=== PATIENT | female | born 1960 | race Caucasian/White ===

== ENCOUNTER 2017-05-31 13:31 | Inpatient (IN) | payer MEDICARE, OTHER ==
[~2017-05-31] VITALS: Ht 152.4 cm; Wt 48.6 kg
[2017-05-31] VITALS (10 sets, daily range): BP systolic 156–188; BP diastolic 65–98
[~2017-05-31 13:31] MED LIST: ALBU2.5V14 NEB; ALPR1TAB6 PO; AMOX1TAB61 PO; BUDE10.2 IH; CARI350T PO; CARI350T14 PO; CETI10CA PO; CETI10TA16 PO; DIPH25CA83 PO; GUAI600T47 PO; INSU100I13 SQ; INSU100I17 SQ; INSU100I27 SQ; INSU100V31 SQ; INSU100V8 SQ; IPRA3AMP IH; LAMO100T5 PO; LAMO200T2 PO; LAMO200T3 PO; LATA2.5D3 EACHEYE; LEVE250T30 PO; LEVE500T56 PO; LEVE500T6 PO; LIDO20SO PO; LISI-334 PO; LOPE1LIQ7 PO; LURA20TA PO; METO-269 PO; METO50TA29 PO; MOME110A2 IH; MUPI15CR TP; Nicotine TD; OMEP40CA5 PO; OXYC-317 PO; OXYC1TAB9 PO; POTA10TA31 PO; PREG75CA PO; PROAIR HFA8.5 GM IH; PROAIR HFA8.5 GM INH; PROM118S2 PO; SILV20CR14 TP; VENTOLIN HFA18 GM IH
--- NOTE | 2017-05-31 13:35 | PHYS DOC ---
Past Medical History Past Medical History: Unknown Additional Past Medical Histor: CHRONIC BACK PAIN Past Surgical History: Other Additional Past Surgical Histo: BACK Alcohol Use: Occasionally Drug Use: None Adult General Chief Complaint Chief Complaint: seizure/overdose HPI HPI Patient is a 56 year old female who presents with overdose. According to family 37 tablets of her Benadryl are missing and 10 tablets of Tylenol. Patient is unresponsive. Review of Systems Review of Systems Unable to obtain at this time secondary to patient's current condition Current Medications Current Medications Current Medications Medications (Trade) Dose Ordered Sig/Rosemary Start Time Stop Time Status Last Admin Dose Admin Etomidate (Amidate) 20 mg 1X ONCE 05/31/17 15:00 05/31/17 15:01 DC 05/31/17 14:54 20 MG Lorazepam (Ativan) 1 mg 1X ONCE 05/31/17 15:00 05/31/17 15:01 DC 05/31/17 14:50 1 MG Propofol 50 ml @ As Directed STK-MED ONCE 05/31/17 15:19 05/31/17 15:20 DC Propofol (Diprivan) 200,000 mg 1X ONCE 05/31/17 15:00 05/31/17 15:03 DC 05/31/17 15:17 200 MG Sodium Bicarbonate 50 meq 1X ONCE 05/31/17 14:30 05/31/17 14:32 DC 05/31/17 14:44 50 MEQ Sodium Chloride 1,000 ml @ 1,000 mls/hr 1X ONCE 05/31/17 14:45 05/31/17 15:44 DC 05/31/17 14:44 1,000 MLS/HR Succinylcholine Chloride (Anectine) 100 mg 1X ONCE 05/31/17 15:00 05/31/17 15:01 DC 05/31/17 14:54 100 MG Allergies Allergies Allergies Coded Allergies Type Severity Reaction Last Updated Verified Estrogens Allergy Intermediate 09/14/15 Yes aspirin Allergy Intermediate ITCHING, VOMITING 11/21/14 Yes ibuprofen Allergy Intermediate 09/14/15 Yes Physical Exam Physical Exam Constitutional: Well developed, cachectic appearing, no acute distress, non- toxic appearance. [] HENT: Normocephalic, atraumatic, bilateral external ears normal, oropharynx moist, no oral exudates, nose normal. [] Eyes: Conjunctiva normal, no discharge. Pupils are active bilaterally to light Neck: Supple, no stridor. [] Cardiovascular:Heart rate regular rhythm, no murmur [] Lungs & Thorax: Bilateral breath sounds clear to auscultation [] Abdomen: Bowel sounds normal, soft, no tenderness, no masses, no pulsatile masses. [] Skin: Warm, dry, no erythema, no rash. [] Back: No tenderness, no CVA tenderness. [] Extremities: No tenderness, no cyanosis, no clubbing, ROM intact, no edema. [] Neurologic: Unresponsive Psychologic: Unable to obtain at this time Current Patient Data Vital Signs Vital Signs Date Time Temp Pulse Resp B/P (MAP) Pulse Ox O2 Delivery O2 Flow Rate FiO2 05/31/17 15:39 98 25 174/80 (111) 93 Ventilator 05/31/17 14:49 15.0 05/31/17 13:32 98.0 98.0 Lab Values Laboratory Tests Test 05/31/17 13:42 05/31/17 13:49 O2 Saturation 97 % (92-99) Arterial Blood pH 7.16 (7.35-7.45) *L Arterial Blood pCO2 at Patient Temp 51 mmHg (35-46) H Arterial Blood pO2 at Patient Temp 133 mmHg (75-108) H Arterial Blood HCO3 18 mmol/L (21-28) L Arterial Blood Base Excess -11 mmol/L (-3-3) L Oxyhemoglobin 95.3 % Methemoglobin 0.6 % (0.0-1.9) Carbon Monoxide, Quantitative 1.6 % (0.0-1.9) FiO2 100.0 White Blood Count 14.3 x10^3/uL (4.0-11.0) H Red Blood Count 4.33 x10^6/uL (3.50-5.40) Hemoglobin 12.5 g/dL (12.0-15.5) Hematocrit 39.1 % (36.0-47.0) Mean Corpuscular Volume 90 fL (79-100) Mean Corpuscular Hemoglobin 29 pg (25-35) Mean Corpuscular Hemoglobin Concent 32 g/dL (31-37) Red Cell Distribution Width 14.7 % (11.5-14.5) H Platelet Count 303 x10^3/uL (140-400) Neutrophils (%) (Auto) 54 % (31-73) Lymphocytes (%) (Auto) 36 % (24-48) Monocytes (%) (Auto) 8 % (0-9) Eosinophils (%) (Auto) 1 % (0-3) Basophils (%) (Auto) 1 % (0-3) Neutrophils # (Auto) 7.8 x10^3uL (1.8-7.7) H Lymphocytes # (Auto) 5.1 x10^3/uL (1.0-4.8) H Monocytes # (Auto) 1.1 x10^3/uL (0.0-1.1) Eosinophils # (Auto) 0.2 x10^3/uL (0.0-0.7) Basophils # (Auto) 0.1 x10^3/uL (0.0-0.2) Prothrombin Time 13.3 SEC (11.7-14.0) Prothrombin Time INR 1.1 (0.8-1.1) PTT 27 SEC (24-38) Urine Collection Type Unknown Urine Color Yellow Urine Clarity Clear Urine pH 5.0 Urine Specific [place] >=1.030 Urine Protein 30 mg/dL (NEG-TRACE) Urine Glucose (UA) >=1000 mg/dL (NEG) Urine Ketones (Stick) Negative mg/dL (NEG) Urine Blood Negative (NEG) Urine Nitrite Negative (NEG) Urine Bilirubin Negative (NEG) Urine Urobilinogen Dipstick 0.2 mg/dL (0.2 mg/dL) Urine Leukocyte Esterase Negative (NEG) Urine RBC 1-2 /HPF (0-2) Urine WBC Rare /HPF (0-4) Urine Squamous Epithelial Cells Mod /LPF Urine Bacteria 0 /HPF (0-FEW) Urine Hyaline Casts Few /HPF Urine Mucus Slight /LPF Sodium Level 142 mmol/L (136-145) Potassium Level 3.8 mmol/L (3.5-5.1) Chloride Level 102 mmol/L (98-107) Carbon Dioxide Level 19 mmol/L (21-32) L Anion Gap 21 (6-14) H Blood Urea Nitrogen 11 mg/dL (7-20) Creatinine 1.1 mg/dL (0.6-1.0) H Estimated GFR (Cockcroft-Gault) 51.0 Glucose Level 453 mg/dL (70-99) H Lactic Acid Level 13.4 mmol/L (0.4-2.0) *H Calcium Level 8.9 mg/dL (8.5-10.1) Magnesium Level 1.7 mg/dL (1.8-2.4) L Total Bilirubin 0.2 mg/dL (0.2-1.0) Direct Bilirubin 0.1 mg/dL (0.0-0.2) Aspartate Amino Transferase (AST) 15 U/L (15-37) Alanine Aminotransferase (ALT) 17 U/L (14-59) Alkaline Phosphatase 104 U/L (46-116) Ammonia 40 mcmol/L (11-34) H Creatine Kinase 73 U/L (26-192) Troponin I Quantitative < 0.017 ng/mL (0.000-0.055) Total Protein 6.8 g/dL (6.4-8.2) Albumin 3.7 g/dL (3.4-5.0) Lipase 266 U/L (73-393) Thyroid Stimulating Hormone (TSH) 2.969 uIU/mL (0.358-3.74) Salicylates Level 4.3 mg/dL (2.8-20.0) Salicylate Last Dose Date Unknown Salicylate Last Dose Time Unknown Urine Opiates Screen Pos (NEG) Urine Methadone Screen Neg (NEG) Acetaminophen Level 63.4 mcg/ml (10-30) H Acetaminophen Last Dose Date Unknown Acetaminophen Last Dose Time Unknown Urine Barbiturates Neg (NEG) Urine Phencyclidine Screen Neg (NEG) Urine Amphetamine/Methamphetamine Neg (NEG) Urine Benzodiazepines Screen Neg (NEG) Urine Cocaine Screen Neg (NEG) Urine Cannabinoids Screen Neg (NEG) Ethyl Alcohol Level < 10 mg/dL (0-10) Urine Ethyl Alcohol Neg (NEG) Laboratory Tests 05/31/17 13:49 Laboratory Tests 05/31/17 13:49 EKG EKG KG shows sinus tachycardia [address] elevations or concerning T- wave inversions, normal axis, QTC 481 ms, QRS 82 ms, as interpreted by me. Radiology/Procedures Radiology/Procedures [facility] [address] [place] [address] IMAGING REPORT Signed PATIENT: SUNDEEP ROSALES ACCOUNT: [id number] : 1960 LOCATION: ER AGE: 56 SEX: F EXAM STATUS: REG ER ORD. PHYSICIAN: RUDDY ODELL MD REASON: AMS PROCEDURE: CT HEAD WO CONTRAST EXAM: CT head without contrast HISTORY: ALTERED MENTAL STATUS COMPARISON: April 25, 2016 TECHNIQUE: Computed tomographic images of the head were obtained without contrast. RS compliance statement: One or more of the following individualized dose reduction techniques were utilized for this examination: 1. Automated exposure control 2. Adjustment of the mA and/or kV according to patient size 3. Use of iterative reconstruction technique FINDINGS: There is no acute intracranial process identified. Specifically, there are no intracranial blood products, extra-axial fluid collections, mass effect or midline shift. Ventricles and basilar cisterns are maintained. Areas of low attenuation within the right frontoparietal and left occipital lobes are redemonstrated, suggestive of encephalomalacia from prior insult/infarct. These appear unchanged from the previous exam. No definite new areas of low attenuation are seen to suggest acute ischemia. Intracranial vascular calcifications are present. The visualized portions of the orbits, paranasal sinuses and mastoid air cells are unremarkable. No suspicious calvarial lesion is seen. IMPRESSION: No acute intracranial findings or change from prior exam. Areas of them cephalomalacia redemonstrated. Electronically signed by: Anika Han MD (05/31/2017 3:23 PM) [facility] [place] [facility] [place]CTATED and SIGNED BY: ANIKA HAN MD DATE: 05/31/17 1520 CC: RUDDY ODELL MD; NAVEED HAWTHORNE MD ~ View chest x-ray shows ET tube in the right mainstem bronchus with atelectasis of the left hemithorax, no bony abnormalities noted, as interpreted by me. Repeat one view chest x-ray shows ET tube above the zoraida with aeration of both hemithorax is, no pneumothorax or bony abnormalities appreciated, as interpreted by me. Impressions: Benadryl overdose Tylenol overdose Metabolic acidosis with respiratory acidosis Seizure disorder Insulin-dependent diabetic Course & Med Decision Making Course & Med Decision Making Pertinent Labs and Imaging studies reviewed. (See chart for details) She presented shortly after upon arrival she had a seizure only lasted 30 seconds and resolved on its own. She sees to additional more times in the department. Each time after that she received 1 mg Ativan. I spoke with poison control who wanted 2 A of bicarbonate to be given secondary to the history of the amount of Benadryl she's consumed based on her body weight. At this time they wanted to wait to see what her Tylenol level wasn't repeated at 4 hours before starting NAC. ABG shows metabolic acidosis with respiratory acidosis. She was on a nonrebreather and she's being intubated in order to help control her acidosis and protect her airway. She never was able to communicate or respond appropriately and the ER. She started on a propofol drip. I spoke with Dr. Valencia who recommended starting Keppra 500 mg IV. Poison control also wanting to 15 minute EKGs to follow her QTC and QRS complexes based on Benadryl overdose. She's being admitted to Dr. Grider. Chest x-ray shows right mainstem bronchus intubation ET tube was pulled back 4 cm and a repeat x-ray was performed. ABG was also performed that shows normalization of her pH and PCO2. Spoke with Dr. Vega who recommends the rate decreased down to 18. Poison control was updated and they recommended starting NAC at this time. She is in critical condition being transferred the ICU at this time. I did speak with Dr. franz with Dr. Hawthorne, who states he released the patient from his practice. Critical care time on this patient was 75 minutes excluding procedures. Dragon Disclaimer Dragon Disclaimer This electronic medical record was generated, in whole or in part, using a voice recognition dictation system. Departure Departure Impression: Primary Impression: Mental status change Disposition: 09 ADMITTED INPATIENT Admitting Physician: Danial Grider Condition: CRITICAL Referrals: NAVEED HAWTHORNE MD (PCP) Intubation Procedure Intubation Procedure Intub Indication: Respiratory failure Consent: Unable to give consent due to emergent nature. Medications Used: see nursing note Procedure: The patient was placed in the appropriate position. Intubation was performed checked was a 7.0 endotracheal tube. 22 cm at the teeth. Initial confirmation of placement included bilateral breath sounds, tube fogging, adequate chest rise, adequate pulse oximetry reading. A chest x-ray to verify correct placement of the tube showed appropriate tube position. The patient tolerated the procedure well. Complications: none. Problem Qualifiers Primary Impression: Mental status change Altered mental status type: unspecified Qualified Codes: R41.82 - Altered mental status, unspecified RUDDY ODELL MD May 31, 2017 13:35
[2017-05-31] MEDS ORDERED: IV NORMAL SALINE 1000ML BAG 1,000 ML IV SCH (13:36)
[2017-05-31 14:03] LABS: BASO # 0.1 x10^3/uL (0.0-0.2); BASO % 1 % (0-3); EOS % 1 % (0-3); HEMATOCRIT 39.1 % (36.0-47.0); HEMOGLOBIN 12.5 g/dL (12.0-15.5); LYMPH # 5.1 x10^3/uL (1.0-4.8); LYMPH % 36 % (24-48); MEAN CORPUSCULAR HEMOGLOBIN 29 pg (25-35); MEAN CORPUSCULAR HGB CONC 32 g/dL (31-37); MEAN CORPUSCULAR VOLUME 90 fL (79-100); MONO % 8 % (0-9); NEUT % 54 % (31-73); PLATELET COUNT 303 x10^3/uL (140-400); RED BLOOD COUNT 4.33 x10^6/uL (3.50-5.40); RED CELL DISTRIBUTION WIDTH 14.7 % (11.5-14.5); WHITE BLOOD COUNT 14.3 x10^3/uL (4.0-11.0)
[2017-05-31 14:05] LABS: BILIRUBIN,URINE NEGATIVE (NEG); GLUCOSE,URINE >=1000 mg/dL (NEG); NITRITE,URINE NEGATIVE (NEG); PROTEIN,URINE 30 mg/dL (NEG-TRACE); UROBILINOGEN,URINE 0.2 mg/dL (0.2 mg/dL)
[2017-05-31 14:06] LABS: BARBITURATES NEG (NEG); BENZODIAZEPINES NEG (NEG); CANNABINOIDS NEG (NEG); COCAINE NEG (NEG); METHADONE NEG (NEG); OPIATES POS (NEG); PHENCYCLIDINE NEG (NEG)
[2017-05-31 14:13] LABS: INR 1.1 (0.8-1.1); PROTHROMBIN TIME PATIENT 13.3 SEC (11.7-14.0)
[2017-05-31 14:17] LABS: CALCIUM 8.9 mg/dL (8.5-10.1); CREATININE 1.1 mg/dL (0.6-1.0); POTASSIUM 3.8 mmol/L (3.5-5.1)
[2017-05-31 14:22] LABS: BASE EXCESS COOX -11 mmol/L (-3-3); CARBON MONOXIDE 1.6 % (0.0-1.9); HCO3 COOX 18 mmol/L (21-28); METHEMOGLOBIN 0.6 % (0.0-1.9); OXYHEMOGLOBIN 95.3 %; PCO2 COOX 51 mmHg (35-46); PO2 COOX 133 mmHg (75-108); SAT O2 COOX 97 % (92-99); TOTAL HEMOGLOBIN 12.6 g/dL
[2017-05-31 14:23] LABS: ALBUMIN 3.7 g/dL (3.4-5.0); DIRECT BILIRUBIN 0.1 mg/dL (0.0-0.2); MAGNESIUM 1.7 mg/dL (1.8-2.4); TOTAL BILIRUBIN 0.2 mg/dL (0.2-1.0); TOTAL PROTEIN 6.8 g/dL (6.4-8.2)
[2017-05-31 14:25] LABS: BACTERIA,URINE 0 /HPF (0-FEW); SQUAMOUS EPITHELIAL CELL,UR MOD /LPF; WBC,URINE RARE /HPF (0-4)
[2017-05-31] MEDS ORDERED: SODIUM BICARB ADULT 8.4% 50 MEQ/50 ML DISP.SYRIN. IV ONE ×2 (14:30)
[2017-05-31] MEDS ORDERED: IV NORMAL SALINE 1000ML BAG 1,000 ML IV ONE ×2 (14:45→16:15)
[2017-05-31] MEDS ORDERED: PROPOFOL 10 MG/ML (20ML) VIAL. IV ONE ×2 (15:00)
[2017-05-31] MEDS ORDERED: ETOMIDATE 20 MG/10 ML VIAL. IV ONE (15:00)
[2017-05-31] MEDS ORDERED: SUCCINYLCHOLINE 200 MG/10 ML VIAL. IV ONE (15:00)
[2017-05-31] MEDS ORDERED: PROPOFOL 50 ML IV ONE ×2 (15:19→15:45)
--- NOTE | 2017-05-31 15:27 | RAD ---
EXAM: CT head without contrast HISTORY: ALTERED MENTAL STATUS COMPARISON: April 25, 2016 TECHNIQUE: Computed tomographic images of the head were obtained without contrast. RS compliance statement: One or more of the following individualized dose reduction techniques were utilized for this examination: 1. Automated exposure control 2. Adjustment of the mA and/or kV according to patient size 3. Use of iterative reconstruction technique FINDINGS: There is no acute intracranial process identified. Specifically, there are no intracranial blood products, extra-axial fluid collections, mass effect or midline shift. Ventricles and basilar cisterns are maintained. Areas of low attenuation within the right frontoparietal and left occipital lobes are redemonstrated, suggestive of encephalomalacia from prior insult/infarct. These appear unchanged from the previous exam. No definite new areas of low attenuation are seen to suggest acute ischemia. Intracranial vascular calcifications are present. The visualized portions of the orbits, paranasal sinuses and mastoid air cells are unremarkable. No suspicious calvarial lesion is seen. IMPRESSION: No acute intracranial findings or change from prior exam. Areas of them cephalomalacia redemonstrated. Electronically signed by: Promise Han MD (05/31/2017 3:23 PM) [facility] [place]
[2017-05-31 15:29] LABS: PH COOX 7.16 (7.35-7.45)
[2017-05-31 15:45] LABS: HCO3 ABG 27 mmol/L (21-28); PCO2 ABG 45 mmHg (35-46); PO2 ABG 56 mmHg (75-108); SAT O2 ABG 89 % (92-99)
[2017-05-31] MEDS ORDERED: SODIUM BICARB ADULT 8.4% 50 MEQ/50 ML DISP.SYRIN. IV PRN (17:00)
[2017-05-31] MEDS ORDERED: DEXTROSE 5% IV ONE ×3 (17:30→22:30)
[2017-05-31] MEDS ORDERED: ACETYLCYSTEINE IV ONE ×3 (17:30→22:30)
[2017-05-31] MEDS: PROPOFOL 100 ML IV PRN ×2 (17:38→23:57)
[2017-05-31] MEDS: IV NORMAL SALINE 1000ML BAG 1,000 ML IV SCH ×2 (17:48→23:01)
--- NOTE | 2017-05-31 18:13 | EKG ---
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 RI6.01 Compared to ECG 04/25/2016 10:52:17 Sinus tachycardia no longer present Electronically Signed On 06-18-2017 13:23:33 CDT by Vincenzo Sheth
[2017-05-31 18:31] LABS: INR 1.2 (0.8-1.1); PROTHROMBIN TIME PATIENT 14.7 SEC (11.7-14.0)
[2017-05-31 18:32] LABS: ALBUMIN 2.7 g/dL (3.4-5.0); CALCIUM 7.3 mg/dL (8.5-10.1); CREATININE 0.7 mg/dL (0.6-1.0); DIRECT BILIRUBIN 0.1 mg/dL (0.0-0.2); GFR 85.9; TOTAL BILIRUBIN 0.4 mg/dL (0.2-1.0); TOTAL PROTEIN 5.5 g/dL (6.4-8.2)
[2017-05-31] MEDS ORDERED: INSULIN ASPART 300 UNITS/3 ML INSULN.PEN SQ ONE (19:30)
[2017-05-31] MEDS ORDERED: DEXTROSE 50% 25 GM / 50ML DISP.SYRIN. IV PRN (20:15)
--- NOTE | 2017-05-31 20:17 | EKG ---
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 RI6.01 Compared to ECG 04/25/2016 10:52:17 Sinus tachycardia no longer present Electronically Signed On 06-18-2017 13:24:29 CDT by Vincenzo Sheth
--- NOTE | 2017-05-31 20:35 | HP ---
ADMIT DATE: 05/31/2017 CHIEF COMPLAINT: Seizures and overdose. HISTORY OF PRESENT ILLNESS: The patient is a pleasant 56-year-old female who has chronic back pain. Basically, also has epilepsy. She is on Keppra. Apparently, she has had a seizure at home. When the EMS got there, she had another seizure. When she got to the ER, she had 3 seizures. The family then notified the ER doctor that she took 37 Benadryl and 10 Tylenol. We consulted the Poison Control Center. We have now placed her on N-acetylcysteine drip and IV Keppra. She is going to the ICU. PAST MEDICAL HISTORY: Depression and anxiety, seizures. ALLERGIES: None. FAMILY HISTORY: Diabetes. SOCIAL HISTORY: She does not drink, smoke or take drugs. MEDICATIONS: Reviewed. REVIEW OF SYSTEMS: Unobtainable, the patient is on the vent. PHYSICAL EXAMINATION: VITAL SIGNS: Temperature afebrile, pulse 92, respirations 18, blood pressure 180/90. GENERAL: She is on the vent, settings of assist control, 18 respirations per minute, 450 tidal volume, with 100% oxygen. HEART: Normal S1, S2. LUNGS: Clear. ABDOMEN: Soft. EXTREMITIES: No edema. SKIN: No rashes. ENDOCRINE: No thyromegaly. LYMPHATICS: No cervical nodes. HEMATOPOIETIC: No bruising. ASSESSMENT AND PLAN: Seizures and respiratory failure and possible suicide attempt. The patient has been admitted. We have consulted Poison Control. We have given IV N-acetylcysteine and IV Keppra. Consult Neurology. Try to wean her off the vent. We have consulted Pulmonary. PROGNOSIS: Guarded. ROVERTO SHEFFIELD DO DR: NATALIE/isidro JOB#: [id number] / [id number]
[2017-05-31] MEDS: POTASSIUM CHLORIDE 10MEQ 100 ML IV SCH ×4 (20:45→23:49)
[2017-05-31] MEDS: LABETALOL 20 MG/4 ML DISP.SYRIN. IVP PRN (20:48)
--- NOTE | 2017-05-31 22:19 | EKG ---
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 RI6.01 Compared to ECG 04/25/2016 10:52:17 Sinus tachycardia no longer present Electronically Signed On 06-18-2017 13:25:46 CDT by Vincenzo Sheth
--- NOTE | 2017-05-31 23:46 | CONS ---
DATE OF CONSULTATION: ATTENDING PHYSICIAN: Danial Grider DO REASON FOR CONSULTATION: Respiratory failure, drug overdose. HISTORY OF PRESENT ILLNESS: The patient is a 56-year-old female who has a history of seizure disorder, history of chronic back pain and also history of tobacco use. She was brought into the hospital with altered mental status after reportedly she took 37 tablets of Benadryl and also 10 tablets of Tylenol. She had witnessed seizures in the ER. Her arterial blood gases initially revealed a pH of 7.16, pCO2 of 51 and a pO2 of 113 with a bicarb of 18. This was consistent with metabolic and respiratory acidosis. As a result, she was intubated. Subsequently, her ABGs have shown a pH of 7.40, pCO2 of 45, pO2 of 56. She is currently sedated with propofol. She is also receiving n-acetylcysteine doses. The patient did have a chest x-ray, which revealed infiltrate versus atelectasis involving the left lower lobe, as a result empiric antibiotic was initiated. PAST MEDICAL HISTORY: History of seizure disorder, history of chronic back pain, history of tobacco use, possible COPD. PAST SURGICAL HISTORY: No recent surgeries or unknown. ALLERGIES: ESTROGEN, ASPIRIN AND IBUPROFEN. MEDICATIONS: Reviewed as listed in the MRAD. REVIEW OF SYSTEMS: Unable to obtain as the patient is on the ventilator. SOCIAL HISTORY: History of tobacco use. PHYSICAL EXAMINATION: VITAL SIGNS: Blood pressure of 156/65, afebrile, pulse ox is 100% on 70% FiO2. HEENT: Sclerae nonicteric. NECK: Supple. LUNGS: Clear. CARDIOVASCULAR: Regular rate and rhythm. ABDOMEN: Soft, nontender. EXTREMITIES: With no pitting edema. LABORATORY DATA: Reviewed. ABGs were discussed in my history of present illness. BUN is 9, creatinine 0.7. Lactic acid is 1.2, initially was 13.4. BUN 11, creatinine 1.1. Toxicology screen with an acetaminophen level of 63, which is down to 25. Alcohol level less than 10. IMPRESSION: 1. Acute hypercapnic respiratory failure secondary to multifactorial etiologies including a combination of Benadryl and acetaminophen overdose, acute toxic encephalopathy and seizure disorder. 2. Acute seizures, presenting as a metabolic encephalopathy. 3. Acute drug overdose including Benadryl and Tylenol. 4. Anion gap metabolic acidosis/lactic acidosis secondary to seizure and unlikely sepsis. 5. Abnormal chest x-ray with left lower lobe atelectasis versus infiltrate. We will empirically cover for aspiration. 6. History of tobacco use. 7. Narcotic dependent with opiates positive on the drug screen. RECOMMENDATIONS: 1. Continue with present assist control mode and make necessary adjustments based on ABGs. 2. We will assess her mental status in next 24 hours. 3. N-acetylcysteine per protocol. 4. Bronchodilators. 5. DVT prophylaxis. 6. Stress ulcer prophylaxis. 7. She will need psychiatric evaluation upon extubation. 8. Empiric antibiotic has been initiated and we will follow chest x-ray. 9. Discussed with RN and we will follow along with you. Discussed with the ER physician initially as well. cct 35 min SURAJ GARCIA MD DR: KIARRA/isidro JOB#: [id number] / [id number] LINA
[2017-05-31] MEDS: INSULIN ASPART 300 UNITS/3 ML INSULN.PEN SQ SCH (23:52)
[2017-05-31] MEDS: ENOXAPARIN 40 MG/0.4 ML SYRINGE. SQ SCH (23:55)
[2017-06-01] VITALS (24 sets, daily range): BP systolic 91–186; BP diastolic 49–86
[2017-06-01] MEDS: INSULIN ASPART 300 UNITS/3 ML INSULN.PEN SQ SCH ×3 (06:04→17:00)
[2017-06-01] MEDS: IV NORMAL SALINE 1000ML BAG 1,000 ML IV SCH ×2 (06:24→16:56)
[2017-06-01 06:26] LABS: CREATININE 0.5 mg/dL (0.6-1.0); GFR 126.7
[2017-06-01 06:31] LABS: CALCIUM 5.8 mg/dL (8.5-10.1); POTASSIUM 2.5 mmol/L (3.5-5.1)
[2017-06-01] MEDS ORDERED: CALCIUM GLUCONATE 1,000 MG in IV NORMAL SALINE 100ML 100 ML IV ONE ×2 (07:00→11:15)
[2017-06-01] MEDS: POTASSIUM CHLORIDE 10MEQ 100 ML IV SCH ×4 (07:06→10:19)
[2017-06-01 08:47] LABS: FIO2 ABG 40; HCO3 ABG 23 mmol/L (21-28); PCO2 ABG 30 mmHg (35-46); PO2 ABG 126 mmHg (75-108); SAT O2 ABG 98 % (92-99)
--- NOTE | 2017-06-01 09:00 | RAD ---
AP chest. History: Repositioning endotracheal tube AP view was taken of the chest. Endotracheal tube is in good position. NG tube extends into the stomach. There is been improvement in atelectasis of the left lung with mild residual lower lobe atelectasis. Impression: 1. Endotracheal tube in good position. 2. Interval improvement in left lung atelectasis with mild residual atelectasis in the lower lobe.
--- NOTE | 2017-06-01 09:01 | RAD ---
AP chest. History: Overdose, history of seizure disorder, intubated AP view was taken of the chest. Endotracheal tube is in the right mainstem bronchus. NG tube extends into the stomach. There is atelectasis of the left lung. Follow-up showed repositioning of the tube. Impression: 1. Endotracheal tube in the right mainstem bronchus. 2. Atelectasis left lung.
[2017-06-01] MEDS ORDERED: DEXTROSE 50% 25 GM / 50ML DISP.SYRIN. IV PRN (09:30)
[2017-06-01] MEDS ORDERED: ONDANSETRON PF 4 MG/2 ML VIAL. IV PRN (09:30)
[2017-06-01] MEDS ORDERED: MAGNESIUM SULFATE 2GM 50 ML IV ONE (10:00)
[2017-06-01] MEDS ORDERED: POTASSIUM CHLORIDE 20 MEQ/15 ML ORAL LIQUID. PEG ONE ×2 (10:00→15:00)
[2017-06-01] MEDS ORDERED: INSULIN ASPART 300 UNITS/3 ML INSULN.PEN SQ ONE (10:00)
[2017-06-01] MEDS: PROPOFOL 100 ML IV PRN ×2 (10:01→17:17)
--- NOTE | 2017-06-01 10:03 | EKG ---
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 RI6.01 Unconfirmed report Compared to ECG 04/25/2016 10:52:17 No significant changes Electronically Signed On 06-18-2017 13:18:05 CDT by Vincenzo Sheth
--- NOTE | 2017-06-01 10:05 | EKG ---
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
--- NOTE | 2017-06-01 10:05 | EKG ---
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
--- NOTE | 2017-06-01 10:05 | EKG ---
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 RI6.01 Unconfirmed report Compared to ECG 04/25/2016 10:52:17 No significant changes Electronically Signed On 06-18-2017 13:18:33 CDT by Vincenzo Sheth
--- NOTE | 2017-06-01 10:06 | EKG ---
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
--- NOTE | 2017-06-01 10:06 | EKG ---
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
--- NOTE | 2017-06-01 10:06 | EKG ---
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 RI6.01 Unconfirmed report Electronically Signed On 06-18-2017 13:20:28 CDT by Vincenzo Sheth
--- NOTE | 2017-06-01 10:07 | EKG ---
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 RI6.01 Unconfirmed report Compared to ECG 04/25/2016 10:52:17 Sinus tachycardia no longer present Electronically Signed On 06-18-2017 13:21:04 CDT by Vincenzo Sheth
--- NOTE | 2017-06-01 10:07 | EKG ---
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
[2017-06-01 10:15] LABS: BASO # 0.1 x10^3/uL (0.0-0.2); BASO % 0 % (0-3); EOS % 0 % (0-3); HEMATOCRIT 32.8 % (36.0-47.0); HEMOGLOBIN 10.6 g/dL (12.0-15.5); LYMPH # 1.9 x10^3/uL (1.0-4.8); LYMPH % 11 % (24-48); MEAN CORPUSCULAR HEMOGLOBIN 29 pg (25-35); MEAN CORPUSCULAR HGB CONC 32 g/dL (31-37); MEAN CORPUSCULAR VOLUME 89 fL (79-100); MONO % 5 % (0-9); NEUT % 84 % (31-73); PLATELET COUNT 190 x10^3/uL (140-400); RED BLOOD COUNT 3.68 x10^6/uL (3.50-5.40); RED CELL DISTRIBUTION WIDTH 15.3 % (11.5-14.5); WHITE BLOOD COUNT 17.3 x10^3/uL (4.0-11.0)
--- NOTE | 2017-06-01 11:05 | PDOC ---
PROGRESS NOTES Chief Complaint Chief Complaint 1. Acute respiratory failure on IPPV sec to acute toxic enceph from intentional Drug OD 2. SUicide intent - OD tylenol x 10 and benadryl PO x 37 pills 3. Hx SZ d/o with active SZ POA 4. Fevers 5. SIRS POA< no sepsis no organ dysfcn 6. CRitical HYpocalcemia in the background of mild to mod hypoalbuminemia 7. MIld to mod PCM 8. HYpokalemia 9. SMOker, hx back pain History of Present Illness History of Present Illness Intuabted, sedated Admission events noted ELytes noted Low albumin Ca 5.8 K low PLANL CHeck mag WOuld give another 1 gm CAlcium gluconate - corrected calcium still low Kcl another one 40 PER PEG - K is 2.9 and Kcl 40 IV might not be enough DVT prophy PPI Prophy Nutriton for TF Seen in ICU Dw PROCESS ARTIST CC 31 mins Vitals Vitals Vital Signs Date Time Temp Pulse Resp B/P (MAP) Pulse Ox O2 Delivery O2 Flow Rate FiO2 06/01/17 10:00 100 16 135/75 (95) 100 Ventilator 06/01/17 08:00 100.9 100.9 05/31/17 14:49 15.0 Physical Exam General: No acute distress Heart: Regular rate Lungs: Clear Abdomen: Normal bowel sounds Extremities: No clubbing, No cyanosis Skin: No rashes Labs LABS Laboratory Tests Test 05/31/17 13:42 05/31/17 13:49 05/31/17 15:45 05/31/17 18:00 O2 Saturation 97 % (92-99) 89 % (92-99) Arterial Blood pH 7.16 (7.35-7.45) 7.40 (7.35-7.45) Arterial Blood pCO2 at Patient Temp 51 mmHg (35-46) 45 mmHg (35-46) Arterial Blood pO2 at Patient Temp 133 mmHg (75-108) 56 mmHg (75-108) Arterial Blood HCO3 18 mmol/L (21-28) 27 mmol/L (21-28) Arterial Blood Base Excess -11 mmol/L (-3-3) 2 mmol/L (-3-3) Oxyhemoglobin 95.3 % Methemoglobin 0.6 % (0.0-1.9) Carbon Monoxide, Quantitative 1.6 % (0.0-1.9) FiO2 100.0 100.0 White Blood Count 14.3 x10^3/uL (4.0-11.0) Red Blood Count 4.33 x10^6/uL (3.50-5.40) Hemoglobin 12.5 g/dL (12.0-15.5) Hematocrit 39.1 % (36.0-47.0) Mean Corpuscular Volume 90 fL (79-100) Mean Corpuscular Hemoglobin 29 pg (25-35) Mean Corpuscular Hemoglobin Concent 32 g/dL (31-37) Red Cell Distribution Width 14.7 % (11.5-14.5) Platelet Count 303 x10^3/uL (140-400) Neutrophils (%) (Auto) 54 % (31-73) Lymphocytes (%) (Auto) 36 % (24-48) Monocytes (%) (Auto) 8 % (0-9) Eosinophils (%) (Auto) 1 % (0-3) Basophils (%) (Auto) 1 % (0-3) Neutrophils # (Auto) 7.8 x10^3uL (1.8-7.7) Lymphocytes # (Auto) 5.1 x10^3/uL (1.0-4.8) Monocytes # (Auto) 1.1 x10^3/uL (0.0-1.1) Eosinophils # (Auto) 0.2 x10^3/uL (0.0-0.7) Basophils # (Auto) 0.1 x10^3/uL (0.0-0.2) Prothrombin Time 13.3 SEC (11.7-14.0) 14.7 SEC (11.7-14.0) Prothromb Time International Ratio 1.1 (0.8-1.1) 1.2 (0.8-1.1) Activated Partial Thromboplast Time 27 SEC (24-38) Urine Collection Type Unknown Urine Color Yellow Urine Clarity Clear Urine pH 5.0 Urine Specific Jennings >=1.030 Urine Protein 30 mg/dL (NEG-TRACE) Urine Glucose (UA) >=1000 mg/dL (NEG) Urine Ketones (Stick) Negative mg/dL (NEG) Urine Blood Negative (NEG) Urine Nitrite Negative (NEG) Urine Bilirubin Negative (NEG) Urine Urobilinogen Dipstick 0.2 mg/dL (0.2 mg/dL) Urine Leukocyte Esterase Negative (NEG) Urine RBC 1-2 /HPF (0-2) Urine WBC Rare /HPF (0-4) Urine Squamous Epithelial Cells Mod /LPF Urine Bacteria 0 /HPF (0-FEW) Urine Hyaline Casts Few /HPF Urine Mucus Slight /LPF Sodium Level 142 mmol/L (136-145) 144 mmol/L (136-145) Potassium Level 3.8 mmol/L (3.5-5.1) 3.0 mmol/L (3.5-5.1) Chloride Level 102 mmol/L (98-107) 107 mmol/L (98-107) Carbon Dioxide Level 19 mmol/L (21-32) 30 mmol/L (21-32) Anion Gap 21 (6-14) 7 (6-14) Blood Urea Nitrogen 11 mg/dL (7-20) 9 mg/dL (7-20) Creatinine 1.1 mg/dL (0.6-1.0) 0.7 mg/dL (0.6-1.0) Estimated GFR (Cockcroft-Gault) 51.0 85.9 Glucose Level 453 mg/dL (70-99) 354 mg/dL (70-99) Lactic Acid Level 13.4 mmol/L (0.4-2.0) 1.2 mmol/L (0.4-2.0) Calcium Level 8.9 mg/dL (8.5-10.1) 7.3 mg/dL (8.5-10.1) Magnesium Level 1.7 mg/dL (1.8-2.4) Total Bilirubin 0.2 mg/dL (0.2-1.0) 0.4 mg/dL (0.2-1.0) Direct Bilirubin 0.1 mg/dL (0.0-0.2) 0.1 mg/dL (0.0-0.2) Aspartate Amino Transf (AST/SGOT) 15 U/L (15-37) 67 U/L (15-37) Alanine Aminotransferase (ALT/SGPT) 17 U/L (14-59) 41 U/L (14-59) Alkaline Phosphatase 104 U/L (46-116) 87 U/L (46-116) Ammonia 40 mcmol/L (11-34) Creatine Kinase 73 U/L (26-192) Troponin I Quantitative < 0.017 ng/mL (0.000-0.055) Total Protein 6.8 g/dL (6.4-8.2) 5.5 g/dL (6.4-8.2) Albumin 3.7 g/dL (3.4-5.0) 2.7 g/dL (3.4-5.0) Lipase 266 U/L (73-393) Thyroid Stimulating Hormone (TSH) 2.969 uIU/mL (0.358-3.74) Salicylates Level 4.3 mg/dL (2.8-20.0) Salicylate Last Dose Date Unknown Salicylate Last Dose Time Unknown Urine Opiates Screen Pos (NEG) Urine Methadone Screen Neg (NEG) Acetaminophen Level 63.4 mcg/ml (10-30) 25.70 mcg/ml (10-30) Acetaminophen Last Dose Date Unknown Acetaminophen Last Dose Time Unknown Urine Barbiturates Neg (NEG) Urine Phencyclidine Screen Neg (NEG) Urine Amphetamine/Methamphetamine Neg (NEG) Urine Benzodiazepines Screen Neg (NEG) Urine Cocaine Screen Neg (NEG) Urine Cannabinoids Screen Neg (NEG) Ethyl Alcohol Level < 10 mg/dL (0-10) Urine Ethyl Alcohol Neg (NEG) BUN/Creatinine Ratio 13 (6-20) Albumin/Globulin Ratio 1.0 (1.0-1.7) Test 05/31/17 19:30 05/31/17 23:51 06/01/17 05:40 06/01/17 06:01 Glucose (Fingerstick) 324 mg/dL (70-99) 196 mg/dL (70-99) 297 mg/dL (70-99) Sodium Level 141 mmol/L (136-145) Potassium Level 2.5 mmol/L (3.5-5.1) Chloride Level 111 mmol/L (98-107) Carbon Dioxide Level 21 mmol/L (21-32) Anion Gap 9 (6-14) Blood Urea Nitrogen 6 mg/dL (7-20) Creatinine 0.5 mg/dL (0.6-1.0) Estimated GFR (Cockcroft-Gault) 126.7 Glucose Level 242 mg/dL (70-99) Calcium Level 5.8 mg/dL (8.5-10.1) Test 06/01/17 08:06 06/01/17 09:40 10/1/17 10:15 O2 Saturation 98 % (92-99) Arterial Blood pH 7.50 (7.35-7.45) Arterial Blood pCO2 at Patient Temp 30 mmHg (35-46) Arterial Blood pO2 at Patient Temp 126 mmHg (75-108) Arterial Blood HCO3 23 mmol/L (21-28) Arterial Blood Base Excess 1 mmol/L (-3-3) FiO2 40 White Blood Count 17.3 x10^3/uL (4.0-11.0) Red Blood Count 3.68 x10^6/uL (3.50-5.40) Hemoglobin 10.6 g/dL (12.0-15.5) Hematocrit 32.8 % (36.0-47.0) Mean Corpuscular Volume 89 fL (79-100) Mean Corpuscular Hemoglobin 29 pg (25-35) Mean Corpuscular Hemoglobin Concent 32 g/dL (31-37) Red Cell Distribution Width 15.3 % (11.5-14.5) Platelet Count 190 x10^3/uL (140-400) Neutrophils (%) (Auto) 84 % (31-73) Lymphocytes (%) (Auto) 11 % (24-48) Monocytes (%) (Auto) 5 % (0-9) Eosinophils (%) (Auto) 0 % (0-3) Basophils (%) (Auto) 0 % (0-3) Neutrophils # (Auto) 14.4 x10^3uL (1.8-7.7) Lymphocytes # (Auto) 1.9 x10^3/uL (1.0-4.8) Monocytes # (Auto) 0.8 x10^3/uL (0.0-1.1) Eosinophils # (Auto) 0.1 x10^3/uL (0.0-0.7) Basophils # (Auto) 0.1 x10^3/uL (0.0-0.2) Glucose (Fingerstick) 357 mg/dL (70-99) Review of Systems Review of Systems intubated Assessment and Plan Assessmemt and Plan Problems Medical Problems: (1) Mental status change Status: Acute Problems: Comment Review of Relevant I have reviewed the following items jinny (where applicable) has been applied. Labs Laboratory Tests Test 05/31/17 13:42 05/31/17 13:49 05/31/17 15:45 05/31/17 18:00 O2 Saturation 97 % (92-99) 89 % (92-99) Arterial Blood pH 7.16 (7.35-7.45) 7.40 (7.35-7.45) Arterial Blood pCO2 at Patient Temp 51 mmHg (35-46) 45 mmHg (35-46) Arterial Blood pO2 at Patient Temp 133 mmHg (75-108) 56 mmHg (75-108) Arterial Blood HCO3 18 mmol/L (21-28) 27 mmol/L (21-28) Arterial Blood Base Excess -11 mmol/L (-3-3) 2 mmol/L (-3-3) Oxyhemoglobin 95.3 % Methemoglobin 0.6 % (0.0-1.9) Carbon Monoxide, Quantitative 1.6 % (0.0-1.9) FiO2 100.0 100.0 White Blood Count 14.3 x10^3/uL (4.0-11.0) Red Blood Count 4.33 x10^6/uL (3.50-5.40) Hemoglobin 12.5 g/dL (12.0-15.5) Hematocrit 39.1 % (36.0-47.0) Mean Corpuscular Volume 90 fL (79-100) Mean Corpuscular Hemoglobin 29 pg (25-35) Mean Corpuscular Hemoglobin Concent 32 g/dL (31-37) Red Cell Distribution Width 14.7 % (11.5-14.5) Platelet Count 303 x10^3/uL (140-400) Neutrophils (%) (Auto) 54 % (31-73) Lymphocytes (%) (Auto) 36 % (24-48) Monocytes (%) (Auto) 8 % (0-9) Eosinophils (%) (Auto) 1 % (0-3) Basophils (%) (Auto) 1 % (0-3) Neutrophils # (Auto) 7.8 x10^3uL (1.8-7.7) Lymphocytes # (Auto) 5.1 x10^3/uL (1.0-4.8) Monocytes # (Auto) 1.1 x10^3/uL (0.0-1.1) Eosinophils # (Auto) 0.2 x10^3/uL (0.0-0.7) Basophils # (Auto) 0.1 x10^3/uL (0.0-0.2) Prothrombin Time 13.3 SEC (11.7-14.0) 14.7 SEC (11.7-14.0) Prothromb Time International Ratio 1.1 (0.8-1.1) 1.2 (0.8-1.1) Activated Partial Thromboplast Time 27 SEC (24-38) Urine Collection Type Unknown Urine Color Yellow Urine Clarity Clear Urine pH 5.0 Urine Specific Jennings >=1.030 Urine Protein 30 mg/dL (NEG-TRACE) Urine Glucose (UA) >=1000 mg/dL (NEG) Urine Ketones (Stick) Negative mg/dL (NEG) Urine Blood Negative (NEG) Urine Nitrite Negative (NEG) Urine Bilirubin Negative (NEG) Urine Urobilinogen Dipstick 0.2 mg/dL (0.2 mg/dL) Urine Leukocyte Esterase Negative (NEG) Urine RBC 1-2 /HPF (0-2) Urine WBC Rare /HPF (0-4) Urine Squamous Epithelial Cells Mod /LPF Urine Bacteria 0 /HPF (0-FEW) Urine Hyaline Casts Few /HPF Urine Mucus Slight /LPF Sodium Level 142 mmol/L (136-145) 144 mmol/L (136-145) Potassium Level 3.8 mmol/L (3.5-5.1) 3.0 mmol/L (3.5-5.1) Chloride Level 102 mmol/L (98-107) 107 mmol/L (98-107) Carbon Dioxide Level 19 mmol/L (21-32) 30 mmol/L (21-32) Anion Gap 21 (6-14) 7 (6-14) Blood Urea Nitrogen 11 mg/dL (7-20) 9 mg/dL (7-20) Creatinine 1.1 mg/dL (0.6-1.0) 0.7 mg/dL (0.6-1.0) Estimated GFR (Cockcroft-Gault) 51.0 85.9 Glucose Level 453 mg/dL (70-99) 354 mg/dL (70-99) Lactic Acid Level 13.4 mmol/L (0.4-2.0) 1.2 mmol/L (0.4-2.0) Calcium Level 8.9 mg/dL (8.5-10.1) 7.3 mg/dL (8.5-10.1) Magnesium Level 1.7 mg/dL (1.8-2.4) Total Bilirubin 0.2 mg/dL (0.2-1.0) 0.4 mg/dL (0.2-1.0) Direct Bilirubin 0.1 mg/dL (0.0-0.2) 0.1 mg/dL (0.0-0.2) Aspartate Amino Transf (AST/SGOT) 15 U/L (15-37) 67 U/L (15-37) Alanine Aminotransferase (ALT/SGPT) 17 U/L (14-59) 41 U/L (14-59) Alkaline Phosphatase 104 U/L (46-116) 87 U/L (46-116) Ammonia 40 mcmol/L (11-34) Creatine Kinase 73 U/L (26-192) Troponin I Quantitative < 0.017 ng/mL (0.000-0.055) Total Protein 6.8 g/dL (6.4-8.2) 5.5 g/dL (6.4-8.2) Albumin 3.7 g/dL (3.4-5.0) 2.7 g/dL (3.4-5.0) Lipase 266 U/L (73-393) Thyroid Stimulating Hormone (TSH) 2.969 uIU/mL (0.358-3.74) Salicylates Level 4.3 mg/dL (2.8-20.0) Salicylate Last Dose Date Unknown Salicylate Last Dose Time Unknown Urine Opiates Screen Pos (NEG) Urine Methadone Screen Neg (NEG) Acetaminophen Level 63.4 mcg/ml (10-30) 25.70 mcg/ml (10-30) Acetaminophen Last Dose Date Unknown Acetaminophen Last Dose Time Unknown Urine Barbiturates Neg (NEG) Urine Phencyclidine Screen Neg (NEG) Urine Amphetamine/Methamphetamine Neg (NEG) Urine Benzodiazepines Screen Neg (NEG) Urine Cocaine Screen Neg (NEG) Urine Cannabinoids Screen Neg (NEG) Ethyl Alcohol Level < 10 mg/dL (0-10) Urine Ethyl Alcohol Neg (NEG) BUN/Creatinine Ratio 13 (6-20) Albumin/Globulin Ratio 1.0 (1.0-1.7) Test 05/31/17 19:30 05/31/17 23:51 06/01/17 05:40 06/01/17 06:01 Glucose (Fingerstick) 324 mg/dL (70-99) 196 mg/dL (70-99) 297 mg/dL (70-99) Sodium Level 141 mmol/L (136-145) Potassium Level 2.5 mmol/L (3.5-5.1) Chloride Level 111 mmol/L (98-107) Carbon Dioxide Level 21 mmol/L (21-32) Anion Gap 9 (6-14) Blood Urea Nitrogen 6 mg/dL (7-20) Creatinine 0.5 mg/dL (0.6-1.0) Estimated GFR (Cockcroft-Gault) 126.7 Glucose Level 242 mg/dL (70-99) Calcium Level 5.8 mg/dL (8.5-10.1) Test 06/01/17 08:06 06/01/17 09:40 06/01/17 10:15 O2 Saturation 98 % (92-99) Arterial Blood pH 7.50 (7.35-7.45) Arterial Blood pCO2 at Patient Temp 30 mmHg (35-46) Arterial Blood pO2 at Patient Temp 126 mmHg (75-108) Arterial Blood HCO3 23 mmol/L (21-28) Arterial Blood Base Excess 1 mmol/L (-3-3) FiO2 40 White Blood Count 17.3 x10^3/uL (4.0-11.0) Red Blood Count 3.68 x10^6/uL (3.50-5.40) Hemoglobin 10.6 g/dL (12.0-15.5) Hematocrit 32.8 % (36.0-47.0) Mean Corpuscular Volume 89 fL (79-100) Mean Corpuscular Hemoglobin 29 pg (25-35) Mean Corpuscular Hemoglobin Concent 32 g/dL (31-37) Red Cell Distribution Width 15.3 % (11.5-14.5) Platelet Count 190 x10^3/uL (140-400) Neutrophils (%) (Auto) 84 % (31-73) Lymphocytes (%) (Auto) 11 % (24-48) Monocytes (%) (Auto) 5 % (0-9) Eosinophils (%) (Auto) 0 % (0-3) Basophils (%) (Auto) 0 % (0-3) Neutrophils # (Auto) 14.4 x10^3uL (1.8-7.7) Lymphocytes # (Auto) 1.9 x10^3/uL (1.0-4.8) Monocytes # (Auto) 0.8 x10^3/uL (0.0-1.1) Eosinophils # (Auto) 0.1 x10^3/uL (0.0-0.7) Basophils # (Auto) 0.1 x10^3/uL (0.0-0.2) Glucose (Fingerstick) 357 mg/dL (70-99) Laboratory Tests Test 05/31/17 13:42 05/31/17 13:49 05/31/17 15:45 05/31/17 18:00 O2 Saturation 97 % (92-99) 89 % (92-99) Arterial Blood pH 7.16 (7.35-7.45) 7.40 (7.35-7.45) Arterial Blood pCO2 at Patient Temp 51 mmHg (35-46) 45 mmHg (35-46) Arterial Blood pO2 at Patient Temp 133 mmHg (75-108) 56 mmHg (75-108) Arterial Blood HCO3 18 mmol/L (21-28) 27 mmol/L (21-28) Arterial Blood Base Excess -11 mmol/L (-3-3) 2 mmol/L (-3-3) Oxyhemoglobin 95.3 % Methemoglobin 0.6 % (0.0-1.9) Carbon Monoxide, Quantitative 1.6 % (0.0-1.9) FiO2 100.0 100.0 White Blood Count 14.3 x10^3/uL (4.0-11.0) Red Blood Count 4.33 x10^6/uL (3.50-5.40) Hemoglobin 12.5 g/dL (12.0-15.5) Hematocrit 39.1 % (36.0-47.0) Mean Corpuscular Volume 90 fL (79-100) Mean Corpuscular Hemoglobin 29 pg (25-35) Mean Corpuscular Hemoglobin Concent 32 g/dL (31-37) Red Cell Distribution Width 14.7 % (11.5-14.5) Platelet Count 303 x10^3/uL (140-400) Neutrophils (%) (Auto) 54 % (31-73) Lymphocytes (%) (Auto) 36 % (24-48) Monocytes (%) (Auto) 8 % (0-9) Eosinophils (%) (Auto) 1 % (0-3) Basophils (%) (Auto) 1 % (0-3) Neutrophils # (Auto) 7.8 x10^3uL (1.8-7.7) Lymphocytes # (Auto) 5.1 x10^3/uL (1.0-4.8) Monocytes # (Auto) 1.1 x10^3/uL (0.0-1.1) Eosinophils # (Auto) 0.2 x10^3/uL (0.0-0.7) Basophils # (Auto) 0.1 x10^3/uL (0.0-0.2) Prothrombin Time 13.3 SEC (11.7-14.0) 14.7 SEC (11.7-14.0) Prothromb Time International Ratio 1.1 (0.8-1.1) 1.2 (0.8-1.1) Activated Partial Thromboplast Time 27 SEC (24-38) Urine Collection Type Unknown Urine Color Yellow Urine Clarity Clear Urine pH 5.0 Urine Specific Jennings >=1.030 Urine Protein 30 mg/dL (NEG-TRACE) Urine Glucose (UA) >=1000 mg/dL (NEG) Urine Ketones (Stick) Negative mg/dL (NEG) Urine Blood Negative (NEG) Urine Nitrite Negative (NEG) Urine Bilirubin Negative (NEG) Urine Urobilinogen Dipstick 0.2 mg/dL (0.2 mg/dL) Urine Leukocyte Esterase Negative (NEG) Urine RBC 1-2 /HPF (0-2) Urine WBC Rare /HPF (0-4) Urine Squamous Epithelial Cells Mod /LPF Urine Bacteria 0 /HPF (0-FEW) Urine Hyaline Casts Few /HPF Urine Mucus Slight /LPF Sodium Level 142 mmol/L (136-145) 144 mmol/L (136-145) Potassium Level 3.8 mmol/L (3.5-5.1) 3.0 mmol/L (3.5-5.1) Chloride Level 102 mmol/L (98-107) 107 mmol/L (98-107) Carbon Dioxide Level 19 mmol/L (21-32) 30 mmol/L (21-32) Anion Gap 21 (6-14) 7 (6-14) Blood Urea Nitrogen 11 mg/dL (7-20) 9 mg/dL (7-20) Creatinine 1.1 mg/dL (0.6-1.0) 0.7 mg/dL (0.6-1.0) Estimated GFR (Cockcroft-Gault) 51.0 85.9 Glucose Level 453 mg/dL (70-99) 354 mg/dL (70-99) Lactic Acid Level 13.4 mmol/L (0.4-2.0) 1.2 mmol/L (0.4-2.0) Calcium Level 8.9 mg/dL (8.5-10.1) 7.3 mg/dL (8.5-10.1) Magnesium Level 1.7 mg/dL (1.8-2.4) Total Bilirubin 0.2 mg/dL (0.2-1.0) 0.4 mg/dL (0.2-1.0) Direct Bilirubin 0.1 mg/dL (0.0-0.2) 0.1 mg/dL (0.0-0.2) Aspartate Amino Transf (AST/SGOT) 15 U/L (15-37) 67 U/L (15-37) Alanine Aminotransferase (ALT/SGPT) 17 U/L (14-59) 41 U/L (14-59) Alkaline Phosphatase 104 U/L (46-116) 87 U/L (46-116) Ammonia 40 mcmol/L (11-34) Creatine Kinase 73 U/L (26-192) Troponin I Quantitative < 0.017 ng/mL (0.000-0.055) Total Protein 6.8 g/dL (6.4-8.2) 5.5 g/dL (6.4-8.2) Albumin 3.7 g/dL (3.4-5.0) 2.7 g/dL (3.4-5.0) Lipase 266 U/L (73-393) Thyroid Stimulating Hormone (TSH) 2.969 uIU/mL (0.358-3.74) Salicylates Level 4.3 mg/dL (2.8-20.0) Salicylate Last Dose Date Unknown Salicylate Last Dose Time Unknown Urine Opiates Screen Pos (NEG) Urine Methadone Screen Neg (NEG) Acetaminophen Level 63.4 mcg/ml (10-30) 25.70 mcg/ml (10-30) Acetaminophen Last Dose Date Unknown Acetaminophen Last Dose Time Unknown Urine Barbiturates Neg (NEG) Urine Phencyclidine Screen Neg (NEG) Urine Amphetamine/Methamphetamine Neg (NEG) Urine Benzodiazepines Screen Neg (NEG) Urine Cocaine Screen Neg (NEG) Urine Cannabinoids Screen Neg (NEG) Ethyl Alcohol Level < 10 mg/dL (0-10) Urine Ethyl Alcohol Neg (NEG) BUN/Creatinine Ratio 13 (6-20) Albumin/Globulin Ratio 1.0 (1.0-1.7) Test 05/31/17 19:30 05/31/17 23:51 06/01/17 05:40 06/01/17 06:01 Glucose (Fingerstick) 324 mg/dL (70-99) 196 mg/dL (70-99) 297 mg/dL (70-99) Sodium Level 141 mmol/L (136-145) Potassium Level 2.5 mmol/L (3.5-5.1) Chloride Level 111 mmol/L (98-107) Carbon Dioxide Level 21 mmol/L (21-32) Anion Gap 9 (6-14) Blood Urea Nitrogen 6 mg/dL (7-20) Creatinine 0.5 mg/dL (0.6-1.0) Estimated GFR (Cockcroft-Gault) 126.7 Glucose Level 242 mg/dL (70-99) Calcium Level 5.8 mg/dL (8.5-10.1) Test 06/01/17 08:06 06/01/17 09:40 06/01/17 10:15 O2 Saturation 98 % (92-99) Arterial Blood pH 7.50 (7.35-7.45) Arterial Blood pCO2 at Patient Temp 30 mmHg (35-46) Arterial Blood pO2 at Patient Temp 126 mmHg (75-108) Arterial Blood HCO3 23 mmol/L (21-28) Arterial Blood Base Excess 1 mmol/L (-3-3) FiO2 40 White Blood Count 17.3 x10^3/uL (4.0-11.0) Red Blood Count 3.68 x10^6/uL (3.50-5.40) Hemoglobin 10.6 g/dL (12.0-15.5) Hematocrit 32.8 % (36.0-47.0) Mean Corpuscular Volume 89 fL (79-100) Mean Corpuscular Hemoglobin 29 pg (25-35) Mean Corpuscular Hemoglobin Concent 32 g/dL (31-37) Red Cell Distribution Width 15.3 % (11.5-14.5) Platelet Count 190 x10^3/uL (140-400) Neutrophils (%) (Auto) 84 % (31-73) Lymphocytes (%) (Auto) 11 % (24-48) Monocytes (%) (Auto) 5 % (0-9) Eosinophils (%) (Auto) 0 % (0-3) Basophils (%) (Auto) 0 % (0-3) Neutrophils # (Auto) 14.4 x10^3uL (1.8-7.7) Lymphocytes # (Auto) 1.9 x10^3/uL (1.0-4.8) Monocytes # (Auto) 0.8 x10^3/uL (0.0-1.1) Eosinophils # (Auto) 0.1 x10^3/uL (0.0-0.7) Basophils # (Auto) 0.1 x10^3/uL (0.0-0.2) Glucose (Fingerstick) 357 mg/dL (70-99) Medications Current Medications Lorazepam (Ativan) 1 mg 1X ONCE IV Last administered on 05/31/17 13:54; Start 05/31/17 at 13:45; Stop 05/31/17 at 13:46; Status DC Sodium Chloride 1,000 ml @ 1,000 mls/hr Q1H IV Last administered on 05/31/17 13:54; Start 05/31/17 at 13:36; Stop 05/31/17 at 14:35; Status DC Lorazepam (Ativan) 2 mg 1X ONCE IV Last administered on 05/31/17 14:23; Start 05/31/17 at 14:00; Stop 05/31/17 at 14:01; Status DC Sodium Bicarbonate 50 meq 1X ONCE IV Last administered on 05/31/17 14:41; Start 05/31/17 at 14:30; Stop 05/31/17 at 14:32; Status DC Sodium Bicarbonate 50 meq 1X ONCE IV Last administered on 9/30/17at 14:44; Start 05/31/17 at 14:30; Stop 05/31/17 at 14:32; Status DC Sodium Chloride 1,000 ml @ 1,000 mls/hr 1X ONCE IV Last administered on 14:44; Start 05/31/17 at 14:45; Stop 05/31/17 at 15:44; Status DC Lorazepam (Ativan) 1 mg 1X ONCE IV Last administered on 05/31/17 14:50; Start 05/31/17 at 15:00; Stop 05/31/17 at 15:01; Status DC Etomidate (Amidate) 20 mg 1X ONCE IV Last administered on 05/31/17 14:54; Start 05/31/17 at 15:00; Stop 05/31/17 at 15:01; Status DC Succinylcholine Chloride (Anectine) 100 mg 1X ONCE IV Last administered on 14:54; Start 05/31/17 at 15:00; Stop 05/31/17 at 15:01; Status DC Propofol (Diprivan) 200,000 mg 1X ONCE IV Last administered on 05/31/17 15:17 ; Start 05/31/17 at 15:00; Stop 05/31/17 at 15:03; Status DC Propofol 50 ml @ As Directed STK-MED ONCE IV ; Start 05/31/17 at 15:19; Stop at 15:20; Status DC Propofol 50 ml @ 0 mls/hr 1X ONCE IV Last administered on 05/31/17 15:20; Start 05/31/17 at 15:45; Stop 05/31/17 at 15:46; Status DC Levetiracetam 500 mg/Sodium Chloride 100 ml @ 400 mls/hr Q12HR IV ; Start 05/31 at 21:00; Stop 05/31/17 at 21:00; Status DC Levetiracetam 500 mg/Sodium Chloride 105 ml @ 400 mls/hr Q12HR IV Last administered on 06/01/17 09:18; Start 05/31/17 at 16:00 Sodium Chloride 1,000 ml @ 150 mls/hr 1X ONCE IV Last administered on 16:00; Start 05/31/17 at 16:15; Stop 05/31/17 at 22:54; Status DC Acetylcysteine 6 gm/Dextrose 230 ml @ 230 mls/hr 1X ONCE IV Last administered on 05/31/17 17:49; Start 05/31/17 at 17:30; Stop 05/31/17 at 18:29 ; Status DC Acetylcysteine 2 gm/Dextrose 510 ml @ 127.5 mls/ hr 1X ONCE IV Last administered on 05/31/17 19:00; Start 05/31/17 at 18:30; Stop 05/31/17 at 22:29 ; Status DC Acetylcysteine 4 gm/Dextrose 1,020 ml @ 63.75 mls/ hr 1X ONCE IV Last administered on 05/31/17 22:48; Start 05/31/17 at 22:30; Stop 06/01/17 at 14:29 Fentanyl Citrate (Fentanyl 2ml Vial) 50 mcg PRN Q1HR PRN IV PAIN; Start at 17:00 Sodium Bicarbonate 100 meq PRN Q15MIN PRN IV SEIZURES; Start 05/31/17 at 17:00 Propofol 100 ml @ 0 mls/hr CONT PRN IV SEE I/O RECORD Last administered on 06/01 10:01; Start 05/31/17 at 17:00 Sodium Chloride 1,000 ml @ 125 mls/hr Q8H IV Last administered on 06/01/17 06 :24; Start 05/31/17 at 17:00 Ceftriaxone Sodium 1 gm/ Sodium Chloride 50 ml @ 100 mls/hr Q24H IV Last administered on 05/31/17 17:49; Start 05/31/17 at 17:30 Insulin Aspart (NovoLOG) 20 units 1X ONCE SQ Last administered on 05/31/17 19 :46; Start 05/31/17 at 19:30; Stop 05/31/17 at 19:31; Status DC Insulin Aspart (NovoLOG) 0-7 UNITS Q6HRS SQ Last administered on 06/01/17 06: 04; Start 06/01/17 at 00:00; Stop 06/01/17 at 09:28; Status DC Dextrose (Dextrose 50%-Water Syringe) 12.5 gm PRN Q15MIN PRN IV SEE COMMENTS; Start 05/31/17 at 20:15; Status Cancel Labetalol HCl (Normodyne) 20 mg PRN Q4HRS PRN IVP HYPERTENSION, SEE COMMENTS Last administered on 05/31/17 20:48; Start 05/31/17 at 20:15 Potassium Chloride 100 ml @ 100 mls/hr Q1H IV Last administered on 05/31/17 23:49; Start 05/31/17 at 20:45; Stop 06/01/17 at 00:44; Status DC Enoxaparin Sodium (Lovenox 40mg Syringe) 40 mg QHS SQ Last administered on 05/31 23:55; Start 05/31/17 at 23:30 Calcium Gluconate 1000 mg/Sodium Chloride 110 ml @ 220 mls/hr 1X ONCE IV Last administered on 06/01/17 07:06; Start 06/01/17 at 07:00; Stop 06/01/17 at 07:29; Status DC Potassium Chloride 100 ml @ 100 mls/hr Q1H IV Last administered on 06/01/17 10:19; Start 06/01/17 at 07:00; Stop 06/01/17 at 10:59; Status DC Ondansetron HCl (Zofran) 4 mg PRN Q6HRS PRN IV NAUSEA/VOMITING; Start 06/01/17 at 09:30 Potassium Chloride (KCl Oral Soln) 40 meq 1X ONCE PEG Last administered on 10:03; Start 06/01/17 at 10:00; Stop 06/01/17 at 10:01; Status DC Insulin Aspart (NovoLOG) 0-9 UNITS TIDWMEALS SQ ; Start 06/01/17 at 12:00 Dextrose (Dextrose 50%-Water Syringe) 12.5 gm PRN Q15MIN PRN IV SEE COMMENTS; Start 06/01/17 at 09:30 Insulin Aspart (NovoLOG) 10 units 1X ONCE SQ Last administered on 06/01/17 10 :18; Start 06/01/17 at 10:00; Stop 06/01/17 at 10:01; Status DC Magnesium Sulfate/ Dextrose 50 ml @ 25 mls/hr 1X ONCE IV Last administered on 06/01/17 10:01; Start 06/01/17 at 10:00; Stop 06/01/17 at 11:59 Active Scripts Active Keppra (Levetiracetam) 250 Mg Tablet 750 Mg PO BID Levemir Flextouch (Insulin Detemir) 100 Unit/1 Ml Insuln.pen 30 Units SQ QHS Novolog Flexpen (Insulin Aspart) 100 Unit/1 Ml Insuln.pen 15 Units SQ TIDAC Duoneb 0.5-3(2.5) Mg/3 Ml (Albuterol/Ipratropium) 3 Ml Ampul.neb 3 Ml IH PRN QID PRN [Nicotine] 1 PATCH Patch 1 Patch TD DAILY Mucinex (Guaifenesin) 600 Mg Tablet.er 1,200 Mg PO BID Reported Lyrica (Pregabalin) 75 Mg Capsule 1 Cap PO BID Keppra (Levetiracetam) 500 Mg Tablet 1 Tab PO BID Lamictal (Lamotrigine) 200 Mg Tablet 200 Mg PO BID Latuda (Lurasidone Hcl) 20 Mg Tablet 20 Mg PO Metoprolol Succinate 50 Mg Tab.er.24h 50 Mg PO Lisinopril 20 Mg Tablet 1 Tab PO DAILY Symbicort 160-4.5 Mcg Inhaler (Budesonide/Formoterol Fumarate) 10.2 Gm Hfa.aer.ad Unknown Dose IH BID Proair Hfa Inhaler (Albuterol Sulfate) 8.5 Gm Hfa.aer.ad Unknown Dose INH Omeprazole 40 Mg Capsule.dr 40 Mg PO DAILY Cetirizine Hcl 10 Mg Tablet 1 Tab PO DAILY Oxycodone-Acetaminophen 10-325 (Oxycodone Hcl/Acetaminophen) 1 Each Tablet 1 Tab PO Q4HRS PRN Carisoprodol 350 Mg Tablet 1 Tab PO TID Diphedryl (Diphenhydramine Hcl) 25 Mg Capsule 25 Mg PO HS Vitals/I & O Vital Sign - Last 24 Hours 05/31/17 05/31/17 05/31/17 05/31/17 13:32 13:38 13:39 13:49 Temp 98.0 98.0 Pulse 113 120 113 117 Resp 14 B/P (MAP) 173/63 (99) 170/74 (106) 173/68 (103) 165/74 (104) Pulse Ox 92 88 94 O2 Delivery Nasal Cannula NonRebreather Mask NonRebreather Mask O2 Flow Rate 4.0 15.0 15.0 05/31/17 05/31/17 05/31/17 05/31/17 13:59 14:09 14:19 14:20 Pulse 115 111 123 B/P (MAP) 165/76 (105) 115/59 (77) 167/81 (109) Pulse Ox 91 98 94 O2 Delivery NonRebreather Mask NonRebreather Mask NonRebreather Mask NonRebreather Mask O2 Flow Rate 15.0 15.0 15.0 05/31/17 05/31/17 05/31/17 05/31/17 14:29 14:39 14:49 15:10 Pulse 107 107 113 B/P (MAP) 113/56 (75) 117/62 (80) 132/70 (90) Pulse Ox 96 98 98 94 O2 Delivery NonRebreather Mask NonRebreather Mask NonRebreather Mask Ventilator O2 Flow Rate 15.0 15.0 15.0 05/31/17 05/31/17 05/31/17 05/31/17 15:22 15:29 15:39 15:49 Pulse 99 87 98 97 Resp 25 25 18 B/P (MAP) 147/67 (93) 125/59 (81) 174/80 (111) 167/73 (104) Pulse Ox 94 100 93 92 O2 Delivery Ventilator Ventilator Ventilator Ventilator 05/31/17 05/31/17 05/31/17 05/31/17 15:59 16:09 16:30 16:35 Temp 98.3 98.3 Pulse 100 83 86 Resp 18 18 22 B/P (MAP) 179/81 (113) 134/63 (86) 184/98 (126) Pulse Ox 92 100 100 100 O2 Delivery Ventilator Ventilator Ventilator Ventilator 05/31/17 05/31/17 05/31/17 05/31/17 16:45 16:45 17:00 17:15 Pulse 84 88 80 Resp 18 19 18 B/P (MAP) 168/87 (114) 188/82 (117) 182/87 (118) Pulse Ox 100 100 100 O2 Delivery Ventilator Mechanical Ventilator Ventilator Ventilator 05/31/17 05/31/17 05/31/17 05/31/17 18:00 19:00 19:30 20:00 Temp 98.1 98.1 Pulse 80 83 87 Resp 18 17 18 B/P (MAP) 171/89 (116) 173/80 (111) 187/89 (121) Pulse Ox 100 100 100 O2 Delivery Ventilator Ventilator Mechanical Ventilator Ventilator 05/31/17 05/31/17 05/31/17 05/31/17 20:05 20:48 21:00 22:00 Pulse 86 98 96 Resp 19 16 B/P (MAP) 187/89 163/69 (100) 170/81 (110) Pulse Ox 100 100 100 O2 Delivery Ventilator Ventilator Ventilator 05/31/17 05/31/17 05/31/17 06/01/17 22:32 23:00 23:59 00:00 Temp 98.4 98.4 Pulse 93 92 Resp 18 17 B/P (MAP) 156/65 (95) 149/74 (99) Pulse Ox 100 100 100 O2 Delivery Ventilator Ventilator Mechanical Ventilator Ventilator 06/01/17 06/01/17 06/01/17 06/01/17 00:22 01:00 02:00 02:40 Pulse 94 90 Resp 17 18 B/P (MAP) 123/63 (83) 123/66 (85) Pulse Ox 100 100 100 100 O2 Delivery Ventilator Ventilator Ventilator Ventilator 06/01/17 06/01/17 06/01/17 06/01/17 03:00 04:00 04:00 04:50 Temp 99.7 99.7 Pulse 96 94 Resp 18 17 B/P (MAP) 91/49 (63) 109/57 (74) Pulse Ox 100 100 100 O2 Delivery Ventilator Mechanical Ventilator Ventilator Ventilator 06/01/17 06/01/17 06/01/17 06/01/17 05:00 06:00 07:00 07:47 Pulse 98 98 102 Resp 18 18 18 B/P (MAP) 123/52 (75) 132/63 (86) 140/69 (92) Pulse Ox 100 98 99 99 O2 Delivery Ventilator Ventilator Ventilator Ventilator 06/01/17 06/01/17 06/01/17 06/01/17 08:00 08:00 08:24 09:00 Temp 100.9 100.9 Pulse 104 102 Resp 18 16 B/P (MAP) 123/78 (93) 131/72 (91) Pulse Ox 99 100 98 O2 Delivery Mechanical Ventilator Ventilator Ventilator Ventilator 06/01/17 10:00 Pulse 100 Resp 16 B/P (MAP) 135/75 (95) Pulse Ox 100 O2 Delivery Ventilator Intake and Output 06/01/17 06/01/17 06/02/17 15:00 23:00 07:00 Output Total 635 ml Balance -635 ml ROSEANNA HOLLIDAY MD Jun 01, 2017 11:05
[2017-06-01] MEDS ORDERED: ENOXAPARIN 40 MG/0.4 ML SYRINGE. SQ SCH (11:15)
[2017-06-01] MEDS: fentaNYL PF VIAL 100 MCG/2 ML VIAL IV PRN ×2 (11:27→21:21)
[2017-06-01] MEDS: FAMOTIDINE 20 MG/2 ML VIAL IVP SCH ×2 (11:50→21:20)
--- NOTE | 2017-06-01 12:51 | PDOC ---
PULMONARY PROGRESS NOTES Subjective OFF SEDATION , OPENS EYES, A BIT SLEEPY Vitals Vital Signs Date Time Temp Pulse Resp B/P (MAP) Pulse Ox O2 Delivery O2 Flow Rate FiO2 06/01/17 12:00 Mechanical Ventilator 06/01/17 12:00 99.4 92 16 91/55 (67) 98 99.4 05/31/17 14:49 15.0 Lungs: Clear Cardiovascular: S1 Abdomen: Soft, Non-tender Extremities: No Edema Skin: Warm Labs Laboratory Tests Test 05/31/17 13:42 05/31/17 13:49 05/31/17 15:45 05/31/17 18:00 O2 Saturation 97 % (92-99) 89 % (92-99) Arterial Blood pH 7.16 (7.35-7.45) 7.40 (7.35-7.45) Arterial Blood pCO2 at Patient Temp 51 mmHg (35-46) 45 mmHg (35-46) Arterial Blood pO2 at Patient Temp 133 mmHg (75-108) 56 mmHg (75-108) Arterial Blood HCO3 18 mmol/L (21-28) 27 mmol/L (21-28) Arterial Blood Base Excess -11 mmol/L (-3-3) 2 mmol/L (-3-3) Oxyhemoglobin 95.3 % Methemoglobin 0.6 % (0.0-1.9) Carbon Monoxide, Quantitative 1.6 % (0.0-1.9) FiO2 100.0 100.0 White Blood Count 14.3 x10^3/uL (4.0-11.0) Red Blood Count 4.33 x10^6/uL (3.50-5.40) Hemoglobin 12.5 g/dL (12.0-15.5) Hematocrit 39.1 % (36.0-47.0) Mean Corpuscular Volume 90 fL (79-100) Mean Corpuscular Hemoglobin 29 pg (25-35) Mean Corpuscular Hemoglobin Concent 32 g/dL (31-37) Red Cell Distribution Width 14.7 % (11.5-14.5) Platelet Count 303 x10^3/uL (140-400) Neutrophils (%) (Auto) 54 % (31-73) Lymphocytes (%) (Auto) 36 % (24-48) Monocytes (%) (Auto) 8 % (0-9) Eosinophils (%) (Auto) 1 % (0-3) Basophils (%) (Auto) 1 % (0-3) Neutrophils # (Auto) 7.8 x10^3uL (1.8-7.7) Lymphocytes # (Auto) 5.1 x10^3/uL (1.0-4.8) Monocytes # (Auto) 1.1 x10^3/uL (0.0-1.1) Eosinophils # (Auto) 0.2 x10^3/uL (0.0-0.7) Basophils # (Auto) 0.1 x10^3/uL (0.0-0.2) Prothrombin Time 13.3 SEC (11.7-14.0) 14.7 SEC (11.7-14.0) Prothromb Time International Ratio 1.1 (0.8-1.1) 1.2 (0.8-1.1) Activated Partial Thromboplast Time 27 SEC (24-38) Urine Collection Type Unknown Urine Color Yellow Urine Clarity Clear Urine pH 5.0 Urine Specific Felch >=1.030 Urine Protein 30 mg/dL (NEG-TRACE) Urine Glucose (UA) >=1000 mg/dL (NEG) Urine Ketones (Stick) Negative mg/dL (NEG) Urine Blood Negative (NEG) Urine Nitrite Negative (NEG) Urine Bilirubin Negative (NEG) Urine Urobilinogen Dipstick 0.2 mg/dL (0.2 mg/dL) Urine Leukocyte Esterase Negative (NEG) Urine RBC 1-2 /HPF (0-2) Urine WBC Rare /HPF (0-4) Urine Squamous Epithelial Cells Mod /LPF Urine Bacteria 0 /HPF (0-FEW) Urine Hyaline Casts Few /HPF Urine Mucus Slight /LPF Sodium Level 142 mmol/L (136-145) 144 mmol/L (136-145) Potassium Level 3.8 mmol/L (3.5-5.1) 3.0 mmol/L (3.5-5.1) Chloride Level 102 mmol/L (98-107) 107 mmol/L (98-107) Carbon Dioxide Level 19 mmol/L (21-32) 30 mmol/L (21-32) Anion Gap 21 (6-14) 7 (6-14) Blood Urea Nitrogen 11 mg/dL (7-20) 9 mg/dL (7-20) Creatinine 1.1 mg/dL (0.6-1.0) 0.7 mg/dL (0.6-1.0) Estimated GFR (Cockcroft-Gault) 51.0 85.9 Glucose Level 453 mg/dL (70-99) 354 mg/dL (70-99) Lactic Acid Level 13.4 mmol/L (0.4-2.0) 1.2 mmol/L (0.4-2.0) Calcium Level 8.9 mg/dL (8.5-10.1) 7.3 mg/dL (8.5-10.1) Magnesium Level 1.7 mg/dL (1.8-2.4) Total Bilirubin 0.2 mg/dL (0.2-1.0) 0.4 mg/dL (0.2-1.0) Direct Bilirubin 0.1 mg/dL (0.0-0.2) 0.1 mg/dL (0.0-0.2) Aspartate Amino Transf (AST/SGOT) 15 U/L (15-37) 67 U/L (15-37) Alanine Aminotransferase (ALT/SGPT) 17 U/L (14-59) 41 U/L (14-59) Alkaline Phosphatase 104 U/L (46-116) 87 U/L (46-116) Ammonia 40 mcmol/L (11-34) Creatine Kinase 73 U/L (26-192) Troponin I Quantitative < 0.017 ng/mL (0.000-0.055) Total Protein 6.8 g/dL (6.4-8.2) 5.5 g/dL (6.4-8.2) Albumin 3.7 g/dL (3.4-5.0) 2.7 g/dL (3.4-5.0) Lipase 266 U/L (73-393) Thyroid Stimulating Hormone (TSH) 2.969 uIU/mL (0.358-3.74) Salicylates Level 4.3 mg/dL (2.8-20.0) Salicylate Last Dose Date Unknown Salicylate Last Dose Time Unknown Urine Opiates Screen Pos (NEG) Urine Methadone Screen Neg (NEG) Acetaminophen Level 63.4 mcg/ml (10-30) 25.70 mcg/ml (10-30) Acetaminophen Last Dose Date Unknown Acetaminophen Last Dose Time Unknown Urine Barbiturates Neg (NEG) Urine Phencyclidine Screen Neg (NEG) Urine Amphetamine/Methamphetamine Neg (NEG) Urine Benzodiazepines Screen Neg (NEG) Urine Cocaine Screen Neg (NEG) Urine Cannabinoids Screen Neg (NEG) Ethyl Alcohol Level < 10 mg/dL (0-10) Urine Ethyl Alcohol Neg (NEG) BUN/Creatinine Ratio 13 (6-20) Albumin/Globulin Ratio 1.0 (1.0-1.7) Test 05/31/17 19:30 05/31/17 23:51 06/01/17 05:40 06/01/17 06:01 Glucose (Fingerstick) 324 mg/dL (70-99) 196 mg/dL (70-99) 297 mg/dL (70-99) Sodium Level 141 mmol/L (136-145) Potassium Level 2.5 mmol/L (3.5-5.1) Chloride Level 111 mmol/L (98-107) Carbon Dioxide Level 21 mmol/L (21-32) Anion Gap 9 (6-14) Blood Urea Nitrogen 6 mg/dL (7-20) Creatinine 0.5 mg/dL (0.6-1.0) Estimated GFR (Cockcroft-Gault) 126.7 Glucose Level 242 mg/dL (70-99) Calcium Level 5.8 mg/dL (8.5-10.1) Test 06/01/17 08:06 06/01/17 09:40 06/01/17 10:15 06/01/17 11:42 O2 Saturation 98 % (92-99) Arterial Blood pH 7.50 (7.35-7.45) Arterial Blood pCO2 at Patient Temp 30 mmHg (35-46) Arterial Blood pO2 at Patient Temp 126 mmHg (75-108) Arterial Blood HCO3 23 mmol/L (21-28) Arterial Blood Base Excess 1 mmol/L (-3-3) FiO2 40 White Blood Count 17.3 x10^3/uL (4.0-11.0) Red Blood Count 3.68 x10^6/uL (3.50-5.40) Hemoglobin 10.6 g/dL (12.0-15.5) Hematocrit 32.8 % (36.0-47.0) Mean Corpuscular Volume 89 fL (79-100) Mean Corpuscular Hemoglobin 29 pg (25-35) Mean Corpuscular Hemoglobin Concent 32 g/dL (31-37) Red Cell Distribution Width 15.3 % (11.5-14.5) Platelet Count 190 x10^3/uL (140-400) Neutrophils (%) (Auto) 84 % (31-73) Lymphocytes (%) (Auto) 11 % (24-48) Monocytes (%) (Auto) 5 % (0-9) Eosinophils (%) (Auto) 0 % (0-3) Basophils (%) (Auto) 0 % (0-3) Neutrophils # (Auto) 14.4 x10^3uL (1.8-7.7) Lymphocytes # (Auto) 1.9 x10^3/uL (1.0-4.8) Monocytes # (Auto) 0.8 x10^3/uL (0.0-1.1) Eosinophils # (Auto) 0.1 x10^3/uL (0.0-0.7) Basophils # (Auto) 0.1 x10^3/uL (0.0-0.2) Glucose (Fingerstick) 357 mg/dL (70-99) 271 mg/dL (70-99) Laboratory Tests Test 05/31/17 13:42 05/31/17 13:49 05/31/17 15:45 05/31/17 18:00 O2 Saturation 97 % (92-99) 89 % (92-99) Arterial Blood pH 7.16 (7.35-7.45) 7.40 (7.35-7.45) Arterial Blood pCO2 at Patient Temp 51 mmHg (35-46) 45 mmHg (35-46) Arterial Blood pO2 at Patient Temp 133 mmHg (75-108) 56 mmHg (75-108) Arterial Blood HCO3 18 mmol/L (21-28) 27 mmol/L (21-28) Arterial Blood Base Excess -11 mmol/L (-3-3) 2 mmol/L (-3-3) Oxyhemoglobin 95.3 % Methemoglobin 0.6 % (0.0-1.9) Carbon Monoxide, Quantitative 1.6 % (0.0-1.9) FiO2 100.0 100.0 White Blood Count 14.3 x10^3/uL (4.0-11.0) Red Blood Count 4.33 x10^6/uL (3.50-5.40) Hemoglobin 12.5 g/dL (12.0-15.5) Hematocrit 39.1 % (36.0-47.0) Mean Corpuscular Volume 90 fL (79-100) Mean Corpuscular Hemoglobin 29 pg (25-35) Mean Corpuscular Hemoglobin Concent 32 g/dL (31-37) Red Cell Distribution Width 14.7 % (11.5-14.5) Platelet Count 303 x10^3/uL (140-400) Neutrophils (%) (Auto) 54 % (31-73) Lymphocytes (%) (Auto) 36 % (24-48) Monocytes (%) (Auto) 8 % (0-9) Eosinophils (%) (Auto) 1 % (0-3) Basophils (%) (Auto) 1 % (0-3) Neutrophils # (Auto) 7.8 x10^3uL (1.8-7.7) Lymphocytes # (Auto) 5.1 x10^3/uL (1.0-4.8) Monocytes # (Auto) 1.1 x10^3/uL (0.0-1.1) Eosinophils # (Auto) 0.2 x10^3/uL (0.0-0.7) Basophils # (Auto) 0.1 x10^3/uL (0.0-0.2) Prothrombin Time 13.3 SEC (11.7-14.0) 14.7 SEC (11.7-14.0) Prothromb Time International Ratio 1.1 (0.8-1.1) 1.2 (0.8-1.1) Activated Partial Thromboplast Time 27 SEC (24-38) Urine Collection Type Unknown Urine Color Yellow Urine Clarity Clear Urine pH 5.0 Urine Specific Felch >=1.030 Urine Protein 30 mg/dL (NEG-TRACE) Urine Glucose (UA) >=1000 mg/dL (NEG) Urine Ketones (Stick) Negative mg/dL (NEG) Urine Blood Negative (NEG) Urine Nitrite Negative (NEG) Urine Bilirubin Negative (NEG) Urine Urobilinogen Dipstick 0.2 mg/dL (0.2 mg/dL) Urine Leukocyte Esterase Negative (NEG) Urine RBC 1-2 /HPF (0-2) Urine WBC Rare /HPF (0-4) Urine Squamous Epithelial Cells Mod /LPF Urine Bacteria 0 /HPF (0-FEW) Urine Hyaline Casts Few /HPF Urine Mucus Slight /LPF Sodium Level 142 mmol/L (136-145) 144 mmol/L (136-145) Potassium Level 3.8 mmol/L (3.5-5.1) 3.0 mmol/L (3.5-5.1) Chloride Level 102 mmol/L (98-107) 107 mmol/L (98-107) Carbon Dioxide Level 19 mmol/L (21-32) 30 mmol/L (21-32) Anion Gap 21 (6-14) 7 (6-14) Blood Urea Nitrogen 11 mg/dL (7-20) 9 mg/dL (7-20) Creatinine 1.1 mg/dL (0.6-1.0) 0.7 mg/dL (0.6-1.0) Estimated GFR (Cockcroft-Gault) 51.0 85.9 Glucose Level 453 mg/dL (70-99) 354 mg/dL (70-99) Lactic Acid Level 13.4 mmol/L (0.4-2.0) 1.2 mmol/L (0.4-2.0) Calcium Level 8.9 mg/dL (8.5-10.1) 7.3 mg/dL (8.5-10.1) Magnesium Level 1.7 mg/dL (1.8-2.4) Total Bilirubin 0.2 mg/dL (0.2-1.0) 0.4 mg/dL (0.2-1.0) Direct Bilirubin 0.1 mg/dL (0.0-0.2) 0.1 mg/dL (0.0-0.2) Aspartate Amino Transf (AST/SGOT) 15 U/L (15-37) 67 U/L (15-37) Alanine Aminotransferase (ALT/SGPT) 17 U/L (14-59) 41 U/L (14-59) Alkaline Phosphatase 104 U/L (46-116) 87 U/L (46-116) Ammonia 40 mcmol/L (11-34) Creatine Kinase 73 U/L (26-192) Troponin I Quantitative < 0.017 ng/mL (0.000-0.055) Total Protein 6.8 g/dL (6.4-8.2) 5.5 g/dL (6.4-8.2) Albumin 3.7 g/dL (3.4-5.0) 2.7 g/dL (3.4-5.0) Lipase 266 U/L (73-393) Thyroid Stimulating Hormone (TSH) 2.969 uIU/mL (0.358-3.74) Salicylates Level 4.3 mg/dL (2.8-20.0) Salicylate Last Dose Date Unknown Salicylate Last Dose Time Unknown Urine Opiates Screen Pos (NEG) Urine Methadone Screen Neg (NEG) Acetaminophen Level 63.4 mcg/ml (10-30) 25.70 mcg/ml (10-30) Acetaminophen Last Dose Date Unknown Acetaminophen Last Dose Time Unknown Urine Barbiturates Neg (NEG) Urine Phencyclidine Screen Neg (NEG) Urine Amphetamine/Methamphetamine Neg (NEG) Urine Benzodiazepines Screen Neg (NEG) Urine Cocaine Screen Neg (NEG) Urine Cannabinoids Screen Neg (NEG) Ethyl Alcohol Level < 10 mg/dL (0-10) Urine Ethyl Alcohol Neg (NEG) BUN/Creatinine Ratio 13 (6-20) Albumin/Globulin Ratio 1.0 (1.0-1.7) Test 05/31/17 19:30 05/31/17 23:51 06/01/17 05:40 06/01/17 06:01 Glucose (Fingerstick) 324 mg/dL (70-99) 196 mg/dL (70-99) 297 mg/dL (70-99) Sodium Level 141 mmol/L (136-145) Potassium Level 2.5 mmol/L (3.5-5.1) Chloride Level 111 mmol/L (98-107) Carbon Dioxide Level 21 mmol/L (21-32) Anion Gap 9 (6-14) Blood Urea Nitrogen 6 mg/dL (7-20) Creatinine 0.5 mg/dL (0.6-1.0) Estimated GFR (Cockcroft-Gault) 126.7 Glucose Level 242 mg/dL (70-99) Calcium Level 5.8 mg/dL (8.5-10.1) Test 06/01/17 08:06 06/01/17 09:40 06/01/17 10:15 06/01/17 11:42 O2 Saturation 98 % (92-99) Arterial Blood pH 7.50 (7.35-7.45) Arterial Blood pCO2 at Patient Temp 30 mmHg (35-46) Arterial Blood pO2 at Patient Temp 126 mmHg (75-108) Arterial Blood HCO3 23 mmol/L (21-28) Arterial Blood Base Excess 1 mmol/L (-3-3) FiO2 40 White Blood Count 17.3 x10^3/uL (4.0-11.0) Red Blood Count 3.68 x10^6/uL (3.50-5.40) Hemoglobin 10.6 g/dL (12.0-15.5) Hematocrit 32.8 % (36.0-47.0) Mean Corpuscular Volume 89 fL (79-100) Mean Corpuscular Hemoglobin 29 pg (25-35) Mean Corpuscular Hemoglobin Concent 32 g/dL (31-37) Red Cell Distribution Width 15.3 % (11.5-14.5) Platelet Count 190 x10^3/uL (140-400) Neutrophils (%) (Auto) 84 % (31-73) Lymphocytes (%) (Auto) 11 % (24-48) Monocytes (%) (Auto) 5 % (0-9) Eosinophils (%) (Auto) 0 % (0-3) Basophils (%) (Auto) 0 % (0-3) Neutrophils # (Auto) 14.4 x10^3uL (1.8-7.7) Lymphocytes # (Auto) 1.9 x10^3/uL (1.0-4.8) Monocytes # (Auto) 0.8 x10^3/uL (0.0-1.1) Eosinophils # (Auto) 0.1 x10^3/uL (0.0-0.7) Basophils # (Auto) 0.1 x10^3/uL (0.0-0.2) Glucose (Fingerstick) 357 mg/dL (70-99) 271 mg/dL (70-99) Medications Active Scripts Medications Dose Route/Sig Max Daily Dose Days Date Category Keppra (Levetiracetam) 250 Mg Tablet 750 Mg PO BID 04/29/16 Rx Levemir Flextouch (Insulin Detemir) 100 Unit/1 Ml Insuln.pen 30 Units SQ QHS 04/29/16 Rx Novolog Flexpen (Insulin Aspart) 100 Unit/1 Ml Insuln.pen 15 Units SQ TIDAC 04/29/16 Rx Lyrica (Pregabalin) 75 Mg Capsule 1 Cap PO BID 09/12/15 Reported Keppra (Levetiracetam) 500 Mg Tablet 1 Tab PO BID 09/12/15 Reported Lamictal (Lamotrigine) 200 Mg Tablet 200 Mg PO BID 09/12/15 Reported Duoneb 0.5-3(2.5) Mg/3 Ml (Albuterol/Ipratropium) 3 Ml Ampul.neb 3 Ml IH PRN QID PRN 02/01/15 Rx [Nicotine] 1 PATCH Patch 1 Patch TD DAILY 02/01/15 Rx Mucinex (Guaifenesin) 600 Mg Tablet.er 1,200 Mg PO BID 02/01/15 Rx Latuda (Lurasidone Hcl) 20 Mg Tablet 20 Mg PO 01/30/15 Reported Metoprolol Succinate 50 Mg Tab.er.24h 50 Mg PO 01/30/15 Reported Lisinopril 20 Mg Tablet 1 Tab PO DAILY 01/30/15 Reported Symbicort 160-4.5 Mcg Inhaler (Budesonide/Formoterol Fumarate) 10.2 Gm Hfa.aer.ad Unknown Dose IH BID 01/30/15 Reported Proair Hfa Inhaler (Albuterol Sulfate) 8.5 Gm Hfa.aer.ad Unknown Dose INH 01/30/15 Reported Omeprazole 40 Mg Capsule.dr 40 Mg PO DAILY 01/30/15 Reported Cetirizine Hcl 10 Mg Tablet 1 Tab PO DAILY 01/30/15 Reported Oxycodone-Acetaminophen 10-325 (Oxycodone Hcl/Acetaminophen) 1 Each Tablet 1 Tab PO Q4HRS PRN 01/30/15 Reported Carisoprodol 350 Mg Tablet 1 Tab PO TID 01/30/15 Reported Diphedryl (Diphenhydramine Hcl) 25 Mg Capsule 25 Mg PO HS 01/30/15 Reported Impression . 1. Acute hypercapnic respiratory failure secondary to multifactorial etiologies including a combination of Benadryl and acetaminophen overdose, acute toxic encephalopathy and seizure disorder. 2. Acute seizures 3. Acute drug overdose including Benadryl and Tylenol. 4. Anion gap metabolic acidosis/lactic acidosis secondary to seizure and unlikely sepsis. 5. Abnormal chest x-ray with left lower lobe atelectasis versus infiltrate. We will empirically cover for aspiration. 6. History of tobacco use. 7. Narcotic dependent with opiates positive on the drug screen. Plan . 1. Continue with present assist control mode and make necessary adjustments based on ABGs. 2. DC SEDATION assess her mental status / CPAP trial once awake 3. s/p N-acetylcysteine per protocol. 4. Bronchodilators. 5. DVT prophylaxis. 6. Stress ulcer prophylaxis. 7. She will need psychiatric evaluation upon extubation. 8. Empiric antibiotic has been initiated and we will follow chest x-ray. 9. Discussed with RN and we will follow along with you. SURAJ GARCIA MD Jun 01, 2017 12:51
[2017-06-01 14:04] LABS: INR 1.2 (0.8-1.1); PROTHROMBIN TIME PATIENT 14.6 SEC (11.7-14.0)
[2017-06-01 14:14] LABS: ALBUMIN 2.4 g/dL (3.4-5.0); ALBUMIN/GLOBULIN RATIO 0.8 (1.0-1.7); CALCIUM 8.4 mg/dL (8.5-10.1); CREATININE 0.6 mg/dL (0.6-1.0); GFR 102.7; MAGNESIUM 2.2 mg/dL (1.8-2.4); POTASSIUM 3.2 mmol/L (3.5-5.1); TOTAL BILIRUBIN 0.2 mg/dL (0.2-1.0); TOTAL PROTEIN 5.3 g/dL (6.4-8.2)
[2017-06-01 16:49] LABS: HCO3 ABG 22 mmol/L (21-28); PCO2 ABG 30 mmHg (35-46); PH ABG 7.48 (7.35-7.45); PO2 ABG 123 mmHg (75-108); SAT O2 ABG 98 % (92-99)
--- NOTE | 2017-06-01 16:54 | PDOC2 ---
CONSULT Date of Consult Date of Consult DATE: 06/01/17 TIME: 16:46 History of Present Illness Reason for Visit: This patient is 56-year-old female who has history of seizures, chronic back pain. Patient presented to emergency room with seizure episodes. Patient has taken 37 Benadryl, multiple pattern or pins. Positive control Center was called patient was given antidote. Patient was admitted to ICU and intubated. Patient was started on propofol, Keppra. Patient had a CT scan done on the brain which did not show any acute intracranial findings. Patient is currently being weaned off the fall. Patient is able to follow some commands and able to track visually patient is still intubated. Patient is currently intubated and sedated Propofol is being weaned off. Patient is status post antidote for overdose on medication. Patient will need psychiatry evaluation Will continue home meds on Keppra and Lamictal. Check level for seizure medication. Seizure precautions Past Medical History Cardiovascular: HTN, Hyperlipidemia Pulmonary: Asthma, COPD CENTRAL NERVOUS SYSTEM: CVA, Seizure Psych: Bipolar, Depression Musculoskeletal: low back pain, Osteoarthritis Endocrine: Diabetes, Osteoporosis Past Surgical History Past Surgical History: , Tonsillectomy, Other Current Problem List Problem List Problems Medical Problems: (1) Mental status change Status: Acute Current Medications Current Medications Current Medications Lorazepam (Ativan) 1 mg 1X ONCE IV Last administered on 05/31/17 13:54; Start 05/31/17 at 13:45; Stop 05/31/17 at 13:46; Status DC Sodium Chloride 1,000 ml @ 1,000 mls/hr Q1H IV Last administered on 05/31/17 13:54; Start 05/31/17 at 13:36; Stop 05/31/17 at 14:35; Status DC Lorazepam (Ativan) 2 mg 1X ONCE IV Last administered on 05/31/17 14:23; Start 05/31/17 at 14:00; Stop 05/31/17 at 14:01; Status DC Sodium Bicarbonate 50 meq 1X ONCE IV Last administered on 05/31/17 14:41; Start 05/31/17 at 14:30; Stop 05/31/17 at 14:32; Status DC Sodium Bicarbonate 50 meq 1X ONCE IV Last administered on 05/31/17 14:44; Start 05/31/17 at 14:30; Stop 05/31/17 at 14:32; Status DC Sodium Chloride 1,000 ml @ 1,000 mls/hr 1X ONCE IV Last administered on 14:44; Start 05/31/17 at 14:45; Stop 05/31/17 at 15:44; Status DC Lorazepam (Ativan) 1 mg 1X ONCE IV Last administered on 05/31/17 14:50; Start 05/31/17 at 15:00; Stop 05/31/17 at 15:01; Status DC Etomidate (Amidate) 20 mg 1X ONCE IV Last administered on 05/31/17 14:54; Start 05/31/17 at 15:00; Stop 05/31/17 at 15:01; Status DC Succinylcholine Chloride (Anectine) 100 mg 1X ONCE IV Last administered on 14:54; Start 05/31/17 at 15:00; Stop 05/31/17 at 15:01; Status DC Propofol (Diprivan) 200,000 mg 1X ONCE IV Last administered on 05/31/17 15:17 ; Start 05/31/17 at 15:00; Stop 05/31/17 at 15:03; Status DC Propofol 50 ml @ As Directed STK-MED ONCE IV ; Start 05/31/17 at 15:19; Stop at 15:20; Status DC Propofol 50 ml @ 0 mls/hr 1X ONCE IV Last administered on 05/31/17 15:20; Start 05/31/17 at 15:45; Stop 05/31/17 at 15:46; Status DC Levetiracetam 500 mg/Sodium Chloride 100 ml @ 400 mls/hr Q12HR IV ; Start 05/31 at 21:00; Stop 05/31/17 at 21:00; Status DC Levetiracetam 500 mg/Sodium Chloride 105 ml @ 400 mls/hr Q12HR IV Last administered on 06/01/17 09:18; Start 05/31/17 at 16:00 Sodium Chloride 1,000 ml @ 150 mls/hr 1X ONCE IV Last administered on 16:00; Start 05/31/17 at 16:15; Stop 05/31/17 at 22:54; Status DC Acetylcysteine 6 gm/Dextrose 230 ml @ 230 mls/hr 1X ONCE IV Last administered on 05/31/17 17:49; Start 05/31/17 at 17:30; Stop 05/31/17 at 18:29 ; Status DC Acetylcysteine 2 gm/Dextrose 510 ml @ 127.5 mls/ hr 1X ONCE IV Last administered on 05/31/17 19:00; Start 05/31/17 at 18:30; Stop 05/31/17 at 22:29 ; Status DC Acetylcysteine 4 gm/Dextrose 1,020 ml @ 63.75 mls/ hr 1X ONCE IV Last administered on 05/31/17 22:48; Start 05/31/17 at 22:30; Stop 06/01/17 at 14:29 ; Status DC Fentanyl Citrate (Fentanyl 2ml Vial) 50 mcg PRN Q1HR PRN IV PAIN Last administered on 06/01/17 11:27; Start 05/31/17 at 17:00 Sodium Bicarbonate 100 meq PRN Q15MIN PRN IV SEIZURES; Start 05/31/17 at 17:00 Propofol 100 ml @ 0 mls/hr CONT PRN IV SEE I/O RECORD Last administered on 06/01 10:01; Start 05/31/17 at 17:00 Sodium Chloride 1,000 ml @ 125 mls/hr Q8H IV Last administered on 06/01/17 06 :24; Start 05/31/17 at 17:00 Ceftriaxone Sodium 1 gm/ Sodium Chloride 50 ml @ 100 mls/hr Q24H IV Last administered on 05/31/17 17:49; Start 05/31/17 at 17:30 Insulin Aspart (NovoLOG) 20 units 1X ONCE SQ Last administered on 05/31/17 19 :46; Start 05/31/17 at 19:30; Stop 05/31/17 at 19:31; Status DC Insulin Aspart (NovoLOG) 0-7 UNITS Q6HRS SQ Last administered on 06/01/17 06: 04; Start 06/01/17 at 00:00; Stop 06/01/17 at 09:28; Status DC Dextrose (Dextrose 50%-Water Syringe) 12.5 gm PRN Q15MIN PRN IV SEE COMMENTS; Start 05/31/17 at 20:15; Status Cancel Labetalol HCl (Normodyne) 20 mg PRN Q4HRS PRN IVP HYPERTENSION, SEE COMMENTS Last administered on 05/31/17 20:48; Start 05/31/17 at 20:15 Potassium Chloride 100 ml @ 100 mls/hr Q1H IV Last administered on 05/31/17 23:49; Start 05/31/17 at 20:45; Stop 06/01/17 at 00:44; Status DC Enoxaparin Sodium (Lovenox 40mg Syringe) 40 mg QHS SQ Last administered on 05/31 23:55; Start 05/31/17 at 23:30 Calcium Gluconate 1000 mg/Sodium Chloride 110 ml @ 220 mls/hr 1X ONCE IV Last administered on 06/01/17 07:06; Start 06/01/17 at 07:00; Stop 06/01/17 at 07:29; Status DC Potassium Chloride 100 ml @ 100 mls/hr Q1H IV Last administered on 06/01/17 10:19; Start 06/01/17 at 07:00; Stop 06/01/17 at 10:59; Status DC Ondansetron HCl (Zofran) 4 mg PRN Q6HRS PRN IV NAUSEA/VOMITING; Start 06/01/17 at 09:30 Potassium Chloride (KCl Oral Soln) 40 meq 1X ONCE PEG Last administered on 10:03; Start 06/01/17 at 10:00; Stop 06/01/17 at 10:01; Status DC Insulin Aspart (NovoLOG) 0-9 UNITS TIDWMEALS SQ Last administered on 06/01/17 11:45; Start 06/01/17 at 12:00 Dextrose (Dextrose 50%-Water Syringe) 12.5 gm PRN Q15MIN PRN IV SEE COMMENTS; Start 06/01/17 at 09:30 Insulin Aspart (NovoLOG) 10 units 1X ONCE SQ Last administered on 06/01/17 10 :18; Start 06/01/17 at 10:00; Stop 06/01/17 at 10:01; Status DC Magnesium Sulfate/ Dextrose 50 ml @ 25 mls/hr 1X ONCE IV Last administered on 06/01/17 10:01; Start 06/01/17 at 10:00; Stop 06/01/17 at 11:59; Status DC Enoxaparin Sodium (Lovenox 40mg Syringe) 40 mg Q24H SQ ; Start 06/01/17 at 11:15 ; Status UNV Famotidine (Pepcid) 20 mg BID IVP Last administered on 06/01/17 11:50; Start 06/01/17 at 12:00 Calcium Gluconate 1000 mg/Sodium Chloride 110 ml @ 220 mls/hr 1X ONCE IV Last administered on 06/01/17 11:19; Start 06/01/17 at 11:15; Stop 06/01/17 at 11:44; Status DC Potassium Chloride (KCl Oral Soln) 40 meq BID PEG ; Start 06/02/17 at 09:00 Potassium Chloride (KCl Oral Soln) 40 meq 1X ONCE PEG Last administered on 15:15; Start 06/01/17 at 15:00; Stop 06/01/17 at 15:01; Status DC Active Scripts Active Keppra (Levetiracetam) 250 Mg Tablet 750 Mg PO BID Levemir Flextouch (Insulin Detemir) 100 Unit/1 Ml Insuln.pen 30 Units SQ QHS Novolog Flexpen (Insulin Aspart) 100 Unit/1 Ml Insuln.pen 15 Units SQ TIDAC Duoneb 0.5-3(2.5) Mg/3 Ml (Albuterol/Ipratropium) 3 Ml Ampul.neb 3 Ml IH PRN QID PRN [Nicotine] 1 PATCH Patch 1 Patch TD DAILY Mucinex (Guaifenesin) 600 Mg Tablet.er 1,200 Mg PO BID Reported Lyrica (Pregabalin) 75 Mg Capsule 1 Cap PO BID Keppra (Levetiracetam) 500 Mg Tablet 1 Tab PO BID Lamictal (Lamotrigine) 200 Mg Tablet 200 Mg PO BID Latuda (Lurasidone Hcl) 20 Mg Tablet 20 Mg PO Metoprolol Succinate 50 Mg Tab.er.24h 50 Mg PO Lisinopril 20 Mg Tablet 1 Tab PO DAILY Symbicort 160-4.5 Mcg Inhaler (Budesonide/Formoterol Fumarate) 10.2 Gm Hfa.aer.ad Unknown Dose IH BID Proair Hfa Inhaler (Albuterol Sulfate) 8.5 Gm Hfa.aer.ad Unknown Dose INH Omeprazole 40 Mg Capsule.dr 40 Mg PO DAILY Cetirizine Hcl 10 Mg Tablet 1 Tab PO DAILY Oxycodone-Acetaminophen 10-325 (Oxycodone Hcl/Acetaminophen) 1 Each Tablet 1 Tab PO Q4HRS PRN Carisoprodol 350 Mg Tablet 1 Tab PO TID Diphedryl (Diphenhydramine Hcl) 25 Mg Capsule 25 Mg PO HS Allergies Allergies: Coded Allergies: Estrogens (Verified Allergy, Intermediate, 09/14/15) aspirin (Verified Allergy, Intermediate, ITCHING, VOMITING, 11/21/14) ibuprofen (Verified Allergy, Intermediate, 09/14/15) Physical Exam Physical Exam REVIEW OF SYSTEMS: unobtainable PHYSICAL EXAMINATION: General appearance intubated HEENT: Normocephalic and nontraumatic. Eyes, nose, ears, and throat are unremarkable. Neck is supple. No lymphadenopathy. No crepitus. Cardiovascular: S1, S2, regular rate and rhythm. Pulmonary: Clear to auscultation bilaterally. Abdomen: Bowel sounds are positive. Abdomen is soft, nontender, and nondistended. NEUROLOGICAL EXAMINATION: Alert PERRL. EOMI. CN: no focal findings. Muscle tone: within normal. Muscle strength: moves all exts DTR: 1-2 Plantar reflex: Flexor response bilaterally Gait: not examined in bed. Sensory exam: no abnormal findings. . Vitals VITALS Vital Signs Date Time Temp Pulse Resp B/P (MAP) Pulse Ox O2 Delivery O2 Flow Rate FiO2 06/01/17 16:00 Mechanical Ventilator 06/01/17 15:06 100 06/01/17 14:00 101 16 186/72 (110) 06/01/17 12:00 99.4 99.4 05/31/17 14:49 15.0 Labs Labs Laboratory Tests Test 05/31/17 13:42 05/31/17 13:49 05/31/17 15:45 05/31/17 18:00 O2 Saturation 97 % (92-99) 89 % (92-99) Arterial Blood pH 7.16 (7.35-7.45) 7.40 (7.35-7.45) Arterial Blood pCO2 at Patient Temp 51 mmHg (35-46) 45 mmHg (35-46) Arterial Blood pO2 at Patient Temp 133 mmHg (75-108) 56 mmHg (75-108) Arterial Blood HCO3 18 mmol/L (21-28) 27 mmol/L (21-28) Arterial Blood Base Excess -11 mmol/L (-3-3) 2 mmol/L (-3-3) Oxyhemoglobin 95.3 % Methemoglobin 0.6 % (0.0-1.9) Carbon Monoxide, Quantitative 1.6 % (0.0-1.9) FiO2 100.0 100.0 White Blood Count 14.3 x10^3/uL (4.0-11.0) Red Blood Count 4.33 x10^6/uL (3.50-5.40) Hemoglobin 12.5 g/dL (12.0-15.5) Hematocrit 39.1 % (36.0-47.0) Mean Corpuscular Volume 90 fL (79-100) Mean Corpuscular Hemoglobin 29 pg (25-35) Mean Corpuscular Hemoglobin Concent 32 g/dL (31-37) Red Cell Distribution Width 14.7 % (11.5-14.5) Platelet Count 303 x10^3/uL (140-400) Neutrophils (%) (Auto) 54 % (31-73) Lymphocytes (%) (Auto) 36 % (24-48) Monocytes (%) (Auto) 8 % (0-9) Eosinophils (%) (Auto) 1 % (0-3) Basophils (%) (Auto) 1 % (0-3) Neutrophils # (Auto) 7.8 x10^3uL (1.8-7.7) Lymphocytes # (Auto) 5.1 x10^3/uL (1.0-4.8) Monocytes # (Auto) 1.1 x10^3/uL (0.0-1.1) Eosinophils # (Auto) 0.2 x10^3/uL (0.0-0.7) Basophils # (Auto) 0.1 x10^3/uL (0.0-0.2) Prothrombin Time 13.3 SEC (11.7-14.0) 14.7 SEC (11.7-14.0) Prothromb Time International Ratio 1.1 (0.8-1.1) 1.2 (0.8-1.1) Activated Partial Thromboplast Time 27 SEC (24-38) Urine Collection Type Unknown Urine Color Yellow Urine Clarity Clear Urine pH 5.0 Urine Specific [place] >=1.030 Urine Protein 30 mg/dL (NEG-TRACE) Urine Glucose (UA) >=1000 mg/dL (NEG) Urine Ketones (Stick) Negative mg/dL (NEG) Urine Blood Negative (NEG) Urine Nitrite Negative (NEG) Urine Bilirubin Negative (NEG) Urine Urobilinogen Dipstick 0.2 mg/dL (0.2 mg/dL) Urine Leukocyte Esterase Negative (NEG) Urine RBC 1-2 /HPF (0-2) Urine WBC Rare /HPF (0-4) Urine Squamous Epithelial Cells Mod /LPF Urine Bacteria 0 /HPF (0-FEW) Urine Hyaline Casts Few /HPF Urine Mucus Slight /LPF Sodium Level 142 mmol/L (136-145) 144 mmol/L (136-145) Potassium Level 3.8 mmol/L (3.5-5.1) 3.0 mmol/L (3.5-5.1) Chloride Level 102 mmol/L (98-107) 107 mmol/L (98-107) Carbon Dioxide Level 19 mmol/L (21-32) 30 mmol/L (21-32) Anion Gap 21 (6-14) 7 (6-14) Blood Urea Nitrogen 11 mg/dL (7-20) 9 mg/dL (7-20) Creatinine 1.1 mg/dL (0.6-1.0) 0.7 mg/dL (0.6-1.0) Estimated GFR (Cockcroft-Gault) 51.0 85.9 Glucose Level 453 mg/dL (70-99) 354 mg/dL (70-99) Lactic Acid Level 13.4 mmol/L (0.4-2.0) 1.2 mmol/L (0.4-2.0) Calcium Level 8.9 mg/dL (8.5-10.1) 7.3 mg/dL (8.5-10.1) Magnesium Level 1.7 mg/dL (1.8-2.4) Total Bilirubin 0.2 mg/dL (0.2-1.0) 0.4 mg/dL (0.2-1.0) Direct Bilirubin 0.1 mg/dL (0.0-0.2) 0.1 mg/dL (0.0-0.2) Aspartate Amino Transf (AST/SGOT) 15 U/L (15-37) 67 U/L (15-37) Alanine Aminotransferase (ALT/SGPT) 17 U/L (14-59) 41 U/L (14-59) Alkaline Phosphatase 104 U/L (46-116) 87 U/L (46-116) Ammonia 40 mcmol/L (11-34) Creatine Kinase 73 U/L (26-192) Troponin I Quantitative < 0.017 ng/mL (0.000-0.055) Total Protein 6.8 g/dL (6.4-8.2) 5.5 g/dL (6.4-8.2) Albumin 3.7 g/dL (3.4-5.0) 2.7 g/dL (3.4-5.0) Lipase 266 U/L (73-393) Thyroid Stimulating Hormone (TSH) 2.969 uIU/mL (0.358-3.74) Salicylates Level 4.3 mg/dL (2.8-20.0) Salicylate Last Dose Date Unknown Salicylate Last Dose Time Unknown Urine Opiates Screen Pos (NEG) Urine Methadone Screen Neg (NEG) Acetaminophen Level 63.4 mcg/ml (10-30) 25.70 mcg/ml (10-30) Acetaminophen Last Dose Date Unknown Acetaminophen Last Dose Time Unknown Urine Barbiturates Neg (NEG) Urine Phencyclidine Screen Neg (NEG) Urine Amphetamine/Methamphetamine Neg (NEG) Urine Benzodiazepines Screen Neg (NEG) Urine Cocaine Screen Neg (NEG) Urine Cannabinoids Screen Neg (NEG) Ethyl Alcohol Level < 10 mg/dL (0-10) Urine Ethyl Alcohol Neg (NEG) BUN/Creatinine Ratio 13 (6-20) Albumin/Globulin Ratio 1.0 (1.0-1.7) Test 05/31/17 19:30 05/31/17 23:51 05/31/17 23:55 06/01/17 05:40 Glucose (Fingerstick) 324 mg/dL (70-99) 196 mg/dL (70-99) Nasal Screen MRSA (PCR) Negative (Negative) Sodium Level 141 mmol/L (136-145) Potassium Level 2.5 mmol/L (3.5-5.1) Chloride Level 111 mmol/L (98-107) Carbon Dioxide Level 21 mmol/L (21-32) Anion Gap 9 (6-14) Blood Urea Nitrogen 6 mg/dL (7-20) Creatinine 0.5 mg/dL (0.6-1.0) Estimated GFR (Cockcroft-Gault) 126.7 Glucose Level 242 mg/dL (70-99) Calcium Level 5.8 mg/dL (8.5-10.1) Test 06/01/17 06:01 06/01/17 08:06 06/01/17 09:40 06/01/17 10:15 Glucose (Fingerstick) 297 mg/dL (70-99) 357 mg/dL (70-99) O2 Saturation 98 % (92-99) Arterial Blood pH 7.50 (7.35-7.45) Arterial Blood pCO2 at Patient Temp 30 mmHg (35-46) Arterial Blood pO2 at Patient Temp 126 mmHg (75-108) Arterial Blood HCO3 23 mmol/L (21-28) Arterial Blood Base Excess 1 mmol/L (-3-3) FiO2 40 White Blood Count 17.3 x10^3/uL (4.0-11.0) Red Blood Count 3.68 x10^6/uL (3.50-5.40) Hemoglobin 10.6 g/dL (12.0-15.5) Hematocrit 32.8 % (36.0-47.0) Mean Corpuscular Volume 89 fL (79-100) Mean Corpuscular Hemoglobin 29 pg (25-35) Mean Corpuscular Hemoglobin Concent 32 g/dL (31-37) Red Cell Distribution Width 15.3 % (11.5-14.5) Platelet Count 190 x10^3/uL (140-400) Neutrophils (%) (Auto) 84 % (31-73) Lymphocytes (%) (Auto) 11 % (24-48) Monocytes (%) (Auto) 5 % (0-9) Eosinophils (%) (Auto) 0 % (0-3) Basophils (%) (Auto) 0 % (0-3) Neutrophils # (Auto) 14.4 x10^3uL (1.8-7.7) Lymphocytes # (Auto) 1.9 x10^3/uL (1.0-4.8) Monocytes # (Auto) 0.8 x10^3/uL (0.0-1.1) Eosinophils # (Auto) 0.1 x10^3/uL (0.0-0.7) Basophils # (Auto) 0.1 x10^3/uL (0.0-0.2) Test 06/01/17 11:42 06/01/17 13:25 Glucose (Fingerstick) 271 mg/dL (70-99) Prothrombin Time 14.6 SEC (11.7-14.0) Prothromb Time International Ratio 1.2 (0.8-1.1) Sodium Level 141 mmol/L (136-145) Potassium Level 3.2 mmol/L (3.5-5.1) Chloride Level 109 mmol/L (98-107) Carbon Dioxide Level 25 mmol/L (21-32) Anion Gap 7 (6-14) Blood Urea Nitrogen 4 mg/dL (7-20) Creatinine 0.6 mg/dL (0.6-1.0) Estimated GFR (Cockcroft-Gault) 102.7 BUN/Creatinine Ratio 7 (6-20) Glucose Level 208 mg/dL (70-99) Calcium Level 8.4 mg/dL (8.5-10.1) Magnesium Level 2.2 mg/dL (1.8-2.4) Total Bilirubin 0.2 mg/dL (0.2-1.0) Aspartate Amino Transf (AST/SGOT) 17 U/L (15-37) Alanine Aminotransferase (ALT/SGPT) 22 U/L (14-59) Alkaline Phosphatase 76 U/L (46-116) Total Protein 5.3 g/dL (6.4-8.2) Albumin 2.4 g/dL (3.4-5.0) Albumin/Globulin Ratio 0.8 (1.0-1.7) Acetaminophen Level 4.6 mcg/ml (10-30) Acetaminophen Last Dose Date Acetaminophen Last Dose Time Laboratory Tests Test 05/31/17 18:00 05/31/17 19:30 05/31/17 23:51 05/31/17 23:55 Prothrombin Time 14.7 SEC (11.7-14.0) Prothromb Time International Ratio 1.2 (0.8-1.1) Sodium Level 144 mmol/L (136-145) Potassium Level 3.0 mmol/L (3.5-5.1) Chloride Level 107 mmol/L (98-107) Carbon Dioxide Level 30 mmol/L (21-32) Anion Gap 7 (6-14) Blood Urea Nitrogen 9 mg/dL (7-20) Creatinine 0.7 mg/dL (0.6-1.0) Estimated GFR (Cockcroft-Gault) 85.9 BUN/Creatinine Ratio 13 (6-20) Glucose Level 354 mg/dL (70-99) Lactic Acid Level 1.2 mmol/L (0.4-2.0) Calcium Level 7.3 mg/dL (8.5-10.1) Total Bilirubin 0.4 mg/dL (0.2-1.0) Direct Bilirubin 0.1 mg/dL (0.0-0.2) Aspartate Amino Transf (AST/SGOT) 67 U/L (15-37) Alanine Aminotransferase (ALT/SGPT) 41 U/L (14-59) Alkaline Phosphatase 87 U/L (46-116) Total Protein 5.5 g/dL (6.4-8.2) Albumin 2.7 g/dL (3.4-5.0) Albumin/Globulin Ratio 1.0 (1.0-1.7) Acetaminophen Level 25.70 mcg/ml (10-30) Acetaminophen Last Dose Date Acetaminophen Last Dose Time Glucose (Fingerstick) 324 mg/dL (70-99) 196 mg/dL (70-99) Nasal Screen MRSA (PCR) Negative (Negative) Test 06/01/17 05:40 06/01/17 06:01 06/01/17 08:06 06/01/17 09:40 Sodium Level 141 mmol/L (136-145) Potassium Level 2.5 mmol/L (3.5-5.1) Chloride Level 111 mmol/L (98-107) Carbon Dioxide Level 21 mmol/L (21-32) Anion Gap 9 (6-14) Blood Urea Nitrogen 6 mg/dL (7-20) Creatinine 0.5 mg/dL (0.6-1.0) Estimated GFR (Cockcroft-Gault) 126.7 Glucose Level 242 mg/dL (70-99) Calcium Level 5.8 mg/dL (8.5-10.1) Glucose (Fingerstick) 297 mg/dL (70-99) O2 Saturation 98 % (92-99) Arterial Blood pH 7.50 (7.35-7.45) Arterial Blood pCO2 at Patient Temp 30 mmHg (35-46) Arterial Blood pO2 at Patient Temp 126 mmHg (75-108) Arterial Blood HCO3 23 mmol/L (21-28) Arterial Blood Base Excess 1 mmol/L (-3-3) FiO2 40 White Blood Count 17.3 x10^3/uL (4.0-11.0) Red Blood Count 3.68 x10^6/uL (3.50-5.40) Hemoglobin 10.6 g/dL (12.0-15.5) Hematocrit 32.8 % (36.0-47.0) Mean Corpuscular Volume 89 fL (79-100) Mean Corpuscular Hemoglobin 29 pg (25-35) Mean Corpuscular Hemoglobin Concent 32 g/dL (31-37) Red Cell Distribution Width 15.3 % (11.5-14.5) Platelet Count 190 x10^3/uL (140-400) Neutrophils (%) (Auto) 84 % (31-73) Lymphocytes (%) (Auto) 11 % (24-48) Monocytes (%) (Auto) 5 % (0-9) Eosinophils (%) (Auto) 0 % (0-3) Basophils (%) (Auto) 0 % (0-3) Neutrophils # (Auto) 14.4 x10^3uL (1.8-7.7) Lymphocytes # (Auto) 1.9 x10^3/uL (1.0-4.8) Monocytes # (Auto) 0.8 x10^3/uL (0.0-1.1) Eosinophils # (Auto) 0.1 x10^3/uL (0.0-0.7) Basophils # (Auto) 0.1 x10^3/uL (0.0-0.2) Test 06/01/17 10:15 06/01/17 11:42 06/01/17 13:25 Glucose (Fingerstick) 357 mg/dL (70-99) 271 mg/dL (70-99) Prothrombin Time 14.6 SEC (11.7-14.0) Prothromb Time International Ratio 1.2 (0.8-1.1) Sodium Level 141 mmol/L (136-145) Potassium Level 3.2 mmol/L (3.5-5.1) Chloride Level 109 mmol/L (98-107) Carbon Dioxide Level 25 mmol/L (21-32) Anion Gap 7 (6-14) Blood Urea Nitrogen 4 mg/dL (7-20) Creatinine 0.6 mg/dL (0.6-1.0) Estimated GFR (Cockcroft-Gault) 102.7 BUN/Creatinine Ratio 7 (6-20) Glucose Level 208 mg/dL (70-99) Calcium Level 8.4 mg/dL (8.5-10.1) Magnesium Level 2.2 mg/dL (1.8-2.4) Total Bilirubin 0.2 mg/dL (0.2-1.0) Aspartate Amino Transf (AST/SGOT) 17 U/L (15-37) Alanine Aminotransferase (ALT/SGPT) 22 U/L (14-59) Alkaline Phosphatase 76 U/L (46-116) Total Protein 5.3 g/dL (6.4-8.2) Albumin 2.4 g/dL (3.4-5.0) Albumin/Globulin Ratio 0.8 (1.0-1.7) Acetaminophen Level 4.6 mcg/ml (10-30) Acetaminophen Last Dose Date Acetaminophen Last Dose Time Assessment/Plan Assessment/Plan This patient is 56-year-old female who has history of seizures, chronic back pain. Patient presented to emergency room with seizure episodes. Patient has taken 37 Benadryl, multiple pattern or pins. Positive control Center was called patient was given antidote. Patient was admitted to ICU and intubated. Patient was started on propofol, Keppra. Patient had a CT scan done on the brain which did not show any acute intracranial findings. Patient is currently being weaned off the fall. Patient is able to follow some commands and able to track visually patient is still intubated. Patient is currently intubated and sedated Propofol is being weaned off. Patient is status post antidote for overdose on medication. Patient will need psychiatry evaluation Will continue home meds on Keppra and Lamictal. Check level for seizure medication. Seizure precautions No new clinical seizure activity noted. Patient is able to follow some commands. Check for any infectious or metabolic etiology. CT scan done on the brain did not show any acute process. Hypokalemia continue treat Continue medical management SURAJ LARKIN MD Jun 01, 2017 16:54
[2017-06-01 17:15] LABS: FIO2 ABG 21
[2017-06-01] MEDS: ENOXAPARIN 40 MG/0.4 ML SYRINGE. SQ SCH (21:20)
[2017-06-02] VITALS (24 sets, daily range): BP systolic 106–193; BP diastolic 54–98
[2017-06-02] MEDS: IV NORMAL SALINE 1000ML BAG 1,000 ML IV SCH ×3 (05:36→17:00)
[2017-06-02] MEDS: fentaNYL PF VIAL 100 MCG/2 ML VIAL IV PRN (05:36)
[2017-06-02 06:00] LABS: BASO # 0.1 x10^3/uL (0.0-0.2); BASO % 1 % (0-3); EOS % 2 % (0-3); HEMATOCRIT 30.8 % (36.0-47.0); HEMOGLOBIN 10.3 g/dL (12.0-15.5); LYMPH % 20 % (24-48); MEAN CORPUSCULAR HEMOGLOBIN 29 pg (25-35); MEAN CORPUSCULAR HGB CONC 33 g/dL (31-37); MEAN CORPUSCULAR VOLUME 87 fL (79-100); MONO % 8 % (0-9); NEUT % 69 % (31-73); PLATELET COUNT 152 x10^3/uL (140-400); RED BLOOD COUNT 3.53 x10^6/uL (3.50-5.40); WHITE BLOOD COUNT 10.2 x10^3/uL (4.0-11.0)
[2017-06-02 06:16] LABS: CALCIUM 8.3 mg/dL (8.5-10.1); CREATININE 0.5 mg/dL (0.6-1.0); GFR 126.7; POTASSIUM 3.5 mmol/L (3.5-5.1)
[2017-06-02] MEDS: INSULIN ASPART 300 UNITS/3 ML INSULN.PEN SQ SCH ×3 (08:00→17:00)
[2017-06-02] MEDS: POTASSIUM CHLORIDE 20 MEQ/15 ML ORAL LIQUID. PEG SCH ×2 (09:03→20:06)
[2017-06-02] MEDS: MAGNESIUM SULFATE 4GM 100 ML IV SCH (09:04)
[2017-06-02] MEDS: FAMOTIDINE 20 MG/2 ML VIAL IVP SCH ×2 (09:04→20:06)
--- NOTE | 2017-06-02 09:07 | PDOC ---
PULMONARY PROGRESS NOTES Subjective PT DID WELL ON TRIAL Vitals Vital Signs Date Time Temp Pulse Resp B/P (MAP) Pulse Ox O2 Delivery O2 Flow Rate FiO2 06/02/17 07:38 100 Ventilator 06/02/17 06:06 20 06/02/17 06:00 81 123/65 (84) 06/02/17 04:00 99.0 99.0 ROS: No Nausea, No Chest Pain, No Abdominal Pain, No Increase Cough Lungs: Clear Cardiovascular: S1 Abdomen: Soft, Non-tender Extremities: No Edema Skin: Warm Labs Laboratory Tests Test 05/31/17 13:42 05/31/17 13:49 05/31/17 15:45 05/31/17 18:00 O2 Saturation 97 % (92-99) 89 % (92-99) Arterial Blood pH 7.16 (7.35-7.45) 7.40 (7.35-7.45) Arterial Blood pCO2 at Patient Temp 51 mmHg (35-46) 45 mmHg (35-46) Arterial Blood pO2 at Patient Temp 133 mmHg (75-108) 56 mmHg (75-108) Arterial Blood HCO3 18 mmol/L (21-28) 27 mmol/L (21-28) Arterial Blood Base Excess -11 mmol/L (-3-3) 2 mmol/L (-3-3) Oxyhemoglobin 95.3 % Methemoglobin 0.6 % (0.0-1.9) Carbon Monoxide, Quantitative 1.6 % (0.0-1.9) FiO2 100.0 100.0 White Blood Count 14.3 x10^3/uL (4.0-11.0) Red Blood Count 4.33 x10^6/uL (3.50-5.40) Hemoglobin 12.5 g/dL (12.0-15.5) Hematocrit 39.1 % (36.0-47.0) Mean Corpuscular Volume 90 fL (79-100) Mean Corpuscular Hemoglobin 29 pg (25-35) Mean Corpuscular Hemoglobin Concent 32 g/dL (31-37) Red Cell Distribution Width 14.7 % (11.5-14.5) Platelet Count 303 x10^3/uL (140-400) Neutrophils (%) (Auto) 54 % (31-73) Lymphocytes (%) (Auto) 36 % (24-48) Monocytes (%) (Auto) 8 % (0-9) Eosinophils (%) (Auto) 1 % (0-3) Basophils (%) (Auto) 1 % (0-3) Neutrophils # (Auto) 7.8 x10^3uL (1.8-7.7) Lymphocytes # (Auto) 5.1 x10^3/uL (1.0-4.8) Monocytes # (Auto) 1.1 x10^3/uL (0.0-1.1) Eosinophils # (Auto) 0.2 x10^3/uL (0.0-0.7) Basophils # (Auto) 0.1 x10^3/uL (0.0-0.2) Prothrombin Time 13.3 SEC (11.7-14.0) 14.7 SEC (11.7-14.0) Prothromb Time International Ratio 1.1 (0.8-1.1) 1.2 (0.8-1.1) Activated Partial Thromboplast Time 27 SEC (24-38) Urine Collection Type Unknown Urine Color Yellow Urine Clarity Clear Urine pH 5.0 Urine Specific Frederica >=1.030 Urine Protein 30 mg/dL (NEG-TRACE) Urine Glucose (UA) >=1000 mg/dL (NEG) Urine Ketones (Stick) Negative mg/dL (NEG) Urine Blood Negative (NEG) Urine Nitrite Negative (NEG) Urine Bilirubin Negative (NEG) Urine Urobilinogen Dipstick 0.2 mg/dL (0.2 mg/dL) Urine Leukocyte Esterase Negative (NEG) Urine RBC 1-2 /HPF (0-2) Urine WBC Rare /HPF (0-4) Urine Squamous Epithelial Cells Mod /LPF Urine Bacteria 0 /HPF (0-FEW) Urine Hyaline Casts Few /HPF Urine Mucus Slight /LPF Sodium Level 142 mmol/L (136-145) 144 mmol/L (136-145) Potassium Level 3.8 mmol/L (3.5-5.1) 3.0 mmol/L (3.5-5.1) Chloride Level 102 mmol/L (98-107) 107 mmol/L (98-107) Carbon Dioxide Level 19 mmol/L (21-32) 30 mmol/L (21-32) Anion Gap 21 (6-14) 7 (6-14) Blood Urea Nitrogen 11 mg/dL (7-20) 9 mg/dL (7-20) Creatinine 1.1 mg/dL (0.6-1.0) 0.7 mg/dL (0.6-1.0) Estimated GFR (Cockcroft-Gault) 51.0 85.9 Glucose Level 453 mg/dL (70-99) 354 mg/dL (70-99) Lactic Acid Level 13.4 mmol/L (0.4-2.0) 1.2 mmol/L (0.4-2.0) Calcium Level 8.9 mg/dL (8.5-10.1) 7.3 mg/dL (8.5-10.1) Magnesium Level 1.7 mg/dL (1.8-2.4) Total Bilirubin 0.2 mg/dL (0.2-1.0) 0.4 mg/dL (0.2-1.0) Direct Bilirubin 0.1 mg/dL (0.0-0.2) 0.1 mg/dL (0.0-0.2) Aspartate Amino Transf (AST/SGOT) 15 U/L (15-37) 67 U/L (15-37) Alanine Aminotransferase (ALT/SGPT) 17 U/L (14-59) 41 U/L (14-59) Alkaline Phosphatase 104 U/L (46-116) 87 U/L (46-116) Ammonia 40 mcmol/L (11-34) Creatine Kinase 73 U/L (26-192) Troponin I Quantitative < 0.017 ng/mL (0.000-0.055) Total Protein 6.8 g/dL (6.4-8.2) 5.5 g/dL (6.4-8.2) Albumin 3.7 g/dL (3.4-5.0) 2.7 g/dL (3.4-5.0) Lipase 266 U/L (73-393) Thyroid Stimulating Hormone (TSH) 2.969 uIU/mL (0.358-3.74) Salicylates Level 4.3 mg/dL (2.8-20.0) Salicylate Last Dose Date Unknown Salicylate Last Dose Time Unknown Urine Opiates Screen Pos (NEG) Urine Methadone Screen Neg (NEG) Acetaminophen Level 63.4 mcg/ml (10-30) 25.70 mcg/ml (10-30) Acetaminophen Last Dose Date Unknown Acetaminophen Last Dose Time Unknown Urine Barbiturates Neg (NEG) Urine Phencyclidine Screen Neg (NEG) Urine Amphetamine/Methamphetamine Neg (NEG) Urine Benzodiazepines Screen Neg (NEG) Urine Cocaine Screen Neg (NEG) Urine Cannabinoids Screen Neg (NEG) Ethyl Alcohol Level < 10 mg/dL (0-10) Urine Ethyl Alcohol Neg (NEG) BUN/Creatinine Ratio 13 (6-20) Albumin/Globulin Ratio 1.0 (1.0-1.7) Test 05/31/17 19:30 05/31/17 23:51 05/31/17 23:55 06/01/17 05:40 Glucose (Fingerstick) 324 mg/dL (70-99) 196 mg/dL (70-99) Nasal Screen MRSA (PCR) Negative (Negative) Sodium Level 141 mmol/L (136-145) Potassium Level 2.5 mmol/L (3.5-5.1) Chloride Level 111 mmol/L (98-107) Carbon Dioxide Level 21 mmol/L (21-32) Anion Gap 9 (6-14) Blood Urea Nitrogen 6 mg/dL (7-20) Creatinine 0.5 mg/dL (0.6-1.0) Estimated GFR (Cockcroft-Gault) 126.7 Glucose Level 242 mg/dL (70-99) Calcium Level 5.8 mg/dL (8.5-10.1) Test 06/01/17 06:01 06/01/17 08:06 06/01/17 09:40 06/01/17 10:15 Glucose (Fingerstick) 297 mg/dL (70-99) 357 mg/dL (70-99) O2 Saturation 98 % (92-99) Arterial Blood pH 7.50 (7.35-7.45) Arterial Blood pCO2 at Patient Temp 30 mmHg (35-46) Arterial Blood pO2 at Patient Temp 126 mmHg (75-108) Arterial Blood HCO3 23 mmol/L (21-28) Arterial Blood Base Excess 1 mmol/L (-3-3) FiO2 40 White Blood Count 17.3 x10^3/uL (4.0-11.0) Red Blood Count 3.68 x10^6/uL (3.50-5.40) Hemoglobin 10.6 g/dL (12.0-15.5) Hematocrit 32.8 % (36.0-47.0) Mean Corpuscular Volume 89 fL (79-100) Mean Corpuscular Hemoglobin 29 pg (25-35) Mean Corpuscular Hemoglobin Concent 32 g/dL (31-37) Red Cell Distribution Width 15.3 % (11.5-14.5) Platelet Count 190 x10^3/uL (140-400) Neutrophils (%) (Auto) 84 % (31-73) Lymphocytes (%) (Auto) 11 % (24-48) Monocytes (%) (Auto) 5 % (0-9) Eosinophils (%) (Auto) 0 % (0-3) Basophils (%) (Auto) 0 % (0-3) Neutrophils # (Auto) 14.4 x10^3uL (1.8-7.7) Lymphocytes # (Auto) 1.9 x10^3/uL (1.0-4.8) Monocytes # (Auto) 0.8 x10^3/uL (0.0-1.1) Eosinophils # (Auto) 0.1 x10^3/uL (0.0-0.7) Basophils # (Auto) 0.1 x10^3/uL (0.0-0.2) Test 06/01/17 11:42 06/01/17 13:25 06/01/17 16:18 06/01/17 17:06 Glucose (Fingerstick) 271 mg/dL (70-99) 142 mg/dL (70-99) Prothrombin Time 14.6 SEC (11.7-14.0) Prothromb Time International Ratio 1.2 (0.8-1.1) Sodium Level 141 mmol/L (136-145) Potassium Level 3.2 mmol/L (3.5-5.1) Chloride Level 109 mmol/L (98-107) Carbon Dioxide Level 25 mmol/L (21-32) Anion Gap 7 (6-14) Blood Urea Nitrogen 4 mg/dL (7-20) Creatinine 0.6 mg/dL (0.6-1.0) Estimated GFR (Cockcroft-Gault) 102.7 BUN/Creatinine Ratio 7 (6-20) Glucose Level 208 mg/dL (70-99) Calcium Level 8.4 mg/dL (8.5-10.1) Magnesium Level 2.2 mg/dL (1.8-2.4) Total Bilirubin 0.2 mg/dL (0.2-1.0) Aspartate Amino Transf (AST/SGOT) 17 U/L (15-37) Alanine Aminotransferase (ALT/SGPT) 22 U/L (14-59) Alkaline Phosphatase 76 U/L (46-116) Total Protein 5.3 g/dL (6.4-8.2) Albumin 2.4 g/dL (3.4-5.0) Albumin/Globulin Ratio 0.8 (1.0-1.7) Acetaminophen Level 4.6 mcg/ml (10-30) Acetaminophen Last Dose Date Acetaminophen Last Dose Time O2 Saturation 98 % (92-99) Arterial Blood pH 7.48 (7.35-7.45) Arterial Blood pCO2 at Patient Temp 30 mmHg (35-46) Arterial Blood pO2 at Patient Temp 123 mmHg (75-108) Arterial Blood HCO3 22 mmol/L (21-28) Arterial Blood Base Excess -1 mmol/L (-3-3) FiO2 21 Test 06/01/17 21:35 06/02/17 05:25 Acetaminophen Level 4.1 mcg/ml (10-30) Acetaminophen Last Dose Date Unknown Acetaminophen Last Dose Time Unknown White Blood Count 10.2 x10^3/uL (4.0-11.0) Red Blood Count 3.53 x10^6/uL (3.50-5.40) Hemoglobin 10.3 g/dL (12.0-15.5) Hematocrit 30.8 % (36.0-47.0) Mean Corpuscular Volume 87 fL (79-100) Mean Corpuscular Hemoglobin 29 pg (25-35) Mean Corpuscular Hemoglobin Concent 33 g/dL (31-37) Red Cell Distribution Width 15.0 % (11.5-14.5) Platelet Count 152 x10^3/uL (140-400) Neutrophils (%) (Auto) 69 % (31-73) Lymphocytes (%) (Auto) 20 % (24-48) Monocytes (%) (Auto) 8 % (0-9) Eosinophils (%) (Auto) 2 % (0-3) Basophils (%) (Auto) 1 % (0-3) Neutrophils # (Auto) 7.1 x10^3uL (1.8-7.7) Lymphocytes # (Auto) 2.0 x10^3/uL (1.0-4.8) Monocytes # (Auto) 0.8 x10^3/uL (0.0-1.1) Eosinophils # (Auto) 0.2 x10^3/uL (0.0-0.7) Basophils # (Auto) 0.1 x10^3/uL (0.0-0.2) Sodium Level 143 mmol/L (136-145) Potassium Level 3.5 mmol/L (3.5-5.1) Chloride Level 110 mmol/L (98-107) Carbon Dioxide Level 24 mmol/L (21-32) Anion Gap 9 (6-14) Blood Urea Nitrogen 4 mg/dL (7-20) Creatinine 0.5 mg/dL (0.6-1.0) Estimated GFR (Cockcroft-Gault) 126.7 Glucose Level 148 mg/dL (70-99) Calcium Level 8.3 mg/dL (8.5-10.1) Magnesium Level 1.6 mg/dL (1.8-2.4) Laboratory Tests Test 06/01/17 09:40 06/01/17 10:15 06/01/17 11:42 06/01/17 13:25 White Blood Count 17.3 x10^3/uL (4.0-11.0) Red Blood Count 3.68 x10^6/uL (3.50-5.40) Hemoglobin 10.6 g/dL (12.0-15.5) Hematocrit 32.8 % (36.0-47.0) Mean Corpuscular Volume 89 fL (79-100) Mean Corpuscular Hemoglobin 29 pg (25-35) Mean Corpuscular Hemoglobin Concent 32 g/dL (31-37) Red Cell Distribution Width 15.3 % (11.5-14.5) Platelet Count 190 x10^3/uL (140-400) Neutrophils (%) (Auto) 84 % (31-73) Lymphocytes (%) (Auto) 11 % (24-48) Monocytes (%) (Auto) 5 % (0-9) Eosinophils (%) (Auto) 0 % (0-3) Basophils (%) (Auto) 0 % (0-3) Neutrophils # (Auto) 14.4 x10^3uL (1.8-7.7) Lymphocytes # (Auto) 1.9 x10^3/uL (1.0-4.8) Monocytes # (Auto) 0.8 x10^3/uL (0.0-1.1) Eosinophils # (Auto) 0.1 x10^3/uL (0.0-0.7) Basophils # (Auto) 0.1 x10^3/uL (0.0-0.2) Glucose (Fingerstick) 357 mg/dL (70-99) 271 mg/dL (70-99) Prothrombin Time 14.6 SEC (11.7-14.0) Prothromb Time International Ratio 1.2 (0.8-1.1) Sodium Level 141 mmol/L (136-145) Potassium Level 3.2 mmol/L (3.5-5.1) Chloride Level 109 mmol/L (98-107) Carbon Dioxide Level 25 mmol/L (21-32) Anion Gap 7 (6-14) Blood Urea Nitrogen 4 mg/dL (7-20) Creatinine 0.6 mg/dL (0.6-1.0) Estimated GFR (Cockcroft-Gault) 102.7 BUN/Creatinine Ratio 7 (6-20) Glucose Level 208 mg/dL (70-99) Calcium Level 8.4 mg/dL (8.5-10.1) Magnesium Level 2.2 mg/dL (1.8-2.4) Total Bilirubin 0.2 mg/dL (0.2-1.0) Aspartate Amino Transf (AST/SGOT) 17 U/L (15-37) Alanine Aminotransferase (ALT/SGPT) 22 U/L (14-59) Alkaline Phosphatase 76 U/L (46-116) Total Protein 5.3 g/dL (6.4-8.2) Albumin 2.4 g/dL (3.4-5.0) Albumin/Globulin Ratio 0.8 (1.0-1.7) Acetaminophen Level 4.6 mcg/ml (10-30) Acetaminophen Last Dose Date Acetaminophen Last Dose Time Test 06/01/17 16:18 06/01/17 17:06 06/01/17 21:35 06/02/17 05:25 O2 Saturation 98 % (92-99) Arterial Blood pH 7.48 (7.35-7.45) Arterial Blood pCO2 at Patient Temp 30 mmHg (35-46) Arterial Blood pO2 at Patient Temp 123 mmHg (75-108) Arterial Blood HCO3 22 mmol/L (21-28) Arterial Blood Base Excess -1 mmol/L (-3-3) FiO2 21 Glucose (Fingerstick) 142 mg/dL (70-99) Acetaminophen Level 4.1 mcg/ml (10-30) Acetaminophen Last Dose Date Unknown Acetaminophen Last Dose Time Unknown White Blood Count 10.2 x10^3/uL (4.0-11.0) Red Blood Count 3.53 x10^6/uL (3.50-5.40) Hemoglobin 10.3 g/dL (12.0-15.5) Hematocrit 30.8 % (36.0-47.0) Mean Corpuscular Volume 87 fL (79-100) Mean Corpuscular Hemoglobin 29 pg (25-35) Mean Corpuscular Hemoglobin Concent 33 g/dL (31-37) Red Cell Distribution Width 15.0 % (11.5-14.5) Platelet Count 152 x10^3/uL (140-400) Neutrophils (%) (Auto) 69 % (31-73) Lymphocytes (%) (Auto) 20 % (24-48) Monocytes (%) (Auto) 8 % (0-9) Eosinophils (%) (Auto) 2 % (0-3) Basophils (%) (Auto) 1 % (0-3) Neutrophils # (Auto) 7.1 x10^3uL (1.8-7.7) Lymphocytes # (Auto) 2.0 x10^3/uL (1.0-4.8) Monocytes # (Auto) 0.8 x10^3/uL (0.0-1.1) Eosinophils # (Auto) 0.2 x10^3/uL (0.0-0.7) Basophils # (Auto) 0.1 x10^3/uL (0.0-0.2) Sodium Level 143 mmol/L (136-145) Potassium Level 3.5 mmol/L (3.5-5.1) Chloride Level 110 mmol/L (98-107) Carbon Dioxide Level 24 mmol/L (21-32) Anion Gap 9 (6-14) Blood Urea Nitrogen 4 mg/dL (7-20) Creatinine 0.5 mg/dL (0.6-1.0) Estimated GFR (Cockcroft-Gault) 126.7 Glucose Level 148 mg/dL (70-99) Calcium Level 8.3 mg/dL (8.5-10.1) Magnesium Level 1.6 mg/dL (1.8-2.4) Medications Active Scripts Medications Dose Route/Sig Max Daily Dose Days Date Category Keppra (Levetiracetam) 250 Mg Tablet 750 Mg PO BID 04/29/16 Rx Levemir Flextouch (Insulin Detemir) 100 Unit/1 Ml Insuln.pen 30 Units SQ QHS 04/29/16 Rx Novolog Flexpen (Insulin Aspart) 100 Unit/1 Ml Insuln.pen 15 Units SQ TIDAC 04/29/16 Rx Lyrica (Pregabalin) 75 Mg Capsule 1 Cap PO BID 09/12/15 Reported Keppra (Levetiracetam) 500 Mg Tablet 1 Tab PO BID 09/12/15 Reported Lamictal (Lamotrigine) 200 Mg Tablet 200 Mg PO BID 09/12/15 Reported Duoneb 0.5-3(2.5) Mg/3 Ml (Albuterol/Ipratropium) 3 Ml Ampul.neb 3 Ml IH PRN QID PRN 02/01/15 Rx [Nicotine] 1 PATCH Patch 1 Patch TD DAILY 02/01/15 Rx Mucinex (Guaifenesin) 600 Mg Tablet.er 1,200 Mg PO BID 02/01/15 Rx Latuda (Lurasidone Hcl) 20 Mg Tablet 20 Mg PO 01/30/15 Reported Metoprolol Succinate 50 Mg Tab.er.24h 50 Mg PO 01/30/15 Reported Lisinopril 20 Mg Tablet 1 Tab PO DAILY 01/30/15 Reported Symbicort 160-4.5 Mcg Inhaler (Budesonide/Formoterol Fumarate) 10.2 Gm Hfa.aer.ad Unknown Dose IH BID 01/30/15 Reported Proair Hfa Inhaler (Albuterol Sulfate) 8.5 Gm Hfa.aer.ad Unknown Dose INH 01/30/15 Reported Omeprazole 40 Mg Capsule.dr 40 Mg PO DAILY 01/30/15 Reported Cetirizine Hcl 10 Mg Tablet 1 Tab PO DAILY 01/30/15 Reported Oxycodone-Acetaminophen 10-325 (Oxycodone Hcl/Acetaminophen) 1 Each Tablet 1 Tab PO Q4HRS PRN 01/30/15 Reported Carisoprodol 350 Mg Tablet 1 Tab PO TID 01/30/15 Reported Diphedryl (Diphenhydramine Hcl) 25 Mg Capsule 25 Mg PO HS 01/30/15 Reported Impression . 1. Acute hypercapnic respiratory failure secondary to drug OD 2. Acute seizures 3. Acute drug overdose including Benadryl and Tylenol. 4. Anion gap metabolic acidosis/lactic acidosis secondary to seizure . 5. Abnormal chest x-ray with left lower lobe atelectasis versus infiltrate 6. History of tobacco use. 7. Narcotic dependent with opiates positive on the drug screen. Plan . did well on trial extubate ok to start diet strong cough avoid narcotics follow cxr in [place] Joyner MD Jun 02, 2017 09:07
[2017-06-02 09:23] LABS: HCO3 ABG 20 mmol/L (21-28); PCO2 ABG 34 mmHg (35-46); PH ABG 7.39 (7.35-7.45); PO2 ABG 97 mmHg (75-108); SAT O2 ABG 97 % (92-99)
[2017-06-02 09:24] LABS: FIO2 ABG 40
--- NOTE | 2017-06-02 09:48 | PDOC ---
PROGRESS NOTES Chief Complaint Chief Complaint 1. Acute respiratory failure on IPPV sec to acute toxic enceph from intentional Drug OD 2. SUicide intent - OD tylenol x 10 and benadryl PO x 37 pills 3. Hx SZ d/o with active SZ POA 4. Fevers 5. SIRS POA< no sepsis no organ dysfcn 6. CRitical HYpocalcemia in the background of mild to mod hypoalbuminemia 7. MIld to mod PCM 8. HYpokalemia 9. 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) Dw [employer]JECT SUR[employer]YOR and pt herself LAbs hakeem Vitals Vitals Vital Signs Date Time Temp Pulse Resp B/P (MAP) Pulse Ox O2 Delivery O2 Flow Rate FiO2 06/02/17 09:26 100 Ventilator 06/02/17 06:06 20 06/02/17 06:00 81 123/65 (84) 06/02/17 04:00 99.0 99.0 Physical Exam General: No acute distress Heart: Regular rate Lungs: Clear Abdomen: Normal bowel sounds Extremities: No clubbing, No cyanosis Skin: No rashes Labs LABS Laboratory Tests Test 06/01/17 10:15 06/01/17 11:42 06/01/17 13:25 06/01/17 16:18 Glucose (Fingerstick) 357 mg/dL (70-99) 271 mg/dL (70-99) Prothrombin Time 14.6 SEC (11.7-14.0) Prothromb Time International Ratio 1.2 (0.8-1.1) Sodium Level 141 mmol/L (136-145) Potassium Level 3.2 mmol/L (3.5-5.1) Chloride Level 109 mmol/L (98-107) Carbon Dioxide Level 25 mmol/L (21-32) Anion Gap 7 (6-14) Blood Urea Nitrogen 4 mg/dL (7-20) Creatinine 0.6 mg/dL (0.6-1.0) Estimated GFR (Cockcroft-Gault) 102.7 BUN/Creatinine Ratio 7 (6-20) Glucose Level 208 mg/dL (70-99) Calcium Level 8.4 mg/dL (8.5-10.1) Magnesium Level 2.2 mg/dL (1.8-2.4) Total Bilirubin 0.2 mg/dL (0.2-1.0) Aspartate Amino Transf (AST/SGOT) 17 U/L (15-37) Alanine Aminotransferase (ALT/SGPT) 22 U/L (14-59) Alkaline Phosphatase 76 U/L (46-116) Total Protein 5.3 g/dL (6.4-8.2) Albumin 2.4 g/dL (3.4-5.0) Albumin/Globulin Ratio 0.8 (1.0-1.7) Acetaminophen Level 4.6 mcg/ml (10-30) Acetaminophen Last Dose Date Acetaminophen Last Dose Time O2 Saturation 98 % (92-99) Arterial Blood pH 7.48 (7.35-7.45) Arterial Blood pCO2 at Patient Temp 30 mmHg (35-46) Arterial Blood pO2 at Patient Temp 123 mmHg (75-108) Arterial Blood HCO3 22 mmol/L (21-28) Arterial Blood Base Excess -1 mmol/L (-3-3) FiO2 21 Test 06/01/17 17:06 06/01/17 21:35 06/02/17 05:25 06/02/17 08:00 Glucose (Fingerstick) 142 mg/dL (70-99) Acetaminophen Level 4.1 mcg/ml (10-30) Acetaminophen Last Dose Date Unknown Acetaminophen Last Dose Time Unknown White Blood Count 10.2 x10^3/uL (4.0-11.0) Red Blood Count 3.53 x10^6/uL (3.50-5.40) Hemoglobin 10.3 g/dL (12.0-15.5) Hematocrit 30.8 % (36.0-47.0) Mean Corpuscular Volume 87 fL (79-100) Mean Corpuscular Hemoglobin 29 pg (25-35) Mean Corpuscular Hemoglobin Concent 33 g/dL (31-37) Red Cell Distribution Width 15.0 % (11.5-14.5) Platelet Count 152 x10^3/uL (140-400) Neutrophils (%) (Auto) 69 % (31-73) Lymphocytes (%) (Auto) 20 % (24-48) Monocytes (%) (Auto) 8 % (0-9) Eosinophils (%) (Auto) 2 % (0-3) Basophils (%) (Auto) 1 % (0-3) Neutrophils # (Auto) 7.1 x10^3uL (1.8-7.7) Lymphocytes # (Auto) 2.0 x10^3/uL (1.0-4.8) Monocytes # (Auto) 0.8 x10^3/uL (0.0-1.1) Eosinophils # (Auto) 0.2 x10^3/uL (0.0-0.7) Basophils # (Auto) 0.1 x10^3/uL (0.0-0.2) Sodium Level 143 mmol/L (136-145) Potassium Level 3.5 mmol/L (3.5-5.1) Chloride Level 110 mmol/L (98-107) Carbon Dioxide Level 24 mmol/L (21-32) Anion Gap 9 (6-14) Blood Urea Nitrogen 4 mg/dL (7-20) Creatinine 0.5 mg/dL (0.6-1.0) Estimated GFR (Cockcroft-Gault) 126.7 Glucose Level 148 mg/dL (70-99) Calcium Level 8.3 mg/dL (8.5-10.1) Magnesium Level 1.6 mg/dL (1.8-2.4) O2 Saturation 97 % (92-99) Arterial Blood pH 7.39 (7.35-7.45) Arterial Blood pCO2 at Patient Temp 34 mmHg (35-46) Arterial Blood pO2 at Patient Temp 97 mmHg (75-108) Arterial Blood HCO3 20 mmol/L (21-28) Arterial Blood Base Excess -4 mmol/L (-3-3) FiO2 40 Review of Systems Review of Systems on T piece trial, denies pain Assessment and Plan Assessmemt and Plan Problems Medical Problems: (1) Mental status change Status: Acute Problems: Comment Review of Relevant I have reviewed the following items jinny (where applicable) has been applied. Labs Laboratory Tests Test 05/31/17 13:42 05/31/17 13:49 05/31/17 15:45 05/31/17 18:00 O2 Saturation 97 % (92-99) 89 % (92-99) Arterial Blood pH 7.16 (7.35-7.45) 7.40 (7.35-7.45) Arterial Blood pCO2 at Patient Temp 51 mmHg (35-46) 45 mmHg (35-46) Arterial Blood pO2 at Patient Temp 133 mmHg (75-108) 56 mmHg (75-108) Arterial Blood HCO3 18 mmol/L (21-28) 27 mmol/L (21-28) Arterial Blood Base Excess -11 mmol/L (-3-3) 2 mmol/L (-3-3) Oxyhemoglobin 95.3 % Methemoglobin 0.6 % (0.0-1.9) Carbon Monoxide, Quantitative 1.6 % (0.0-1.9) FiO2 100.0 100.0 White Blood Count 14.3 x10^3/uL (4.0-11.0) Red Blood Count 4.33 x10^6/uL (3.50-5.40) Hemoglobin 12.5 g/dL (12.0-15.5) Hematocrit 39.1 % (36.0-47.0) Mean Corpuscular Volume 90 fL (79-100) Mean Corpuscular Hemoglobin 29 pg (25-35) Mean Corpuscular Hemoglobin Concent 32 g/dL (31-37) Red Cell Distribution Width 14.7 % (11.5-14.5) Platelet Count 303 x10^3/uL (140-400) Neutrophils (%) (Auto) 54 % (31-73) Lymphocytes (%) (Auto) 36 % (24-48) Monocytes (%) (Auto) 8 % (0-9) Eosinophils (%) (Auto) 1 % (0-3) Basophils (%) (Auto) 1 % (0-3) Neutrophils # (Auto) 7.8 x10^3uL (1.8-7.7) Lymphocytes # (Auto) 5.1 x10^3/uL (1.0-4.8) Monocytes # (Auto) 1.1 x10^3/uL (0.0-1.1) Eosinophils # (Auto) 0.2 x10^3/uL (0.0-0.7) Basophils # (Auto) 0.1 x10^3/uL (0.0-0.2) Prothrombin Time 13.3 SEC (11.7-14.0) 14.7 SEC (11.7-14.0) Prothromb Time International Ratio 1.1 (0.8-1.1) 1.2 (0.8-1.1) Activated Partial Thromboplast Time 27 SEC (24-38) Urine Collection Type Unknown Urine Color Yellow Urine Clarity Clear Urine pH 5.0 Urine Specific [place] >=1.030 Urine Protein 30 mg/dL (NEG-TRACE) Urine Glucose (UA) >=1000 mg/dL (NEG) Urine Ketones (Stick) Negative mg/dL (NEG) Urine Blood Negative (NEG) Urine Nitrite Negative (NEG) Urine Bilirubin Negative (NEG) Urine Urobilinogen Dipstick 0.2 mg/dL (0.2 mg/dL) Urine Leukocyte Esterase Negative (NEG) Urine RBC 1-2 /HPF (0-2) Urine WBC Rare /HPF (0-4) Urine Squamous Epithelial Cells Mod /LPF Urine Bacteria 0 /HPF (0-FEW) Urine Hyaline Casts Few /HPF Urine Mucus Slight /LPF Sodium Level 142 mmol/L (136-145) 144 mmol/L (136-145) Potassium Level 3.8 mmol/L (3.5-5.1) 3.0 mmol/L (3.5-5.1) Chloride Level 102 mmol/L (98-107) 107 mmol/L (98-107) Carbon Dioxide Level 19 mmol/L (21-32) 30 mmol/L (21-32) Anion Gap 21 (6-14) 7 (6-14) Blood Urea Nitrogen 11 mg/dL (7-20) 9 mg/dL (7-20) Creatinine 1.1 mg/dL (0.6-1.0) 0.7 mg/dL (0.6-1.0) Estimated GFR (Cockcroft-Gault) 51.0 85.9 Glucose Level 453 mg/dL (70-99) 354 mg/dL (70-99) Lactic Acid Level 13.4 mmol/L (0.4-2.0) 1.2 mmol/L (0.4-2.0) Calcium Level 8.9 mg/dL (8.5-10.1) 7.3 mg/dL (8.5-10.1) Magnesium Level 1.7 mg/dL (1.8-2.4) Total Bilirubin 0.2 mg/dL (0.2-1.0) 0.4 mg/dL (0.2-1.0) Direct Bilirubin 0.1 mg/dL (0.0-0.2) 0.1 mg/dL (0.0-0.2) Aspartate Amino Transf (AST/SGOT) 15 U/L (15-37) 67 U/L (15-37) Alanine Aminotransferase (ALT/SGPT) 17 U/L (14-59) 41 U/L (14-59) Alkaline Phosphatase 104 U/L (46-116) 87 U/L (46-116) Ammonia 40 mcmol/L (11-34) Creatine Kinase 73 U/L (26-192) Troponin I Quantitative < 0.017 ng/mL (0.000-0.055) Total Protein 6.8 g/dL (6.4-8.2) 5.5 g/dL (6.4-8.2) Albumin 3.7 g/dL (3.4-5.0) 2.7 g/dL (3.4-5.0) Lipase 266 U/L (73-393) Thyroid Stimulating Hormone (TSH) 2.969 uIU/mL (0.358-3.74) Salicylates Level 4.3 mg/dL (2.8-20.0) Salicylate Last Dose Date Unknown Salicylate Last Dose Time Unknown Urine Opiates Screen Pos (NEG) Urine Methadone Screen Neg (NEG) Acetaminophen Level 63.4 mcg/ml (10-30) 25.70 mcg/ml (10-30) Acetaminophen Last Dose Date Unknown Acetaminophen Last Dose Time Unknown Urine Barbiturates Neg (NEG) Urine Phencyclidine Screen Neg (NEG) Urine Amphetamine/Methamphetamine Neg (NEG) Urine Benzodiazepines Screen Neg (NEG) Urine Cocaine Screen Neg (NEG) Urine Cannabinoids Screen Neg (NEG) Ethyl Alcohol Level < 10 mg/dL (0-10) Urine Ethyl Alcohol Neg (NEG) BUN/Creatinine Ratio 13 (6-20) Albumin/Globulin Ratio 1.0 (1.0-1.7) Test 05/31/17 19:30 05/31/17 23:51 05/31/17 23:55 06/01/17 05:40 Glucose (Fingerstick) 324 mg/dL (70-99) 196 mg/dL (70-99) Nasal Screen MRSA (PCR) Negative (Negative) Sodium Level 141 mmol/L (136-145) Potassium Level 2.5 mmol/L (3.5-5.1) Chloride Level 111 mmol/L (98-107) Carbon Dioxide Level 21 mmol/L (21-32) Anion Gap 9 (6-14) Blood Urea Nitrogen 6 mg/dL (7-20) Creatinine 0.5 mg/dL (0.6-1.0) Estimated GFR (Cockcroft-Gault) 126.7 Glucose Level 242 mg/dL (70-99) Calcium Level 5.8 mg/dL (8.5-10.1) Test 06/01/17 06:01 06/01/17 08:06 06/01/17 09:40 06/01/17 10:15 Glucose (Fingerstick) 297 mg/dL (70-99) 357 mg/dL (70-99) O2 Saturation 98 % (92-99) Arterial Blood pH 7.50 (7.35-7.45) Arterial Blood pCO2 at Patient Temp 30 mmHg (35-46) Arterial Blood pO2 at Patient Temp 126 mmHg (75-108) Arterial Blood HCO3 23 mmol/L (21-28) Arterial Blood Base Excess 1 mmol/L (-3-3) FiO2 40 White Blood Count 17.3 x10^3/uL (4.0-11.0) Red Blood Count 3.68 x10^6/uL (3.50-5.40) Hemoglobin 10.6 g/dL (12.0-15.5) Hematocrit 32.8 % (36.0-47.0) Mean Corpuscular Volume 89 fL (79-100) Mean Corpuscular Hemoglobin 29 pg (25-35) Mean Corpuscular Hemoglobin Concent 32 g/dL (31-37) Red Cell Distribution Width 15.3 % (11.5-14.5) Platelet Count 190 x10^3/uL (140-400) Neutrophils (%) (Auto) 84 % (31-73) Lymphocytes (%) (Auto) 11 % (24-48) Monocytes (%) (Auto) 5 % (0-9) Eosinophils (%) (Auto) 0 % (0-3) Basophils (%) (Auto) 0 % (0-3) Neutrophils # (Auto) 14.4 x10^3uL (1.8-7.7) Lymphocytes # (Auto) 1.9 x10^3/uL (1.0-4.8) Monocytes # (Auto) 0.8 x10^3/uL (0.0-1.1) Eosinophils # (Auto) 0.1 x10^3/uL (0.0-0.7) Basophils # (Auto) 0.1 x10^3/uL (0.0-0.2) Test 06/01/17 11:42 06/01/17 13:25 06/01/17 16:18 06/01/17 17:06 Glucose (Fingerstick) 271 mg/dL (70-99) 142 mg/dL (70-99) Prothrombin Time 14.6 SEC (11.7-14.0) Prothromb Time International Ratio 1.2 (0.8-1.1) Sodium Level 141 mmol/L (136-145) Potassium Level 3.2 mmol/L (3.5-5.1) Chloride Level 109 mmol/L (98-107) Carbon Dioxide Level 25 mmol/L (21-32) Anion Gap 7 (6-14) Blood Urea Nitrogen 4 mg/dL (7-20) Creatinine 0.6 mg/dL (0.6-1.0) Estimated GFR (Cockcroft-Gault) 102.7 BUN/Creatinine Ratio 7 (6-20) Glucose Level 208 mg/dL (70-99) Calcium Level 8.4 mg/dL (8.5-10.1) Magnesium Level 2.2 mg/dL (1.8-2.4) Total Bilirubin 0.2 mg/dL (0.2-1.0) Aspartate Amino Transf (AST/SGOT) 17 U/L (15-37) Alanine Aminotransferase (ALT/SGPT) 22 U/L (14-59) Alkaline Phosphatase 76 U/L (46-116) Total Protein 5.3 g/dL (6.4-8.2) Albumin 2.4 g/dL (3.4-5.0) Albumin/Globulin Ratio 0.8 (1.0-1.7) Acetaminophen Level 4.6 mcg/ml (10-30) Acetaminophen Last Dose Date Acetaminophen Last Dose Time O2 Saturation 98 % (92-99) Arterial Blood pH 7.48 (7.35-7.45) Arterial Blood pCO2 at Patient Temp 30 mmHg (35-46) Arterial Blood pO2 at Patient Temp 123 mmHg (75-108) Arterial Blood HCO3 22 mmol/L (21-28) Arterial Blood Base Excess -1 mmol/L (-3-3) FiO2 21 Test 06/01/17 21:35 06/02/17 05:25 06/02/17 08:00 Acetaminophen Level 4.1 mcg/ml (10-30) Acetaminophen Last Dose Date Unknown Acetaminophen Last Dose Time Unknown White Blood Count 10.2 x10^3/uL (4.0-11.0) Red Blood Count 3.53 x10^6/uL (3.50-5.40) Hemoglobin 10.3 g/dL (12.0-15.5) Hematocrit 30.8 % (36.0-47.0) Mean Corpuscular Volume 87 fL (79-100) Mean Corpuscular Hemoglobin 29 pg (25-35) Mean Corpuscular Hemoglobin Concent 33 g/dL (31-37) Red Cell Distribution Width 15.0 % (11.5-14.5) Platelet Count 152 x10^3/uL (140-400) Neutrophils (%) (Auto) 69 % (31-73) Lymphocytes (%) (Auto) 20 % (24-48) Monocytes (%) (Auto) 8 % (0-9) Eosinophils (%) (Auto) 2 % (0-3) Basophils (%) (Auto) 1 % (0-3) Neutrophils # (Auto) 7.1 x10^3uL (1.8-7.7) Lymphocytes # (Auto) 2.0 x10^3/uL (1.0-4.8) Monocytes # (Auto) 0.8 x10^3/uL (0.0-1.1) Eosinophils # (Auto) 0.2 x10^3/uL (0.0-0.7) Basophils # (Auto) 0.1 x10^3/uL (0.0-0.2) Sodium Level 143 mmol/L (136-145) Potassium Level 3.5 mmol/L (3.5-5.1) Chloride Level 110 mmol/L (98-107) Carbon Dioxide Level 24 mmol/L (21-32) Anion Gap 9 (6-14) Blood Urea Nitrogen 4 mg/dL (7-20) Creatinine 0.5 mg/dL (0.6-1.0) Estimated GFR (Cockcroft-Gault) 126.7 Glucose Level 148 mg/dL (70-99) Calcium Level 8.3 mg/dL (8.5-10.1) Magnesium Level 1.6 mg/dL (1.8-2.4) O2 Saturation 97 % (92-99) Arterial Blood pH 7.39 (7.35-7.45) Arterial Blood pCO2 at Patient Temp 34 mmHg (35-46) Arterial Blood pO2 at Patient Temp 97 mmHg (75-108) Arterial Blood HCO3 20 mmol/L (21-28) Arterial Blood Base Excess -4 mmol/L (-3-3) FiO2 40 Laboratory Tests Test 06/01/17 10:15 06/01/17 11:42 06/01/17 13:25 06/01/17 16:18 Glucose (Fingerstick) 357 mg/dL (70-99) 271 mg/dL (70-99) Prothrombin Time 14.6 SEC (11.7-14.0) Prothromb Time International Ratio 1.2 (0.8-1.1) Sodium Level 141 mmol/L (136-145) Potassium Level 3.2 mmol/L (3.5-5.1) Chloride Level 109 mmol/L (98-107) Carbon Dioxide Level 25 mmol/L (21-32) Anion Gap 7 (6-14) Blood Urea Nitrogen 4 mg/dL (7-20) Creatinine 0.6 mg/dL (0.6-1.0) Estimated GFR (Cockcroft-Gault) 102.7 BUN/Creatinine Ratio 7 (6-20) Glucose Level 208 mg/dL (70-99) Calcium Level 8.4 mg/dL (8.5-10.1) Magnesium Level 2.2 mg/dL (1.8-2.4) Total Bilirubin 0.2 mg/dL (0.2-1.0) Aspartate Amino Transf (AST/SGOT) 17 U/L (15-37) Alanine Aminotransferase (ALT/SGPT) 22 U/L (14-59) Alkaline Phosphatase 76 U/L (46-116) Total Protein 5.3 g/dL (6.4-8.2) Albumin 2.4 g/dL (3.4-5.0) Albumin/Globulin Ratio 0.8 (1.0-1.7) Acetaminophen Level 4.6 mcg/ml (10-30) Acetaminophen Last Dose Date Acetaminophen Last Dose Time O2 Saturation 98 % (92-99) Arterial Blood pH 7.48 (7.35-7.45) Arterial Blood pCO2 at Patient Temp 30 mmHg (35-46) Arterial Blood pO2 at Patient Temp 123 mmHg (75-108) Arterial Blood HCO3 22 mmol/L (21-28) Arterial Blood Base Excess -1 mmol/L (-3-3) FiO2 21 Test 06/01/17 17:06 06/01/17 21:35 06/02/17 05:25 06/02/17 08:00 Glucose (Fingerstick) 142 mg/dL (70-99) Acetaminophen Level 4.1 mcg/ml (10-30) Acetaminophen Last Dose Date Unknown Acetaminophen Last Dose Time Unknown White Blood Count 10.2 x10^3/uL (4.0-11.0) Red Blood Count 3.53 x10^6/uL (3.50-5.40) Hemoglobin 10.3 g/dL (12.0-15.5) Hematocrit 30.8 % (36.0-47.0) Mean Corpuscular Volume 87 fL (79-100) Mean Corpuscular Hemoglobin 29 pg (25-35) Mean Corpuscular Hemoglobin Concent 33 g/dL (31-37) Red Cell Distribution Width 15.0 % (11.5-14.5) Platelet Count 152 x10^3/uL (140-400) Neutrophils (%) (Auto) 69 % (31-73) Lymphocytes (%) (Auto) 20 % (24-48) Monocytes (%) (Auto) 8 % (0-9) Eosinophils (%) (Auto) 2 % (0-3) Basophils (%) (Auto) 1 % (0-3) Neutrophils # (Auto) 7.1 x10^3uL (1.8-7.7) Lymphocytes # (Auto) 2.0 x10^3/uL (1.0-4.8) Monocytes # (Auto) 0.8 x10^3/uL (0.0-1.1) Eosinophils # (Auto) 0.2 x10^3/uL (0.0-0.7) Basophils # (Auto) 0.1 x10^3/uL (0.0-0.2) Sodium Level 143 mmol/L (136-145) Potassium Level 3.5 mmol/L (3.5-5.1) Chloride Level 110 mmol/L (98-107) Carbon Dioxide Level 24 mmol/L (21-32) Anion Gap 9 (6-14) Blood Urea Nitrogen 4 mg/dL (7-20) Creatinine 0.5 mg/dL (0.6-1.0) Estimated GFR (Cockcroft-Gault) 126.7 Glucose Level 148 mg/dL (70-99) Calcium Level 8.3 mg/dL (8.5-10.1) Magnesium Level 1.6 mg/dL (1.8-2.4) O2 Saturation 97 % (92-99) Arterial Blood pH 7.39 (7.35-7.45) Arterial Blood pCO2 at Patient Temp 34 mmHg (35-46) Arterial Blood pO2 at Patient Temp 97 mmHg (75-108) Arterial Blood HCO3 20 mmol/L (21-28) Arterial Blood Base Excess -4 mmol/L (-3-3) FiO2 40 Microbiology 05/31/17 Blood Culture - Preliminary, Resulted NO GROWTH AFTER 1 DAY Medications Current Medications Lorazepam (Ativan) 1 mg 1X ONCE IV Last administered on 05/31/17 13:54; Start 05/31/17 at 13:45; Stop 05/31/17 at 13:46; Status DC Sodium Chloride 1,000 ml @ 1,000 mls/hr Q1H IV Last administered on 05/31/17 13:54; Start 05/31/17 at 13:36; Stop 05/31/17 at 14:35; Status DC Lorazepam (Ativan) 2 mg 1X ONCE IV Last administered on 05/31/17 14:23; Start 05/31/17 at 14:00; Stop 05/31/17 at 14:01; Status DC Sodium Bicarbonate 50 meq 1X ONCE IV Last administered on 05/31/17 14:41; Start 05/31/17 at 14:30; Stop 05/31/17 at 14:32; Status DC Sodium Bicarbonate 50 meq 1X ONCE IV Last administered on 05/31/17 14:44; Start 05/31/17 at 14:30; Stop 05/31/17 at 14:32; Status DC Sodium Chloride 1,000 ml @ 1,000 mls/hr 1X ONCE IV Last administered on 14:44; Start 05/31/17 at 14:45; Stop 05/31/17 at 15:44; Status DC Lorazepam (Ativan) 1 mg 1X ONCE IV Last administered on 05/31/17 14:50; Start 05/31/17 at 15:00; Stop 05/31/17 at 15:01; Status DC Etomidate (Amidate) 20 mg 1X ONCE IV Last administered on 05/31/17 14:54; Start 05/31/17 at 15:00; Stop 05/31/17 at 15:01; Status DC Succinylcholine Chloride (Anectine) 100 mg 1X ONCE IV Last administered on 14:54; Start 05/31/17 at 15:00; Stop 05/31/17 at 15:01; Status DC Propofol (Diprivan) 200,000 mg 1X ONCE IV Last administered on 05/31/17 15:17 ; Start 05/31/17 at 15:00; Stop 05/31/17 at 15:03; Status DC Propofol 50 ml @ As Directed STK-MED ONCE IV ; Start 05/31/17 at 15:19; Stop at 15:20; Status DC Propofol 50 ml @ 0 mls/hr 1X ONCE IV Last administered on 05/31/17 15:20; Start 05/31/17 at 15:45; Stop 05/31/17 at 15:46; Status DC Levetiracetam 500 mg/Sodium Chloride 100 ml @ 400 mls/hr Q12HR IV ; Start 05/31 at 21:00; Stop 05/31/17 at 21:00; Status DC Levetiracetam 500 mg/Sodium Chloride 105 ml @ 400 mls/hr Q12HR IV Last administered on 06/02/17 09:04; Start 05/31/17 at 16:00 Sodium Chloride 1,000 ml @ 150 mls/hr 1X ONCE IV Last administered on 16:00; Start 05/31/17 at 16:15; Stop 05/31/17 at 22:54; Status DC Acetylcysteine 6 gm/Dextrose 230 ml @ 230 mls/hr 1X ONCE IV Last administered on 05/31/17 17:49; Start 05/31/17 at 17:30; Stop 05/31/17 at 18:29 ; Status DC Acetylcysteine 2 gm/Dextrose 510 ml @ 127.5 mls/ hr 1X ONCE IV Last administered on 05/31/17 19:00; Start 05/31/17 at 18:30; Stop 05/31/17 at 22:29 ; Status DC Acetylcysteine 4 gm/Dextrose 1,020 ml @ 63.75 mls/ hr 1X ONCE IV Last administered on 05/31/17 22:48; Start 05/31/17 at 22:30; Stop 06/01/17 at 14:29 ; Status DC Fentanyl Citrate (Fentanyl 2ml Vial) 50 mcg PRN Q1HR PRN IV PAIN Last administered on 06/02/17 05:36; Start 05/31/17 at 17:00 Sodium Bicarbonate 100 meq PRN Q15MIN PRN IV SEIZURES; Start 05/31/17 at 17:00 Propofol 100 ml @ 0 mls/hr CONT PRN IV SEE I/O RECORD Last administered on 06/01 17:17; Start 05/31/17 at 17:00 Sodium Chloride 1,000 ml @ 125 mls/hr Q8H IV Last administered on 06/02/17 05 :36; Start 05/31/17 at 17:00 Ceftriaxone Sodium 1 gm/ Sodium Chloride 50 ml @ 100 mls/hr Q24H IV Last administered on 06/01/17 16:56; Start 05/31/17 at 17:30 Insulin Aspart (NovoLOG) 20 units 1X ONCE SQ Last administered on 05/31/17 19 :46; Start 05/31/17 at 19:30; Stop 05/31/17 at 19:31; Status DC Insulin Aspart (NovoLOG) 0-7 UNITS Q6HRS SQ Last administered on 06/01/17 06: 04; Start 06/01/17 at 00:00; Stop 06/01/17 at 09:28; Status DC Dextrose (Dextrose 50%-Water Syringe) 12.5 gm PRN Q15MIN PRN IV SEE COMMENTS; Start 05/31/17 at 20:15; Status Cancel Labetalol HCl (Normodyne) 20 mg PRN Q4HRS PRN IVP HYPERTENSION, SEE COMMENTS Last administered on 05/31/17 20:48; Start 05/31/17 at 20:15 Potassium Chloride 100 ml @ 100 mls/hr Q1H IV Last administered on 05/31/17 23:49; Start 05/31/17 at 20:45; Stop 06/01/17 at 00:44; Status DC Enoxaparin Sodium (Lovenox 40mg Syringe) 40 mg QHS SQ Last administered on 06/01 21:20; Start 05/31/17 at 23:30 Calcium Gluconate 1000 mg/Sodium Chloride 110 ml @ 220 mls/hr 1X ONCE IV Last administered on 06/01/17 07:06; Start 06/01/17 at 07:00; Stop 06/01/17 at 07:29; Status DC Potassium Chloride 100 ml @ 100 mls/hr Q1H IV Last administered on 06/01/17 10:19; Start 06/01/17 at 07:00; Stop 06/01/17 at 10:59; Status DC Ondansetron HCl (Zofran) 4 mg PRN Q6HRS PRN IV NAUSEA/VOMITING; Start 06/01/17 at 09:30 Potassium Chloride (KCl Oral Soln) 40 meq 1X ONCE PEG Last administered on 10:03; Start 06/01/17 at 10:00; Stop 06/01/17 at 10:01; Status DC Insulin Aspart (NovoLOG) 0-9 UNITS TIDWMEALS SQ Last administered on 06/01/17 11:45; Start 06/01/17 at 12:00 Dextrose (Dextrose 50%-Water Syringe) 12.5 gm PRN Q15MIN PRN IV SEE COMMENTS; Start 06/01/17 at 09:30 Insulin Aspart (NovoLOG) 10 units 1X ONCE SQ Last administered on 06/01/17 10 :18; Start 06/01/17 at 10:00; Stop 06/01/17 at 10:01; Status DC Magnesium Sulfate/ Dextrose 50 ml @ 25 mls/hr 1X ONCE IV Last administered on 06/01/17 10:01; Start 06/01/17 at 10:00; Stop 06/01/17 at 11:59; Status DC Enoxaparin Sodium (Lovenox 40mg Syringe) 40 mg Q24H SQ ; Start 06/01/17 at 11:15 ; Status UNV Famotidine (Pepcid) 20 mg BID IVP Last administered on 06/02/17 09:04; Start 06/01/17 at 12:00 Calcium Gluconate 1000 mg/Sodium Chloride 110 ml @ 220 mls/hr 1X ONCE IV Last administered on 06/01/17 11:19; Start 06/01/17 at 11:15; Stop 06/01/17 at 11:44; Status DC Potassium Chloride (KCl Oral Soln) 40 meq BID PEG Last administered on 09:03; Start 06/02/17 at 09:00 Potassium Chloride (KCl Oral Soln) 40 meq 1X ONCE PEG Last administered on 15:15; Start 06/01/17 at 15:00; Stop 06/01/17 at 15:01; Status DC Magnesium Sulfate/ Dextrose 100 ml @ 50 mls/hr DAILY IV Last administered on 06/02/17 09:04; Start 06/02/17 at 09:00; Stop 06/05/17 at 08:59 Active Scripts Active Keppra (Levetiracetam) 250 Mg Tablet 750 Mg PO BID Levemir Flextouch (Insulin Detemir) 100 Unit/1 Ml Insuln.pen 30 Units SQ QHS Novolog Flexpen (Insulin Aspart) 100 Unit/1 Ml Insuln.pen 15 Units SQ TIDAC Duoneb 0.5-3(2.5) Mg/3 Ml (Albuterol/Ipratropium) 3 Ml Ampul.neb 3 Ml IH PRN QID PRN [Nicotine] 1 PATCH Patch 1 Patch TD DAILY Mucinex (Guaifenesin) 600 Mg Tablet.er 1,200 Mg PO BID Reported Lyrica (Pregabalin) 75 Mg Capsule 1 Cap PO BID Keppra (Levetiracetam) 500 Mg Tablet 1 Tab PO BID Lamictal (Lamotrigine) 200 Mg Tablet 200 Mg PO BID Latuda (Lurasidone Hcl) 20 Mg Tablet 20 Mg PO Metoprolol Succinate 50 Mg Tab.er.24h 50 Mg PO Lisinopril 20 Mg Tablet 1 Tab PO DAILY Symbicort 160-4.5 Mcg Inhaler (Budesonide/Formoterol Fumarate) 10.2 Gm Hfa.aer.ad Unknown Dose IH BID Proair Hfa Inhaler (Albuterol Sulfate) 8.5 Gm Hfa.aer.ad Unknown Dose INH Omeprazole 40 Mg Capsule.dr 40 Mg PO DAILY Cetirizine Hcl 10 Mg Tablet 1 Tab PO DAILY Oxycodone-Acetaminophen 10-325 (Oxycodone Hcl/Acetaminophen) 1 Each Tablet 1 Tab PO Q4HRS PRN Carisoprodol 350 Mg Tablet 1 Tab PO TID Diphedryl (Diphenhydramine Hcl) 25 Mg Capsule 25 Mg PO HS Vitals/I & O Vital Sign - Last 24 Hours 06/01/17 06/01/17 06/01/17 06/01/17 10:00 11:00 11:19 11:27 Pulse 100 99 Resp 16 16 16 B/P (MAP) 135/75 (95) 132/83 (99) Pulse Ox 100 100 99 98 O2 Delivery Ventilator Ventilator Ventilator Ventilator 06/01/17 06/01/17 06/01/17 06/01/17 12:00 12:00 12:00 13:00 Temp 99.4 99.4 Pulse 92 94 Resp 16 16 B/P (MAP) 91/55 (67) 109/60 (76) Pulse Ox 98 98 99 O2 Delivery Ventilator Mechanical Ventilator Ventilator 06/01/17 06/01/17 06/01/17 06/01/17 14:00 15:00 15:06 15:55 Pulse 101 100 Resp 16 16 B/P (MAP) 186/72 (110) 152/73 (99) Pulse Ox 99 99 100 100 O2 Delivery Ventilator Ventilator Ventilator Ventilator 06/01/17 06/01/17 06/01/17 06/01/17 16:00 16:00 17:00 17:00 Temp 101.0 101.0 Pulse 120 109 Resp 32 27 B/P (MAP) 181/86 (117) 136/68 (90) Pulse Ox 99 100 97 O2 Delivery Ventilator Mechanical Ventilator Ventilator Ventilator 06/01/17 06/01/17 06/01/17 06/01/17 18:00 19:00 20:00 20:00 Temp 100.0 100.0 Pulse 94 94 94 Resp 16 16 16 B/P (MAP) 131/83 (99) 149/71 (97) 126/73 (90) Pulse Ox 99 99 99 O2 Delivery Ventilator Ventilator Ventilator Mechanical Ventilator 06/01/17 06/01/17 06/01/17 06/01/17 20:41 21:00 21:21 22:00 Pulse 92 94 Resp 16 22 16 B/P (MAP) 134/70 (91) 120/73 (89) Pulse Ox 98 99 99 O2 Delivery Ventilator Ventilator Ventilator Ventilator 06/01/17 06/01/17 06/02/17 06/02/17 23:00 23:59 00:00 00:02 Temp 99.7 99.7 Pulse 88 85 Resp 16 16 B/P (MAP) 117/65 (82) 128/64 (85) Pulse Ox 99 98 99 O2 Delivery Ventilator Mechanical Ventilator Ventilator Ventilator 06/02/17 06/02/17 06/02/17 06/02/17 01:05 02:00 02:13 03:00 Pulse 83 82 80 Resp 16 16 16 B/P (MAP) 106/65 (79) 118/60 (79) 132/66 (88) Pulse Ox 99 99 98 98 O2 Delivery Ventilator Ventilator Ventilator Ventilator 06/02/17 06/02/17 06/02/17 06/02/17 04:00 04:00 04:14 05:00 Temp 99.0 99.0 Pulse 82 80 Resp 16 16 B/P (MAP) 122/60 (80) 116/65 (82) Pulse Ox 99 98 97 O2 Delivery Mechanical Ventilator Ventilator Ventilator Ventilator 06/02/17 06/02/17 06/02/17 06/02/17 05:36 06:00 06:06 06:19 Pulse 81 Resp 18 16 20 B/P (MAP) 123/65 (84) Pulse Ox 99 98 O2 Delivery Ventilator Ventilator Ventilator Ventilator 06/02/17 06/02/17 07:38 09:26 Pulse Ox 100 100 O2 Delivery Ventilator Ventilator ROSEANNA HOLLIDAY MD Jun 02, 2017 09:48
--- NOTE | 2017-06-02 10:56 | PDOC ---
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 Plan Continue levetiracetam The last time I saw her in the office, we did not get a full list of medications so I do not know if she is taking any other anticonvulsants. Subjective No complaints, indicates no pain Objective Vital Signs Date Time Temp Pulse Resp B/P (MAP) Pulse Ox O2 Delivery O2 Flow Rate FiO2 06/02/17 09:26 100 Ventilator 06/02/17 06:06 20 06/02/17 06:00 81 123/65 (84) 06/02/17 04:00 99.0 99.0 PHYSICAL EXAM Alert. Follows commands. Still intubated PERRL. EOMI. CN: no focal findings. Muscle tone: normal. Muscle strength: moves all extremities DTR: 1+ Plantar reflex: flexor Gait: not examined in bed. Sensory exam: no abnormal findings. No cerebellar signs elicited. Review of Relevant I have reviewed the following items jinny (where applicable) has been applied. Labs Laboratory Tests Test 05/31/17 13:42 05/31/17 13:49 05/31/17 15:45 05/31/17 18:00 O2 Saturation 97 % (92-99) 89 % (92-99) Arterial Blood pH 7.16 (7.35-7.45) 7.40 (7.35-7.45) Arterial Blood pCO2 at Patient Temp 51 mmHg (35-46) 45 mmHg (35-46) Arterial Blood pO2 at Patient Temp 133 mmHg (75-108) 56 mmHg (75-108) Arterial Blood HCO3 18 mmol/L (21-28) 27 mmol/L (21-28) Arterial Blood Base Excess -11 mmol/L (-3-3) 2 mmol/L (-3-3) Oxyhemoglobin 95.3 % Methemoglobin 0.6 % (0.0-1.9) Carbon Monoxide, Quantitative 1.6 % (0.0-1.9) FiO2 100.0 100.0 White Blood Count 14.3 x10^3/uL (4.0-11.0) Red Blood Count 4.33 x10^6/uL (3.50-5.40) Hemoglobin 12.5 g/dL (12.0-15.5) Hematocrit 39.1 % (36.0-47.0) Mean Corpuscular Volume 90 fL (79-100) Mean Corpuscular Hemoglobin 29 pg (25-35) Mean Corpuscular Hemoglobin Concent 32 g/dL (31-37) Red Cell Distribution Width 14.7 % (11.5-14.5) Platelet Count 303 x10^3/uL (140-400) Neutrophils (%) (Auto) 54 % (31-73) Lymphocytes (%) (Auto) 36 % (24-48) Monocytes (%) (Auto) 8 % (0-9) Eosinophils (%) (Auto) 1 % (0-3) Basophils (%) (Auto) 1 % (0-3) Neutrophils # (Auto) 7.8 x10^3uL (1.8-7.7) Lymphocytes # (Auto) 5.1 x10^3/uL (1.0-4.8) Monocytes # (Auto) 1.1 x10^3/uL (0.0-1.1) Eosinophils # (Auto) 0.2 x10^3/uL (0.0-0.7) Basophils # (Auto) 0.1 x10^3/uL (0.0-0.2) Prothrombin Time 13.3 SEC (11.7-14.0) 14.7 SEC (11.7-14.0) Prothromb Time International Ratio 1.1 (0.8-1.1) 1.2 (0.8-1.1) Activated Partial Thromboplast Time 27 SEC (24-38) Urine Collection Type Unknown Urine Color Yellow Urine Clarity Clear Urine pH 5.0 Urine Specific [place] >=1.030 Urine Protein 30 mg/dL (NEG-TRACE) Urine Glucose (UA) >=1000 mg/dL (NEG) Urine Ketones (Stick) Negative mg/dL (NEG) Urine Blood Negative (NEG) Urine Nitrite Negative (NEG) Urine Bilirubin Negative (NEG) Urine Urobilinogen Dipstick 0.2 mg/dL (0.2 mg/dL) Urine Leukocyte Esterase Negative (NEG) Urine RBC 1-2 /HPF (0-2) Urine WBC Rare /HPF (0-4) Urine Squamous Epithelial Cells Mod /LPF Urine Bacteria 0 /HPF (0-FEW) Urine Hyaline Casts Few /HPF Urine Mucus Slight /LPF Sodium Level 142 mmol/L (136-145) 144 mmol/L (136-145) Potassium Level 3.8 mmol/L (3.5-5.1) 3.0 mmol/L (3.5-5.1) Chloride Level 102 mmol/L (98-107) 107 mmol/L (98-107) Carbon Dioxide Level 19 mmol/L (21-32) 30 mmol/L (21-32) Anion Gap 21 (6-14) 7 (6-14) Blood Urea Nitrogen 11 mg/dL (7-20) 9 mg/dL (7-20) Creatinine 1.1 mg/dL (0.6-1.0) 0.7 mg/dL (0.6-1.0) Estimated GFR (Cockcroft-Gault) 51.0 85.9 Glucose Level 453 mg/dL (70-99) 354 mg/dL (70-99) Lactic Acid Level 13.4 mmol/L (0.4-2.0) 1.2 mmol/L (0.4-2.0) Calcium Level 8.9 mg/dL (8.5-10.1) 7.3 mg/dL (8.5-10.1) Magnesium Level 1.7 mg/dL (1.8-2.4) Total Bilirubin 0.2 mg/dL (0.2-1.0) 0.4 mg/dL (0.2-1.0) Direct Bilirubin 0.1 mg/dL (0.0-0.2) 0.1 mg/dL (0.0-0.2) Aspartate Amino Transf (AST/SGOT) 15 U/L (15-37) 67 U/L (15-37) Alanine Aminotransferase (ALT/SGPT) 17 U/L (14-59) 41 U/L (14-59) Alkaline Phosphatase 104 U/L (46-116) 87 U/L (46-116) Ammonia 40 mcmol/L (11-34) Creatine Kinase 73 U/L (26-192) Troponin I Quantitative < 0.017 ng/mL (0.000-0.055) Total Protein 6.8 g/dL (6.4-8.2) 5.5 g/dL (6.4-8.2) Albumin 3.7 g/dL (3.4-5.0) 2.7 g/dL (3.4-5.0) Lipase 266 U/L (73-393) Thyroid Stimulating Hormone (TSH) 2.969 uIU/mL (0.358-3.74) Salicylates Level 4.3 mg/dL (2.8-20.0) Salicylate Last Dose Date Unknown Salicylate Last Dose Time Unknown Urine Opiates Screen Pos (NEG) Urine Methadone Screen Neg (NEG) Acetaminophen Level 63.4 mcg/ml (10-30) 25.70 mcg/ml (10-30) Acetaminophen Last Dose Date Unknown Acetaminophen Last Dose Time Unknown Urine Barbiturates Neg (NEG) Urine Phencyclidine Screen Neg (NEG) Urine Amphetamine/Methamphetamine Neg (NEG) Urine Benzodiazepines Screen Neg (NEG) Urine Cocaine Screen Neg (NEG) Urine Cannabinoids Screen Neg (NEG) Ethyl Alcohol Level < 10 mg/dL (0-10) Urine Ethyl Alcohol Neg (NEG) BUN/Creatinine Ratio 13 (6-20) Albumin/Globulin Ratio 1.0 (1.0-1.7) Test 05/31/17 19:30 05/31/17 23:51 05/31/17 23:55 06/01/17 05:40 Glucose (Fingerstick) 324 mg/dL (70-99) 196 mg/dL (70-99) Nasal Screen MRSA (PCR) Negative (Negative) Sodium Level 141 mmol/L (136-145) Potassium Level 2.5 mmol/L (3.5-5.1) Chloride Level 111 mmol/L (98-107) Carbon Dioxide Level 21 mmol/L (21-32) Anion Gap 9 (6-14) Blood Urea Nitrogen 6 mg/dL (7-20) Creatinine 0.5 mg/dL (0.6-1.0) Estimated GFR (Cockcroft-Gault) 126.7 Glucose Level 242 mg/dL (70-99) Calcium Level 5.8 mg/dL (8.5-10.1) Test 06/01/17 06:01 06/01/17 08:06 06/01/17 09:40 06/01/17 10:15 Glucose (Fingerstick) 297 mg/dL (70-99) 357 mg/dL (70-99) O2 Saturation 98 % (92-99) Arterial Blood pH 7.50 (7.35-7.45) Arterial Blood pCO2 at Patient Temp 30 mmHg (35-46) Arterial Blood pO2 at Patient Temp 126 mmHg (75-108) Arterial Blood HCO3 23 mmol/L (21-28) Arterial Blood Base Excess 1 mmol/L (-3-3) FiO2 40 White Blood Count 17.3 x10^3/uL (4.0-11.0) Red Blood Count 3.68 x10^6/uL (3.50-5.40) Hemoglobin 10.6 g/dL (12.0-15.5) Hematocrit 32.8 % (36.0-47.0) Mean Corpuscular Volume 89 fL (79-100) Mean Corpuscular Hemoglobin 29 pg (25-35) Mean Corpuscular Hemoglobin Concent 32 g/dL (31-37) Red Cell Distribution Width 15.3 % (11.5-14.5) Platelet Count 190 x10^3/uL (140-400) Neutrophils (%) (Auto) 84 % (31-73) Lymphocytes (%) (Auto) 11 % (24-48) Monocytes (%) (Auto) 5 % (0-9) Eosinophils (%) (Auto) 0 % (0-3) Basophils (%) (Auto) 0 % (0-3) Neutrophils # (Auto) 14.4 x10^3uL (1.8-7.7) Lymphocytes # (Auto) 1.9 x10^3/uL (1.0-4.8) Monocytes # (Auto) 0.8 x10^3/uL (0.0-1.1) Eosinophils # (Auto) 0.1 x10^3/uL (0.0-0.7) Basophils # (Auto) 0.1 x10^3/uL (0.0-0.2) Test 06/01/17 11:42 06/01/17 13:25 06/01/17 16:18 06/01/17 17:06 Glucose (Fingerstick) 271 mg/dL (70-99) 142 mg/dL (70-99) Prothrombin Time 14.6 SEC (11.7-14.0) Prothromb Time International Ratio 1.2 (0.8-1.1) Sodium Level 141 mmol/L (136-145) Potassium Level 3.2 mmol/L (3.5-5.1) Chloride Level 109 mmol/L (98-107) Carbon Dioxide Level 25 mmol/L (21-32) Anion Gap 7 (6-14) Blood Urea Nitrogen 4 mg/dL (7-20) Creatinine 0.6 mg/dL (0.6-1.0) Estimated GFR (Cockcroft-Gault) 102.7 BUN/Creatinine Ratio 7 (6-20) Glucose Level 208 mg/dL (70-99) Calcium Level 8.4 mg/dL (8.5-10.1) Magnesium Level 2.2 mg/dL (1.8-2.4) Total Bilirubin 0.2 mg/dL (0.2-1.0) Aspartate Amino Transf (AST/SGOT) 17 U/L (15-37) Alanine Aminotransferase (ALT/SGPT) 22 U/L (14-59) Alkaline Phosphatase 76 U/L (46-116) Total Protein 5.3 g/dL (6.4-8.2) Albumin 2.4 g/dL (3.4-5.0) Albumin/Globulin Ratio 0.8 (1.0-1.7) Acetaminophen Level 4.6 mcg/ml (10-30) Acetaminophen Last Dose Date Acetaminophen Last Dose Time O2 Saturation 98 % (92-99) Arterial Blood pH 7.48 (7.35-7.45) Arterial Blood pCO2 at Patient Temp 30 mmHg (35-46) Arterial Blood pO2 at Patient Temp 123 mmHg (75-108) Arterial Blood HCO3 22 mmol/L (21-28) Arterial Blood Base Excess -1 mmol/L (-3-3) FiO2 21 Test 06/01/17 21:35 06/02/17 05:25 06/02/17 08:00 Acetaminophen Level 4.1 mcg/ml (10-30) Acetaminophen Last Dose Date Unknown Acetaminophen Last Dose Time Unknown White Blood Count 10.2 x10^3/uL (4.0-11.0) Red Blood Count 3.53 x10^6/uL (3.50-5.40) Hemoglobin 10.3 g/dL (12.0-15.5) Hematocrit 30.8 % (36.0-47.0) Mean Corpuscular Volume 87 fL (79-100) Mean Corpuscular Hemoglobin 29 pg (25-35) Mean Corpuscular Hemoglobin Concent 33 g/dL (31-37) Red Cell Distribution Width 15.0 % (11.5-14.5) Platelet Count 152 x10^3/uL (140-400) Neutrophils (%) (Auto) 69 % (31-73) Lymphocytes (%) (Auto) 20 % (24-48) Monocytes (%) (Auto) 8 % (0-9) Eosinophils (%) (Auto) 2 % (0-3) Basophils (%) (Auto) 1 % (0-3) Neutrophils # (Auto) 7.1 x10^3uL (1.8-7.7) Lymphocytes # (Auto) 2.0 x10^3/uL (1.0-4.8) Monocytes # (Auto) 0.8 x10^3/uL (0.0-1.1) Eosinophils # (Auto) 0.2 x10^3/uL (0.0-0.7) Basophils # (Auto) 0.1 x10^3/uL (0.0-0.2) Sodium Level 143 mmol/L (136-145) Potassium Level 3.5 mmol/L (3.5-5.1) Chloride Level 110 mmol/L (98-107) Carbon Dioxide Level 24 mmol/L (21-32) Anion Gap 9 (6-14) Blood Urea Nitrogen 4 mg/dL (7-20) Creatinine 0.5 mg/dL (0.6-1.0) Estimated GFR (Cockcroft-Gault) 126.7 Glucose Level 148 mg/dL (70-99) Calcium Level 8.3 mg/dL (8.5-10.1) Magnesium Level 1.6 mg/dL (1.8-2.4) O2 Saturation 97 % (92-99) Arterial Blood pH 7.39 (7.35-7.45) Arterial Blood pCO2 at Patient Temp 34 mmHg (35-46) Arterial Blood pO2 at Patient Temp 97 mmHg (75-108) Arterial Blood HCO3 20 mmol/L (21-28) Arterial Blood Base Excess -4 mmol/L (-3-3) FiO2 40 Laboratory Tests Test 06/01/17 11:42 06/01/17 13:25 10/1/17 16:18 06/01/17 17:06 Glucose (Fingerstick) 271 mg/dL (70-99) 142 mg/dL (70-99) Prothrombin Time 14.6 SEC (11.7-14.0) Prothromb Time International Ratio 1.2 (0.8-1.1) Sodium Level 141 mmol/L (136-145) Potassium Level 3.2 mmol/L (3.5-5.1) Chloride Level 109 mmol/L (98-107) Carbon Dioxide Level 25 mmol/L (21-32) Anion Gap 7 (6-14) Blood Urea Nitrogen 4 mg/dL (7-20) Creatinine 0.6 mg/dL (0.6-1.0) Estimated GFR (Cockcroft-Gault) 102.7 BUN/Creatinine Ratio 7 (6-20) Glucose Level 208 mg/dL (70-99) Calcium Level 8.4 mg/dL (8.5-10.1) Magnesium Level 2.2 mg/dL (1.8-2.4) Total Bilirubin 0.2 mg/dL (0.2-1.0) Aspartate Amino Transf (AST/SGOT) 17 U/L (15-37) Alanine Aminotransferase (ALT/SGPT) 22 U/L (14-59) Alkaline Phosphatase 76 U/L (46-116) Total Protein 5.3 g/dL (6.4-8.2) Albumin 2.4 g/dL (3.4-5.0) Albumin/Globulin Ratio 0.8 (1.0-1.7) Acetaminophen Level 4.6 mcg/ml (10-30) Acetaminophen Last Dose Date Acetaminophen Last Dose Time O2 Saturation 98 % (92-99) Arterial Blood pH 7.48 (7.35-7.45) Arterial Blood pCO2 at Patient Temp 30 mmHg (35-46) Arterial Blood pO2 at Patient Temp 123 mmHg (75-108) Arterial Blood HCO3 22 mmol/L (21-28) Arterial Blood Base Excess -1 mmol/L (-3-3) FiO2 21 Test 06/01/17 21:35 06/02/17 05:25 06/02/17 08:00 Acetaminophen Level 4.1 mcg/ml (10-30) Acetaminophen Last Dose Date Unknown Acetaminophen Last Dose Time Unknown White Blood Count 10.2 x10^3/uL (4.0-11.0) Red Blood Count 3.53 x10^6/uL (3.50-5.40) Hemoglobin 10.3 g/dL (12.0-15.5) Hematocrit 30.8 % (36.0-47.0) Mean Corpuscular Volume 87 fL (79-100) Mean Corpuscular Hemoglobin 29 pg (25-35) Mean Corpuscular Hemoglobin Concent 33 g/dL (31-37) Red Cell Distribution Width 15.0 % (11.5-14.5) Platelet Count 152 x10^3/uL (140-400) Neutrophils (%) (Auto) 69 % (31-73) Lymphocytes (%) (Auto) 20 % (24-48) Monocytes (%) (Auto) 8 % (0-9) Eosinophils (%) (Auto) 2 % (0-3) Basophils (%) (Auto) 1 % (0-3) Neutrophils # (Auto) 7.1 x10^3uL (1.8-7.7) Lymphocytes # (Auto) 2.0 x10^3/uL (1.0-4.8) Monocytes # (Auto) 0.8 x10^3/uL (0.0-1.1) Eosinophils # (Auto) 0.2 x10^3/uL (0.0-0.7) Basophils # (Auto) 0.1 x10^3/uL (0.0-0.2) Sodium Level 143 mmol/L (136-145) Potassium Level 3.5 mmol/L (3.5-5.1) Chloride Level 110 mmol/L (98-107) Carbon Dioxide Level 24 mmol/L (21-32) Anion Gap 9 (6-14) Blood Urea Nitrogen 4 mg/dL (7-20) Creatinine 0.5 mg/dL (0.6-1.0) Estimated GFR (Cockcroft-Gault) 126.7 Glucose Level 148 mg/dL (70-99) Calcium Level 8.3 mg/dL (8.5-10.1) Magnesium Level 1.6 mg/dL (1.8-2.4) O2 Saturation 97 % (92-99) Arterial Blood pH 7.39 (7.35-7.45) Arterial Blood pCO2 at Patient Temp 34 mmHg (35-46) Arterial Blood pO2 at Patient Temp 97 mmHg (75-108) Arterial Blood HCO3 20 mmol/L (21-28) Arterial Blood Base Excess -4 mmol/L (-3-3) FiO2 40 Microbiology 05/31/17 Blood Culture - Preliminary, Resulted NO GROWTH AFTER 1 DAY Medications Current Medications Lorazepam (Ativan) 1 mg 1X ONCE IV Last administered on 05/31/17 13:54; Start 05/31/17 at 13:45; Stop 05/31/17 at 13:46; Status DC Sodium Chloride 1,000 ml @ 1,000 mls/hr Q1H IV Last administered on 05/31/17 13:54; Start 05/31/17 at 13:36; Stop 05/31/17 at 14:35; Status DC Lorazepam (Ativan) 2 mg 1X ONCE IV Last administered on 05/31/17 14:23; Start 05/31/17 at 14:00; Stop 05/31/17 at 14:01; Status DC Sodium Bicarbonate 50 meq 1X ONCE IV Last administered on 05/31/17 14:41; Start 05/31/17 at 14:30; Stop 05/31/17 at 14:32; Status DC Sodium Bicarbonate 50 meq 1X ONCE IV Last administered on 05/31/17 14:44; Start 05/31/17 at 14:30; Stop 05/31/17 at 14:32; Status DC Sodium Chloride 1,000 ml @ 1,000 mls/hr 1X ONCE IV Last administered on 14:44; Start 05/31/17 at 14:45; Stop 05/31/17 at 15:44; Status DC Lorazepam (Ativan) 1 mg 1X ONCE IV Last administered on 05/31/17 14:50; Start 05/31/17 at 15:00; Stop 05/31/17 at 15:01; Status DC Etomidate (Amidate) 20 mg 1X ONCE IV Last administered on 05/31/17 14:54; Start 05/31/17 at 15:00; Stop 05/31/17 at 15:01; Status DC Succinylcholine Chloride (Anectine) 100 mg 1X ONCE IV Last administered on 14:54; Start 05/31/17 at 15:00; Stop 05/31/17 at 15:01; Status DC Propofol (Diprivan) 200,000 mg 1X ONCE IV Last administered on 05/31/17 15:17 ; Start 05/31/17 at 15:00; Stop 05/31/17 at 15:03; Status DC Propofol 50 ml @ As Directed STK-MED ONCE IV ; Start 05/31/17 at 15:19; Stop at 15:20; Status DC Propofol 50 ml @ 0 mls/hr 1X ONCE IV Last administered on 05/31/17 15:20; Start 05/31/17 at 15:45; Stop 05/31/17 at 15:46; Status DC Levetiracetam 500 mg/Sodium Chloride 100 ml @ 400 mls/hr Q12HR IV ; Start 05/31 at 21:00; Stop 05/31/17 at 21:00; Status DC Levetiracetam 500 mg/Sodium Chloride 105 ml @ 400 mls/hr Q12HR IV Last administered on 06/02/17 09:04; Start 05/31/17 at 16:00 Sodium Chloride 1,000 ml @ 150 mls/hr 1X ONCE IV Last administered on 16:00; Start 05/31/17 at 16:15; Stop 05/31/17 at 22:54; Status DC Acetylcysteine 6 gm/Dextrose 230 ml @ 230 mls/hr 1X ONCE IV Last administered on 05/31/17 17:49; Start 05/31/17 at 17:30; Stop 05/31/17 at 18:29 ; Status DC Acetylcysteine 2 gm/Dextrose 510 ml @ 127.5 mls/ hr 1X ONCE IV Last administered on 05/31/17 19:00; Start 05/31/17 at 18:30; Stop 05/31/17 at 22:29 ; Status DC Acetylcysteine 4 gm/Dextrose 1,020 ml @ 63.75 mls/ hr 1X ONCE IV Last administered on 05/31/17 22:48; Start 05/31/17 at 22:30; Stop 06/01/17 at 14:29 ; Status DC Fentanyl Citrate (Fentanyl 2ml Vial) 50 mcg PRN Q1HR PRN IV PAIN Last administered on 06/02/17 05:36; Start 05/31/17 at 17:00 Sodium Bicarbonate 100 meq PRN Q15MIN PRN IV SEIZURES; Start 05/31/17 at 17:00 Propofol 100 ml @ 0 mls/hr CONT PRN IV SEE I/O RECORD Last administered on 06/01 17:17; Start 05/31/17 at 17:00 Sodium Chloride 1,000 ml @ 125 mls/hr Q8H IV Last administered on 06/02/17 05 :36; Start 05/31/17 at 17:00 Ceftriaxone Sodium 1 gm/ Sodium Chloride 50 ml @ 100 mls/hr Q24H IV Last administered on 06/01/17 16:56; Start 05/31/17 at 17:30 Insulin Aspart (NovoLOG) 20 units 1X ONCE SQ Last administered on 05/31/17 19 :46; Start 05/31/17 at 19:30; Stop 05/31/17 at 19:31; Status DC Insulin Aspart (NovoLOG) 0-7 UNITS Q6HRS SQ Last administered on 06/01/17 06: 04; Start 06/01/17 at 00:00; Stop 06/01/17 at 09:28; Status DC Dextrose (Dextrose 50%-Water Syringe) 12.5 gm PRN Q15MIN PRN IV SEE COMMENTS; Start 05/31/17 at 20:15; Status Cancel Labetalol HCl (Normodyne) 20 mg PRN Q4HRS PRN IVP HYPERTENSION, SEE COMMENTS Last administered on 05/31/17 20:48; Start 05/31/17 at 20:15 Potassium Chloride 100 ml @ 100 mls/hr Q1H IV Last administered on 05/31/17 23:49; Start 05/31/17 at 20:45; Stop 06/01/17 at 00:44; Status DC Enoxaparin Sodium (Lovenox 40mg Syringe) 40 mg QHS SQ Last administered on 06/01 21:20; Start 05/31/17 at 23:30 Calcium Gluconate 1000 mg/Sodium Chloride 110 ml @ 220 mls/hr 1X ONCE IV Last administered on 06/01/17 07:06; Start 06/01/17 at 07:00; Stop 06/01/17 at 07:29; Status DC Potassium Chloride 100 ml @ 100 mls/hr Q1H IV Last administered on 06/01/17 10:19; Start 06/01/17 at 07:00; Stop 06/01/17 at 10:59; Status DC Ondansetron HCl (Zofran) 4 mg PRN Q6HRS PRN IV NAUSEA/VOMITING; Start 06/01/17 at 09:30 Potassium Chloride (KCl Oral Soln) 40 meq 1X ONCE PEG Last administered on 10:03; Start 06/01/17 at 10:00; Stop 06/01/17 at 10:01; Status DC Insulin Aspart (NovoLOG) 0-9 UNITS TIDWMEALS SQ Last administered on 06/01/17 11:45; Start 06/01/17 at 12:00 Dextrose (Dextrose 50%-Water Syringe) 12.5 gm PRN Q15MIN PRN IV SEE COMMENTS; Start 06/01/17 at 09:30 Insulin Aspart (NovoLOG) 10 units 1X ONCE SQ Last administered on 06/01/17 10 :18; Start 06/01/17 at 10:00; Stop 06/01/17 at 10:01; Status DC Magnesium Sulfate/ Dextrose 50 ml @ 25 mls/hr 1X ONCE IV Last administered on 06/01/17 10:01; Start 06/01/17 at 10:00; Stop 06/01/17 at 11:59; Status DC Enoxaparin Sodium (Lovenox 40mg Syringe) 40 mg Q24H SQ ; Start 06/01/17 at 11:15 ; Status UNV Famotidine (Pepcid) 20 mg BID IVP Last administered on 06/02/17 09:04; Start 06/01/17 at 12:00 Calcium Gluconate 1000 mg/Sodium Chloride 110 ml @ 220 mls/hr 1X ONCE IV Last administered on 06/01/17 11:19; Start 06/01/17 at 11:15; Stop 06/01/17 at 11:44; Status DC Potassium Chloride (KCl Oral Soln) 40 meq BID PEG Last administered on 09:03; Start 06/02/17 at 09:00 Potassium Chloride (KCl Oral Soln) 40 meq 1X ONCE PEG Last administered on 15:15; Start 06/01/17 at 15:00; Stop 06/01/17 at 15:01; Status DC Magnesium Sulfate/ Dextrose 100 ml @ 50 mls/hr DAILY IV Last administered on 06/02/17t 09:04; Start 06/02/17 at 09:00; Stop 06/05/17 at 08:59 Active Scripts Active Keppra (Levetiracetam) 250 Mg Tablet 750 Mg PO BID Levemir Flextouch (Insulin Detemir) 100 Unit/1 Ml Insuln.pen 30 Units SQ QHS Novolog Flexpen (Insulin Aspart) 100 Unit/1 Ml Insuln.pen 15 Units SQ TIDAC Duoneb 0.5-3(2.5) Mg/3 Ml (Albuterol/Ipratropium) 3 Ml Ampul.neb 3 Ml IH PRN QID PRN [Nicotine] 1 PATCH Patch 1 Patch TD DAILY Mucinex (Guaifenesin) 600 Mg Tablet.er 1,200 Mg PO BID Reported Lyrica (Pregabalin) 75 Mg Capsule 1 Cap PO BID Keppra (Levetiracetam) 500 Mg Tablet 1 Tab PO BID Lamictal (Lamotrigine) 200 Mg Tablet 200 Mg PO BID Latuda (Lurasidone Hcl) 20 Mg Tablet 20 Mg PO Metoprolol Succinate 50 Mg Tab.er.24h 50 Mg PO Lisinopril 20 Mg Tablet 1 Tab PO DAILY Symbicort 160-4.5 Mcg Inhaler (Budesonide/Formoterol Fumarate) 10.2 Gm Hfa.aer.ad Unknown Dose IH BID Proair Hfa Inhaler (Albuterol Sulfate) 8.5 Gm Hfa.aer.ad Unknown Dose INH Omeprazole 40 Mg Capsule.dr 40 Mg PO DAILY Cetirizine Hcl 10 Mg Tablet 1 Tab PO DAILY Oxycodone-Acetaminophen 10-325 (Oxycodone Hcl/Acetaminophen) 1 Each Tablet 1 Tab PO Q4HRS PRN Carisoprodol 350 Mg Tablet 1 Tab PO TID Diphedryl (Diphenhydramine Hcl) 25 Mg Capsule 25 Mg PO HS Vitals/I & O Vital Sign - Last 24 Hours 06/01/17 06/01/17 06/01/17 06/01/17 11:00 11:19 11:27 12:00 Pulse 99 Resp 16 16 B/P (MAP) 132/83 (99) Pulse Ox 100 99 98 98 O2 Delivery Ventilator Ventilator Ventilator 06/01/17 06/01/17 06/01/17 06/01/17 12:00 12:00 13:00 14:00 Temp 99.4 99.4 Pulse 92 94 101 Resp 16 16 16 B/P (MAP) 91/55 (67) 109/60 (76) 186/72 (110) Pulse Ox 98 99 99 O2 Delivery Ventilator Mechanical Ventilator Ventilator Ventilator 06/01/17 06/01/17 06/01/17 06/01/17 15:00 15:06 15:55 16:00 Temp 101.0 101.0 Pulse 100 120 Resp 16 32 B/P (MAP) 152/73 (99) 181/86 (117) Pulse Ox 99 100 100 99 O2 Delivery Ventilator Ventilator Ventilator Ventilator 06/01/17 06/01/17 06/01/17 06/01/17 16:00 17:00 17:00 18:00 Pulse 109 94 Resp 27 16 B/P (MAP) 136/68 (90) 131/83 (99) Pulse Ox 100 97 99 O2 Delivery Mechanical Ventilator Ventilator Ventilator Ventilator 06/01/17 06/01/17 06/01/17 06/01/17 19:00 20:00 20:00 20:41 Temp 100.0 100.0 Pulse 94 94 Resp 16 16 B/P (MAP) 149/71 (97) 126/73 (90) Pulse Ox 99 99 98 O2 Delivery Ventilator Ventilator Mechanical Ventilator Ventilator 06/01/17 06/01/17 06/01/17 06/01/17 21:00 21:21 22:00 23:00 Pulse 92 94 88 Resp 16 22 16 16 B/P (MAP) 134/70 (91) 120/73 (89) 117/65 (82) Pulse Ox 99 99 99 O2 Delivery Ventilator Ventilator Ventilator Ventilator 06/01/17 06/02/17 06/02/17 06/02/17 23:59 00:00 00:02 01:05 Temp 99.7 99.7 Pulse 85 83 Resp 16 16 B/P (MAP) 128/64 (85) 106/65 (79) Pulse Ox 98 99 99 O2 Delivery Mechanical Ventilator Ventilator Ventilator Ventilator 06/02/17 06/02/17 06/02/17 06/02/17 02:00 02:13 03:00 04:00 Pulse 82 80 Resp 16 16 B/P (MAP) 118/60 (79) 132/66 (88) Pulse Ox 99 98 98 O2 Delivery Ventilator Ventilator Ventilator Mechanical Ventilator 06/02/17 06/02/17 06/02/17 06/02/17 04:00 04:14 05:00 05:36 Temp 99.0 99.0 Pulse 82 80 Resp 16 16 18 B/P (MAP) 122/60 (80) 116/65 (82) Pulse Ox 99 98 97 O2 Delivery Ventilator Ventilator Ventilator Ventilator 06/02/17 06/02/17 06/02/17 06/02/17 06:00 06:06 06:19 07:38 Pulse 81 Resp 16 20 B/P (MAP) 123/65 (84) Pulse Ox 99 98 100 O2 Delivery Ventilator Ventilator Ventilator Ventilator 06/02/17 09:26 Pulse Ox 100 O2 Delivery Ventilator KAYLIE LUNDBERG MD Jun 02, 2017 10:56
[2017-06-02] MEDS ORDERED: INFLUENZA VAX SCREEN BY RX. MC ONE (14:45)
[2017-06-02] MEDS ORDERED: FLU VACC QS2017-18 (36MOS+)/PF 0.5 ML SYRINGE. VAX IM ONE (15:00)
[2017-06-02] MEDS ORDERED: traMADol 50 MG TABLET PO PRN (19:30)
[2017-06-02] MEDS: ENOXAPARIN 40 MG/0.4 ML SYRINGE. SQ SCH (20:05)
[2017-06-02] MEDS: SUMAtriptan SUCCINATE 25 MG TABLET PO PRN (20:05)
[2017-06-02] MEDS: LABETALOL 20 MG/4 ML DISP.SYRIN. IVP PRN (20:10)
[2017-06-02] MEDS ORDERED: POTASSIUM CHLORIDE 20 MEQ in IV 1/2 NORMAL SALINE 1,000 ML IV SCH (21:00)
[2017-06-03] VITALS (23 sets, daily range): BP systolic 87–196; BP diastolic 47–97
[2017-06-03] MEDS: LABETALOL 20 MG/4 ML DISP.SYRIN. IVP PRN ×2 (00:53→08:32)
[2017-06-03 07:01] LABS: BASO # 0.1 x10^3/uL (0.0-0.2); BASO % 1 % (0-3); EOS % 1 % (0-3); HEMATOCRIT 32.5 % (36.0-47.0); HEMOGLOBIN 11.2 g/dL (12.0-15.5); LYMPH # 1.1 x10^3/uL (1.0-4.8); LYMPH % 11 % (24-48); MEAN CORPUSCULAR HEMOGLOBIN 30 pg (25-35); MEAN CORPUSCULAR HGB CONC 34 g/dL (31-37); MEAN CORPUSCULAR VOLUME 86 fL (79-100); MONO % 6 % (0-9); NEUT % 81 % (31-73); PLATELET COUNT 214 x10^3/uL (140-400); RED BLOOD COUNT 3.78 x10^6/uL (3.50-5.40); RED CELL DISTRIBUTION WIDTH 15.3 % (11.5-14.5); WHITE BLOOD COUNT 10.2 x10^3/uL (4.0-11.0)
[2017-06-03 07:46] LABS: CALCIUM 8.7 mg/dL (8.5-10.1); CREATININE 0.7 mg/dL (0.6-1.0); GFR 85.9; POTASSIUM 3.8 mmol/L (3.5-5.1)
[2017-06-03] MEDS: SUMAtriptan SUCCINATE 25 MG TABLET PO PRN (07:53)
[2017-06-03] MEDS: INSULIN ASPART 300 UNITS/3 ML INSULN.PEN SQ SCH ×5 (07:53→17:00)
[2017-06-03] MEDS: POTASSIUM CL 20MEQ-0.45% NACL 1,000 ML IV SCH (08:00)
[2017-06-03] MEDS ORDERED: METOPROLOL SUCC 24HR ER 50 MG TAB.ER.24H. PO SCH (09:00)
[2017-06-03] MEDS: MAGNESIUM SULFATE 4GM 100 ML IV SCH (09:00)
[2017-06-03] MEDS: CARISOPRODOL 350 MG TABLET PO SCH ×3 (09:00→22:10)
[2017-06-03] MEDS ORDERED: ALBUTEROL SULFATE 2.5 MG/3 ML NEBU. NEB PRN (09:15)
[2017-06-03] MEDS ORDERED: METOPROLOL TARTRATE 5 MG/5 ML VIAL. IVP ONE (09:15)
[2017-06-03] MEDS: FAMOTIDINE 20 MG/2 ML VIAL IVP SCH ×2 (09:23→20:39)
[2017-06-03] MEDS: NICOTINE 14MG PATCH. TD SCH (10:00)
--- NOTE | 2017-06-03 10:26 | PDOC ---
PROGRESS NOTES Chief Complaint Chief Complaint 1. Acute respiratory failure sec to acute toxic enceph from intentional Drug OD extubated 06/02 2. SUicide intent - OD tylenol x 10 and benadryl PO x 37 pills 3. Hx SZ d/o with active SZ POA 4. Fevers 5. SIRS POA< no sepsis no organ dysfcn 6. CRitical HYpocalcemia in the background of mild to mod hypoalbuminemia 7. MIld to mod PCM 8. HYpokalemia 9. SMOker, hx back pain History of Present Illness History of Present Illness Extubated yesterday STrong voice but choked on a pill this AM NOw getting agitated PLAN: WAREHOUSE WORKER eval Then after WAREHOUSE WORKER may give some haldol and ativan Needs in pt psych as re evaluated byPAT - Needs to be medically stable though - NOT there yet Issues with swallow and bP high, 179s SYSTOLIC Prn labetolol ordered days ago Start scheduled lopressor - will shift to PO once cleared by WAREHOUSE WORKER Emiliano PINEDA shea - she is also the sitter Keep sitter Vitals Vitals Vital Signs Date Time Temp Pulse Resp B/P (MAP) Pulse Ox O2 Delivery O2 Flow Rate FiO2 06/03/17 09:24 109 172/94 06/03/17 08:08 99.0 18 97 Room Air 99.0 06/02/17 18:00 2.0 Physical Exam General: No acute distress Heart: Regular rate Lungs: Clear Abdomen: Normal bowel sounds Extremities: No clubbing, No cyanosis Skin: No rashes Labs LABS Laboratory Tests Test 06/02/17 13:17 06/02/17 18:23 06/02/17 20:56 06/03/17 06:30 Glucose (Fingerstick) 200 mg/dL (70-99) 179 mg/dL (70-99) 241 mg/dL (70-99) White Blood Count 10.2 x10^3/uL (4.0-11.0) Red Blood Count 3.78 x10^6/uL (3.50-5.40) Hemoglobin 11.2 g/dL (12.0-15.5) Hematocrit 32.5 % (36.0-47.0) Mean Corpuscular Volume 86 fL (79-100) Mean Corpuscular Hemoglobin 30 pg (25-35) Mean Corpuscular Hemoglobin Concent 34 g/dL (31-37) Red Cell Distribution Width 15.3 % (11.5-14.5) Platelet Count 214 x10^3/uL (140-400) Neutrophils (%) (Auto) 81 % (31-73) Lymphocytes (%) (Auto) 11 % (24-48) Monocytes (%) (Auto) 6 % (0-9) Eosinophils (%) (Auto) 1 % (0-3) Basophils (%) (Auto) 1 % (0-3) Neutrophils # (Auto) 8.3 x10^3uL (1.8-7.7) Lymphocytes # (Auto) 1.1 x10^3/uL (1.0-4.8) Monocytes # (Auto) 0.7 x10^3/uL (0.0-1.1) Eosinophils # (Auto) 0.1 x10^3/uL (0.0-0.7) Basophils # (Auto) 0.1 x10^3/uL (0.0-0.2) Sodium Level 141 mmol/L (136-145) Potassium Level 3.8 mmol/L (3.5-5.1) Chloride Level 105 mmol/L (98-107) Carbon Dioxide Level 28 mmol/L (21-32) Anion Gap 8 (6-14) Blood Urea Nitrogen 6 mg/dL (7-20) Creatinine 0.7 mg/dL (0.6-1.0) Estimated GFR (Cockcroft-Gault) 85.9 Glucose Level 270 mg/dL (70-99) Calcium Level 8.7 mg/dL (8.5-10.1) Magnesium Level 1.9 mg/dL (1.8-2.4) Review of Systems Review of Systems confused Assessment and Plan Assessmemt and Plan Problems Medical Problems: (1) Mental status change Status: Acute Problems: Comment Review of Relevant I have reviewed the following items jinny (where applicable) has been applied. Labs Laboratory Tests Test 06/01/17 11:42 06/01/17 13:25 06/01/17 16:18 06/01/17 17:06 Glucose (Fingerstick) 271 mg/dL (70-99) 142 mg/dL (70-99) Prothrombin Time 14.6 SEC (11.7-14.0) Prothromb Time International Ratio 1.2 (0.8-1.1) Sodium Level 141 mmol/L (136-145) Potassium Level 3.2 mmol/L (3.5-5.1) Chloride Level 109 mmol/L (98-107) Carbon Dioxide Level 25 mmol/L (21-32) Anion Gap 7 (6-14) Blood Urea Nitrogen 4 mg/dL (7-20) Creatinine 0.6 mg/dL (0.6-1.0) Estimated GFR (Cockcroft-Gault) 102.7 BUN/Creatinine Ratio 7 (6-20) Glucose Level 208 mg/dL (70-99) Calcium Level 8.4 mg/dL (8.5-10.1) Magnesium Level 2.2 mg/dL (1.8-2.4) Total Bilirubin 0.2 mg/dL (0.2-1.0) Aspartate Amino Transf (AST/SGOT) 17 U/L (15-37) Alanine Aminotransferase (ALT/SGPT) 22 U/L (14-59) Alkaline Phosphatase 76 U/L (46-116) Total Protein 5.3 g/dL (6.4-8.2) Albumin 2.4 g/dL (3.4-5.0) Albumin/Globulin Ratio 0.8 (1.0-1.7) Acetaminophen Level 4.6 mcg/ml (10-30) Acetaminophen Last Dose Date Acetaminophen Last Dose Time O2 Saturation 98 % (92-99) Arterial Blood pH 7.48 (7.35-7.45) Arterial Blood pCO2 at Patient Temp 30 mmHg (35-46) Arterial Blood pO2 at Patient Temp 123 mmHg (75-108) Arterial Blood HCO3 22 mmol/L (21-28) Arterial Blood Base Excess -1 mmol/L (-3-3) FiO2 21 Test 06/01/17 21:35 06/02/17 05:25 06/02/17 08:00 06/02/17 13:17 Acetaminophen Level 4.1 mcg/ml (10-30) Acetaminophen Last Dose Date Unknown Acetaminophen Last Dose Time Unknown White Blood Count 10.2 x10^3/uL (4.0-11.0) Red Blood Count 3.53 x10^6/uL (3.50-5.40) Hemoglobin 10.3 g/dL (12.0-15.5) Hematocrit 30.8 % (36.0-47.0) Mean Corpuscular Volume 87 fL (79-100) Mean Corpuscular Hemoglobin 29 pg (25-35) Mean Corpuscular Hemoglobin Concent 33 g/dL (31-37) Red Cell Distribution Width 15.0 % (11.5-14.5) Platelet Count 152 x10^3/uL (140-400) Neutrophils (%) (Auto) 69 % (31-73) Lymphocytes (%) (Auto) 20 % (24-48) Monocytes (%) (Auto) 8 % (0-9) Eosinophils (%) (Auto) 2 % (0-3) Basophils (%) (Auto) 1 % (0-3) Neutrophils # (Auto) 7.1 x10^3uL (1.8-7.7) Lymphocytes # (Auto) 2.0 x10^3/uL (1.0-4.8) Monocytes # (Auto) 0.8 x10^3/uL (0.0-1.1) Eosinophils # (Auto) 0.2 x10^3/uL (0.0-0.7) Basophils # (Auto) 0.1 x10^3/uL (0.0-0.2) Sodium Level 143 mmol/L (136-145) Potassium Level 3.5 mmol/L (3.5-5.1) Chloride Level 110 mmol/L (98-107) Carbon Dioxide Level 24 mmol/L (21-32) Anion Gap 9 (6-14) Blood Urea Nitrogen 4 mg/dL (7-20) Creatinine 0.5 mg/dL (0.6-1.0) Estimated GFR (Cockcroft-Gault) 126.7 Glucose Level 148 mg/dL (70-99) Calcium Level 8.3 mg/dL (8.5-10.1) Magnesium Level 1.6 mg/dL (1.8-2.4) O2 Saturation 97 % (92-99) Arterial Blood pH 7.39 (7.35-7.45) Arterial Blood pCO2 at Patient Temp 34 mmHg (35-46) Arterial Blood pO2 at Patient Temp 97 mmHg (75-108) Arterial Blood HCO3 20 mmol/L (21-28) Arterial Blood Base Excess -4 mmol/L (-3-3) FiO2 40 Glucose (Fingerstick) 200 mg/dL (70-99) Test 10/2/17 18:23 06/02/17 20:56 06/03/17 06:30 Glucose (Fingerstick) 179 mg/dL (70-99) 241 mg/dL (70-99) White Blood Count 10.2 x10^3/uL (4.0-11.0) Red Blood Count 3.78 x10^6/uL (3.50-5.40) Hemoglobin 11.2 g/dL (12.0-15.5) Hematocrit 32.5 % (36.0-47.0) Mean Corpuscular Volume 86 fL (79-100) Mean Corpuscular Hemoglobin 30 pg (25-35) Mean Corpuscular Hemoglobin Concent 34 g/dL (31-37) Red Cell Distribution Width 15.3 % (11.5-14.5) Platelet Count 214 x10^3/uL (140-400) Neutrophils (%) (Auto) 81 % (31-73) Lymphocytes (%) (Auto) 11 % (24-48) Monocytes (%) (Auto) 6 % (0-9) Eosinophils (%) (Auto) 1 % (0-3) Basophils (%) (Auto) 1 % (0-3) Neutrophils # (Auto) 8.3 x10^3uL (1.8-7.7) Lymphocytes # (Auto) 1.1 x10^3/uL (1.0-4.8) Monocytes # (Auto) 0.7 x10^3/uL (0.0-1.1) Eosinophils # (Auto) 0.1 x10^3/uL (0.0-0.7) Basophils # (Auto) 0.1 x10^3/uL (0.0-0.2) Sodium Level 141 mmol/L (136-145) Potassium Level 3.8 mmol/L (3.5-5.1) Chloride Level 105 mmol/L (98-107) Carbon Dioxide Level 28 mmol/L (21-32) Anion Gap 8 (6-14) Blood Urea Nitrogen 6 mg/dL (7-20) Creatinine 0.7 mg/dL (0.6-1.0) Estimated GFR (Cockcroft-Gault) 85.9 Glucose Level 270 mg/dL (70-99) Calcium Level 8.7 mg/dL (8.5-10.1) Magnesium Level 1.9 mg/dL (1.8-2.4) Laboratory Tests Test 06/02/17 13:17 06/02/17 18:23 06/02/17 20:56 06/03/17 06:30 Glucose (Fingerstick) 200 mg/dL (70-99) 179 mg/dL (70-99) 241 mg/dL (70-99) White Blood Count 10.2 x10^3/uL (4.0-11.0) Red Blood Count 3.78 x10^6/uL (3.50-5.40) Hemoglobin 11.2 g/dL (12.0-15.5) Hematocrit 32.5 % (36.0-47.0) Mean Corpuscular Volume 86 fL (79-100) Mean Corpuscular Hemoglobin 30 pg (25-35) Mean Corpuscular Hemoglobin Concent 34 g/dL (31-37) Red Cell Distribution Width 15.3 % (11.5-14.5) Platelet Count 214 x10^3/uL (140-400) Neutrophils (%) (Auto) 81 % (31-73) Lymphocytes (%) (Auto) 11 % (24-48) Monocytes (%) (Auto) 6 % (0-9) Eosinophils (%) (Auto) 1 % (0-3) Basophils (%) (Auto) 1 % (0-3) Neutrophils # (Auto) 8.3 x10^3uL (1.8-7.7) Lymphocytes # (Auto) 1.1 x10^3/uL (1.0-4.8) Monocytes # (Auto) 0.7 x10^3/uL (0.0-1.1) Eosinophils # (Auto) 0.1 x10^3/uL (0.0-0.7) Basophils # (Auto) 0.1 x10^3/uL (0.0-0.2) Sodium Level 141 mmol/L (136-145) Potassium Level 3.8 mmol/L (3.5-5.1) Chloride Level 105 mmol/L (98-107) Carbon Dioxide Level 28 mmol/L (21-32) Anion Gap 8 (6-14) Blood Urea Nitrogen 6 mg/dL (7-20) Creatinine 0.7 mg/dL (0.6-1.0) Estimated GFR (Cockcroft-Gault) 85.9 Glucose Level 270 mg/dL (70-99) Calcium Level 8.7 mg/dL (8.5-10.1) Magnesium Level 1.9 mg/dL (1.8-2.4) Microbiology 05/31/17 Blood Culture - Preliminary, Resulted NO GROWTH AFTER 2 DAYS Medications Current Medications Lorazepam (Ativan) 1 mg 1X ONCE IV Last administered on 05/31/17 13:54; Start 05/31/17 at 13:45; Stop 05/31/17 at 13:46; Status DC Sodium Chloride 1,000 ml @ 1,000 mls/hr Q1H IV Last administered on 05/31/17 13:54; Start 05/31/17 at 13:36; Stop 05/31/17 at 14:35; Status DC Lorazepam (Ativan) 2 mg 1X ONCE IV Last administered on 05/31/17 14:23; Start 05/31/17 at 14:00; Stop 05/31/17 at 14:01; Status DC Sodium Bicarbonate 50 meq 1X ONCE IV Last administered on 05/31/17 14:41; Start 05/31/17 at 14:30; Stop 05/31/17 at 14:32; Status DC Sodium Bicarbonate 50 meq 1X ONCE IV Last administered on 05/31/17 14:44; Start 05/31/17 at 14:30; Stop 05/31/17 at 14:32; Status DC Sodium Chloride 1,000 ml @ 1,000 mls/hr 1X ONCE IV Last administered on 14:44; Start 05/31/17 at 14:45; Stop 05/31/17 at 15:44; Status DC Lorazepam (Ativan) 1 mg 1X ONCE IV Last administered on 05/31/17 14:50; Start 05/31/17 at 15:00; Stop 05/31/17 at 15:01; Status DC Etomidate (Amidate) 20 mg 1X ONCE IV Last administered on 05/31/17 14:54; Start 05/31/17 at 15:00; Stop 05/31/17 at 15:01; Status DC Succinylcholine Chloride (Anectine) 100 mg 1X ONCE IV Last administered on 14:54; Start 05/31/17 at 15:00; Stop 05/31/17 at 15:01; Status DC Propofol (Diprivan) 200,000 mg 1X ONCE IV ; Start 05/31/17 at 15:00; Stop 05/31 at 15:01; Status Cancel Propofol 50 ml @ As Directed STK-MED ONCE IV ; Start 05/31/17 at 15:19; Stop at 15:20; Status DC Propofol 50 ml @ 0 mls/hr 1X ONCE IV Last administered on 05/31/17 15:20; Start 05/31/17 at 15:45; Stop 05/31/17 at 15:46; Status DC Levetiracetam 500 mg/Sodium Chloride 100 ml @ 400 mls/hr Q12HR IV ; Start 05/31 at 21:00; Stop 05/31/17 at 21:00; Status DC Levetiracetam 500 mg/Sodium Chloride 105 ml @ 400 mls/hr Q12HR IV Last administered on 06/03/17 08:31; Start 05/31/17 at 16:00 Sodium Chloride 1,000 ml @ 150 mls/hr 1X ONCE IV Last administered on 16:00; Start 05/31/17 at 16:15; Stop 05/31/17 at 22:54; Status DC Acetylcysteine 6 gm/Dextrose 230 ml @ 230 mls/hr 1X ONCE IV Last administered on 05/31/17 17:49; Start 05/31/17 at 17:30; Stop 05/31/17 at 18:29 ; Status DC Acetylcysteine 2 gm/Dextrose 510 ml @ 127.5 mls/ hr 1X ONCE IV Last administered on 05/31/17 19:00; Start 05/31/17 at 18:30; Stop 05/31/17 at 22:29 ; Status DC Acetylcysteine 4 gm/Dextrose 1,020 ml @ 63.75 mls/ hr 1X ONCE IV Last administered on 05/31/17 22:48; Start 05/31/17 at 22:30; Stop 06/01/17 at 14:29 ; Status DC Fentanyl Citrate (Fentanyl 2ml Vial) 50 mcg PRN Q1HR PRN IV PAIN Last administered on 06/02/17 05:36; Start 05/31/17 at 17:00 Sodium Bicarbonate 100 meq PRN Q15MIN PRN IV SEIZURES; Start 05/31/17 at 17:00 Propofol 100 ml @ 0 mls/hr CONT PRN IV SEE I/O RECORD Last administered on 06/01 17:17; Start 05/31/17 at 17:00 Sodium Chloride 1,000 ml @ 125 mls/hr Q8H IV Last administered on 06/02/17 15 :21; Start 05/31/17 at 17:00; Stop 06/02/17 at 20:42; Status DC Ceftriaxone Sodium 1 gm/ Sodium Chloride 50 ml @ 100 mls/hr Q24H IV Last administered on 06/02/17 18:21; Start 05/31/17 at 17:30 Insulin Aspart (NovoLOG) 20 units 1X ONCE SQ Last administered on 05/31/17 19 :46; Start 05/31/17 at 19:30; Stop 05/31/17 at 19:31; Status DC Insulin Aspart (NovoLOG) 0-7 UNITS Q6HRS SQ Last administered on 06/01/17 06: 04; Start 06/01/17 at 00:00; Stop 06/01/17 at 09:28; Status DC Dextrose (Dextrose 50%-Water Syringe) 12.5 gm PRN Q15MIN PRN IV SEE COMMENTS; Start 05/31/17 at 20:15; Status Cancel Labetalol HCl (Normodyne) 20 mg PRN Q4HRS PRN IVP HYPERTENSION, SEE COMMENTS Last administered on 06/03/17 08:32; Start 05/31/17 at 20:15 Potassium Chloride 100 ml @ 100 mls/hr Q1H IV Last administered on 05/31/17 23:49; Start 05/31/17 at 20:45; Stop 06/01/17 at 00:44; Status DC Enoxaparin Sodium (Lovenox 40mg Syringe) 40 mg QHS SQ Last administered on 06/02 20:05; Start 05/31/17 at 23:30 Calcium Gluconate 1000 mg/Sodium Chloride 110 ml @ 220 mls/hr 1X ONCE IV Last administered on 06/01/17 07:06; Start 06/01/17 at 07:00; Stop 06/01/17 at 07:29; Status DC Potassium Chloride 100 ml @ 100 mls/hr Q1H IV Last administered on 06/01/17 10:19; Start 06/01/17 at 07:00; Stop 06/01/17 at 10:59; Status DC Ondansetron HCl (Zofran) 4 mg PRN Q6HRS PRN IV NAUSEA/VOMITING; Start 06/01/17 at 09:30 Potassium Chloride (KCl Oral Soln) 40 meq 1X ONCE PEG Last administered on 10:03; Start 06/01/17 at 10:00; Stop 06/01/17 at 10:01; Status DC Insulin Aspart (NovoLOG) 0-9 UNITS TIDWMEALS SQ Last administered on 06/03/17 07:53; Start 06/01/17 at 12:00 Dextrose (Dextrose 50%-Water Syringe) 12.5 gm PRN Q15MIN PRN IV SEE COMMENTS; Start 06/01/17 at 09:30 Insulin Aspart (NovoLOG) 10 units 1X ONCE SQ Last administered on 06/01/17 10 :18; Start 06/01/17 at 10:00; Stop 06/01/17 at 10:01; Status DC Magnesium Sulfate/ Dextrose 50 ml @ 25 mls/hr 1X ONCE IV Last administered on 06/01/17 10:01; Start 06/01/17 at 10:00; Stop 06/01/17 at 11:59; Status DC Enoxaparin Sodium (Lovenox 40mg Syringe) 40 mg Q24H SQ ; Start 06/01/17 at 11:15 ; Status UNV Famotidine (Pepcid) 20 mg BID IVP Last administered on 06/03/17 09:23; Start 06/01/17 at 12:00 Calcium Gluconate 1000 mg/Sodium Chloride 110 ml @ 220 mls/hr 1X ONCE IV Last administered on 06/01/17 11:19; Start 06/01/17 at 11:15; Stop 06/01/17 at 11:44; Status DC Potassium Chloride (KCl Oral Soln) 40 meq BID PEG Last administered on 09:03; Start 06/02/17 at 09:00; Stop 06/02/17 at 20:42; Status DC Potassium Chloride (KCl Oral Soln) 40 meq 1X ONCE PEG Last administered on 15:15; Start 06/01/17 at 15:00; Stop 06/01/17 at 15:01; Status DC Magnesium Sulfate/ Dextrose 100 ml @ 50 mls/hr DAILY IV Last administered on 06/02/17 09:04; Start 06/02/17 at 09:00; Stop 06/05/17 at 08:59 Propofol (Diprivan) 200 mg 1X ONCE IV Last administered on 05/31/17 15:00; Start 05/31/17 at 15:00; Stop 06/02/17 at 11:44; Status DC Info (Do NOT chart on this placeholder) 1 each 1X ONCE MC ; Start 06/02/17 at 14:45; Stop 06/02/17 at 14:46; Status UNV Influenza Virus Vaccine Quadrival (Fluarix Quad 1969-8080 Syringe) 0.5 ml ONCE ONCE VAX IM Last administered on 06/02/17 15:21; Start 06/02/17 at 15:00; Stop 06/02/17 at 15:01; Status DC Tramadol HCl (Ultram) 50 mg PRN Q6HRS PRN PO PAIN; Start 06/02/17 at 19:30 Sumatriptan Succinate (Imitrex) 25 mg PRN Q2HR PRN PO MIGRAINE HEADACHE Last administered on 06/03/17 07:53; Start 06/02/17 at 19:30 Potassium Chloride 20 meq/ Sodium Chloride 1,010 ml @ 75 mls/hr [id number] IV Last administered on 06/02/17 21:12; Start 06/02/17 at 21:00; Stop 06/03/17 at 06:37; Status DC Lorazepam (Ativan) 0.5 mg PRN Q4HRS PRN IV ANXIETY / AGITATION Last administered on 06/03/17 09:54; Start 06/03/17 at 06:45 Potassium Chloride/Sodium Chloride 1,000 ml @ 75 mls/hr [id number] IV ; Start 06/03/17 at 08:00 Metoprolol Tartrate (Lopressor) 5 mg 1X ONCE IVP Last administered on 09:24; Start 06/03/17 at 09:15; Stop 06/03/17 at 09:16; Status DC Metoprolol Tartrate (Lopressor) 5 mg Q6HRS IVP ; Start 06/03/17 at 12:00 Carisoprodol (Soma) 350 mg TID PO ; Start 06/03/17 at 09:00 Cetirizine HCl (ZyrTEC) 10 mg DAILY PO ; Start 06/03/17 at 09:00 Diphenhydramine HCl (Benadryl) 25 mg HS PO ; Start 06/03/17 at 21:00 Guaifenesin (Mucinex) 1,200 mg BID PO ; Start 06/03/17 at 10:00 Insulin Aspart (NovoLOG) 15 units TIDAC SQ ; Start 06/03/17 at 11:30 Insulin Detemir (Levemir) 30 units QHS SQ ; Start 06/03/17 at 21:00 Albuterol Sulfate (Ventolin Neb Soln) 2.5 mg PRN QID PRN NEB SHORTNESS OF BREATH; Start 06/03/17 at 09:15 Lisinopril (Prinivil) 20 mg DAILY PO ; Start 06/03/17 at 10:00 Metoprolol Succinate (Toprol Xl) 50 mg DAILY PO ; Start 06/03/17 at 09:00; Status UNV Oxycodone/ Acetaminophen (Percocet 10/325) 1 tab PRN Q4HRS PRN PO PAIN; Start 06/03/17 at 08:45 Pregabalin (Lyrica) 75 mg BID PO ; Start 06/03/17 at 10:00 Pantoprazole Sodium (Protonix) 40 mg DAILYAC PO ; Start 06/03/17 at 10:00 Nicotine (Nicoderm Cq 14mg) 1 patch DAILY TD ; Start 06/03/17 at 10:00 Active Scripts Active Keppra (Levetiracetam) 250 Mg Tablet 750 Mg PO BID Levemir Flextouch (Insulin Detemir) 100 Unit/1 Ml Insuln.pen 30 Units SQ QHS Novolog Flexpen (Insulin Aspart) 100 Unit/1 Ml Insuln.pen 15 Units SQ TIDAC Duoneb 0.5-3(2.5) Mg/3 Ml (Albuterol/Ipratropium) 3 Ml Ampul.neb 3 Ml IH PRN QID PRN [Nicotine] 1 PATCH Patch 1 Patch TD DAILY Mucinex (Guaifenesin) 600 Mg Tablet.er 1,200 Mg PO BID Reported Lyrica (Pregabalin) 75 Mg Capsule 1 Cap PO BID Keppra (Levetiracetam) 500 Mg Tablet 1 Tab PO BID Lamictal (Lamotrigine) 200 Mg Tablet 200 Mg PO BID Latuda (Lurasidone Hcl) 20 Mg Tablet 20 Mg PO Metoprolol Succinate 50 Mg Tab.er.24h 50 Mg PO Lisinopril 20 Mg Tablet 1 Tab PO DAILY Symbicort 160-4.5 Mcg Inhaler (Budesonide/Formoterol Fumarate) 10.2 Gm Hfa.aer.ad Unknown Dose IH BID Proair Hfa Inhaler (Albuterol Sulfate) 8.5 Gm Hfa.aer.ad Unknown Dose INH Omeprazole 40 Mg Capsule.dr 40 Mg PO DAILY Cetirizine Hcl 10 Mg Tablet 1 Tab PO DAILY Oxycodone-Acetaminophen 10-325 (Oxycodone Hcl/Acetaminophen) 1 Each Tablet 1 Tab PO Q4HRS PRN Carisoprodol 350 Mg Tablet 1 Tab PO TID Diphedryl (Diphenhydramine Hcl) 25 Mg Capsule 25 Mg PO HS Vitals/I & O Vital Sign - Last 24 Hours 06/02/17 06/02/17 06/02/17 06/02/17 11:00 12:00 12:00 13:00 Temp 98.1 98.1 Pulse 104 102 107 Resp 20 20 20 B/P (MAP) 146/72 (96) 106/67 (80) 126/69 (88) Pulse Ox 95 95 97 O2 Delivery Nasal Cannula Nasal Cannula Nasal Cannula Nasal Cannula O2 Flow Rate 2.0 2.0 2.0 2.0 06/02/17 06/02/17 06/02/17 06/02/17 14:00 15:00 16:00 16:00 Temp 98.4 98.4 Pulse 114 108 115 Resp 20 20 20 B/P (MAP) 145/70 (95) 147/70 (95) 125/65 (85) Pulse Ox 97 96 95 O2 Delivery Nasal Cannula Nasal Cannula Nasal Cannula Nasal Cannula O2 Flow Rate 2.0 2.0 2.0 2.0 06/02/17 06/02/17 06/02/17 06/02/17 17:00 18:00 19:00 20:00 Temp 99.1 99.1 Pulse 111 113 119 Resp 20 B/P (MAP) 117/54 (75) 141/80 (100) 193/89 (123) Pulse Ox 97 97 O2 Delivery Nasal Cannula Nasal Cannula Room Air Room Air O2 Flow Rate 2.0 2.0 06/02/17 06/02/17 06/02/17 06/02/17 20:00 20:10 21:00 22:14 Pulse 115 123 114 116 Resp 20 B/P (MAP) 178/98 (124) 178/98 163/87 (112) 166/73 (104) O2 Delivery Room Air Room Air Room Air 06/02/17 06/02/17 06/03/17 06/03/17 22:52 23:00 00:00 00:00 Temp 99.2 99.2 Pulse 119 114 Resp 22 B/P (MAP) 188/89 (122) 196/92 (126) Pulse Ox 93 O2 Delivery Room Air Room Air Room Air Room Air 06/03/17 06/03/17 06/03/17 06/03/17 00:53 01:00 02:09 03:05 Temp 99.2 99.2 Pulse 119 115 121 115 Resp B/P (MAP) 182/80 165/80 (108) 183/87 (119) 168/95 (119) Pulse Ox 91 96 O2 Delivery Room Air Room Air Room Air 06/03/17 06/03/17 06/03/17 06/03/17 04:00 04:04 05:02 06:03 Temp 99.8 99.8 Pulse 115 115 117 Resp 20 B/P (MAP) 166/97 (120) 141/80 (100) 169/83 (111) Pulse Ox 96 O2 Delivery Room Air Room Air Room Air Room Air 06/03/17 06/03/17 06/03/17 06/03/17 07:03 07:23 08:08 08:32 Temp 97.8 99.0 97.8 99.0 Pulse 112 109 109 Resp 18 B/P (MAP) 153/70 (97) 172/94 (120) 172/94 Pulse Ox 95 97 O2 Delivery Room Air Room Air 06/03/17 09:24 Pulse 109 B/P (MAP) 172/94 ROSEANNA HOLLIDAY MD Jun 03, 2017 10:26
[2017-06-03] MEDS ORDERED: HALOPERIDOL LACTATE 5 MG/ML VIAL. IVP PRN (10:30)
--- NOTE | 2017-06-03 12:08 | PDOC ---
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 Plan Continue levetiracetam Resume lamotrigine when cleared by speech Subjective No complaints Objective Vital Signs Date Time Temp Pulse Resp B/P (MAP) Pulse Ox O2 Delivery O2 Flow Rate FiO2 06/03/17 11:03 99 18 160/77 (104) 06/03/17 10:00 99.0 95 Room Air 99.0 06/02/17 18:00 2.0 Intake and Output 06/04/17 07:00 # Voids 1 PHYSICAL EXAM Alert. Follows commands. Does not know date or name of hospital. PERRL. EOMI. CN: no focal findings. Muscle tone: normal. Muscle strength: 4/5 DTR: 1+ Plantar reflex: flexor Gait: not examined in bed. Sensory exam: no abnormal findings. No cerebellar signs elicited. Review of Relevant I have reviewed the following items jinny (where applicable) has been applied. Labs Laboratory Tests Test 06/01/17 13:25 06/01/17 16:18 06/01/17 17:06 06/01/17 21:35 Prothrombin Time 14.6 SEC (11.7-14.0) Prothromb Time International Ratio 1.2 (0.8-1.1) Sodium Level 141 mmol/L (136-145) Potassium Level 3.2 mmol/L (3.5-5.1) Chloride Level 109 mmol/L (98-107) Carbon Dioxide Level 25 mmol/L (21-32) Anion Gap 7 (6-14) Blood Urea Nitrogen 4 mg/dL (7-20) Creatinine 0.6 mg/dL (0.6-1.0) Estimated GFR (Cockcroft-Gault) 102.7 BUN/Creatinine Ratio 7 (6-20) Glucose Level 208 mg/dL (70-99) Calcium Level 8.4 mg/dL (8.5-10.1) Magnesium Level 2.2 mg/dL (1.8-2.4) Total Bilirubin 0.2 mg/dL (0.2-1.0) Aspartate Amino Transf (AST/SGOT) 17 U/L (15-37) Alanine Aminotransferase (ALT/SGPT) 22 U/L (14-59) Alkaline Phosphatase 76 U/L (46-116) Total Protein 5.3 g/dL (6.4-8.2) Albumin 2.4 g/dL (3.4-5.0) Albumin/Globulin Ratio 0.8 (1.0-1.7) Acetaminophen Level 4.6 mcg/ml (10-30) 4.1 mcg/ml (10-30) Acetaminophen Last Dose Date Unknown Acetaminophen Last Dose Time Unknown O2 Saturation 98 % (92-99) Arterial Blood pH 7.48 (7.35-7.45) Arterial Blood pCO2 at Patient Temp 30 mmHg (35-46) Arterial Blood pO2 at Patient Temp 123 mmHg (75-108) Arterial Blood HCO3 22 mmol/L (21-28) Arterial Blood Base Excess -1 mmol/L (-3-3) FiO2 21 Glucose (Fingerstick) 142 mg/dL (70-99) Test 06/02/17 05:25 06/02/17 08:00 06/02/17 13:17 06/02/17 18:23 White Blood Count 10.2 x10^3/uL (4.0-11.0) Red Blood Count 3.53 x10^6/uL (3.50-5.40) Hemoglobin 10.3 g/dL (12.0-15.5) Hematocrit 30.8 % (36.0-47.0) Mean Corpuscular Volume 87 fL (79-100) Mean Corpuscular Hemoglobin 29 pg (25-35) Mean Corpuscular Hemoglobin Concent 33 g/dL (31-37) Red Cell Distribution Width 15.0 % (11.5-14.5) Platelet Count 152 x10^3/uL (140-400) Neutrophils (%) (Auto) 69 % (31-73) Lymphocytes (%) (Auto) 20 % (24-48) Monocytes (%) (Auto) 8 % (0-9) Eosinophils (%) (Auto) 2 % (0-3) Basophils (%) (Auto) 1 % (0-3) Neutrophils # (Auto) 7.1 x10^3uL (1.8-7.7) Lymphocytes # (Auto) 2.0 x10^3/uL (1.0-4.8) Monocytes # (Auto) 0.8 x10^3/uL (0.0-1.1) Eosinophils # (Auto) 0.2 x10^3/uL (0.0-0.7) Basophils # (Auto) 0.1 x10^3/uL (0.0-0.2) Sodium Level 143 mmol/L (136-145) Potassium Level 3.5 mmol/L (3.5-5.1) Chloride Level 110 mmol/L (98-107) Carbon Dioxide Level 24 mmol/L (21-32) Anion Gap 9 (6-14) Blood Urea Nitrogen 4 mg/dL (7-20) Creatinine 0.5 mg/dL (0.6-1.0) Estimated GFR (Cockcroft-Gault) 126.7 Glucose Level 148 mg/dL (70-99) Calcium Level 8.3 mg/dL (8.5-10.1) Magnesium Level 1.6 mg/dL (1.8-2.4) O2 Saturation 97 % (92-99) Arterial Blood pH 7.39 (7.35-7.45) Arterial Blood pCO2 at Patient Temp 34 mmHg (35-46) Arterial Blood pO2 at Patient Temp 97 mmHg (75-108) Arterial Blood HCO3 20 mmol/L (21-28) Arterial Blood Base Excess -4 mmol/L (-3-3) FiO2 40 Glucose (Fingerstick) 200 mg/dL (70-99) 179 mg/dL (70-99) Test 06/02/17 20:56 06/03/17 06:30 Glucose (Fingerstick) 241 mg/dL (70-99) White Blood Count 10.2 x10^3/uL (4.0-11.0) Red Blood Count 3.78 x10^6/uL (3.50-5.40) Hemoglobin 11.2 g/dL (12.0-15.5) Hematocrit 32.5 % (36.0-47.0) Mean Corpuscular Volume 86 fL (79-100) Mean Corpuscular Hemoglobin 30 pg (25-35) Mean Corpuscular Hemoglobin Concent 34 g/dL (31-37) Red Cell Distribution Width 15.3 % (11.5-14.5) Platelet Count 214 x10^3/uL (140-400) Neutrophils (%) (Auto) 81 % (31-73) Lymphocytes (%) (Auto) 11 % (24-48) Monocytes (%) (Auto) 6 % (0-9) Eosinophils (%) (Auto) 1 % (0-3) Basophils (%) (Auto) 1 % (0-3) Neutrophils # (Auto) 8.3 x10^3uL (1.8-7.7) Lymphocytes # (Auto) 1.1 x10^3/uL (1.0-4.8) Monocytes # (Auto) 0.7 x10^3/uL (0.0-1.1) Eosinophils # (Auto) 0.1 x10^3/uL (0.0-0.7) Basophils # (Auto) 0.1 x10^3/uL (0.0-0.2) Sodium Level 141 mmol/L (136-145) Potassium Level 3.8 mmol/L (3.5-5.1) Chloride Level 105 mmol/L (98-107) Carbon Dioxide Level 28 mmol/L (21-32) Anion Gap 8 (6-14) Blood Urea Nitrogen 6 mg/dL (7-20) Creatinine 0.7 mg/dL (0.6-1.0) Estimated GFR (Cockcroft-Gault) 85.9 Glucose Level 270 mg/dL (70-99) Calcium Level 8.7 mg/dL (8.5-10.1) Magnesium Level 1.9 mg/dL (1.8-2.4) Laboratory Tests Test 06/02/17 13:17 06/02/17 18:23 06/02/17 20:56 06/03/17 06:30 Glucose (Fingerstick) 200 mg/dL (70-99) 179 mg/dL (70-99) 241 mg/dL (70-99) White Blood Count 10.2 x10^3/uL (4.0-11.0) Red Blood Count 3.78 x10^6/uL (3.50-5.40) Hemoglobin 11.2 g/dL (12.0-15.5) Hematocrit 32.5 % (36.0-47.0) Mean Corpuscular Volume 86 fL (79-100) Mean Corpuscular Hemoglobin 30 pg (25-35) Mean Corpuscular Hemoglobin Concent 34 g/dL (31-37) Red Cell Distribution Width 15.3 % (11.5-14.5) Platelet Count 214 x10^3/uL (140-400) Neutrophils (%) (Auto) 81 % (31-73) Lymphocytes (%) (Auto) 11 % (24-48) Monocytes (%) (Auto) 6 % (0-9) Eosinophils (%) (Auto) 1 % (0-3) Basophils (%) (Auto) 1 % (0-3) Neutrophils # (Auto) 8.3 x10^3uL (1.8-7.7) Lymphocytes # (Auto) 1.1 x10^3/uL (1.0-4.8) Monocytes # (Auto) 0.7 x10^3/uL (0.0-1.1) Eosinophils # (Auto) 0.1 x10^3/uL (0.0-0.7) Basophils # (Auto) 0.1 x10^3/uL (0.0-0.2) Sodium Level 141 mmol/L (136-145) Potassium Level 3.8 mmol/L (3.5-5.1) Chloride Level 105 mmol/L (98-107) Carbon Dioxide Level 28 mmol/L (21-32) Anion Gap 8 (6-14) Blood Urea Nitrogen 6 mg/dL (7-20) Creatinine 0.7 mg/dL (0.6-1.0) Estimated GFR (Cockcroft-Gault) 85.9 Glucose Level 270 mg/dL (70-99) Calcium Level 8.7 mg/dL (8.5-10.1) Magnesium Level 1.9 mg/dL (1.8-2.4) Microbiology 05/31/17 Blood Culture - Preliminary, Resulted NO GROWTH AFTER 2 DAYS Medications Current Medications Lorazepam (Ativan) 1 mg 1X ONCE IV Last administered on 05/31/17 13:54; Start 05/31/17 at 13:45; Stop 05/31/17 at 13:46; Status DC Sodium Chloride 1,000 ml @ 1,000 mls/hr Q1H IV Last administered on 05/31/17 13:54; Start 05/31/17 at 13:36; Stop 05/31/17 at 14:35; Status DC Lorazepam (Ativan) 2 mg 1X ONCE IV Last administered on 05/31/17 14:23; Start 05/31/17 at 14:00; Stop 05/31/17 at 14:01; Status DC Sodium Bicarbonate 50 meq 1X ONCE IV Last administered on 05/31/17 14:41; Start 05/31/17 at 14:30; Stop 05/31/17 at 14:32; Status DC Sodium Bicarbonate 50 meq 1X ONCE IV Last administered on 05/31/17 14:44; Start 05/31/17 at 14:30; Stop 05/31/17 at 14:32; Status DC Sodium Chloride 1,000 ml @ 1,000 mls/hr 1X ONCE IV Last administered on 14:44; Start 05/31/17 at 14:45; Stop 05/31/17 at 15:44; Status DC Lorazepam (Ativan) 1 mg 1X ONCE IV Last administered on 05/31/17 14:50; Start 05/31/17 at 15:00; Stop 05/31/17 at 15:01; Status DC Etomidate (Amidate) 20 mg 1X ONCE IV Last administered on 05/31/17 14:54; Start 05/31/17 at 15:00; Stop 05/31/17 at 15:01; Status DC Succinylcholine Chloride (Anectine) 100 mg 1X ONCE IV Last administered on 14:54; Start 05/31/17 at 15:00; Stop 05/31/17 at 15:01; Status DC Propofol (Diprivan) 200,000 mg 1X ONCE IV ; Start 05/31/17 at 15:00; Stop 05/31 at 15:01; Status Cancel Propofol 50 ml @ As Directed STK-MED ONCE IV ; Start 05/31/17 at 15:19; Stop at 15:20; Status DC Propofol 50 ml @ 0 mls/hr 1X ONCE IV Last administered on 05/31/17 15:20; Start 05/31/17 at 15:45; Stop 05/31/17 at 15:46; Status DC Levetiracetam 500 mg/Sodium Chloride 100 ml @ 400 mls/hr Q12HR IV ; Start 05/31 at 21:00; Stop 05/31/17 at 21:00; Status DC Levetiracetam 500 mg/Sodium Chloride 105 ml @ 400 mls/hr Q12HR IV Last administered on 06/03/17 08:31; Start 05/31/17 at 16:00 Sodium Chloride 1,000 ml @ 150 mls/hr 1X ONCE IV Last administered on 16:00; Start 05/31/17 at 16:15; Stop 05/31/17 at 22:54; Status DC Acetylcysteine 6 gm/Dextrose 230 ml @ 230 mls/hr 1X ONCE IV Last administered on 05/31/17 17:49; Start 05/31/17 at 17:30; Stop 05/31/17 at 18:29 ; Status DC Acetylcysteine 2 gm/Dextrose 510 ml @ 127.5 mls/ hr 1X ONCE IV Last administered on 05/31/17 19:00; Start 05/31/17 at 18:30; Stop 05/31/17 at 22:29 ; Status DC Acetylcysteine 4 gm/Dextrose 1,020 ml @ 63.75 mls/ hr 1X ONCE IV Last administered on 05/31/17 22:48; Start 05/31/17 at 22:30; Stop 06/01/17 at 14:29 ; Status DC Fentanyl Citrate (Fentanyl 2ml Vial) 50 mcg PRN Q1HR PRN IV PAIN Last administered on 06/02/17 05:36; Start 05/31/17 at 17:00 Sodium Bicarbonate 100 meq PRN Q15MIN PRN IV SEIZURES; Start 05/31/17 at 17:00 Propofol 100 ml @ 0 mls/hr CONT PRN IV SEE I/O RECORD Last administered on 06/01 17:17; Start 05/31/17 at 17:00 Sodium Chloride 1,000 ml @ 125 mls/hr Q8H IV Last administered on 06/02/17 15 :21; Start 05/31/17 at 17:00; Stop 06/02/17 at 20:42; Status DC Ceftriaxone Sodium 1 gm/ Sodium Chloride 50 ml @ 100 mls/hr Q24H IV Last administered on 06/02/17 18:21; Start 05/31/17 at 17:30 Insulin Aspart (NovoLOG) 20 units 1X ONCE SQ Last administered on 05/31/17 19 :46; Start 05/31/17 at 19:30; Stop 05/31/17 at 19:31; Status DC Insulin Aspart (NovoLOG) 0-7 UNITS Q6HRS SQ Last administered on 06/01/17 06: 04; Start 06/01/17 at 00:00; Stop 06/01/17 at 09:28; Status DC Dextrose (Dextrose 50%-Water Syringe) 12.5 gm PRN Q15MIN PRN IV SEE COMMENTS; Start 05/31/17 at 20:15; Status Cancel Labetalol HCl (Normodyne) 20 mg PRN Q4HRS PRN IVP HYPERTENSION, SEE COMMENTS Last administered on 06/03/17 08:32; Start 05/31/17 at 20:15 Potassium Chloride 100 ml @ 100 mls/hr Q1H IV Last administered on 05/31/17 23:49; Start 05/31/17 at 20:45; Stop 06/01/17 at 00:44; Status DC Enoxaparin Sodium (Lovenox 40mg Syringe) 40 mg QHS SQ Last administered on 06/02 20:05; Start 05/31/17 at 23:30 Calcium Gluconate 1000 mg/Sodium Chloride 110 ml @ 220 mls/hr 1X ONCE IV Last administered on 06/01/17 07:06; Start 06/01/17 at 07:00; Stop 06/01/17 at 07:29; Status DC Potassium Chloride 100 ml @ 100 mls/hr Q1H IV Last administered on 06/01/17 10:19; Start 06/01/17 at 07:00; Stop 06/01/17 at 10:59; Status DC Ondansetron HCl (Zofran) 4 mg PRN Q6HRS PRN IV NAUSEA/VOMITING; Start 06/01/17 at 09:30 Potassium Chloride (KCl Oral Soln) 40 meq 1X ONCE PEG Last administered on 10:03; Start 06/01/17 at 10:00; Stop 06/01/17 at 10:01; Status DC Insulin Aspart (NovoLOG) 0-9 UNITS TIDWMEALS SQ Last administered on 06/03/17 07:53; Start 06/01/17 at 12:00 Dextrose (Dextrose 50%-Water Syringe) 12.5 gm PRN Q15MIN PRN IV SEE COMMENTS; Start 06/01/17 at 09:30 Insulin Aspart (NovoLOG) 10 units 1X ONCE SQ Last administered on 06/01/17 10 :18; Start 06/01/17 at 10:00; Stop 06/01/17 at 10:01; Status DC Magnesium Sulfate/ Dextrose 50 ml @ 25 mls/hr 1X ONCE IV Last administered on 06/01/17 10:01; Start 06/01/17 at 10:00; Stop 06/01/17 at 11:59; Status DC Enoxaparin Sodium (Lovenox 40mg Syringe) 40 mg Q24H SQ ; Start 06/01/17 at 11:15 ; Status UNV Famotidine (Pepcid) 20 mg BID IVP Last administered on 06/03/17 09:23; Start 06/01/17 at 12:00 Calcium Gluconate 1000 mg/Sodium Chloride 110 ml @ 220 mls/hr 1X ONCE IV Last administered on 06/01/17 11:19; Start 06/01/17 at 11:15; Stop 06/01/17 at 11:44; Status DC Potassium Chloride (KCl Oral Soln) 40 meq BID PEG Last administered on 09:03; Start 06/02/17 at 09:00; Stop 06/02/17 at 20:42; Status DC Potassium Chloride (KCl Oral Soln) 40 meq 1X ONCE PEG Last administered on 15:15; Start 06/01/17 at 15:00; Stop 06/01/17 at 15:01; Status DC Magnesium Sulfate/ Dextrose 100 ml @ 50 mls/hr DAILY IV Last administered on 06/02/17 09:04; Start 06/02/17 at 09:00; Stop 06/05/17 at 08:59 Propofol (Diprivan) 200 mg 1X ONCE IV Last administered on 05/31/17 15:00; Start 05/31/17 at 15:00; Stop 06/02/17 at 11:44; Status DC Info (Do NOT chart on this placeholder) 1 each 1X ONCE MC ; Start 06/02/17 at 14:45; Stop 06/02/17 at 14:46; Status UNV Influenza Virus Vaccine Quadrival (Fluarix Quad 5316-5307 Syringe) 0.5 ml ONCE ONCE VAX IM Last administered on 06/02/17 15:21; Start 06/02/17 at 15:00; Stop 06/02/17 at 15:01; Status DC Tramadol HCl (Ultram) 50 mg PRN Q6HRS PRN PO PAIN; Start 06/02/17 at 19:30 Sumatriptan Succinate (Imitrex) 25 mg PRN Q2HR PRN PO MIGRAINE HEADACHE Last administered on 06/03/17 07:53; Start 06/02/17 at 19:30 Potassium Chloride 20 meq/ Sodium Chloride 1,010 ml @ 75 mls/hr [id number] IV Last administered on 06/02/17 21:12; Start 06/02/17 at 21:00; Stop 06/03/17 at 06:37; Status DC Lorazepam (Ativan) 0.5 mg PRN Q4HRS PRN IV ANXIETY / AGITATION Last administered on 06/03/17 11:56; Start 06/03/17 at 06:45 Potassium Chloride/Sodium Chloride 1,000 ml @ 75 mls/hr [id number] IV ; Start 06/03/17 at 08:00 Metoprolol Tartrate (Lopressor) 5 mg 1X ONCE IVP Last administered on 09:24; Start 06/03/17 at 09:15; Stop 06/03/17 at 09:16; Status DC Metoprolol Tartrate (Lopressor) 5 mg Q6HRS IVP ; Start 06/03/17 at 12:00 Carisoprodol (Soma) 350 mg TID PO ; Start 06/03/17 at 09:00 Cetirizine HCl (ZyrTEC) 10 mg DAILY PO ; Start 06/03/17 at 09:00 Diphenhydramine HCl (Benadryl) 25 mg HS PO ; Start 06/03/17 at 21:00 Guaifenesin (Mucinex) 1,200 mg BID PO ; Start 06/03/17 at 10:00 Insulin Aspart (NovoLOG) 15 units TIDAC SQ ; Start 06/03/17 at 11:30 Insulin Detemir (Levemir) 30 units QHS SQ ; Start 06/03/17 at 21:00 Albuterol Sulfate (Ventolin Neb Soln) 2.5 mg PRN QID PRN NEB SHORTNESS OF BREATH; Start 06/03/17 at 09:15 Lisinopril (Prinivil) 20 mg DAILY PO ; Start 06/03/17 at 10:00 Metoprolol Succinate (Toprol Xl) 50 mg DAILY PO ; Start 06/03/17 at 09:00; Status UNV Oxycodone/ Acetaminophen (Percocet 10/325) 1 tab PRN Q4HRS PRN PO PAIN; Start 06/03/17 at 08:45 Pregabalin (Lyrica) 75 mg BID PO ; Start 06/03/17 at 10:00 Pantoprazole Sodium (Protonix) 40 mg DAILYAC PO ; Start 06/03/17 at 10:00 Nicotine (Nicoderm Cq 14mg) 1 patch DAILY TD ; Start 06/03/17 at 10:00 Haloperidol Lactate (Haldol) 5 mg PRN Q6HRS PRN IVP AGITATION; Start 06/03/17 at 10:30 Lorazepam (Ativan) 2 mg PRN Q4HRS PRN IV ANXIETY / AGITATION; Start 06/03/17 at 10:30 Active Scripts Active Keppra (Levetiracetam) 250 Mg Tablet 750 Mg PO BID Levemir Flextouch (Insulin Detemir) 100 Unit/1 Ml Insuln.pen 30 Units SQ QHS Novolog Flexpen (Insulin Aspart) 100 Unit/1 Ml Insuln.pen 15 Units SQ TIDAC Duoneb 0.5-3(2.5) Mg/3 Ml (Albuterol/Ipratropium) 3 Ml Ampul.neb 3 Ml IH PRN QID PRN [Nicotine] 1 PATCH Patch 1 Patch TD DAILY Mucinex (Guaifenesin) 600 Mg Tablet.er 1,200 Mg PO BID Reported Lyrica (Pregabalin) 75 Mg Capsule 1 Cap PO BID Keppra (Levetiracetam) 500 Mg Tablet 1 Tab PO BID Lamictal (Lamotrigine) 200 Mg Tablet 200 Mg PO BID Latuda (Lurasidone Hcl) 20 Mg Tablet 20 Mg PO Metoprolol Succinate 50 Mg Tab.er.24h 50 Mg PO Lisinopril 20 Mg Tablet 1 Tab PO DAILY Symbicort 160-4.5 Mcg Inhaler (Budesonide/Formoterol Fumarate) 10.2 Gm Hfa.aer.ad Unknown Dose IH BID Proair Hfa Inhaler (Albuterol Sulfate) 8.5 Gm Hfa.aer.ad Unknown Dose INH Omeprazole 40 Mg Capsule.dr 40 Mg PO DAILY Cetirizine Hcl 10 Mg Tablet 1 Tab PO DAILY Oxycodone-Acetaminophen 10-325 (Oxycodone Hcl/Acetaminophen) 1 Each Tablet 1 Tab PO Q4HRS PRN Carisoprodol 350 Mg Tablet 1 Tab PO TID Diphedryl (Diphenhydramine Hcl) 25 Mg Capsule 25 Mg PO HS Vitals/I & O Vital Sign - Last 24 Hours 06/02/17 06/02/17 06/02/17 06/02/17 13:00 14:00 15:00 16:00 Pulse 107 114 108 Resp 20 20 20 B/P (MAP) 126/69 (88) 145/70 (95) 147/70 (95) Pulse Ox 97 97 96 O2 Delivery Nasal Cannula Nasal Cannula Nasal Cannula Nasal Cannula O2 Flow Rate 2.0 2.0 2.0 2.0 06/02/17 06/02/17 06/02/17 06/02/17 16:00 17:00 18:00 19:00 Temp 98.4 99.1 98.4 99.1 Pulse 115 111 113 119 Resp 20 24 24 20 B/P (MAP) 125/65 (85) 117/54 (75) 141/80 (100) 193/89 (123) Pulse Ox 95 97 97 O2 Delivery Nasal Cannula Nasal Cannula Nasal Cannula Room Air O2 Flow Rate 2.0 2.0 2.0 06/02/17 06/02/17 06/02/17 06/02/17 20:00 20:00 20:10 21:00 Pulse 115 123 114 Resp 20 20 B/P (MAP) 178/98 (124) 178/98 163/87 (112) O2 Delivery Room Air Room Air Room Air 06/02/17 06/02/17 06/02/17 06/03/17 22:14 22:52 23:00 00:00 Temp 99.2 99.2 Pulse 116 119 114 Resp 20 21 22 B/P (MAP) 166/73 (104) 188/89 (122) 196/92 (126) Pulse Ox 93 O2 Delivery Room Air Room Air Room Air Room Air 06/03/17 06/03/17 06/03/17 10/3/17 00:00 00:53 01:00 02:09 Temp 99.2 99.2 Pulse 119 115 121 Resp 21 24 B/P (MAP) 182/80 165/80 (108) 183/87 (119) Pulse Ox 91 96 O2 Delivery Room Air Room Air Room Air 06/03/17 06/03/17 06/03/17 06/03/17 03:05 04:00 04:04 05:02 Temp 99.8 99.8 Pulse 115 115 115 Resp 17 24 B/P (MAP) 168/95 (119) 166/97 (120) 141/80 (100) Pulse Ox 96 O2 Delivery Room Air Room Air Room Air Room Air 06/03/17 06/03/17 06/03/17 06/03/17 06:03 07:03 07:23 08:08 Temp 97.8 99.0 97.8 99.0 Pulse 117 112 109 Resp 20 18 B/P (MAP) 169/83 (111) 153/70 (97) 172/94 (120) Pulse Ox 95 97 O2 Delivery Room Air Room Air Room Air 06/03/17 06/03/17 06/03/17 06/03/17 08:32 09:24 10:00 11:03 Temp 99.0 99.0 Pulse 109 109 96 99 Resp 28 18 B/P (MAP) 172/94 172/94 170/82 (111) 160/77 (104) Pulse Ox 95 O2 Delivery Room Air KAYLIE LUNDBERG MD Jun 03, 2017 12:08
[2017-06-03] MEDS: PREGABALIN 75 MG CAPSULE PO SCH ×2 (12:42→22:09)
[2017-06-03] MEDS: CETIRIZINE HCL 10 MG TABLET. PO SCH (12:44)
[2017-06-03] MEDS: PANTOPRAZOLE 40 MG TABLET.DR. PO SCH (12:44)
[2017-06-03] MEDS: LISINOPRIL 20 MG TABLET PO SCH (12:44)
[2017-06-03] MEDS: METOPROLOL TARTRATE 5 MG/5 ML VIAL. IVP SCH ×2 (12:47→18:00)
--- NOTE | 2017-06-03 13:01 | PDOC ---
PULMONARY PROGRESS NOTES Subjective OFF 02 Vitals Vital Signs Date Time Temp Pulse Resp B/P (MAP) Pulse Ox O2 Delivery O2 Flow Rate FiO2 06/03/17 11:03 99 18 160/77 (104) 06/03/17 10:00 99.0 95 Room Air 99.0 06/02/17 18:00 2.0 ROS: No Nausea, No Chest Pain, No Abdominal Pain, No Increase Cough Lungs: Clear Cardiovascular: S1 Abdomen: Soft, Non-tender Extremities: No Edema Skin: Warm Labs Laboratory Tests Test 06/01/17 13:25 06/01/17 16:18 06/01/17 17:06 06/01/17 21:35 Prothrombin Time 14.6 SEC (11.7-14.0) Prothromb Time International Ratio 1.2 (0.8-1.1) Sodium Level 141 mmol/L (136-145) Potassium Level 3.2 mmol/L (3.5-5.1) Chloride Level 109 mmol/L (98-107) Carbon Dioxide Level 25 mmol/L (21-32) Anion Gap 7 (6-14) Blood Urea Nitrogen 4 mg/dL (7-20) Creatinine 0.6 mg/dL (0.6-1.0) Estimated GFR (Cockcroft-Gault) 102.7 BUN/Creatinine Ratio 7 (6-20) Glucose Level 208 mg/dL (70-99) Calcium Level 8.4 mg/dL (8.5-10.1) Magnesium Level 2.2 mg/dL (1.8-2.4) Total Bilirubin 0.2 mg/dL (0.2-1.0) Aspartate Amino Transf (AST/SGOT) 17 U/L (15-37) Alanine Aminotransferase (ALT/SGPT) 22 U/L (14-59) Alkaline Phosphatase 76 U/L (46-116) Total Protein 5.3 g/dL (6.4-8.2) Albumin 2.4 g/dL (3.4-5.0) Albumin/Globulin Ratio 0.8 (1.0-1.7) Acetaminophen Level 4.6 mcg/ml (10-30) 4.1 mcg/ml (10-30) Acetaminophen Last Dose Date Unknown Acetaminophen Last Dose Time Unknown O2 Saturation 98 % (92-99) Arterial Blood pH 7.48 (7.35-7.45) Arterial Blood pCO2 at Patient Temp 30 mmHg (35-46) Arterial Blood pO2 at Patient Temp 123 mmHg (75-108) Arterial Blood HCO3 22 mmol/L (21-28) Arterial Blood Base Excess -1 mmol/L (-3-3) FiO2 21 Glucose (Fingerstick) 142 mg/dL (70-99) Test 06/02/17 05:25 06/02/17 08:00 06/02/17 13:17 06/02/17 18:23 White Blood Count 10.2 x10^3/uL (4.0-11.0) Red Blood Count 3.53 x10^6/uL (3.50-5.40) Hemoglobin 10.3 g/dL (12.0-15.5) Hematocrit 30.8 % (36.0-47.0) Mean Corpuscular Volume 87 fL (79-100) Mean Corpuscular Hemoglobin 29 pg (25-35) Mean Corpuscular Hemoglobin Concent 33 g/dL (31-37) Red Cell Distribution Width 15.0 % (11.5-14.5) Platelet Count 152 x10^3/uL (140-400) Neutrophils (%) (Auto) 69 % (31-73) Lymphocytes (%) (Auto) 20 % (24-48) Monocytes (%) (Auto) 8 % (0-9) Eosinophils (%) (Auto) 2 % (0-3) Basophils (%) (Auto) 1 % (0-3) Neutrophils # (Auto) 7.1 x10^3uL (1.8-7.7) Lymphocytes # (Auto) 2.0 x10^3/uL (1.0-4.8) Monocytes # (Auto) 0.8 x10^3/uL (0.0-1.1) Eosinophils # (Auto) 0.2 x10^3/uL (0.0-0.7) Basophils # (Auto) 0.1 x10^3/uL (0.0-0.2) Sodium Level 143 mmol/L (136-145) Potassium Level 3.5 mmol/L (3.5-5.1) Chloride Level 110 mmol/L (98-107) Carbon Dioxide Level 24 mmol/L (21-32) Anion Gap 9 (6-14) Blood Urea Nitrogen 4 mg/dL (7-20) Creatinine 0.5 mg/dL (0.6-1.0) Estimated GFR (Cockcroft-Gault) 126.7 Glucose Level 148 mg/dL (70-99) Calcium Level 8.3 mg/dL (8.5-10.1) Magnesium Level 1.6 mg/dL (1.8-2.4) O2 Saturation 97 % (92-99) Arterial Blood pH 7.39 (7.35-7.45) Arterial Blood pCO2 at Patient Temp 34 mmHg (35-46) Arterial Blood pO2 at Patient Temp 97 mmHg (75-108) Arterial Blood HCO3 20 mmol/L (21-28) Arterial Blood Base Excess -4 mmol/L (-3-3) FiO2 40 Glucose (Fingerstick) 200 mg/dL (70-99) 179 mg/dL (70-99) Test 06/02/17 20:56 06/03/17 06:30 06/03/17 07:38 06/03/17 11:31 Glucose (Fingerstick) 241 mg/dL (70-99) 254 mg/dL (70-99) 172 mg/dL (70-99) White Blood Count 10.2 x10^3/uL (4.0-11.0) Red Blood Count 3.78 x10^6/uL (3.50-5.40) Hemoglobin 11.2 g/dL (12.0-15.5) Hematocrit 32.5 % (36.0-47.0) Mean Corpuscular Volume 86 fL (79-100) Mean Corpuscular Hemoglobin 30 pg (25-35) Mean Corpuscular Hemoglobin Concent 34 g/dL (31-37) Red Cell Distribution Width 15.3 % (11.5-14.5) Platelet Count 214 x10^3/uL (140-400) Neutrophils (%) (Auto) 81 % (31-73) Lymphocytes (%) (Auto) 11 % (24-48) Monocytes (%) (Auto) 6 % (0-9) Eosinophils (%) (Auto) 1 % (0-3) Basophils (%) (Auto) 1 % (0-3) Neutrophils # (Auto) 8.3 x10^3uL (1.8-7.7) Lymphocytes # (Auto) 1.1 x10^3/uL (1.0-4.8) Monocytes # (Auto) 0.7 x10^3/uL (0.0-1.1) Eosinophils # (Auto) 0.1 x10^3/uL (0.0-0.7) Basophils # (Auto) 0.1 x10^3/uL (0.0-0.2) Sodium Level 141 mmol/L (136-145) Potassium Level 3.8 mmol/L (3.5-5.1) Chloride Level 105 mmol/L (98-107) Carbon Dioxide Level 28 mmol/L (21-32) Anion Gap 8 (6-14) Blood Urea Nitrogen 6 mg/dL (7-20) Creatinine 0.7 mg/dL (0.6-1.0) Estimated GFR (Cockcroft-Gault) 85.9 Glucose Level 270 mg/dL (70-99) Calcium Level 8.7 mg/dL (8.5-10.1) Magnesium Level 1.9 mg/dL (1.8-2.4) Laboratory Tests Test 06/02/17 13:17 06/02/17 18:23 06/02/17 20:56 06/03/17 06:30 Glucose (Fingerstick) 200 mg/dL (70-99) 179 mg/dL (70-99) 241 mg/dL (70-99) White Blood Count 10.2 x10^3/uL (4.0-11.0) Red Blood Count 3.78 x10^6/uL (3.50-5.40) Hemoglobin 11.2 g/dL (12.0-15.5) Hematocrit 32.5 % (36.0-47.0) Mean Corpuscular Volume 86 fL (79-100) Mean Corpuscular Hemoglobin 30 pg (25-35) Mean Corpuscular Hemoglobin Concent 34 g/dL (31-37) Red Cell Distribution Width 15.3 % (11.5-14.5) Platelet Count 214 x10^3/uL (140-400) Neutrophils (%) (Auto) 81 % (31-73) Lymphocytes (%) (Auto) 11 % (24-48) Monocytes (%) (Auto) 6 % (0-9) Eosinophils (%) (Auto) 1 % (0-3) Basophils (%) (Auto) 1 % (0-3) Neutrophils # (Auto) 8.3 x10^3uL (1.8-7.7) Lymphocytes # (Auto) 1.1 x10^3/uL (1.0-4.8) Monocytes # (Auto) 0.7 x10^3/uL (0.0-1.1) Eosinophils # (Auto) 0.1 x10^3/uL (0.0-0.7) Basophils # (Auto) 0.1 x10^3/uL (0.0-0.2) Sodium Level 141 mmol/L (136-145) Potassium Level 3.8 mmol/L (3.5-5.1) Chloride Level 105 mmol/L (98-107) Carbon Dioxide Level 28 mmol/L (21-32) Anion Gap 8 (6-14) Blood Urea Nitrogen 6 mg/dL (7-20) Creatinine 0.7 mg/dL (0.6-1.0) Estimated GFR (Cockcroft-Gault) 85.9 Glucose Level 270 mg/dL (70-99) Calcium Level 8.7 mg/dL (8.5-10.1) Magnesium Level 1.9 mg/dL (1.8-2.4) Test 06/03/17 07:38 06/03/17 11:31 Glucose (Fingerstick) 254 mg/dL (70-99) 172 mg/dL (70-99) Medications Active Scripts Medications Dose Route/Sig Max Daily Dose Days Date Category Keppra (Levetiracetam) 250 Mg Tablet 750 Mg PO BID 04/29/16 Rx Levemir Flextouch (Insulin Detemir) 100 Unit/1 Ml Insuln.pen 30 Units SQ QHS 04/29/16 Rx Novolog Flexpen (Insulin Aspart) 100 Unit/1 Ml Insuln.pen 15 Units SQ TIDAC 04/29/16 Rx Lyrica (Pregabalin) 75 Mg Capsule 1 Cap PO BID 09/12/15 Reported Keppra (Levetiracetam) 500 Mg Tablet 1 Tab PO BID 09/12/15 Reported Lamictal (Lamotrigine) 200 Mg Tablet 200 Mg PO BID 09/12/15 Reported Duoneb 0.5-3(2.5) Mg/3 Ml (Albuterol/Ipratropium) 3 Ml Ampul.neb 3 Ml IH PRN QID PRN 02/01/15 Rx [Nicotine] 1 PATCH Patch 1 Patch TD DAILY 02/01/15 Rx Mucinex (Guaifenesin) 600 Mg Tablet.er 1,200 Mg PO BID 02/01/15 Rx Latuda (Lurasidone Hcl) 20 Mg Tablet 20 Mg PO 01/30/15 Reported Metoprolol Succinate 50 Mg Tab.er.24h 50 Mg PO 01/30/15 Reported Lisinopril 20 Mg Tablet 1 Tab PO DAILY 01/30/15 Reported Symbicort 160-4.5 Mcg Inhaler (Budesonide/Formoterol Fumarate) 10.2 Gm Hfa.aer.ad Unknown Dose IH BID 01/30/15 Reported Proair Hfa Inhaler (Albuterol Sulfate) 8.5 Gm Hfa.aer.ad Unknown Dose INH 01/30/15 Reported Omeprazole 40 Mg Capsule.dr 40 Mg PO DAILY 01/30/15 Reported Cetirizine Hcl 10 Mg Tablet 1 Tab PO DAILY 01/30/15 Reported Oxycodone-Acetaminophen 10-325 (Oxycodone Hcl/Acetaminophen) 1 Each Tablet 1 Tab PO Q4HRS PRN 01/30/15 Reported Carisoprodol 350 Mg Tablet 1 Tab PO TID 01/30/15 Reported Diphedryl (Diphenhydramine Hcl) 25 Mg Capsule 25 Mg PO HS 01/30/15 Reported Impression . 1. Acute hypercapnic respiratory failure secondary to drug OD 2. Acute seizures 3. Acute drug overdose including Benadryl and Tylenol. 4. Anion gap metabolic acidosis/lactic acidosis secondary to seizure . 5. Abnormal chest x-ray with left lower lobe atelectasis versus infiltrate 6. History of tobacco use. 7. Narcotic dependent with opiates positive on the drug screen. Plan . RESP STATUS COMPENSATED I WILL S/O THANKS AB WHITT MD Jun 03, 2017 13:01
--- NOTE | 2017-06-03 14:00 | RAD ---
Portable chest, 06/03/2017: History: Follow-up infiltrates Comparison is made to a study from 05/31/2017. The ET tube and NG tube have been removed. The heart size and pulmonary vascularity are normal. There is calcific plaquing of the aorta. The left base has cleared. No significant infiltrate is currently seen. There is no evidence of pleural fluid. IMPRESSION: No acute cardiopulmonary abnormality is detected.
[2017-06-03] MEDS ORDERED: diphenhydrAMINE HCL 25 MG CAPSULE PO SCH (21:00)
[2017-06-03] MEDS: ENOXAPARIN 40 MG/0.4 ML SYRINGE. SQ SCH (21:13)
[2017-06-03] MEDS: INSULIN DETEMIR 300 UNITS/3 ML INSULN.PEN. SQ SCH (21:13)
[2017-06-04] VITALS (12 sets, daily range): BP systolic 82–154; BP diastolic 51–72
[2017-06-04] MEDS: POTASSIUM CL 20MEQ-0.45% NACL 1,000 ML IV SCH (00:08)
[2017-06-04] MEDS: METOPROLOL TARTRATE 5 MG/5 ML VIAL. IVP SCH ×4 (00:10→17:52)
[2017-06-04] MEDS: IV NORMAL SALINE 1000ML BAG 1,000 ML IV SCH ×2 (01:08→10:51)
[2017-06-04] MEDS: INSULIN ASPART 300 UNITS/3 ML INSULN.PEN SQ SCH ×6 (07:30→17:00)
[2017-06-04] MEDS: MAGNESIUM SULFATE 4GM 100 ML IV SCH (08:20)
[2017-06-04] MEDS: CARISOPRODOL 350 MG TABLET PO SCH ×3 (08:52→21:04)
[2017-06-04] MEDS: lamoTRIgine 100 MG TABLET. PO SCH ×2 (08:53→21:04)
[2017-06-04] MEDS: PANTOPRAZOLE 40 MG TABLET.DR. PO SCH (08:53)
[2017-06-04] MEDS: CETIRIZINE HCL 10 MG TABLET. PO SCH (08:54)
[2017-06-04] MEDS: levETIRAcetam 500 MG TABLET PO SCH ×2 (08:54→21:04)
[2017-06-04] MEDS: PREGABALIN 75 MG CAPSULE PO SCH ×2 (08:55→21:04)
[2017-06-04] MEDS: LISINOPRIL 20 MG TABLET PO SCH (08:55)
[2017-06-04] MEDS: NICOTINE 14MG PATCH. TD SCH (08:56)
[2017-06-04] MEDS: FAMOTIDINE 20 MG/2 ML VIAL IVP SCH (09:00)
--- NOTE | 2017-06-04 09:27 | PDOC ---
PULMONARY PROGRESS NOTES Subjective NO SOA Vitals Vital Signs Date Time Temp Pulse Resp B/P (MAP) Pulse Ox O2 Delivery O2 Flow Rate FiO2 06/04/17 08:55 108 154/72 06/04/17 08:00 Nasal Cannula 1.0 06/04/17 07:23 98.2 26 97 98.2 ROS: No Nausea, No Chest Pain, No Abdominal Pain, No Increase Cough General: Alert, No acute distress Lungs: Clear Cardiovascular: S1 Abdomen: Soft, Non-tender Neuro Exam: Alert Extremities: No Edema Skin: Warm Labs Laboratory Tests Test 06/02/17 13:17 06/02/17 18:23 06/02/17 20:56 06/03/17 06:30 Glucose (Fingerstick) 200 mg/dL (70-99) 179 mg/dL (70-99) 241 mg/dL (70-99) White Blood Count 10.2 x10^3/uL (4.0-11.0) Red Blood Count 3.78 x10^6/uL (3.50-5.40) Hemoglobin 11.2 g/dL (12.0-15.5) Hematocrit 32.5 % (36.0-47.0) Mean Corpuscular Volume 86 fL (79-100) Mean Corpuscular Hemoglobin 30 pg (25-35) Mean Corpuscular Hemoglobin Concent 34 g/dL (31-37) Red Cell Distribution Width 15.3 % (11.5-14.5) Platelet Count 214 x10^3/uL (140-400) Neutrophils (%) (Auto) 81 % (31-73) Lymphocytes (%) (Auto) 11 % (24-48) Monocytes (%) (Auto) 6 % (0-9) Eosinophils (%) (Auto) 1 % (0-3) Basophils (%) (Auto) 1 % (0-3) Neutrophils # (Auto) 8.3 x10^3uL (1.8-7.7) Lymphocytes # (Auto) 1.1 x10^3/uL (1.0-4.8) Monocytes # (Auto) 0.7 x10^3/uL (0.0-1.1) Eosinophils # (Auto) 0.1 x10^3/uL (0.0-0.7) Basophils # (Auto) 0.1 x10^3/uL (0.0-0.2) Sodium Level 141 mmol/L (136-145) Potassium Level 3.8 mmol/L (3.5-5.1) Chloride Level 105 mmol/L (98-107) Carbon Dioxide Level 28 mmol/L (21-32) Anion Gap 8 (6-14) Blood Urea Nitrogen 6 mg/dL (7-20) Creatinine 0.7 mg/dL (0.6-1.0) Estimated GFR (Cockcroft-Gault) 85.9 Glucose Level 270 mg/dL (70-99) Calcium Level 8.7 mg/dL (8.5-10.1) Magnesium Level 1.9 mg/dL (1.8-2.4) Test 06/03/17 07:38 06/03/17 11:31 06/03/17 16:51 06/03/17 17:10 Glucose (Fingerstick) 254 mg/dL (70-99) 172 mg/dL (70-99) 47 mg/dL (70-99) 178 mg/dL (70-99) Test 06/03/17 20:51 06/04/17 00:23 06/04/17 08:37 Glucose (Fingerstick) 108 mg/dL (70-99) 131 mg/dL (70-99) 124 mg/dL (70-99) Laboratory Tests Test 06/03/17 11:31 06/03/17 16:51 06/03/17 17:10 06/03/17 20:51 Glucose (Fingerstick) 172 mg/dL (70-99) 47 mg/dL (70-99) 178 mg/dL (70-99) 108 mg/dL (70-99) Test 06/04/17 00:23 06/04/17 08:37 Glucose (Fingerstick) 131 mg/dL (70-99) 124 mg/dL (70-99) Medications Active Scripts Medications Dose Route/Sig Max Daily Dose Days Date Category Keppra (Levetiracetam) 250 Mg Tablet 750 Mg PO BID 04/29/16 Rx Levemir Flextouch (Insulin Detemir) 100 Unit/1 Ml Insuln.pen 30 Units SQ QHS 04/29/16 Rx Novolog Flexpen (Insulin Aspart) 100 Unit/1 Ml Insuln.pen 15 Units SQ TIDAC 04/29/16 Rx Lyrica (Pregabalin) 75 Mg Capsule 1 Cap PO BID 09/12/15 Reported Keppra (Levetiracetam) 500 Mg Tablet 1 Tab PO BID 09/12/15 Reported Lamictal (Lamotrigine) 200 Mg Tablet 200 Mg PO BID 09/12/15 Reported Duoneb 0.5-3(2.5) Mg/3 Ml (Albuterol/Ipratropium) 3 Ml Ampul.neb 3 Ml IH PRN QID PRN 02/01/15 Rx [Nicotine] 1 PATCH Patch 1 Patch TD DAILY 02/01/15 Rx Mucinex (Guaifenesin) 600 Mg Tablet.er 1,200 Mg PO BID 02/01/15 Rx Latuda (Lurasidone Hcl) 20 Mg Tablet 20 Mg PO 01/30/15 Reported Metoprolol Succinate 50 Mg Tab.er.24h 50 Mg PO 01/30/15 Reported Lisinopril 20 Mg Tablet 1 Tab PO DAILY 01/30/15 Reported Symbicort 160-4.5 Mcg Inhaler (Budesonide/Formoterol Fumarate) 10.2 Gm Hfa.aer.ad Unknown Dose IH BID 01/30/15 Reported Proair Hfa Inhaler (Albuterol Sulfate) 8.5 Gm Hfa.aer.ad Unknown Dose INH 01/30/15 Reported Omeprazole 40 Mg Capsule.dr 40 Mg PO DAILY 01/30/15 Reported Cetirizine Hcl 10 Mg Tablet 1 Tab PO DAILY 01/30/15 Reported Oxycodone-Acetaminophen 10-325 (Oxycodone Hcl/Acetaminophen) 1 Each Tablet 1 Tab PO Q4HRS PRN 01/30/15 Reported Carisoprodol 350 Mg Tablet 1 Tab PO TID 01/30/15 Reported Diphedryl (Diphenhydramine Hcl) 25 Mg Capsule 25 Mg PO HS 01/30/15 Reported Impression . 1. Acute hypercapnic respiratory failure secondary to drug OD 2. Acute seizures 3. Acute drug overdose including Benadryl and Tylenol. 4. Anion gap metabolic acidosis/lactic acidosis secondary to seizure . 5. Abnormal chest x-ray with left lower lobe atelectasis versus infiltrate 6. History of tobacco use. 7. Narcotic dependent with opiates positive on the drug screen. Plan . RESP STATUS COMPENSATED Iprn oxygen awaiting Psych clearance SURAJ GARCIA MD Jun 04, 2017 09:27
--- NOTE | 2017-06-04 09:54 | PDOC ---
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 Intellectual disability, she required some Haldol yesterday Plan Continue levetiracetam by mouth Lamotrigine Subjective No complaints Objective Vital Signs Date Time Temp Pulse Resp B/P (MAP) Pulse Ox O2 Delivery O2 Flow Rate FiO2 06/04/17 08:55 108 154/72 06/04/17 08:00 Nasal Cannula 1.0 06/04/17 07:23 98.2 26 97 98.2 Intake and Output 06/05/17 07:00 Intake Total 120 ml Balance 120 ml Intake Oral 120 ml PHYSICAL EXAM Alert. Follows commands. Does not know date or name of hospital. PERRL. EOMI. CN: no focal findings. Muscle tone: normal. Muscle strength: 4/5 DTR: 1+ Plantar reflex: flexor Gait: not examined in bed. Sensory exam: no abnormal findings. No cerebellar signs elicited. Review of Relevant I have reviewed the following items jinny (where applicable) has been applied. Labs Laboratory Tests Test 06/02/17 13:17 06/02/17 18:23 06/02/17 20:56 06/03/17 06:30 Glucose (Fingerstick) 200 mg/dL (70-99) 179 mg/dL (70-99) 241 mg/dL (70-99) White Blood Count 10.2 x10^3/uL (4.0-11.0) Red Blood Count 3.78 x10^6/uL (3.50-5.40) Hemoglobin 11.2 g/dL (12.0-15.5) Hematocrit 32.5 % (36.0-47.0) Mean Corpuscular Volume 86 fL (79-100) Mean Corpuscular Hemoglobin 30 pg (25-35) Mean Corpuscular Hemoglobin Concent 34 g/dL (31-37) Red Cell Distribution Width 15.3 % (11.5-14.5) Platelet Count 214 x10^3/uL (140-400) Neutrophils (%) (Auto) 81 % (31-73) Lymphocytes (%) (Auto) 11 % (24-48) Monocytes (%) (Auto) 6 % (0-9) Eosinophils (%) (Auto) 1 % (0-3) Basophils (%) (Auto) 1 % (0-3) Neutrophils # (Auto) 8.3 x10^3uL (1.8-7.7) Lymphocytes # (Auto) 1.1 x10^3/uL (1.0-4.8) Monocytes # (Auto) 0.7 x10^3/uL (0.0-1.1) Eosinophils # (Auto) 0.1 x10^3/uL (0.0-0.7) Basophils # (Auto) 0.1 x10^3/uL (0.0-0.2) Sodium Level 141 mmol/L (136-145) Potassium Level 3.8 mmol/L (3.5-5.1) Chloride Level 105 mmol/L (98-107) Carbon Dioxide Level 28 mmol/L (21-32) Anion Gap 8 (6-14) Blood Urea Nitrogen 6 mg/dL (7-20) Creatinine 0.7 mg/dL (0.6-1.0) Estimated GFR (Cockcroft-Gault) 85.9 Glucose Level 270 mg/dL (70-99) Calcium Level 8.7 mg/dL (8.5-10.1) Magnesium Level 1.9 mg/dL (1.8-2.4) Test 06/03/17 07:38 06/03/17 11:31 06/03/17 16:51 06/03/17 17:10 Glucose (Fingerstick) 254 mg/dL (70-99) 172 mg/dL (70-99) 47 mg/dL (70-99) 178 mg/dL (70-99) Test 06/03/17 20:51 06/04/17 00:23 06/04/17 08:37 Glucose (Fingerstick) 108 mg/dL (70-99) 131 mg/dL (70-99) 124 mg/dL (70-99) Laboratory Tests Test 06/03/17 11:31 06/03/17 16:51 06/03/17 17:10 06/03/17 20:51 Glucose (Fingerstick) 172 mg/dL (70-99) 47 mg/dL (70-99) 178 mg/dL (70-99) 108 mg/dL (70-99) Test 06/04/17 00:23 06/04/17 08:37 Glucose (Fingerstick) 131 mg/dL (70-99) 124 mg/dL (70-99) Microbiology 05/31/17 Blood Culture - Preliminary, Resulted NO GROWTH AFTER 3 DAYS Medications Current Medications Lorazepam (Ativan) 1 mg 1X ONCE IV Last administered on 05/31/17 13:54; Start 05/31/17 at 13:45; Stop 05/31/17 at 13:46; Status DC Sodium Chloride 1,000 ml @ 1,000 mls/hr Q1H IV Last administered on 05/31/17 13:54; Start 05/31/17 at 13:36; Stop 05/31/17 at 14:35; Status DC Lorazepam (Ativan) 2 mg 1X ONCE IV Last administered on 05/31/17 14:23; Start 05/31/17 at 14:00; Stop 05/31/17 at 14:01; Status DC Sodium Bicarbonate 50 meq 1X ONCE IV Last administered on 05/31/17 14:41; Start 05/31/17 at 14:30; Stop 05/31/17 at 14:32; Status DC Sodium Bicarbonate 50 meq 1X ONCE IV Last administered on 05/31/17 14:44; Start 05/31/17 at 14:30; Stop 05/31/17 at 14:32; Status DC Sodium Chloride 1,000 ml @ 1,000 mls/hr 1X ONCE IV Last administered on 14:44; Start 05/31/17 at 14:45; Stop 05/31/17 at 15:44; Status DC Lorazepam (Ativan) 1 mg 1X ONCE IV Last administered on 05/31/17 14:50; Start 05/31/17 at 15:00; Stop 05/31/17 at 15:01; Status DC Etomidate (Amidate) 20 mg 1X ONCE IV Last administered on 05/31/17 14:54; Start 05/31/17 at 15:00; Stop 05/31/17 at 15:01; Status DC Succinylcholine Chloride (Anectine) 100 mg 1X ONCE IV Last administered on 14:54; Start 05/31/17 at 15:00; Stop 05/31/17 at 15:01; Status DC Propofol (Diprivan) 200,000 mg 1X ONCE IV ; Start 05/31/17 at 15:00; Stop 05/31 at 15:01; Status Cancel Propofol 50 ml @ As Directed STK-MED ONCE IV ; Start 05/31/17 at 15:19; Stop at 15:20; Status DC Propofol 50 ml @ 0 mls/hr 1X ONCE IV Last administered on 05/31/17 15:20; Start 05/31/17 at 15:45; Stop 05/31/17 at 15:46; Status DC Levetiracetam 500 mg/Sodium Chloride 100 ml @ 400 mls/hr Q12HR IV ; Start 05/31 at 21:00; Stop 05/31/17 at 21:00; Status DC Levetiracetam 500 mg/Sodium Chloride 105 ml @ 400 mls/hr Q12HR IV Last administered on 06/03/17 20:39; Start 05/31/17 at 16:00; Stop 06/04/17 at 08:27 ; Status DC Sodium Chloride 1,000 ml @ 150 mls/hr 1X ONCE IV Last administered on 16:00; Start 05/31/17 at 16:15; Stop 05/31/17 at 22:54; Status DC Acetylcysteine 6 gm/Dextrose 230 ml @ 230 mls/hr 1X ONCE IV Last administered on 05/31/17 17:49; Start 05/31/17 at 17:30; Stop 05/31/17 at 18:29 ; Status DC Acetylcysteine 2 gm/Dextrose 510 ml @ 127.5 mls/ hr 1X ONCE IV Last administered on 05/31/17 19:00; Start 05/31/17 at 18:30; Stop 05/31/17 at 22:29 ; Status DC Acetylcysteine 4 gm/Dextrose 1,020 ml @ 63.75 mls/ hr 1X ONCE IV Last administered on 05/31/17 22:48; Start 05/31/17 at 22:30; Stop 06/01/17 at 14:29 ; Status DC Fentanyl Citrate (Fentanyl 2ml Vial) 50 mcg PRN Q1HR PRN IV PAIN Last administered on 06/02/17 05:36; Start 05/31/17 at 17:00 Sodium Bicarbonate 100 meq PRN Q15MIN PRN IV SEIZURES; Start 05/31/17 at 17:00 Propofol 100 ml @ 0 mls/hr CONT PRN IV SEE I/O RECORD Last administered on 06/01 17:17; Start 05/31/17 at 17:00 Sodium Chloride 1,000 ml @ 125 mls/hr Q8H IV Last administered on 06/02/17 15 :21; Start 05/31/17 at 17:00; Stop 06/02/17 at 20:42; Status DC Ceftriaxone Sodium 1 gm/ Sodium Chloride 50 ml @ 100 mls/hr Q24H IV Last administered on 06/03/17 17:13; Start 05/31/17 at 17:30 Insulin Aspart (NovoLOG) 20 units 1X ONCE SQ Last administered on 05/31/17 19 :46; Start 05/31/17 at 19:30; Stop 05/31/17 at 19:31; Status DC Insulin Aspart (NovoLOG) 0-7 UNITS Q6HRS SQ Last administered on 06/01/17 06: 04; Start 06/01/17 at 00:00; Stop 06/01/17 at 09:28; Status DC Dextrose (Dextrose 50%-Water Syringe) 12.5 gm PRN Q15MIN PRN IV SEE COMMENTS; Start 05/31/17 at 20:15; Status Cancel Labetalol HCl (Normodyne) 20 mg PRN Q4HRS PRN IVP HYPERTENSION, SEE COMMENTS Last administered on 06/03/17 08:32; Start 05/31/17 at 20:15 Potassium Chloride 100 ml @ 100 mls/hr Q1H IV Last administered on 05/31/17 23:49; Start 05/31/17 at 20:45; Stop 06/01/17 at 00:44; Status DC Enoxaparin Sodium (Lovenox 40mg Syringe) 40 mg QHS SQ Last administered on 06/03 21:13; Start 05/31/17 at 23:30 Calcium Gluconate 1000 mg/Sodium Chloride 110 ml @ 220 mls/hr 1X ONCE IV Last administered on 06/01/17 07:06; Start 06/01/17 at 07:00; Stop 06/01/17 at 07:29; Status DC Potassium Chloride 100 ml @ 100 mls/hr Q1H IV Last administered on 06/01/17 10:19; Start 06/01/17 at 07:00; Stop 06/01/17 at 10:59; Status DC Ondansetron HCl (Zofran) 4 mg PRN Q6HRS PRN IV NAUSEA/VOMITING; Start 06/01/17 at 09:30 Potassium Chloride (KCl Oral Soln) 40 meq 1X ONCE PEG Last administered on 10:03; Start 06/01/17 at 10:00; Stop 06/01/17 at 10:01; Status DC Insulin Aspart (NovoLOG) 0-9 UNITS TIDWMEALS SQ Last administered on 06/03/17 13:05; Start 06/01/17 at 12:00 Dextrose (Dextrose 50%-Water Syringe) 12.5 gm PRN Q15MIN PRN IV SEE COMMENTS Last administered on 06/03/17 16:54; Start 06/01/17 at 09:30 Insulin Aspart (NovoLOG) 10 units 1X ONCE SQ Last administered on 06/01/17 10 :18; Start 06/01/17 at 10:00; Stop 06/01/17 at 10:01; Status DC Magnesium Sulfate/ Dextrose 50 ml @ 25 mls/hr 1X ONCE IV Last administered on 06/01/17 10:01; Start 06/01/17 at 10:00; Stop 06/01/17 at 11:59; Status DC Enoxaparin Sodium (Lovenox 40mg Syringe) 40 mg Q24H SQ ; Start 06/01/17 at 11:15 ; Status UNV Famotidine (Pepcid) 20 mg BID IVP Last administered on 06/03/17 20:39; Start 06/01/17 at 12:00 Calcium Gluconate 1000 mg/Sodium Chloride 110 ml @ 220 mls/hr 1X ONCE IV Last administered on 06/01/17 11:19; Start 06/01/17 at 11:15; Stop 06/01/17 at 11:44; Status DC Potassium Chloride (KCl Oral Soln) 40 meq BID PEG Last administered on 09:03; Start 06/02/17 at 09:00; Stop 06/02/17 at 20:42; Status DC Potassium Chloride (KCl Oral Soln) 40 meq 1X ONCE PEG Last administered on 15:15; Start 06/01/17 at 15:00; Stop 06/01/17 at 15:01; Status DC Magnesium Sulfate/ Dextrose 100 ml @ 50 mls/hr DAILY IV Last administered on 06/02/17 09:04; Start 06/02/17 at 09:00; Stop 06/05/17 at 08:59 Propofol (Diprivan) 200 mg 1X ONCE IV Last administered on 05/31/17 15:00; Start 05/31/17 at 15:00; Stop 06/02/17 at 11:44; Status DC Info (Do NOT chart on this placeholder) 1 each 1X ONCE MC ; Start 06/02/17 at 14:45; Stop 06/02/17 at 14:46; Status UNV Influenza Virus Vaccine Quadrival (Fluarix Quad 6650-2706 Syringe) 0.5 ml ONCE ONCE VAX IM Last administered on 06/02/17 15:21; Start 06/02/17 at 15:00; Stop 06/02/17 at 15:01; Status DC Tramadol HCl (Ultram) 50 mg PRN Q6HRS PRN PO MILD PAIN; Start 06/02/17 at 19:30 Sumatriptan Succinate (Imitrex) 25 mg PRN Q2HR PRN PO MIGRAINE HEADACHE Last administered on 06/03/17 07:53; Start 06/02/17 at 19:30 Potassium Chloride 20 meq/ Sodium Chloride 1,010 ml @ 75 mls/hr [id number] IV Last administered on 06/02/17 21:12; Start 06/02/17 at 21:00; Stop 06/03/17 at 06:37; Status DC Lorazepam (Ativan) 0.5 mg PRN Q4HRS PRN IV ANXIETY / AGITATION Last administered on 06/03/17 11:56; Start 06/03/17 at 06:45 Potassium Chloride/Sodium Chloride 1,000 ml @ 75 mls/hr [id number] IV Last administered on 06/04/17 00:08; Start 06/03/17 at 08:00; Stop 06/04/17 at 01:00 ; Status DC Metoprolol Tartrate (Lopressor) 5 mg 1X ONCE IVP Last administered on 09:24; Start 06/03/17 at 09:15; Stop 06/03/17 at 09:16; Status DC Metoprolol Tartrate (Lopressor) 5 mg Q6HRS IVP Last administered on 06/03/17 12:47; Start 06/03/17 at 12:00 Carisoprodol (Soma) 350 mg TID PO Last administered on 06/04/17 08:52; Start 06/03/17 at 09:00 Cetirizine HCl (ZyrTEC) 10 mg DAILY PO Last administered on 06/04/17 08:54; Start 06/03/17 at 09:00 Diphenhydramine HCl (Benadryl) 25 mg HS PO ; Start 06/03/17 at 21:00 Guaifenesin (Mucinex) 1,200 mg BID PO Last administered on 06/04/17 08:55; Start 06/03/17 at 10:00 Insulin Aspart (NovoLOG) 15 units TIDAC SQ Last administered on 06/03/17 13:05 ; Start 06/03/17 at 11:30 Insulin Detemir (Levemir) 30 units QHS SQ ; Start 06/03/17 at 21:00 Albuterol Sulfate (Ventolin Neb Soln) 2.5 mg PRN QID PRN NEB SHORTNESS OF BREATH; Start 06/03/17 at 09:15 Lisinopril (Prinivil) 20 mg DAILY PO Last administered on 06/04/17 08:55; Start 06/03/17 at 10:00 Metoprolol Succinate (Toprol Xl) 50 mg DAILY PO ; Start 06/03/17 at 09:00; Status UNV Oxycodone/ Acetaminophen (Percocet 10/325) 1 tab PRN Q4HRS PRN PO MODERATE - SEVERE PAIN; Start 06/03/17 at 08:45 Pregabalin (Lyrica) 75 mg BID PO Last administered on 06/04/17 08:55; Start 06/03/17 at 10:00 Pantoprazole Sodium (Protonix) 40 mg DAILYAC PO Last administered on 06/04/17 08:53; Start 06/03/17 at 10:00 Nicotine (Nicoderm Cq 14mg) 1 patch DAILY TD Last administered on 06/04/17 08: 56; Start 06/03/17 at 10:00 Haloperidol Lactate (Haldol) 5 mg PRN Q6HRS PRN IVP AGITATION Last administered on 06/03/17 12:54; Start 06/03/17 at 10:30; Stop 06/04/17 at 01:00 ; Status DC Lorazepam (Ativan) 2 mg PRN Q4HRS PRN IV ANXIETY / AGITATION; Start 06/03/17 at 10:30 Sodium Chloride 1,000 ml @ 100 mls/hr Q10H IV Last administered on 06/04/17 01:08; Start 06/04/17 at 01:00 Levetiracetam (Keppra) 500 mg BID PO Last administered on 06/04/17 08:54; Start 06/04/17 at 09:00 Lamotrigine (LaMICtal) 200 mg BID PO Last administered on 06/04/17 08:53; Start 06/04/17 at 09:00 Active Scripts Active Keppra (Levetiracetam) 250 Mg Tablet 750 Mg PO BID Levemir Flextouch (Insulin Detemir) 100 Unit/1 Ml Insuln.pen 30 Units SQ QHS Novolog Flexpen (Insulin Aspart) 100 Unit/1 Ml Insuln.pen 15 Units SQ TIDAC Duoneb 0.5-3(2.5) Mg/3 Ml (Albuterol/Ipratropium) 3 Ml Ampul.neb 3 Ml IH PRN QID PRN [Nicotine] 1 PATCH Patch 1 Patch TD DAILY Mucinex (Guaifenesin) 600 Mg Tablet.er 1,200 Mg PO BID Reported Lyrica (Pregabalin) 75 Mg Capsule 1 Cap PO BID Keppra (Levetiracetam) 500 Mg Tablet 1 Tab PO BID Lamictal (Lamotrigine) 200 Mg Tablet 200 Mg PO BID Latuda (Lurasidone Hcl) 20 Mg Tablet 20 Mg PO Metoprolol Succinate 50 Mg Tab.er.24h 50 Mg PO Lisinopril 20 Mg Tablet 1 Tab PO DAILY Symbicort 160-4.5 Mcg Inhaler (Budesonide/Formoterol Fumarate) 10.2 Gm Hfa.aer.ad Unknown Dose IH BID Proair Hfa Inhaler (Albuterol Sulfate) 8.5 Gm Hfa.aer.ad Unknown Dose INH Omeprazole 40 Mg Capsule.dr 40 Mg PO DAILY Cetirizine Hcl 10 Mg Tablet 1 Tab PO DAILY Oxycodone-Acetaminophen 10-325 (Oxycodone Hcl/Acetaminophen) 1 Each Tablet 1 Tab PO Q4HRS PRN Carisoprodol 350 Mg Tablet 1 Tab PO TID Diphedryl (Diphenhydramine Hcl) 25 Mg Capsule 25 Mg PO HS Vitals/I & O Vital Sign - Last 24 Hours 06/03/17 06/03/17 06/03/17 06/03/17 10:00 11:03 12:44 12:47 Temp 99.0 99.0 Pulse 96 99 99 99 Resp 28 18 B/P (MAP) 170/82 (111) 160/77 (104) 160/77 160/77 Pulse Ox 95 O2 Delivery Room Air 06/03/17 06/03/17 06/03/17 06/03/17 12:54 13:13 14:07 15:03 Temp 98.0 98.0 98.0 98.0 Pulse 99 92 89 Resp 18 18 B/P (MAP) 169/92 (117) 147/77 (100) 126/64 (84) Pulse Ox 93 95 92 O2 Delivery Room Air Room Air Room Air Room Air 06/03/17 06/03/17 06/03/17 06/03/17 16:02 17:04 18:00 18:04 Temp 98.5 97.9 98.5 98.5 97.9 98.5 Pulse 96 96 96 Resp 18 18 B/P (MAP) 116/58 (77) 109/56 (73) 90/48 87/47 (60) Pulse Ox 93 93 O2 Delivery Room Air Room Air 06/03/17 06/03/17 06/03/17 06/03/17 18:07 19:10 19:12 20:03 Pulse 64 87 Resp 24 24 24 B/P (MAP) 90/48 (62) 93/51 (65) 107/51 (69) O2 Delivery Room Air Room Air Room Air 06/03/17 06/03/17 06/03/17 06/03/17 20:27 21:02 21:06 21:10 Pulse 87 Resp 24 B/P (MAP) 106/60 (75) Pulse Ox 91 93 O2 Delivery Room Air Room Air Room Air Nasal Cannula O2 Flow Rate 2.0 06/03/17 06/03/17 06/03/17 06/03/17 21:16 21:29 22:02 22:47 Temp 97.2 97.2 Pulse 87 Resp 24 B/P (MAP) 93/57 (69) Pulse Ox 98 97 97 O2 Delivery Nasal Cannula Nasal Cannula Nasal Cannula O2 Flow Rate 2.0 1.0 1.0 06/03/17 06/04/17 06/04/17 06/04/17 23:03 00:10 00:11 00:11 Pulse 86 87 87 Resp 24 B/P (MAP) 93/60 (71) 82/51 82/51 (61) 93/51 (65) Pulse Ox 96 95 95 O2 Delivery Nasal Cannula Nasal Cannula Nasal Cannula O2 Flow Rate 1.0 2.0 2.0 06/04/17 06/04/17 06/04/17 06/04/17 00:13 01:12 02:08 02:46 Temp 98.1 98.1 Pulse 85 82 83 Resp B/P (MAP) 99/55 (70) 107/51 (69) 106/55 (72) Pulse Ox 97 96 97 O2 Delivery Nasal Cannula Nasal Cannula Nasal Cannula Nasal Cannula O2 Flow Rate 2.0 2.0 2.0 2.0 06/04/17 06/04/17 06/04/17 06/04/17 02:55 03:56 04:00 05:01 Pulse 86 86 Resp B/P (MAP) 104/60 (75) 109/62 (78) Pulse Ox 96 93 95 O2 Delivery Nasal Cannula Nasal Cannula Nasal Cannula Nasal Cannula O2 Flow Rate 1.0 1.0 1.0 1.0 06/04/17 06/04/17 06/04/17 06/04/17 06:00 06:02 07:23 08:00 Temp 98.2 98.2 Pulse 87 85 96 Resp B/P (MAP) 113/60 (77) 113/60 154/72 (99) Pulse Ox 97 97 O2 Delivery Nasal Cannula Nasal Cannula Nasal Cannula O2 Flow Rate 1.0 1.0 1.0 06/04/17 08:55 Pulse 108 B/P (MAP) 154/72 Intake and Output 06/04/17 06/04/1717 15:00 23:00 07:00 Intake Total 120 ml Balance 120 ml KAYLIE LUNDBERG MD Jun 04, 2017 09:54
--- NOTE | 2017-06-04 09:57 | PDOC ---
PROGRESS NOTES Chief Complaint Chief Complaint 1. Acute respiratory failure sec to acute toxic enceph from intentional Drug OD extubated 06/02 2. SUicide intent - OD tylenol x 10 and benadryl PO x 37 pills 3. Hx SZ d/o with active SZ POA 4. Fevers 5. SIRS POA< no sepsis no organ dysfcn 6. CRitical HYpocalcemia in the background of mild to mod hypoalbuminemia 7. MIld to mod PCM 8. HYpokalemia 9. 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 - on dysphagia 1 with honey thickened ADd pT>oT MAR done Sitter to cont until psych re eval Vitals Vitals Vital Signs Date Time Temp Pulse Resp B/P (MAP) Pulse Ox O2 Delivery O2 Flow Rate FiO2 06/04/17 08:55 108 154/72 06/04/17 08:00 Nasal Cannula 1.0 06/04/17 07:23 98.2 26 97 98.2 Physical Exam General: Alert, Oriented X3, Cooperative, No acute distress Heart: Regular rate Lungs: Clear Abdomen: Normal bowel sounds Extremities: No clubbing, No cyanosis Skin: No rashes Labs LABS Laboratory Tests Test 06/03/17 11:31 06/03/17 16:51 06/03/17 17:10 06/03/17 20:51 Glucose (Fingerstick) 172 mg/dL (70-99) 47 mg/dL (70-99) 178 mg/dL (70-99) 108 mg/dL (70-99) Test 06/04/17 00:23 06/04/17 08:37 Glucose (Fingerstick) 131 mg/dL (70-99) 124 mg/dL (70-99) Review of Systems Review of Systems denies 14 pt - flat affect Assessment and Plan Assessmemt and Plan Problems Medical Problems: (1) Mental status change Status: Acute Problems: Comment Review of Relevant I have reviewed the following items jinny (where applicable) has been applied. Labs Laboratory Tests Test 06/02/17 13:17 06/02/17 18:23 06/02/17 20:56 06/03/17 06:30 Glucose (Fingerstick) 200 mg/dL (70-99) 179 mg/dL (70-99) 241 mg/dL (70-99) White Blood Count 10.2 x10^3/uL (4.0-11.0) Red Blood Count 3.78 x10^6/uL (3.50-5.40) Hemoglobin 11.2 g/dL (12.0-15.5) Hematocrit 32.5 % (36.0-47.0) Mean Corpuscular Volume 86 fL (79-100) Mean Corpuscular Hemoglobin 30 pg (25-35) Mean Corpuscular Hemoglobin Concent 34 g/dL (31-37) Red Cell Distribution Width 15.3 % (11.5-14.5) Platelet Count 214 x10^3/uL (140-400) Neutrophils (%) (Auto) 81 % (31-73) Lymphocytes (%) (Auto) 11 % (24-48) Monocytes (%) (Auto) 6 % (0-9) Eosinophils (%) (Auto) 1 % (0-3) Basophils (%) (Auto) 1 % (0-3) Neutrophils # (Auto) 8.3 x10^3uL (1.8-7.7) Lymphocytes # (Auto) 1.1 x10^3/uL (1.0-4.8) Monocytes # (Auto) 0.7 x10^3/uL (0.0-1.1) Eosinophils # (Auto) 0.1 x10^3/uL (0.0-0.7) Basophils # (Auto) 0.1 x10^3/uL (0.0-0.2) Sodium Level 141 mmol/L (136-145) Potassium Level 3.8 mmol/L (3.5-5.1) Chloride Level 105 mmol/L (98-107) Carbon Dioxide Level 28 mmol/L (21-32) Anion Gap 8 (6-14) Blood Urea Nitrogen 6 mg/dL (7-20) Creatinine 0.7 mg/dL (0.6-1.0) Estimated GFR (Cockcroft-Gault) 85.9 Glucose Level 270 mg/dL (70-99) Calcium Level 8.7 mg/dL (8.5-10.1) Magnesium Level 1.9 mg/dL (1.8-2.4) Test 06/03/17 07:38 06/03/17 11:31 06/03/17 16:51 06/03/17 17:10 Glucose (Fingerstick) 254 mg/dL (70-99) 172 mg/dL (70-99) 47 mg/dL (70-99) 178 mg/dL (70-99) Test 06/03/17 20:51 06/04/17 00:23 06/04/17 08:37 Glucose (Fingerstick) 108 mg/dL (70-99) 131 mg/dL (70-99) 124 mg/dL (70-99) Laboratory Tests Test 06/03/17 11:31 06/03/17 16:51 06/03/17 17:10 06/03/17 20:51 Glucose (Fingerstick) 172 mg/dL (70-99) 47 mg/dL (70-99) 178 mg/dL (70-99) 108 mg/dL (70-99) Test 06/04/17 00:23 06/04/17 08:37 Glucose (Fingerstick) 131 mg/dL (70-99) 124 mg/dL (70-99) Microbiology 05/31/17 Blood Culture - Preliminary, Resulted NO GROWTH AFTER 3 DAYS Medications Current Medications Lorazepam (Ativan) 1 mg 1X ONCE IV Last administered on 05/31/17 13:54; Start 05/31/17 at 13:45; Stop 05/31/17 at 13:46; Status DC Sodium Chloride 1,000 ml @ 1,000 mls/hr Q1H IV Last administered on 05/31/17 13:54; Start 05/31/17 at 13:36; Stop 05/31/17 at 14:35; Status DC Lorazepam (Ativan) 2 mg 1X ONCE IV Last administered on 05/31/17 14:23; Start 05/31/17 at 14:00; Stop 05/31/17 at 14:01; Status DC Sodium Bicarbonate 50 meq 1X ONCE IV Last administered on 05/31/17 14:41; Start 05/31/17 at 14:30; Stop 05/31/17 at 14:32; Status DC Sodium Bicarbonate 50 meq 1X ONCE IV Last administered on 05/31/17 14:44; Start 05/31/17 at 14:30; Stop 05/31/17 at 14:32; Status DC Sodium Chloride 1,000 ml @ 1,000 mls/hr 1X ONCE IV Last administered on 14:44; Start 05/31/17 at 14:45; Stop 05/31/17 at 15:44; Status DC Lorazepam (Ativan) 1 mg 1X ONCE IV Last administered on 05/31/17 14:50; Start 05/31/17 at 15:00; Stop 05/31/17 at 15:01; Status DC Etomidate (Amidate) 20 mg 1X ONCE IV Last administered on 05/31/17 14:54; Start 05/31/17 at 15:00; Stop 05/31/17 at 15:01; Status DC Succinylcholine Chloride (Anectine) 100 mg 1X ONCE IV Last administered on 14:54; Start 05/31/17 at 15:00; Stop 05/31/17 at 15:01; Status DC Propofol (Diprivan) 200,000 mg 1X ONCE IV ; Start 05/31/17 at 15:00; Stop 05/31 at 15:01; Status Cancel Propofol 50 ml @ As Directed STK-MED ONCE IV ; Start 05/31/17 at 15:19; Stop at 15:20; Status DC Propofol 50 ml @ 0 mls/hr 1X ONCE IV Last administered on 05/31/17 15:20; Start 05/31/17 at 15:45; Stop 05/31/17 at 15:46; Status DC Levetiracetam 500 mg/Sodium Chloride 100 ml @ 400 mls/hr Q12HR IV ; Start 05/31 at 21:00; Stop 05/31/17 at 21:00; Status DC Levetiracetam 500 mg/Sodium Chloride 105 ml @ 400 mls/hr Q12HR IV Last administered on 06/03/17 20:39; Start 05/31/17 at 16:00; Stop 06/04/17 at 08:27 ; Status DC Sodium Chloride 1,000 ml @ 150 mls/hr 1X ONCE IV Last administered on 16:00; Start 05/31/17 at 16:15; Stop 05/31/17 at 22:54; Status DC Acetylcysteine 6 gm/Dextrose 230 ml @ 230 mls/hr 1X ONCE IV Last administered on 05/31/17 17:49; Start 05/31/17 at 17:30; Stop 05/31/17 at 18:29 ; Status DC Acetylcysteine 2 gm/Dextrose 510 ml @ 127.5 mls/ hr 1X ONCE IV Last administered on 05/31/17 19:00; Start 05/31/17 at 18:30; Stop 05/31/17 at 22:29 ; Status DC Acetylcysteine 4 gm/Dextrose 1,020 ml @ 63.75 mls/ hr 1X ONCE IV Last administered on 05/31/17 22:48; Start 05/31/17 at 22:30; Stop 06/01/17 at 14:29 ; Status DC Fentanyl Citrate (Fentanyl 2ml Vial) 50 mcg PRN Q1HR PRN IV PAIN Last administered on 06/02/17 05:36; Start 05/31/17 at 17:00 Sodium Bicarbonate 100 meq PRN Q15MIN PRN IV SEIZURES; Start 05/31/17 at 17:00 Propofol 100 ml @ 0 mls/hr CONT PRN IV SEE I/O RECORD Last administered on 06/01 17:17; Start 05/31/17 at 17:00 Sodium Chloride 1,000 ml @ 125 mls/hr Q8H IV Last administered on 06/02/17 15 :21; Start 05/31/17 at 17:00; Stop 06/02/17 at 20:42; Status DC Ceftriaxone Sodium 1 gm/ Sodium Chloride 50 ml @ 100 mls/hr Q24H IV Last administered on 06/03/17 17:13; Start 05/31/17 at 17:30 Insulin Aspart (NovoLOG) 20 units 1X ONCE SQ Last administered on 05/31/17 19 :46; Start 05/31/17 at 19:30; Stop 05/31/17 at 19:31; Status DC Insulin Aspart (NovoLOG) 0-7 UNITS Q6HRS SQ Last administered on 06/01/17 06: 04; Start 06/01/17 at 00:00; Stop 06/01/17 at 09:28; Status DC Dextrose (Dextrose 50%-Water Syringe) 12.5 gm PRN Q15MIN PRN IV SEE COMMENTS; Start 05/31/17 at 20:15; Status Cancel Labetalol HCl (Normodyne) 20 mg PRN Q4HRS PRN IVP HYPERTENSION, SEE COMMENTS Last administered on 06/03/17 08:32; Start 05/31/17 at 20:15 Potassium Chloride 100 ml @ 100 mls/hr Q1H IV Last administered on 05/31/17 23:49; Start 05/31/17 at 20:45; Stop 06/01/17 at 00:44; Status DC Enoxaparin Sodium (Lovenox 40mg Syringe) 40 mg QHS SQ Last administered on 06/03 21:13; Start 05/31/17 at 23:30 Calcium Gluconate 1000 mg/Sodium Chloride 110 ml @ 220 mls/hr 1X ONCE IV Last administered on 06/01/17 07:06; Start 06/01/17 at 07:00; Stop 06/01/17 at 07:29; Status DC Potassium Chloride 100 ml @ 100 mls/hr Q1H IV Last administered on 06/01/17 10:19; Start 06/01/17 at 07:00; Stop 06/01/17 at 10:59; Status DC Ondansetron HCl (Zofran) 4 mg PRN Q6HRS PRN IV NAUSEA/VOMITING; Start 06/01/17 at 09:30 Potassium Chloride (KCl Oral Soln) 40 meq 1X ONCE PEG Last administered on 10:03; Start 06/01/17 at 10:00; Stop 06/01/17 at 10:01; Status DC Insulin Aspart (NovoLOG) 0-9 UNITS TIDWMEALS SQ Last administered on 06/03/17 13:05; Start 06/01/17 at 12:00 Dextrose (Dextrose 50%-Water Syringe) 12.5 gm PRN Q15MIN PRN IV SEE COMMENTS Last administered on 06/03/17 16:54; Start 06/01/17 at 09:30 Insulin Aspart (NovoLOG) 10 units 1X ONCE SQ Last administered on 06/01/17 10 :18; Start 06/01/17 at 10:00; Stop 06/01/17 at 10:01; Status DC Magnesium Sulfate/ Dextrose 50 ml @ 25 mls/hr 1X ONCE IV Last administered on 06/01/17 10:01; Start 06/01/17 at 10:00; Stop 06/01/17 at 11:59; Status DC Enoxaparin Sodium (Lovenox 40mg Syringe) 40 mg Q24H SQ ; Start 06/01/17 at 11:15 ; Status UNV Famotidine (Pepcid) 20 mg BID IVP Last administered on 06/03/17 20:39; Start 06/01/17 at 12:00 Calcium Gluconate 1000 mg/Sodium Chloride 110 ml @ 220 mls/hr 1X ONCE IV Last administered on 06/01/17 11:19; Start 06/01/17 at 11:15; Stop 06/01/17 at 11:44; Status DC Potassium Chloride (KCl Oral Soln) 40 meq BID PEG Last administered on 09:03; Start 06/02/17 at 09:00; Stop 06/02/17 at 20:42; Status DC Potassium Chloride (KCl Oral Soln) 40 meq 1X ONCE PEG Last administered on 15:15; Start 06/01/17 at 15:00; Stop 06/01/17 at 15:01; Status DC Magnesium Sulfate/ Dextrose 100 ml @ 50 mls/hr DAILY IV Last administered on 06/02/17 09:04; Start 06/02/17 at 09:00; Stop 06/05/17 at 08:59 Propofol (Diprivan) 200 mg 1X ONCE IV Last administered on 05/31/17 15:00; Start 05/31/17 at 15:00; Stop 06/02/17 at 11:44; Status DC Info (Do NOT chart on this placeholder) 1 each 1X ONCE MC ; Start 06/02/17 at 14:45; Stop 06/02/17 at 14:46; Status UNV Influenza Virus Vaccine Quadrival (Fluarix Quad [id number] Syringe) 0.5 ml ONCE ONCE VAX IM Last administered on 06/02/17 15:21; Start 06/02/17 at 15:00; Stop 06/02/17 at 15:01; Status DC Tramadol HCl (Ultram) 50 mg PRN Q6HRS PRN PO MILD PAIN; Start 06/02/17 at 19:30 Sumatriptan Succinate (Imitrex) 25 mg PRN Q2HR PRN PO MIGRAINE HEADACHE Last administered on 06/03/17 07:53; Start 06/02/17 at 19:30 Potassium Chloride 20 meq/ Sodium Chloride 1,010 ml @ 75 mls/hr [id number] IV Last administered on 06/02/17 21:12; Start 06/02/17 at 21:00; Stop 06/03/17 at 06:37; Status DC Lorazepam (Ativan) 0.5 mg PRN Q4HRS PRN IV ANXIETY / AGITATION Last administered on 06/03/17 11:56; Start 06/03/17 at 06:45 Potassium Chloride/Sodium Chloride 1,000 ml @ 75 mls/hr [id number] IV Last administered on 06/04/17 00:08; Start 06/03/17 at 08:00; Stop 06/04/17 at 01:00 ; Status DC Metoprolol Tartrate (Lopressor) 5 mg 1X ONCE IVP Last administered on 09:24; Start 06/03/17 at 09:15; Stop 06/03/17 at 09:16; Status DC Metoprolol Tartrate (Lopressor) 5 mg Q6HRS IVP Last administered on 06/03/17 12:47; Start 06/03/17 at 12:00 Carisoprodol (Soma) 350 mg TID PO Last administered on 06/04/17 08:52; Start 06/03/17 at 09:00 Cetirizine HCl (ZyrTEC) 10 mg DAILY PO Last administered on 06/04/17 08:54; Start 06/03/17 at 09:00 Diphenhydramine HCl (Benadryl) 25 mg HS PO ; Start 06/03/17 at 21:00 Guaifenesin (Mucinex) 1,200 mg BID PO Last administered on 06/04/17 08:55; Start 06/03/17 at 10:00 Insulin Aspart (NovoLOG) 15 units TIDAC SQ Last administered on 06/03/17 13:05 ; Start 06/03/17 at 11:30 Insulin Detemir (Levemir) 30 units QHS SQ ; Start 06/03/17 at 21:00 Albuterol Sulfate (Ventolin Neb Soln) 2.5 mg PRN QID PRN NEB SHORTNESS OF BREATH; Start 06/03/17 at 09:15 Lisinopril (Prinivil) 20 mg DAILY PO Last administered on 06/04/17 08:55; Start 06/03/17 at 10:00 Metoprolol Succinate (Toprol Xl) 50 mg DAILY PO ; Start 06/03/17 at 09:00; Status UNV Oxycodone/ Acetaminophen (Percocet 10/325) 1 tab PRN Q4HRS PRN PO MODERATE - SEVERE PAIN; Start 06/03/17 at 08:45 Pregabalin (Lyrica) 75 mg BID PO Last administered on 06/04/17 08:55; Start 06/03/17 at 10:00 Pantoprazole Sodium (Protonix) 40 mg DAILYAC PO Last administered on 06/04/17 08:53; Start 06/03/17 at 10:00 Nicotine (Nicoderm Cq 14mg) 1 patch DAILY TD Last administered on 06/04/17 08: 56; Start 06/03/17 at 10:00 Haloperidol Lactate (Haldol) 5 mg PRN Q6HRS PRN IVP AGITATION Last administered on 06/03/17 12:54; Start 06/03/17 at 10:30; Stop 06/04/17 at 01:00 ; Status DC Lorazepam (Ativan) 2 mg PRN Q4HRS PRN IV ANXIETY / AGITATION; Start 06/03/17 at 10:30 Sodium Chloride 1,000 ml @ 100 mls/hr Q10H IV Last administered on 06/04/17 01:08; Start 06/04/17 at 01:00 Levetiracetam (Keppra) 500 mg BID PO Last administered on 06/04/17 08:54; Start 06/04/17 at 09:00 Lamotrigine (LaMICtal) 200 mg BID PO Last administered on 06/04/17 08:53; Start 06/04/17 at 09:00 Active Scripts Active Keppra (Levetiracetam) 250 Mg Tablet 750 Mg PO BID Levemir Flextouch (Insulin Detemir) 100 Unit/1 Ml Insuln.pen 30 Units SQ QHS Novolog Flexpen (Insulin Aspart) 100 Unit/1 Ml Insuln.pen 15 Units SQ TIDAC Duoneb 0.5-3(2.5) Mg/3 Ml (Albuterol/Ipratropium) 3 Ml Ampul.neb 3 Ml IH PRN QID PRN [Nicotine] 1 PATCH Patch 1 Patch TD DAILY Mucinex (Guaifenesin) 600 Mg Tablet.er 1,200 Mg PO BID Reported Lyrica (Pregabalin) 75 Mg Capsule 1 Cap PO BID Keppra (Levetiracetam) 500 Mg Tablet 1 Tab PO BID Lamictal (Lamotrigine) 200 Mg Tablet 200 Mg PO BID Latuda (Lurasidone Hcl) 20 Mg Tablet 20 Mg PO Metoprolol Succinate 50 Mg Tab.er.24h 50 Mg PO Lisinopril 20 Mg Tablet 1 Tab PO DAILY Symbicort 160-4.5 Mcg Inhaler (Budesonide/Formoterol Fumarate) 10.2 Gm Hfa.aer.ad Unknown Dose IH BID Proair Hfa Inhaler (Albuterol Sulfate) 8.5 Gm Hfa.aer.ad Unknown Dose INH Omeprazole 40 Mg Capsule.dr 40 Mg PO DAILY Cetirizine Hcl 10 Mg Tablet 1 Tab PO DAILY Oxycodone-Acetaminophen 10-325 (Oxycodone Hcl/Acetaminophen) 1 Each Tablet 1 Tab PO Q4HRS PRN Carisoprodol 350 Mg Tablet 1 Tab PO TID Diphedryl (Diphenhydramine Hcl) 25 Mg Capsule 25 Mg PO HS Vitals/I & O Vital Sign - Last 24 Hours 06/03/17 06/03/17 06/03/17 06/03/17 10:00 11:03 12:44 12:47 Temp 99.0 99.0 Pulse 96 99 99 99 Resp 28 18 B/P (MAP) 170/82 (111) 160/77 (104) 160/77 160/77 Pulse Ox 95 O2 Delivery Room Air 06/03/17 06/03/17 06/03/17 06/03/17 12:54 13:13 14:07 15:03 Temp 98.0 98.0 98.0 98.0 Pulse 99 92 89 Resp 18 18 B/P (MAP) 169/92 (117) 147/77 (100) 126/64 (84) Pulse Ox 93 95 92 O2 Delivery Room Air Room Air Room Air Room Air 06/03/17 06/03/17 06/03/17 06/03/17 16:02 17:04 18:00 18:04 Temp 98.5 97.9 98.5 98.5 97.9 98.5 Pulse 96 96 96 Resp 18 18 B/P (MAP) 116/58 (77) 109/56 (73) 90/48 87/47 (60) Pulse Ox 93 93 O2 Delivery Room Air Room Air 06/03/17 06/03/17 06/03/17 06/03/17 18:07 19:10 19:12 20:03 Pulse 64 87 Resp 24 24 B/P (MAP) 90/48 (62) 93/51 (65) 107/51 (69) O2 Delivery Room Air Room Air Room Air 06/03/17 06/03/17 06/03/17 06/03/17 20:27 21:02 21:06 21:10 Pulse 87 Resp 24 B/P (MAP) 106/60 (75) Pulse Ox 91 93 O2 Delivery Room Air Room Air Room Air Nasal Cannula O2 Flow Rate 2.0 06/03/17 06/03/17 06/03/17 06/03/17 21:16 21:29 22:02 22:47 Temp 97.2 97.2 Pulse 87 Resp 24 B/P (MAP) 93/57 (69) Pulse Ox 98 97 97 O2 Delivery Nasal Cannula Nasal Cannula Nasal Cannula O2 Flow Rate 2.0 1.0 1.0 06/03/17 06/04/17 06/04/17 06/04/17 23:03 00:10 00:11 00:11 Pulse 86 87 87 Resp 24 B/P (MAP) 93/60 (71) 82/51 82/51 (61) 93/51 (65) Pulse Ox 96 95 95 O2 Delivery Nasal Cannula Nasal Cannula Nasal Cannula O2 Flow Rate 1.0 2.0 2.0 06/04/17 06/04/17 06/04/17 06/04/17 00:13 01:12 02:08 02:46 Temp 98.1 98.1 Pulse 85 82 83 Resp 24 23 B/P (MAP) 99/55 (70) 107/51 (69) 106/55 (72) Pulse Ox 97 96 97 O2 Delivery Nasal Cannula Nasal Cannula Nasal Cannula Nasal Cannula O2 Flow Rate 2.0 2.0 2.0 2.0 06/04/17 06/04/17 06/04/17 06/04/17 02:55 03:56 04:00 05:01 Pulse 86 86 Resp 23 24 23 B/P (MAP) 104/60 (75) 109/62 (78) Pulse Ox 96 93 95 O2 Delivery Nasal Cannula Nasal Cannula Nasal Cannula Nasal Cannula O2 Flow Rate 1.0 1.0 1.0 1.0 06/04/17 06/04/17 06/04/17 06/04/17 06:00 06:02 07:23 08:00 Temp 98.2 98.2 Pulse 87 85 96 Resp 24 26 B/P (MAP) 113/60 (77) 113/60 154/72 (99) Pulse Ox 97 97 O2 Delivery Nasal Cannula Nasal Cannula Nasal Cannula O2 Flow Rate 1.0 1.0 1.0 06/04/17 08:55 Pulse 108 B/P (MAP) 154/72 Intake and Output 06/04/17 06/04/17 06/05/17 15:00 23:00 07:00 Intake Total 120 ml Balance 120 ml ROSEANNA HOLLIDAY MD Jun 04, 2017 09:57
[2017-06-04] MEDS: oxyCODONE/APAP 10/325 1 TAB TABLET PO PRN ×3 (10:34→23:02)
[2017-06-04] MEDS: ENOXAPARIN 40 MG/0.4 ML SYRINGE. SQ SCH (21:05)
[2017-06-04] MEDS: INSULIN DETEMIR 300 UNITS/3 ML INSULN.PEN. SQ SCH (21:37)
[2017-06-05] MEDS: IV NORMAL SALINE 1000ML BAG 1,000 ML IV SCH ×3 (00:40→20:39)
[2017-06-05 03:07] VITALS: BP 118/55
[2017-06-05] MEDS: oxyCODONE/APAP 10/325 1 TAB TABLET PO PRN ×2 (03:52→18:04)
[2017-06-05] MEDS: METOPROLOL TARTRATE 5 MG/5 ML VIAL. IVP SCH ×5 (06:21→23:51)
[2017-06-05 07:15] VITALS: BP 114/60
[2017-06-05] MEDS: INSULIN ASPART 300 UNITS/3 ML INSULN.PEN SQ SCH ×6 (07:30→17:00)
[2017-06-05] MEDS: lamoTRIgine 100 MG TABLET. PO SCH ×2 (09:47→20:38)
[2017-06-05] MEDS: PREGABALIN 75 MG CAPSULE PO SCH ×2 (09:48→20:39)
[2017-06-05] MEDS: LISINOPRIL 20 MG TABLET PO SCH (09:49)
[2017-06-05] MEDS: CETIRIZINE HCL 10 MG TABLET. PO SCH (09:49)
[2017-06-05] MEDS: PANTOPRAZOLE 40 MG TABLET.DR. PO SCH (09:49)
[2017-06-05] MEDS: levETIRAcetam 500 MG TABLET PO SCH ×2 (09:49→20:38)
[2017-06-05] MEDS: CARISOPRODOL 350 MG TABLET PO SCH ×3 (09:51→20:38)
[2017-06-05] MEDS: NICOTINE 14MG PATCH. TD SCH (09:56)
[2017-06-05 11:13] VITALS: BP 118/59
[2017-06-05] MEDS ORDERED: ALPRAZolam 1 MG TABLET PO PRN (11:15)
[2017-06-05] MEDS: FLUoxetine HCL 20 MG CAPSULE PO SCH (11:18)
--- NOTE | 2017-06-05 11:26 | PDOC ---
PROGRESS NOTES Chief Complaint Chief Complaint 1. Acute respiratory failure sec to acute toxic enceph from intentional Drug OD extubated 06/02 2. SUicide intent - OD tylenol x 10 and benadryl PO x 37 pills 3. Hx SZ d/o with active SZ POA 4. Fevers 5. SIRS POA< no sepsis no organ dysfcn 6. CRitical HYpocalcemia in the background of mild to mod hypoalbuminemia 7. MIld to mod PCM 8. HYpokalemia 9. SMOker, hx back pain History of Present Illness History of Present Illness Pt was sitting comfortably at the side of her bed. She ws conversant and pleasant. Pt has no new complaints and appears to be in NAD. Pt complained of some anxiety and agitation. RN was also in the room. Sitter was in the room. Plan of care was discussed with her and RN Pt started on Prozac 20 mg and Xanax 1mg Q6 prn. PAT did not clear for D/C and thinks patient would benefit from psych placement Awaiting [place] decision Vitals Vitals Vital Signs Date Time Temp Pulse Resp B/P (MAP) Pulse Ox O2 Delivery O2 Flow Rate FiO2 06/05/17 11:13 98.0 82 16 118/59 (78) 95 Room Air 98.0 06/05/17 09:50 1.0 Physical Exam General: Alert, Oriented X3, Cooperative, No acute distress Heart: Regular rate, Normal S1, Normal S2 Lungs: Clear Abdomen: Normal bowel sounds Extremities: No clubbing, No cyanosis Skin: No rashes, No breakdown Labs LABS Laboratory Tests Test 06/04/17 12:29 06/04/17 16:49 06/04/17 20:56 06/05/17 07:39 Glucose (Fingerstick) 260 mg/dL (70-99) 131 mg/dL (70-99) 144 mg/dL (70-99) 150 mg/dL (70-99) Review of Systems Review of Systems Pt complains fo fatigue Pt complains of anxiety Pt complains of hunger Assessment and Plan Assessmemt and Plan Problems Medical Problems: (1) Mental status change Status: Acute 1. Acute respiratory failure sec to acute toxic enceph from intentional Drug OD extubated 06/02 2. SUicide intent - OD tylenol x 10 and benadryl PO x 37 pills 3. Hx SZ d/o with active SZ POA 4. Fevers 5. SIRS POA< no sepsis no organ dysfcn 6. CRitical HYpocalcemia in the background of mild to mod hypoalbuminemia 7. MIld to mod PCM 8. HYpokalemia 9. SMOker, hx back pain Plan: Ordered Prozac 20 mg PO daily Ordered Xanax 1 mg PO Q6 prn Recheck labs Cont. 1-1 sitter cont. to monitor PT/OT [facility] Problems: Comment Review of Relevant I have reviewed the following items jinny (where applicable) has been applied. Labs Laboratory Tests Test 06/03/17 11:31 06/03/17 16:51 06/03/17 17:10 06/03/17 20:51 Glucose (Fingerstick) 172 mg/dL (70-99) 47 mg/dL (70-99) 178 mg/dL (70-99) 108 mg/dL (70-99) Test 06/04/17 00:23 06/04/17 08:37 06/04/17 12:29 06/04/17 16:49 Glucose (Fingerstick) 131 mg/dL (70-99) 124 mg/dL (70-99) 260 mg/dL (70-99) 131 mg/dL (70-99) Test 06/04/17 20:56 06/05/17 07:39 Glucose (Fingerstick) 144 mg/dL (70-99) 150 mg/dL (70-99) Laboratory Tests Test 06/04/17 12:29 06/04/17 16:49 06/04/17 20:56 06/05/17 07:39 Glucose (Fingerstick) 260 mg/dL (70-99) 131 mg/dL (70-99) 144 mg/dL (70-99) 150 mg/dL (70-99) Microbiology 05/31/17 Blood Culture - Preliminary, Resulted NO GROWTH AFTER 4 DAYS Medications Current Medications Lorazepam (Ativan) 1 mg 1X ONCE IV Last administered on 05/31/17 13:54; Start 05/31/17 at 13:45; Stop 05/31/17 at 13:46; Status DC Sodium Chloride 1,000 ml @ 1,000 mls/hr Q1H IV Last administered on 05/31/17 13:54; Start 05/31/17 at 13:36; Stop 05/31/17 at 14:35; Status DC Lorazepam (Ativan) 2 mg 1X ONCE IV Last administered on 05/31/17 14:23; Start 05/31/17 at 14:00; Stop 05/31/17 at 14:01; Status DC Sodium Bicarbonate 50 meq 1X ONCE IV Last administered on 05/31/17 14:41; Start 05/31/17 at 14:30; Stop 05/31/17 at 14:32; Status DC Sodium Bicarbonate 50 meq 1X ONCE IV Last administered on 05/31/17 14:44; Start 05/31/17 at 14:30; Stop 05/31/17 at 14:32; Status DC Sodium Chloride 1,000 ml @ 1,000 mls/hr 1X ONCE IV Last administered on 14:44; Start 05/31/17 at 14:45; Stop 05/31/17 at 15:44; Status DC Lorazepam (Ativan) 1 mg 1X ONCE IV Last administered on 05/31/17 14:50; Start 05/31/17 at 15:00; Stop 05/31/17 at 15:01; Status DC Etomidate (Amidate) 20 mg 1X ONCE IV Last administered on 05/31/17 14:54; Start 05/31/17 at 15:00; Stop 05/31/17 at 15:01; Status DC Succinylcholine Chloride (Anectine) 100 mg 1X ONCE IV Last administered on 14:54; Start 05/31/17 at 15:00; Stop 05/31/17 at 15:01; Status DC Propofol (Diprivan) 200,000 mg 1X ONCE IV ; Start 05/31/17 at 15:00; Stop 05/31 at 15:01; Status Cancel Propofol 50 ml @ As Directed STK-MED ONCE IV ; Start 05/31/17 at 15:19; Stop at 15:20; Status DC Propofol 50 ml @ 0 mls/hr 1X ONCE IV Last administered on 05/31/17 15:20; Start 05/31/17 at 15:45; Stop 05/31/17 at 15:46; Status DC Levetiracetam 500 mg/Sodium Chloride 100 ml @ 400 mls/hr Q12HR IV ; Start 05/31 at 21:00; Stop 05/31/17 at 21:00; Status DC Levetiracetam 500 mg/Sodium Chloride 105 ml @ 400 mls/hr Q12HR IV Last administered on 06/03/17 20:39; Start 05/31/17 at 16:00; Stop 06/04/17 at 08:27 ; Status DC Sodium Chloride 1,000 ml @ 150 mls/hr 1X ONCE IV Last administered on 16:00; Start 05/31/17 at 16:15; Stop 05/31/17 at 22:54; Status DC Acetylcysteine 6 gm/Dextrose 230 ml @ 230 mls/hr 1X ONCE IV Last administered on 05/31/17 17:49; Start 05/31/17 at 17:30; Stop 05/31/17 at 18:29 ; Status DC Acetylcysteine 2 gm/Dextrose 510 ml @ 127.5 mls/ hr 1X ONCE IV Last administered on 05/31/17 19:00; Start 05/31/17 at 18:30; Stop 05/31/17 at 22:29 ; Status DC Acetylcysteine 4 gm/Dextrose 1,020 ml @ 63.75 mls/ hr 1X ONCE IV Last administered on 05/31/17 22:48; Start 05/31/17 at 22:30; Stop 06/01/17 at 14:29 ; Status DC Fentanyl Citrate (Fentanyl 2ml Vial) 50 mcg PRN Q1HR PRN IV PAIN Last administered on 06/02/17 05:36; Start 05/31/17 at 17:00 Sodium Bicarbonate 100 meq PRN Q15MIN PRN IV SEIZURES; Start 05/31/17 at 17:00 Propofol 100 ml @ 0 mls/hr CONT PRN IV SEE I/O RECORD Last administered on 06/01 17:17; Start 05/31/17 at 17:00 Sodium Chloride 1,000 ml @ 125 mls/hr Q8H IV Last administered on 06/02/17 15 :21; Start 05/31/17 at 17:00; Stop 06/02/17 at 20:42; Status DC Ceftriaxone Sodium 1 gm/ Sodium Chloride 50 ml @ 100 mls/hr Q24H IV Last administered on 06/03/17 17:13; Start 05/31/17 at 17:30; Stop 06/04/17 at 09:55 ; Status DC Insulin Aspart (NovoLOG) 20 units 1X ONCE SQ Last administered on 05/31/17 19 :46; Start 05/31/17 at 19:30; Stop 05/31/17 at 19:31; Status DC Insulin Aspart (NovoLOG) 0-7 UNITS Q6HRS SQ Last administered on 06/01/17 06: 04; Start 06/01/17 at 00:00; Stop 06/01/17 at 09:28; Status DC Dextrose (Dextrose 50%-Water Syringe) 12.5 gm PRN Q15MIN PRN IV SEE COMMENTS; Start 05/31/17 at 20:15; Status Cancel Labetalol HCl (Normodyne) 20 mg PRN Q4HRS PRN IVP HYPERTENSION, SEE COMMENTS Last administered on 06/03/17 08:32; Start 05/31/17 at 20:15 Potassium Chloride 100 ml @ 100 mls/hr Q1H IV Last administered on 05/31/17 23:49; Start 05/31/17 at 20:45; Stop 06/01/17 at 00:44; Status DC Enoxaparin Sodium (Lovenox 40mg Syringe) 40 mg QHS SQ Last administered on 06/04 21:05; Start 05/31/17 at 23:30 Calcium Gluconate 1000 mg/Sodium Chloride 110 ml @ 220 mls/hr 1X ONCE IV Last administered on 06/01/17 07:06; Start 06/01/17 at 07:00; Stop 06/01/17 at 07:29; Status DC Potassium Chloride 100 ml @ 100 mls/hr Q1H IV Last administered on 06/01/17 10:19; Start 06/01/17 at 07:00; Stop 06/01/17 at 10:59; Status DC Ondansetron HCl (Zofran) 4 mg PRN Q6HRS PRN IV NAUSEA/VOMITING; Start 06/01/17 at 09:30 Potassium Chloride (KCl Oral Soln) 40 meq 1X ONCE PEG Last administered on 10:03; Start 06/01/17 at 10:00; Stop 06/01/17 at 10:01; Status DC Insulin Aspart (NovoLOG) 0-9 UNITS TIDWMEALS SQ Last administered on 06/03/17 13:05; Start 06/01/17 at 12:00 Dextrose (Dextrose 50%-Water Syringe) 12.5 gm PRN Q15MIN PRN IV SEE COMMENTS Last administered on 06/03/17 16:54; Start 06/01/17 at 09:30 Insulin Aspart (NovoLOG) 10 units 1X ONCE SQ Last administered on 06/01/17 10 :18; Start 06/01/17 at 10:00; Stop 06/01/17 at 10:01; Status DC Magnesium Sulfate/ Dextrose 50 ml @ 25 mls/hr 1X ONCE IV Last administered on 06/01/17 10:01; Start 06/01/17 at 10:00; Stop 06/01/17 at 11:59; Status DC Enoxaparin Sodium (Lovenox 40mg Syringe) 40 mg Q24H SQ ; Start 06/01/17 at 11:15 ; Status UNV Famotidine (Pepcid) 20 mg BID IVP Last administered on 06/03/17 20:39; Start 06/01/17 at 12:00; Stop 06/04/17 at 09:55; Status DC Calcium Gluconate 1000 mg/Sodium Chloride 110 ml @ 220 mls/hr 1X ONCE IV Last administered on 06/01/17 11:19; Start 06/01/17 at 11:15; Stop 06/01/17 at 11:44; Status DC Potassium Chloride (KCl Oral Soln) 40 meq BID PEG Last administered on 09:03; Start 06/02/17 at 09:00; Stop 06/02/17 at 20:42; Status DC Potassium Chloride (KCl Oral Soln) 40 meq 1X ONCE PEG Last administered on 15:15; Start 06/01/17 at 15:00; Stop 06/01/17 at 15:01; Status DC Magnesium Sulfate/ Dextrose 100 ml @ 50 mls/hr DAILY IV Last administered on 06/02/17 09:04; Start 06/02/17 at 09:00; Stop 06/05/17 at 08:59; Status DC Propofol (Diprivan) 200 mg 1X ONCE IV Last administered on 05/31/17 15:00; Start 05/31/17 at 15:00; Stop 06/02/17 at 11:44; Status DC Info (Do NOT chart on this placeholder) 1 each 1X ONCE MC ; Start 06/02/17 at 14:45; Stop 06/02/17 at 14:46; Status UNV Influenza Virus Vaccine Quadrival (Fluarix Quad 3412-6121 Syringe) 0.5 ml ONCE ONCE VAX IM Last administered on 06/02/17 15:21; Start 06/02/17 at 15:00; Stop 06/02/17 at 15:01; Status DC Tramadol HCl (Ultram) 50 mg PRN Q6HRS PRN PO MILD PAIN Last administered on 09:50; Start 06/02/17 at 19:30 Sumatriptan Succinate (Imitrex) 25 mg PRN Q2HR PRN PO MIGRAINE HEADACHE Last administered on 06/03/17 07:53; Start 06/02/17 at 19:30 Potassium Chloride 20 meq/ Sodium Chloride 1,010 ml @ 75 mls/hr [id number] IV Last administered on 06/02/17 21:12; Start 06/02/17 at 21:00; Stop 06/03/17 at 06:37; Status DC Lorazepam (Ativan) 0.5 mg PRN Q4HRS PRN IV ANXIETY / AGITATION Last administered on 06/05/17 10:03; Start 06/03/17 at 06:45 Potassium Chloride/Sodium Chloride 1,000 ml @ 75 mls/hr [id number] IV Last administered on 06/04/17 00:08; Start 06/03/17 at 08:00; Stop 06/04/17 at 01:00 ; Status DC Metoprolol Tartrate (Lopressor) 5 mg 1X ONCE IVP Last administered on 09:24; Start 06/03/17 at 09:15; Stop 06/03/17 at 09:16; Status DC Metoprolol Tartrate (Lopressor) 5 mg Q6HRS IVP Last administered on 06/05/17 06:21; Start 06/03/17 at 12:00 Carisoprodol (Soma) 350 mg TID PO Last administered on 06/05/17 09:51; Start 06/03/17 at 09:00 Cetirizine HCl (ZyrTEC) 10 mg DAILY PO Last administered on 06/05/17 09:49; Start 06/03/17 at 09:00 Diphenhydramine HCl (Benadryl) 25 mg HS PO ; Start 06/03/17 at 21:00; Stop 06/04 at 09:55; Status DC Guaifenesin (Mucinex) 1,200 mg BID PO Last administered on 06/05/17 09:47; Start 06/03/17 at 10:00 Insulin Aspart (NovoLOG) 15 units TIDAC SQ Last administered on 06/04/17 12:33 ; Start 06/03/17 at 11:30 Insulin Detemir (Levemir) 30 units QHS SQ Last administered on 06/04/17 21:37 ; Start 06/03/17 at 21:00 Albuterol Sulfate (Ventolin Neb Soln) 2.5 mg PRN QID PRN NEB SHORTNESS OF BREATH; Start 06/03/17 at 09:15 Lisinopril (Prinivil) 20 mg DAILY PO Last administered on 06/05/17 09:49; Start 06/03/17 at 10:00 Metoprolol Succinate (Toprol Xl) 50 mg DAILY PO ; Start 06/03/17 at 09:00; Status UNV Oxycodone/ Acetaminophen (Percocet 10/325) 1 tab PRN Q4HRS PRN PO MODERATE - SEVERE PAIN Last administered on 06/05/17 03:52; Start 06/03/17 at 08:45 Pregabalin (Lyrica) 75 mg BID PO Last administered on 06/05/17 09:48; Start 06/03/17 at 10:00 Pantoprazole Sodium (Protonix) 40 mg DAILYAC PO Last administered on 06/05/17 09:49; Start 06/03/17 at 10:00 Nicotine (Nicoderm Cq 14mg) 1 patch DAILY TD Last administered on 06/05/17 09: 56; Start 06/03/17 at 10:00 Haloperidol Lactate (Haldol) 5 mg PRN Q6HRS PRN IVP AGITATION Last administered on 06/03/17 12:54; Start 06/03/17 at 10:30; Stop 06/04/17 at 01:00 ; Status DC Lorazepam (Ativan) 2 mg PRN Q4HRS PRN IV ANXIETY / AGITATION; Start 06/03/17 at 10:30 Sodium Chloride 1,000 ml @ 100 mls/hr Q10H IV Last administered on 06/05/17 00:40; Start 06/04/17 at 01:00 Levetiracetam (Keppra) 500 mg BID PO Last administered on 06/05/17 09:49; Start 06/04/17 at 09:00 Lamotrigine (LaMICtal) 200 mg BID PO Last administered on 06/05/17 09:47; Start 06/04/17 at 09:00 Fluoxetine HCl (PROzac) 20 mg DAILY PO ; Start 06/05/17 at 12:00 Alprazolam (Xanax) 1 mg Q6HRS PRN PO ANXIETY / AGITATION; Start 06/05/17 at 11: 15 Active Scripts Active Keppra (Levetiracetam) 250 Mg Tablet 750 Mg PO BID Levemir Flextouch (Insulin Detemir) 100 Unit/1 Ml Insuln.pen 30 Units SQ QHS Novolog Flexpen (Insulin Aspart) 100 Unit/1 Ml Insuln.pen 15 Units SQ TIDAC Duoneb 0.5-3(2.5) Mg/3 Ml (Albuterol/Ipratropium) 3 Ml Ampul.neb 3 Ml IH PRN QID PRN [Nicotine] 1 PATCH Patch 1 Patch TD DAILY Mucinex (Guaifenesin) 600 Mg Tablet.er 1,200 Mg PO BID Reported Lyrica (Pregabalin) 75 Mg Capsule 1 Cap PO BID Keppra (Levetiracetam) 500 Mg Tablet 1 Tab PO BID Lamictal (Lamotrigine) 200 Mg Tablet 200 Mg PO BID Latuda (Lurasidone Hcl) 20 Mg Tablet 20 Mg PO Metoprolol Succinate 50 Mg Tab.er.24h 50 Mg PO Lisinopril 20 Mg Tablet 1 Tab PO DAILY Symbicort 160-4.5 Mcg Inhaler (Budesonide/Formoterol Fumarate) 10.2 Gm Hfa.aer.ad Unknown Dose IH BID Proair Hfa Inhaler (Albuterol Sulfate) 8.5 Gm Hfa.aer.ad Unknown Dose INH Omeprazole 40 Mg Capsule.dr 40 Mg PO DAILY Cetirizine Hcl 10 Mg Tablet 1 Tab PO DAILY Oxycodone-Acetaminophen 10-325 (Oxycodone Hcl/Acetaminophen) 1 Each Tablet 1 Tab PO Q4HRS PRN Carisoprodol 350 Mg Tablet 1 Tab PO TID Diphedryl (Diphenhydramine Hcl) 25 Mg Capsule 25 Mg PO HS Vitals/I & O Vital Sign - Last 24 Hours 06/04/17 06/04/17 06/04/17 06/04/17 11:40 12:00 12:00 16:01 Temp 98.2 97.7 98.2 97.7 Pulse 98 103 104 Resp 16 16 20 B/P (MAP) 92/53 92/53 (66) 115/65 (82) Pulse Ox 95 98 93 O2 Delivery Nasal Cannula Nasal Cannula Room Air O2 Flow Rate 1.0 1.0 06/04/17 06/04/17 06/04/17 06/04/17 17:52 19:00 23:00 23:02 Temp 98.0 97.8 98.0 97.8 Pulse 104 84 93 Resp 18 19 16 B/P (MAP) 115/65 107/52 (70) 112/61 (78) Pulse Ox 93 95 O2 Delivery Room Air Room Air Room Air 06/05/17 06/05/17 06/05/17 06/05/17 00:00 03:07 03:52 06:21 Pulse 78 99 Resp 17 20 B/P (MAP) 112/61 118/55 (76) 135/60 Pulse Ox 95 O2 Delivery Room Air Room Air 06/05/17 06/05/17 06/05/17 06/05/17 07:15 08:00 09:49 09:50 Temp 97.7 97.7 Pulse 90 90 Resp 16 B/P (MAP) 114/60 (78) 114/60 Pulse Ox 96 96 O2 Delivery Room Air Room Air Nasal Cannula O2 Flow Rate 1.0 06/05/17 11:13 Temp 98.0 98.0 Pulse 82 Resp 16 B/P (MAP) 118/59 (78) Pulse Ox 95 O2 Delivery Room Air Intake and Output 06/05/17 06/05/17 06/06/17 15:00 23:00 07:00 Intake Total 240 ml Balance 240 ml Nutrition Consultation Dietary Evaluation: Recommendations by RD: Increase Calorie Intake, Add supplement feedings Comments: REC add Boost pudding to all meals to augment PO intake Expected Outcomes/Goals: PO intake to meet > 75% est needs Malnutrition Findings: Food and Nutrition Intake (Mod: <75% est energy req 7days Weight Status: Appropriate ROVERTO SHEFFIELD III DO Jun 05, 2017 11:26
--- NOTE | 2017-06-05 11:32 | PDOC ---
PULMONARY PROGRESS NOTES Subjective NO SOA Vitals Vital Signs Date Time Temp Pulse Resp B/P (MAP) Pulse Ox O2 Delivery O2 Flow Rate FiO2 06/05/17 11:21 95 Room Air 06/05/17 11:13 98.0 82 16 118/59 (78) 98.0 06/05/17 09:50 1.0 ROS: No Nausea, No Chest Pain, No Abdominal Pain, No Increase Cough General: Alert, No acute distress Lungs: Clear Cardiovascular: S1 Abdomen: Soft, Non-tender Neuro Exam: Alert Extremities: No Edema Skin: Warm Labs Laboratory Tests Test 06/03/17 11:31 06/03/17 16:51 06/03/17 17:10 06/03/17 20:51 Glucose (Fingerstick) 172 mg/dL (70-99) 47 mg/dL (70-99) 178 mg/dL (70-99) 108 mg/dL (70-99) Test 06/04/17 00:23 06/04/17 08:37 06/04/17 12:29 06/04/17 16:49 Glucose (Fingerstick) 131 mg/dL (70-99) 124 mg/dL (70-99) 260 mg/dL (70-99) 131 mg/dL (70-99) Test 06/04/17 20:56 06/05/17 07:39 Glucose (Fingerstick) 144 mg/dL (70-99) 150 mg/dL (70-99) Laboratory Tests Test 06/04/17 12:29 06/04/17 16:49 06/04/17 20:56 06/05/17 07:39 Glucose (Fingerstick) 260 mg/dL (70-99) 131 mg/dL (70-99) 144 mg/dL (70-99) 150 mg/dL (70-99) Medications Active Scripts Medications Dose Route/Sig Max Daily Dose Days Date Category Keppra (Levetiracetam) 250 Mg Tablet 750 Mg PO BID 04/29/16 Rx Levemir Flextouch (Insulin Detemir) 100 Unit/1 Ml Insuln.pen 30 Units SQ QHS 04/29/16 Rx Novolog Flexpen (Insulin Aspart) 100 Unit/1 Ml Insuln.pen 15 Units SQ TIDAC 04/29/16 Rx Lyrica (Pregabalin) 75 Mg Capsule 1 Cap PO BID 09/12/15 Reported Keppra (Levetiracetam) 500 Mg Tablet 1 Tab PO BID 09/12/15 Reported Lamictal (Lamotrigine) 200 Mg Tablet 200 Mg PO BID 09/12/15 Reported Duoneb 0.5-3(2.5) Mg/3 Ml (Albuterol/Ipratropium) 3 Ml Ampul.neb 3 Ml IH PRN QID PRN 02/01/15 Rx [Nicotine] 1 PATCH Patch 1 Patch TD DAILY 02/01/15 Rx Mucinex (Guaifenesin) 600 Mg Tablet.er 1,200 Mg PO BID 02/01/15 Rx Latuda (Lurasidone Hcl) 20 Mg Tablet 20 Mg PO 01/30/15 Reported Metoprolol Succinate 50 Mg Tab.er.24h 50 Mg PO 01/30/15 Reported Lisinopril 20 Mg Tablet 1 Tab PO DAILY 01/30/15 Reported Symbicort 160-4.5 Mcg Inhaler (Budesonide/Formoterol Fumarate) 10.2 Gm Hfa.aer.ad Unknown Dose IH BID 01/30/15 Reported Proair Hfa Inhaler (Albuterol Sulfate) 8.5 Gm Hfa.aer.ad Unknown Dose INH 01/30/15 Reported Omeprazole 40 Mg Capsule.dr 40 Mg PO DAILY 01/30/15 Reported Cetirizine Hcl 10 Mg Tablet 1 Tab PO DAILY 01/30/15 Reported Oxycodone-Acetaminophen 10-325 (Oxycodone Hcl/Acetaminophen) 1 Each Tablet 1 Tab PO Q4HRS PRN 01/30/15 Reported Carisoprodol 350 Mg Tablet 1 Tab PO TID 01/30/15 Reported Diphedryl (Diphenhydramine Hcl) 25 Mg Capsule 25 Mg PO HS 01/30/15 Reported Impression . 1. Acute hypercapnic respiratory failure secondary to drug OD 2. Acute seizures 3. Acute drug overdose including Benadryl and Tylenol. 4. Anion gap metabolic acidosis/lactic acidosis secondary to seizure . 5. Abnormal chest x-ray with left lower lobe atelectasis versus infiltrate 6. History of tobacco use. 7. Narcotic dependent with opiates positive on the drug screen. Plan . RESP STATUS COMPENSATED DYSPHAGIA DIET PRN OXYGEN OFF ANTIBIOTIC CXR 06/03 CLEAR awaiting Psych clearance D/W SURAJ BAEZ MD Jun 05, 2017 11:32
--- NOTE | 2017-06-05 14:33 | PDOC ---
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 Intellectual disability Plan As per PAT: inpatient placement Continue levetiracetam by mouth Lamotrigine Subjective Complains of a sore throat, probably from intubation Objective Vital Signs Date Time Temp Pulse Resp B/P (MAP) Pulse Ox O2 Delivery O2 Flow Rate FiO2 06/05/17 12:30 82 118/59 06/05/17 11:21 95 Room Air 06/05/17 11:13 98.0 16 98.0 06/05/17 09:50 1.0 Intake and Output 06/06/17 07:00 Intake Total 600 ml Balance 600 ml Intake Oral 600 ml # Voids 2 PHYSICAL EXAM Alert. Follows commands. Does not know date or name of hospital. PERRL. EOMI. CN: no focal findings. Muscle tone: normal. Muscle strength: 4/5 DTR: 1+ Plantar reflex: flexor Gait: not examined in bed. Sensory exam: no abnormal findings. No cerebellar signs elicited. Review of Relevant I have reviewed the following items jinny (where applicable) has been applied. Labs Laboratory Tests Test 06/03/17 16:51 06/03/17 17:10 06/03/17 20:51 06/04/17 00:23 Glucose (Fingerstick) 47 mg/dL (70-99) 178 mg/dL (70-99) 108 mg/dL (70-99) 131 mg/dL (70-99) Test 06/04/17 08:37 06/04/17 12:29 06/04/17 16:49 06/04/17 20:56 Glucose (Fingerstick) 124 mg/dL (70-99) 260 mg/dL (70-99) 131 mg/dL (70-99) 144 mg/dL (70-99) Test 06/05/17 07:39 06/05/17 12:35 Glucose (Fingerstick) 150 mg/dL (70-99) 190 mg/dL (70-99) Laboratory Tests Test 06/04/17 16:49 06/04/17 20:56 06/05/17 07:39 06/05/17 12:35 Glucose (Fingerstick) 131 mg/dL (70-99) 144 mg/dL (70-99) 150 mg/dL (70-99) 190 mg/dL (70-99) Microbiology 05/31/17 Blood Culture - Preliminary, Resulted NO GROWTH AFTER 4 DAYS Medications Current Medications Lorazepam (Ativan) 1 mg 1X ONCE IV Last administered on 05/31/17 13:54; Start 05/31/17 at 13:45; Stop 05/31/17 at 13:46; Status DC Sodium Chloride 1,000 ml @ 1,000 mls/hr Q1H IV Last administered on 05/31/17 13:54; Start 05/31/17 at 13:36; Stop 05/31/17 at 14:35; Status DC Lorazepam (Ativan) 2 mg 1X ONCE IV Last administered on 05/31/17 14:23; Start 05/31/17 at 14:00; Stop 05/31/17 at 14:01; Status DC Sodium Bicarbonate 50 meq 1X ONCE IV Last administered on 05/31/17 14:41; Start 05/31/17 at 14:30; Stop 05/31/17 at 14:32; Status DC Sodium Bicarbonate 50 meq 1X ONCE IV Last administered on 05/31/17 14:44; Start 05/31/17 at 14:30; Stop 05/31/17 at 14:32; Status DC Sodium Chloride 1,000 ml @ 1,000 mls/hr 1X ONCE IV Last administered on 14:44; Start 05/31/17 at 14:45; Stop 05/31/17 at 15:44; Status DC Lorazepam (Ativan) 1 mg 1X ONCE IV Last administered on 05/31/17 14:50; Start 05/31/17 at 15:00; Stop 05/31/17 at 15:01; Status DC Etomidate (Amidate) 20 mg 1X ONCE IV Last administered on 05/31/17 14:54; Start 05/31/17 at 15:00; Stop 05/31/17 at 15:01; Status DC Succinylcholine Chloride (Anectine) 100 mg 1X ONCE IV Last administered on 14:54; Start 05/31/17 at 15:00; Stop 05/31/17 at 15:01; Status DC Propofol (Diprivan) 200,000 mg 1X ONCE IV ; Start 05/31/17 at 15:00; Stop 05/31 at 15:01; Status Cancel Propofol 50 ml @ As Directed STK-MED ONCE IV ; Start 05/31/17 at 15:19; Stop at 15:20; Status DC Propofol 50 ml @ 0 mls/hr 1X ONCE IV Last administered on 05/31/17 15:20; Start 05/31/17 at 15:45; Stop 05/31/17 at 15:46; Status DC Levetiracetam 500 mg/Sodium Chloride 100 ml @ 400 mls/hr Q12HR IV ; Start 05/31 at 21:00; Stop 05/31/17 at 21:00; Status DC Levetiracetam 500 mg/Sodium Chloride 105 ml @ 400 mls/hr Q12HR IV Last administered on 06/03/17 20:39; Start 05/31/17 at 16:00; Stop 06/04/17 at 08:27 ; Status DC Sodium Chloride 1,000 ml @ 150 mls/hr 1X ONCE IV Last administered on 16:00; Start 05/31/17 at 16:15; Stop 05/31/17 at 22:54; Status DC Acetylcysteine 6 gm/Dextrose 230 ml @ 230 mls/hr 1X ONCE IV Last administered on 05/31/17 17:49; Start 05/31/17 at 17:30; Stop 05/31/17 at 18:29 ; Status DC Acetylcysteine 2 gm/Dextrose 510 ml @ 127.5 mls/ hr 1X ONCE IV Last administered on 05/31/17 19:00; Start 05/31/17 at 18:30; Stop 05/31/17 at 22:29 ; Status DC Acetylcysteine 4 gm/Dextrose 1,020 ml @ 63.75 mls/ hr 1X ONCE IV Last administered on 05/31/17 22:48; Start 05/31/17 at 22:30; Stop 06/01/17 at 14:29 ; Status DC Fentanyl Citrate (Fentanyl 2ml Vial) 50 mcg PRN Q1HR PRN IV PAIN Last administered on 06/02/17 05:36; Start 05/31/17 at 17:00 Sodium Bicarbonate 100 meq PRN Q15MIN PRN IV SEIZURES; Start 05/31/17 at 17:00 Propofol 100 ml @ 0 mls/hr CONT PRN IV SEE I/O RECORD Last administered on 06/01 17:17; Start 05/31/17 at 17:00 Sodium Chloride 1,000 ml @ 125 mls/hr Q8H IV Last administered on 06/02/17 15 :21; Start 05/31/17 at 17:00; Stop 06/02/17 at 20:42; Status DC Ceftriaxone Sodium 1 gm/ Sodium Chloride 50 ml @ 100 mls/hr Q24H IV Last administered on 06/03/17 17:13; Start 05/31/17 at 17:30; Stop 06/04/17 at 09:55 ; Status DC Insulin Aspart (NovoLOG) 20 units 1X ONCE SQ Last administered on 05/31/17 19 :46; Start 05/31/17 at 19:30; Stop 05/31/17 at 19:31; Status DC Insulin Aspart (NovoLOG) 0-7 UNITS Q6HRS SQ Last administered on 06/01/17 06: 04; Start 06/01/17 at 00:00; Stop 06/01/17 at 09:28; Status DC Dextrose (Dextrose 50%-Water Syringe) 12.5 gm PRN Q15MIN PRN IV SEE COMMENTS; Start 05/31/17 at 20:15; Status Cancel Labetalol HCl (Normodyne) 20 mg PRN Q4HRS PRN IVP HYPERTENSION, SEE COMMENTS Last administered on 06/03/17 08:32; Start 05/31/17 at 20:15 Potassium Chloride 100 ml @ 100 mls/hr Q1H IV Last administered on 05/31/17 23:49; Start 05/31/17 at 20:45; Stop 06/01/17 at 00:44; Status DC Enoxaparin Sodium (Lovenox 40mg Syringe) 40 mg QHS SQ Last administered on 06/04 21:05; Start 05/31/17 at 23:30 Calcium Gluconate 1000 mg/Sodium Chloride 110 ml @ 220 mls/hr 1X ONCE IV Last administered on 06/01/17 07:06; Start 06/01/17 at 07:00; Stop 06/01/17 at 07:29; Status DC Potassium Chloride 100 ml @ 100 mls/hr Q1H IV Last administered on 06/01/17 10:19; Start 06/01/17 at 07:00; Stop 06/01/17 at 10:59; Status DC Ondansetron HCl (Zofran) 4 mg PRN Q6HRS PRN IV NAUSEA/VOMITING; Start 06/01/17 at 09:30 Potassium Chloride (KCl Oral Soln) 40 meq 1X ONCE PEG Last administered on 10:03; Start 06/01/17 at 10:00; Stop 06/01/17 at 10:01; Status DC Insulin Aspart (NovoLOG) 0-9 UNITS TIDWMEALS SQ Last administered on 06/05/17 12:38; Start 06/01/17 at 12:00 Dextrose (Dextrose 50%-Water Syringe) 12.5 gm PRN Q15MIN PRN IV SEE COMMENTS Last administered on 06/03/17 16:54; Start 06/01/17 at 09:30 Insulin Aspart (NovoLOG) 10 units 1X ONCE SQ Last administered on 06/01/17 10 :18; Start 06/01/17 at 10:00; Stop 06/01/17 at 10:01; Status DC Magnesium Sulfate/ Dextrose 50 ml @ 25 mls/hr 1X ONCE IV Last administered on 06/01/17 10:01; Start 06/01/17 at 10:00; Stop 06/01/17 at 11:59; Status DC Enoxaparin Sodium (Lovenox 40mg Syringe) 40 mg Q24H SQ ; Start 06/01/17 at 11:15 ; Status UNV Famotidine (Pepcid) 20 mg BID IVP Last administered on 06/03/17 20:39; Start 06/01/17 at 12:00; Stop 06/04/17 at 09:55; Status DC Calcium Gluconate 1000 mg/Sodium Chloride 110 ml @ 220 mls/hr 1X ONCE IV Last administered on 06/01/17 11:19; Start 06/01/17 at 11:15; Stop 06/01/17 at 11:44; Status DC Potassium Chloride (KCl Oral Soln) 40 meq BID PEG Last administered on 09:03; Start 06/02/17 at 09:00; Stop 06/02/17 at 20:42; Status DC Potassium Chloride (KCl Oral Soln) 40 meq 1X ONCE PEG Last administered on 15:15; Start 06/01/17 at 15:00; Stop 06/01/17 at 15:01; Status DC Magnesium Sulfate/ Dextrose 100 ml @ 50 mls/hr DAILY IV Last administered on 06/02/17 09:04; Start 06/02/17 at 09:00; Stop 06/05/17 at 08:59; Status DC Propofol (Diprivan) 200 mg 1X ONCE IV Last administered on 05/31/17 15:00; Start 05/31/17 at 15:00; Stop 06/02/17 at 11:44; Status DC Info (Do NOT chart on this placeholder) 1 each 1X ONCE MC ; Start 06/02/17 at 14:45; Stop 06/02/17 at 14:46; Status UNV Influenza Virus Vaccine Quadrival (Fluarix Quad [id number] Syringe) 0.5 ml ONCE ONCE VAX IM Last administered on 06/02/17 15:21; Start 06/02/17 at 15:00; Stop 06/02/17 at 15:01; Status DC Tramadol HCl (Ultram) 50 mg PRN Q6HRS PRN PO MILD PAIN Last administered on 09:50; Start 06/02/17 at 19:30 Sumatriptan Succinate (Imitrex) 25 mg PRN Q2HR PRN PO MIGRAINE HEADACHE Last administered on 06/03/17 07:53; Start 06/02/17 at 19:30 Potassium Chloride 20 meq/ Sodium Chloride 1,010 ml @ 75 mls/hr [id number] IV Last administered on 06/02/17 21:12; Start 06/02/17 at 21:00; Stop 06/03/17 at 06:37; Status DC Lorazepam (Ativan) 0.5 mg PRN Q4HRS PRN IV ANXIETY / AGITATION Last administered on 06/05/17 10:03; Start 06/03/17 at 06:45 Potassium Chloride/Sodium Chloride 1,000 ml @ 75 mls/hr [id number] IV Last administered on 06/04/17 00:08; Start 06/03/17 at 08:00; Stop 06/04/17 at 01:00 ; Status DC Metoprolol Tartrate (Lopressor) 5 mg 1X ONCE IVP Last administered on 09:24; Start 06/03/17 at 09:15; Stop 06/03/17 at 09:16; Status DC Metoprolol Tartrate (Lopressor) 5 mg Q6HRS IVP Last administered on 06/05/17 12:30; Start 06/03/17 at 12:00 Carisoprodol (Soma) 350 mg TID PO Last administered on 06/05/17 09:51; Start 06/03/17 at 09:00 Cetirizine HCl (ZyrTEC) 10 mg DAILY PO Last administered on 06/05/17 09:49; Start 06/03/17 at 09:00 Diphenhydramine HCl (Benadryl) 25 mg HS PO ; Start 06/03/17 at 21:00; Stop 06/04 at 09:55; Status DC Guaifenesin (Mucinex) 1,200 mg BID PO Last administered on 06/05/17 09:47; Start 06/03/17 at 10:00 Insulin Aspart (NovoLOG) 15 units TIDAC SQ Last administered on 06/04/17 12:33 ; Start 06/03/17 at 11:30 Insulin Detemir (Levemir) 30 units QHS SQ Last administered on 06/04/17 21:37 ; Start 06/03/17 at 21:00 Albuterol Sulfate (Ventolin Neb Soln) 2.5 mg PRN QID PRN NEB SHORTNESS OF BREATH; Start 06/03/17 at 09:15 Lisinopril (Prinivil) 20 mg DAILY PO Last administered on 06/05/17 09:49; Start 06/03/17 at 10:00 Metoprolol Succinate (Toprol Xl) 50 mg DAILY PO ; Start 06/03/17 at 09:00; Status UNV Oxycodone/ Acetaminophen (Percocet 10/325) 1 tab PRN Q4HRS PRN PO MODERATE - SEVERE PAIN Last administered on 06/05/17 03:52; Start 06/03/17 at 08:45 Pregabalin (Lyrica) 75 mg BID PO Last administered on 06/05/17 09:48; Start 06/03/17 at 10:00 Pantoprazole Sodium (Protonix) 40 mg DAILYAC PO Last administered on 06/05/17 09:49; Start 06/03/17 at 10:00 Nicotine (Nicoderm Cq 14mg) 1 patch DAILY TD Last administered on 06/05/17 09: 56; Start 06/03/17 at 10:00 Haloperidol Lactate (Haldol) 5 mg PRN Q6HRS PRN IVP AGITATION Last administered on 06/03/17 12:54; Start 06/03/17 at 10:30; Stop 06/04/17 at 01:00 ; Status DC Lorazepam (Ativan) 2 mg PRN Q4HRS PRN IV ANXIETY / AGITATION; Start 06/03/17 at 10:30 Sodium Chloride 1,000 ml @ 100 mls/hr Q10H IV Last administered on 06/05/17 11:18; Start 06/04/17 at 01:00 Levetiracetam (Keppra) 500 mg BID PO Last administered on 06/05/17 09:49; Start 06/04/17 at 09:00 Lamotrigine (LaMICtal) 200 mg BID PO Last administered on 06/05/17 09:47; Start 06/04/17 at 09:00 Fluoxetine HCl (PROzac) 20 mg DAILY PO Last administered on 06/05/17 11:18; Start 06/05/17 at 12:00 Alprazolam (Xanax) 1 mg Q6HRS PRN PO ANXIETY / AGITATION; Start 06/05/17 at 11: 15 Active Scripts Active Keppra (Levetiracetam) 250 Mg Tablet 750 Mg PO BID Levemir Flextouch (Insulin Detemir) 100 Unit/1 Ml Insuln.pen 30 Units SQ QHS Novolog Flexpen (Insulin Aspart) 100 Unit/1 Ml Insuln.pen 15 Units SQ TIDAC Duoneb 0.5-3(2.5) Mg/3 Ml (Albuterol/Ipratropium) 3 Ml Ampul.neb 3 Ml IH PRN QID PRN [Nicotine] 1 PATCH Patch 1 Patch TD DAILY Mucinex (Guaifenesin) 600 Mg Tablet.er 1,200 Mg PO BID Reported Lyrica (Pregabalin) 75 Mg Capsule 1 Cap PO BID Keppra (Levetiracetam) 500 Mg Tablet 1 Tab PO BID Lamictal (Lamotrigine) 200 Mg Tablet 200 Mg PO BID Latuda (Lurasidone Hcl) 20 Mg Tablet 20 Mg PO Metoprolol Succinate 50 Mg Tab.er.24h 50 Mg PO Lisinopril 20 Mg Tablet 1 Tab PO DAILY Symbicort 160-4.5 Mcg Inhaler (Budesonide/Formoterol Fumarate) 10.2 Gm Hfa.aer.ad Unknown Dose IH BID Proair Hfa Inhaler (Albuterol Sulfate) 8.5 Gm Hfa.aer.ad Unknown Dose INH Omeprazole 40 Mg Capsule.dr 40 Mg PO DAILY Cetirizine Hcl 10 Mg Tablet 1 Tab PO DAILY Oxycodone-Acetaminophen 10-325 (Oxycodone Hcl/Acetaminophen) 1 Each Tablet 1 Tab PO Q4HRS PRN Carisoprodol 350 Mg Tablet 1 Tab PO TID Diphedryl (Diphenhydramine Hcl) 25 Mg Capsule 25 Mg PO HS Vitals/I & O Vital Sign - Last 24 Hours 06/04/17 06/04/17 06/04/17 06/04/17 16:01 17:52 19:00 23:00 Temp 97.7 98.0 97.8 97.7 98.0 97.8 Pulse 104 104 84 93 Resp 20 18 19 B/P (MAP) 115/65 (82) 115/65 107/52 (70) 112/61 (78) Pulse Ox 93 93 95 O2 Delivery Room Air Room Air Room Air 06/04/17 06/05/17 06/05/17 06/05/17 23:02 00:00 03:07 03:52 Pulse 78 Resp 16 17 20 B/P (MAP) 112/61 118/55 (76) Pulse Ox 95 O2 Delivery Room Air Room Air Room Air 06/05/17 06/05/17 06/05/17 06/05/17 06:21 07:15 08:00 09:49 Temp 97.7 97.7 Pulse 99 90 90 Resp 16 B/P (MAP) 135/60 114/60 (78) 114/60 Pulse Ox 96 O2 Delivery Room Air Room Air 06/05/17 06/05/17 06/05/17 06/05/17 09:50 11:13 11:21 12:30 Temp 98.0 98.0 Pulse 82 82 Resp 16 B/P (MAP) 118/59 (78) 118/59 Pulse Ox 96 95 95 O2 Delivery Nasal Cannula Room Air Room Air O2 Flow Rate 1.0 Intake and Output 06/05/17 06/05/17 06/06/17 15:00 23:00 07:00 Intake Total 600 ml Balance 600 ml KAYLIE LUNDBERG MD Jun 05, 2017 14:33
[2017-06-05 15:03] VITALS: BP 115/63
[2017-06-05 19:38] VITALS: BP 148/81
[2017-06-05] MEDS: ENOXAPARIN 40 MG/0.4 ML SYRINGE. SQ SCH (20:38)
[2017-06-05] MEDS: INSULIN DETEMIR 300 UNITS/3 ML INSULN.PEN. SQ SCH (20:56)
[2017-06-05 23:50] VITALS: BP 107/62
[2017-06-06] MEDS: oxyCODONE/APAP 10/325 1 TAB TABLET PO PRN ×2 (02:47→12:30)
[2017-06-06 03:40] VITALS: BP 121/80
[2017-06-06 05:44] VITALS: BP 114/60
[2017-06-06] MEDS: IV NORMAL SALINE 1000ML BAG 1,000 ML IV SCH (05:46)
[2017-06-06] MEDS: METOPROLOL TARTRATE 5 MG/5 ML VIAL. IVP SCH (05:48)
[2017-06-06 07:00] VITALS: BP 124/66
[2017-06-06] MEDS: INSULIN ASPART 300 UNITS/3 ML INSULN.PEN SQ SCH ×6 (07:30→17:00)
--- NOTE | 2017-06-06 08:01 | PDOC ---
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 Intellectual disability Plan As per PAT: inpatient placement Continue levetiracetam by mouth Lamotrigine Subjective Still complains of sore throat Objective Vital Signs Date Time Temp Pulse Resp B/P (MAP) Pulse Ox O2 Delivery O2 Flow Rate FiO2 06/06/17 07:00 97.7 85 18 124/66 (85) 96 Nasal Cannula 1.0 97.7 PHYSICAL EXAM Alert. Follows commands. Does not know date, knows name of hospital. PERRL. EOMI. CN: no focal findings. Muscle tone: normal. Muscle strength: 4/5 DTR: 1+ Plantar reflex: flexor Gait: not examined in bed. Sensory exam: no abnormal findings. No cerebellar signs elicited. Review of Relevant I have reviewed the following items jinny (where applicable) has been applied. Labs Laboratory Tests Test 06/04/17 08:37 06/04/17 12:29 06/04/17 16:49 06/04/17 20:56 Glucose (Fingerstick) 124 mg/dL (70-99) 260 mg/dL (70-99) 131 mg/dL (70-99) 144 mg/dL (70-99) Test 06/05/17 07:39 06/05/17 12:35 06/05/17 16:45 06/05/17 20:33 Glucose (Fingerstick) 150 mg/dL (70-99) 190 mg/dL (70-99) 147 mg/dL (70-99) 236 mg/dL (70-99) Laboratory Tests Test 06/05/17 12:35 06/05/17 16:45 06/05/17 20:33 Glucose (Fingerstick) 190 mg/dL (70-99) 147 mg/dL (70-99) 236 mg/dL (70-99) Microbiology 05/31/17 Blood Culture - Final, Complete NO GROWTH AFTER 5 DAYS Medications Current Medications Lorazepam (Ativan) 1 mg 1X ONCE IV Last administered on 05/31/17t 13:54; Start 05/31/17 at 13:45; Stop 05/31/17 at 13:46; Status DC Sodium Chloride 1,000 ml @ 1,000 mls/hr Q1H IV Last administered on 05/31/17 13:54; Start 05/31/17 at 13:36; Stop 05/31/17 at 14:35; Status DC Lorazepam (Ativan) 2 mg 1X ONCE IV Last administered on 05/31/17 14:23; Start 05/31/17 at 14:00; Stop 05/31/17 at 14:01; Status DC Sodium Bicarbonate 50 meq 1X ONCE IV Last administered on 05/31/17 14:41; Start 05/31/17 at 14:30; Stop 05/31/17 at 14:32; Status DC Sodium Bicarbonate 50 meq 1X ONCE IV Last administered on 05/31/17 14:44; Start 05/31/17 at 14:30; Stop 05/31/17 at 14:32; Status DC Sodium Chloride 1,000 ml @ 1,000 mls/hr 1X ONCE IV Last administered on 14:44; Start 05/31/17 at 14:45; Stop 05/31/17 at 15:44; Status DC Lorazepam (Ativan) 1 mg 1X ONCE IV Last administered on 05/31/17 14:50; Start 05/31/17 at 15:00; Stop 05/31/17 at 15:01; Status DC Etomidate (Amidate) 20 mg 1X ONCE IV Last administered on 05/31/17 14:54; Start 05/31/17 at 15:00; Stop 05/31/17 at 15:01; Status DC Succinylcholine Chloride (Anectine) 100 mg 1X ONCE IV Last administered on 14:54; Start 05/31/17 at 15:00; Stop 05/31/17 at 15:01; Status DC Propofol (Diprivan) 200,000 mg 1X ONCE IV ; Start 05/31/17 at 15:00; Stop 05/31 at 15:01; Status Cancel Propofol 50 ml @ As Directed STK-MED ONCE IV ; Start 05/31/17 at 15:19; Stop at 15:20; Status DC Propofol 50 ml @ 0 mls/hr 1X ONCE IV Last administered on 05/31/17 15:20; Start 05/31/17 at 15:45; Stop 05/31/17 at 15:46; Status DC Levetiracetam 500 mg/Sodium Chloride 100 ml @ 400 mls/hr Q12HR IV ; Start 05/31 at 21:00; Stop 05/31/17 at 21:00; Status DC Levetiracetam 500 mg/Sodium Chloride 105 ml @ 400 mls/hr Q12HR IV Last administered on 06/03/17 20:39; Start 05/31/17 at 16:00; Stop 06/04/17 at 08:27 ; Status DC Sodium Chloride 1,000 ml @ 150 mls/hr 1X ONCE IV Last administered on 16:00; Start 05/31/17 at 16:15; Stop 05/31/17 at 22:54; Status DC Acetylcysteine 6 gm/Dextrose 230 ml @ 230 mls/hr 1X ONCE IV Last administered on 05/31/17 17:49; Start 05/31/17 at 17:30; Stop 05/31/17 at 18:29 ; Status DC Acetylcysteine 2 gm/Dextrose 510 ml @ 127.5 mls/ hr 1X ONCE IV Last administered on 05/31/17 19:00; Start 05/31/17 at 18:30; Stop 05/31/17 at 22:29 ; Status DC Acetylcysteine 4 gm/Dextrose 1,020 ml @ 63.75 mls/ hr 1X ONCE IV Last administered on 05/31/17 22:48; Start 05/31/17 at 22:30; Stop 06/01/17 at 14:29 ; Status DC Fentanyl Citrate (Fentanyl 2ml Vial) 50 mcg PRN Q1HR PRN IV PAIN Last administered on 06/02/17 05:36; Start 05/31/17 at 17:00 Sodium Bicarbonate 100 meq PRN Q15MIN PRN IV SEIZURES; Start 05/31/17 at 17:00 Propofol 100 ml @ 0 mls/hr CONT PRN IV SEE I/O RECORD Last administered on 06/01 17:17; Start 05/31/17 at 17:00 Sodium Chloride 1,000 ml @ 125 mls/hr Q8H IV Last administered on 06/02/17 15 :21; Start 05/31/17 at 17:00; Stop 06/02/17 at 20:42; Status DC Ceftriaxone Sodium 1 gm/ Sodium Chloride 50 ml @ 100 mls/hr Q24H IV Last administered on 06/03/17 17:13; Start 05/31/17 at 17:30; Stop 06/04/17 at 09:55 ; Status DC Insulin Aspart (NovoLOG) 20 units 1X ONCE SQ Last administered on 05/31/17 19 :46; Start 05/31/17 at 19:30; Stop 05/31/17 at 19:31; Status DC Insulin Aspart (NovoLOG) 0-7 UNITS Q6HRS SQ Last administered on 06/01/17 06: 04; Start 06/01/17 at 00:00; Stop 06/01/17 at 09:28; Status DC Dextrose (Dextrose 50%-Water Syringe) 12.5 gm PRN Q15MIN PRN IV SEE COMMENTS; Start 05/31/17 at 20:15; Status Cancel Labetalol HCl (Normodyne) 20 mg PRN Q4HRS PRN IVP HYPERTENSION, SEE COMMENTS Last administered on 06/03/17 08:32; Start 05/31/17 at 20:15 Potassium Chloride 100 ml @ 100 mls/hr Q1H IV Last administered on 05/31/17 23:49; Start 05/31/17 at 20:45; Stop 06/01/17 at 00:44; Status DC Enoxaparin Sodium (Lovenox 40mg Syringe) 40 mg QHS SQ Last administered on 06/05 20:38; Start 05/31/17 at 23:30 Calcium Gluconate 1000 mg/Sodium Chloride 110 ml @ 220 mls/hr 1X ONCE IV Last administered on 06/01/17 07:06; Start 06/01/17 at 07:00; Stop 06/01/17 at 07:29; Status DC Potassium Chloride 100 ml @ 100 mls/hr Q1H IV Last administered on 06/01/17 10:19; Start 06/01/17 at 07:00; Stop 06/01/17 at 10:59; Status DC Ondansetron HCl (Zofran) 4 mg PRN Q6HRS PRN IV NAUSEA/VOMITING; Start 06/01/17 at 09:30 Potassium Chloride (KCl Oral Soln) 40 meq 1X ONCE PEG Last administered on 10:03; Start 06/01/17 at 10:00; Stop 06/01/17 at 10:01; Status DC Insulin Aspart (NovoLOG) 0-9 UNITS TIDWMEALS SQ Last administered on 06/05/17 12:38; Start 06/01/17 at 12:00 Dextrose (Dextrose 50%-Water Syringe) 12.5 gm PRN Q15MIN PRN IV SEE COMMENTS Last administered on 06/03/17 16:54; Start 06/01/17 at 09:30 Insulin Aspart (NovoLOG) 10 units 1X ONCE SQ Last administered on 06/01/17 10 :18; Start 06/01/17 at 10:00; Stop 06/01/17 at 10:01; Status DC Magnesium Sulfate/ Dextrose 50 ml @ 25 mls/hr 1X ONCE IV Last administered on 06/01/17 10:01; Start 06/01/17 at 10:00; Stop 06/01/17 at 11:59; Status DC Enoxaparin Sodium (Lovenox 40mg Syringe) 40 mg Q24H SQ ; Start 06/01/17 at 11:15 ; Status UNV Famotidine (Pepcid) 20 mg BID IVP Last administered on 06/03/17 20:39; Start 06/01/17 at 12:00; Stop 06/04/17 at 09:55; Status DC Calcium Gluconate 1000 mg/Sodium Chloride 110 ml @ 220 mls/hr 1X ONCE IV Last administered on 06/01/17 11:19; Start 06/01/17 at 11:15; Stop 06/01/17 at 11:44; Status DC Potassium Chloride (KCl Oral Soln) 40 meq BID PEG Last administered on 09:03; Start 06/02/17 at 09:00; Stop 06/02/17 at 20:42; Status DC Potassium Chloride (KCl Oral Soln) 40 meq 1X ONCE PEG Last administered on 15:15; Start 06/01/17 at 15:00; Stop 06/01/17 at 15:01; Status DC Magnesium Sulfate/ Dextrose 100 ml @ 50 mls/hr DAILY IV Last administered on 06/02/17 09:04; Start 06/02/17 at 09:00; Stop 06/05/17 at 08:59; Status DC Propofol (Diprivan) 200 mg 1X ONCE IV Last administered on 05/31/17 15:00; Start 05/31/17 at 15:00; Stop 06/02/17 at 11:44; Status DC Info (Do NOT chart on this placeholder) 1 each 1X ONCE MC ; Start 06/02/17 at 14:45; Stop 06/02/17 at 14:46; Status UNV Influenza Virus Vaccine Quadrival (Fluarix Quad [id number] Syringe) 0.5 ml ONCE ONCE VAX IM Last administered on 06/02/17 15:21; Start 06/02/17 at 15:00; Stop 06/02/17 at 15:01; Status DC Tramadol HCl (Ultram) 50 mg PRN Q6HRS PRN PO MILD PAIN Last administered on 09:50; Start 06/02/17 at 19:30 Sumatriptan Succinate (Imitrex) 25 mg PRN Q2HR PRN PO MIGRAINE HEADACHE Last administered on 06/03/17 07:53; Start 06/02/17 at 19:30 Potassium Chloride 20 meq/ Sodium Chloride 1,010 ml @ 75 mls/hr [id number] IV Last administered on 06/02/17 21:12; Start 06/02/17 at 21:00; Stop 06/03/17 at 06:37; Status DC Lorazepam (Ativan) 0.5 mg PRN Q4HRS PRN IV ANXIETY / AGITATION Last administered on 06/06/17 03:14; Start 06/03/17 at 06:45 Potassium Chloride/Sodium Chloride 1,000 ml @ 75 mls/hr [id number] IV Last administered on 06/04/17 00:08; Start 06/03/17 at 08:00; Stop 06/04/17 at 01:00 ; Status DC Metoprolol Tartrate (Lopressor) 5 mg 1X ONCE IVP Last administered on 09:24; Start 06/03/17 at 09:15; Stop 06/03/17 at 09:16; Status DC Metoprolol Tartrate (Lopressor) 5 mg Q6HRS IVP Last administered on 06/05/17 17:54; Start 06/03/17 at 12:00 Carisoprodol (Soma) 350 mg TID PO Last administered on 06/05/17 20:38; Start 06/03/17 at 09:00 Cetirizine HCl (ZyrTEC) 10 mg DAILY PO Last administered on 06/05/17 09:49; Start 06/03/17 at 09:00 Diphenhydramine HCl (Benadryl) 25 mg HS PO ; Start 06/03/17 at 21:00; Stop 06/04 at 09:55; Status DC Guaifenesin (Mucinex) 1,200 mg BID PO Last administered on 06/05/17 20:38; Start 06/03/17 at 10:00 Insulin Aspart (NovoLOG) 15 units TIDAC SQ Last administered on 06/04/17 12:33 ; Start 06/03/17 at 11:30 Insulin Detemir (Levemir) 30 units QHS SQ Last administered on 06/05/17 20:56 ; Start 06/03/17 at 21:00 Albuterol Sulfate (Ventolin Neb Soln) 2.5 mg PRN QID PRN NEB SHORTNESS OF BREATH; Start 06/03/17 at 09:15 Lisinopril (Prinivil) 20 mg DAILY PO Last administered on 06/05/17 09:49; Start 06/03/17 at 10:00 Metoprolol Succinate (Toprol Xl) 50 mg DAILY PO ; Start 06/03/17 at 09:00; Status UNV Oxycodone/ Acetaminophen (Percocet 10/325) 1 tab PRN Q4HRS PRN PO MODERATE - SEVERE PAIN Last administered on 06/06/17 02:47; Start 06/03/17 at 08:45 Pregabalin (Lyrica) 75 mg BID PO Last administered on 06/05/17 20:39; Start 06/03/17 at 10:00 Pantoprazole Sodium (Protonix) 40 mg DAILYAC PO Last administered on 06/05/17 09:49; Start 06/03/17 at 10:00 Nicotine (Nicoderm Cq 14mg) 1 patch DAILY TD Last administered on 06/05/17 09: 56; Start 06/03/17 at 10:00 Haloperidol Lactate (Haldol) 5 mg PRN Q6HRS PRN IVP AGITATION Last administered on 06/03/17 12:54; Start 06/03/17 at 10:30; Stop 06/04/17 at 01:00 ; Status DC Lorazepam (Ativan) 2 mg PRN Q4HRS PRN IV ANXIETY / AGITATION; Start 06/03/17 at 10:30 Sodium Chloride 1,000 ml @ 100 mls/hr Q10H IV Last administered on 06/06/17 05:46; Start 06/04/17 at 01:00 Levetiracetam (Keppra) 500 mg BID PO Last administered on 06/05/17 20:38; Start 06/04/17 at 09:00 Lamotrigine (LaMICtal) 200 mg BID PO Last administered on 06/05/17 20:38; Start 06/04/17 at 09:00 Fluoxetine HCl (PROzac) 20 mg DAILY PO Last administered on 06/05/17 11:18; Start 06/05/17 at 12:00 Alprazolam (Xanax) 1 mg Q6HRS PRN PO ANXIETY / AGITATION; Start 06/05/17 at 11: 15 Active Scripts Active Keppra (Levetiracetam) 250 Mg Tablet 750 Mg PO BID Levemir Flextouch (Insulin Detemir) 100 Unit/1 Ml Insuln.pen 30 Units SQ QHS Novolog Flexpen (Insulin Aspart) 100 Unit/1 Ml Insuln.pen 15 Units SQ TIDAC Duoneb 0.5-3(2.5) Mg/3 Ml (Albuterol/Ipratropium) 3 Ml Ampul.neb 3 Ml IH PRN QID PRN [Nicotine] 1 PATCH Patch 1 Patch TD DAILY Mucinex (Guaifenesin) 600 Mg Tablet.er 1,200 Mg PO BID Reported Lyrica (Pregabalin) 75 Mg Capsule 1 Cap PO BID Keppra (Levetiracetam) 500 Mg Tablet 1 Tab PO BID Lamictal (Lamotrigine) 200 Mg Tablet 200 Mg PO BID Latuda (Lurasidone Hcl) 20 Mg Tablet 20 Mg PO Metoprolol Succinate 50 Mg Tab.er.24h 50 Mg PO Lisinopril 20 Mg Tablet 1 Tab PO DAILY Symbicort 160-4.5 Mcg Inhaler (Budesonide/Formoterol Fumarate) 10.2 Gm Hfa.aer.ad Unknown Dose IH BID Proair Hfa Inhaler (Albuterol Sulfate) 8.5 Gm Hfa.aer.ad Unknown Dose INH Omeprazole 40 Mg Capsule.dr 40 Mg PO DAILY Cetirizine Hcl 10 Mg Tablet 1 Tab PO DAILY Oxycodone-Acetaminophen 10-325 (Oxycodone Hcl/Acetaminophen) 1 Each Tablet 1 Tab PO Q4HRS PRN Carisoprodol 350 Mg Tablet 1 Tab PO TID Diphedryl (Diphenhydramine Hcl) 25 Mg Capsule 25 Mg PO HS Vitals/I & O Vital Sign - Last 24 Hours 06/05/17 06/05/17 06/05/17 06/05/17 09:49 09:50 11:13 11:21 Temp 98.0 98.0 Pulse 90 82 Resp 16 B/P (MAP) 114/60 118/59 (78) Pulse Ox 96 95 95 O2 Delivery Nasal Cannula Room Air Room Air O2 Flow Rate 1.0 06/05/17 06/05/17 06/05/17 06/05/17 12:30 15:03 17:54 18:04 Temp 97.6 97.6 Pulse 82 78 78 Resp 18 B/P (MAP) 118/59 115/63 (80) 115/63 Pulse Ox 96 96 O2 Delivery Room Air Room Air O2 Flow Rate 1.0 06/05/17 06/05/17 06/05/17 06/06/17 19:38 23:50 23:51 02:47 Temp 98.8 98.6 98.8 98.6 Pulse 97 87 87 Resp 18 18 B/P (MAP) 148/81 (103) 107/62 (77) 107/62 Pulse Ox 92 96 96 O2 Delivery Room Air Nasal Cannula Nasal Cannula O2 Flow Rate 1.0 1.0 06/06/17 06/06/17 06/06/17 06/06/17 03:40 03:49 05:44 05:48 Temp 98.8 98.6 98.8 98.6 Pulse 86 84 84 Resp 18 18 B/P (MAP) 121/80 (94) 114/60 (78) 114/60 Pulse Ox 96 96 95 O2 Delivery Nasal Cannula Nasal Cannula Nasal Cannula O2 Flow Rate 1.0 1.0 1.0 06/06/17 07:00 Temp 97.7 97.7 Pulse 85 Resp 18 B/P (MAP) 124/66 (85) Pulse Ox 96 O2 Delivery Nasal Cannula O2 Flow Rate 1.0 KAYLIE LUNDBERG MD Jun 06, 2017 08:01
[2017-06-06] MEDS: levETIRAcetam 500 MG TABLET PO SCH (09:06)
[2017-06-06] MEDS: PANTOPRAZOLE 40 MG TABLET.DR. PO SCH (09:06)
[2017-06-06] MEDS: lamoTRIgine 100 MG TABLET. PO SCH (09:06)
[2017-06-06] MEDS: FLUoxetine HCL 20 MG CAPSULE PO SCH (09:07)
[2017-06-06] MEDS: CARISOPRODOL 350 MG TABLET PO SCH ×2 (09:07→15:33)
[2017-06-06] MEDS: PREGABALIN 75 MG CAPSULE PO SCH (09:08)
[2017-06-06] MEDS: LISINOPRIL 20 MG TABLET PO SCH (09:08)
[2017-06-06] MEDS: CETIRIZINE HCL 10 MG TABLET. PO SCH (09:09)
[2017-06-06] MEDS: NICOTINE 14MG PATCH. TD SCH (09:09)
[2017-06-06 09:36] LABS: BASO # 0.1 x10^3/uL (0.0-0.2); BASO % 1 % (0-3); EOS % 4 % (0-3); HEMATOCRIT 35.2 % (36.0-47.0); HEMOGLOBIN 11.3 g/dL (12.0-15.5); LYMPH # 2.1 x10^3/uL (1.0-4.8); LYMPH % 25 % (24-48); MEAN CORPUSCULAR HEMOGLOBIN 29 pg (25-35); MEAN CORPUSCULAR HGB CONC 32 g/dL (31-37); MEAN CORPUSCULAR VOLUME 90 fL (79-100); MONO % 10 % (0-9); NEUT % 61 % (31-73); PLATELET COUNT 236 x10^3/uL (140-400); RED BLOOD COUNT 3.91 x10^6/uL (3.50-5.40); RED CELL DISTRIBUTION WIDTH 15.3 % (11.5-14.5); WHITE BLOOD COUNT 8.6 x10^3/uL (4.0-11.0)
[2017-06-06 09:53] LABS: CALCIUM 8.8 mg/dL (8.5-10.1); CREATININE 0.7 mg/dL (0.6-1.0); GFR 85.9; POTASSIUM 3.8 mmol/L (3.5-5.1)
--- NOTE | 2017-06-06 10:20 | PDOC ---
PROGRESS NOTES Chief Complaint Chief Complaint Suicide attempt ASSESSMENT AND PLAN: 1. SA: OD with benadryl/Tylenol. voluntary psych admit, awaiting bed. D/w PAT 2. Acute respiratory failure: 2/2 acute toxic encephalopathy from intentional Drug OD; extubated 06/02 3. Sz d/o: with active SZ POA. on kepra, lamictal 4. Hypocalcemia: resolved 5. PCM: mild-mod. nutrition consult 6. HTN: switch IV to PO BB 7. Prophylaxis: lovenox History of Present Illness History of Present Illness no physical c/o. mentally not comfortable with going home and o/p F/U Vitals Vitals Vital Signs Date Time Temp Pulse Resp B/P (MAP) Pulse Ox O2 Delivery O2 Flow Rate FiO2 06/06/17 09:08 85 124/66 06/06/17 08:00 Room Air 06/06/17 07:00 97.7 18 96 1.0 97.7 Physical Exam General: Alert, Oriented X3, Cooperative, No acute distress Heart: Regular rate Lungs: Clear Abdomen: Normal bowel sounds Extremities: No clubbing Skin: No rashes Labs LABS Laboratory Tests Test 06/05/17 12:35 06/05/17 16:45 06/05/17 20:33 06/06/17 09:10 Glucose (Fingerstick) 190 mg/dL (70-99) 147 mg/dL (70-99) 236 mg/dL (70-99) White Blood Count 8.6 x10^3/uL (4.0-11.0) Red Blood Count 3.91 x10^6/uL (3.50-5.40) Hemoglobin 11.3 g/dL (12.0-15.5) Hematocrit 35.2 % (36.0-47.0) Mean Corpuscular Volume 90 fL (79-100) Mean Corpuscular Hemoglobin 29 pg (25-35) Mean Corpuscular Hemoglobin Concent 32 g/dL (31-37) Red Cell Distribution Width 15.3 % (11.5-14.5) Platelet Count 236 x10^3/uL (140-400) Neutrophils (%) (Auto) 61 % (31-73) Lymphocytes (%) (Auto) 25 % (24-48) Monocytes (%) (Auto) 10 % (0-9) Eosinophils (%) (Auto) 4 % (0-3) Basophils (%) (Auto) 1 % (0-3) Neutrophils # (Auto) 5.2 x10^3uL (1.8-7.7) Lymphocytes # (Auto) 2.1 x10^3/uL (1.0-4.8) Monocytes # (Auto) 0.8 x10^3/uL (0.0-1.1) Eosinophils # (Auto) 0.3 x10^3/uL (0.0-0.7) Basophils # (Auto) 0.1 x10^3/uL (0.0-0.2) Sodium Level 146 mmol/L (136-145) Potassium Level 3.8 mmol/L (3.5-5.1) Chloride Level 110 mmol/L (98-107) Carbon Dioxide Level 30 mmol/L (21-32) Anion Gap 6 (6-14) Blood Urea Nitrogen 9 mg/dL (7-20) Creatinine 0.7 mg/dL (0.6-1.0) Estimated GFR (Cockcroft-Gault) 85.9 Glucose Level 111 mg/dL (70-99) Calcium Level 8.8 mg/dL (8.5-10.1) Nutrition Consultation Dietary Evaluation: Recommendations by RD: Increase Calorie Intake, Add supplement feedings Comments: REC add Boost pudding to all meals to augment PO intake Expected Outcomes/Goals: PO intake to meet > 75% est needs Malnutrition Findings: Food and Nutrition Intake (Mod: <75% est energy req 7days Weight Status: Appropriate ANDREW MONTERO MD Jun 06, 2017 10:20
[2017-06-06 11:08] VITALS: BP 153/78
[2017-06-06] MEDS ORDERED: METOPROLOL TART IMMED RELEASE 25 MG TABLET. PO SCH (12:00)
[2017-06-06] MEDS ORDERED: LOPERAMIDE 2 MG CAPSULE PO PRN (12:00)
--- NOTE | 2017-06-06 12:45 | PDOC ---
PULMONARY PROGRESS NOTES Subjective NO SOA Vitals Vital Signs Date Time Temp Pulse Resp B/P (MAP) Pulse Ox O2 Delivery O2 Flow Rate FiO2 06/06/17 12:30 108 153/78 06/06/17 12:30 98 Room Air 1.0 06/06/17 11:08 97.7 18 97.7 ROS: No Nausea, No Chest Pain, No Abdominal Pain, No Increase Cough General: Alert, No acute distress Lungs: Clear Cardiovascular: S1 Abdomen: Soft, Non-tender Neuro Exam: Alert Extremities: No Edema Skin: Warm Labs Laboratory Tests Test 06/04/17 16:49 06/04/17 20:56 06/05/17 07:39 06/05/17 12:35 Glucose (Fingerstick) 131 mg/dL (70-99) 144 mg/dL (70-99) 150 mg/dL (70-99) 190 mg/dL (70-99) Test 06/05/17 16:45 06/05/17 20:33 06/06/17 09:10 Glucose (Fingerstick) 147 mg/dL (70-99) 236 mg/dL (70-99) White Blood Count 8.6 x10^3/uL (4.0-11.0) Red Blood Count 3.91 x10^6/uL (3.50-5.40) Hemoglobin 11.3 g/dL (12.0-15.5) Hematocrit 35.2 % (36.0-47.0) Mean Corpuscular Volume 90 fL (79-100) Mean Corpuscular Hemoglobin 29 pg (25-35) Mean Corpuscular Hemoglobin Concent 32 g/dL (31-37) Red Cell Distribution Width 15.3 % (11.5-14.5) Platelet Count 236 x10^3/uL (140-400) Neutrophils (%) (Auto) 61 % (31-73) Lymphocytes (%) (Auto) 25 % (24-48) Monocytes (%) (Auto) 10 % (0-9) Eosinophils (%) (Auto) 4 % (0-3) Basophils (%) (Auto) 1 % (0-3) Neutrophils # (Auto) 5.2 x10^3uL (1.8-7.7) Lymphocytes # (Auto) 2.1 x10^3/uL (1.0-4.8) Monocytes # (Auto) 0.8 x10^3/uL (0.0-1.1) Eosinophils # (Auto) 0.3 x10^3/uL (0.0-0.7) Basophils # (Auto) 0.1 x10^3/uL (0.0-0.2) Sodium Level 146 mmol/L (136-145) Potassium Level 3.8 mmol/L (3.5-5.1) Chloride Level 110 mmol/L (98-107) Carbon Dioxide Level 30 mmol/L (21-32) Anion Gap 6 (6-14) Blood Urea Nitrogen 9 mg/dL (7-20) Creatinine 0.7 mg/dL (0.6-1.0) Estimated GFR (Cockcroft-Gault) 85.9 Glucose Level 111 mg/dL (70-99) Calcium Level 8.8 mg/dL (8.5-10.1) Laboratory Tests Test 06/05/17 16:45 06/05/17 20:33 06/06/17 09:10 Glucose (Fingerstick) 147 mg/dL (70-99) 236 mg/dL (70-99) White Blood Count 8.6 x10^3/uL (4.0-11.0) Red Blood Count 3.91 x10^6/uL (3.50-5.40) Hemoglobin 11.3 g/dL (12.0-15.5) Hematocrit 35.2 % (36.0-47.0) Mean Corpuscular Volume 90 fL (79-100) Mean Corpuscular Hemoglobin 29 pg (25-35) Mean Corpuscular Hemoglobin Concent 32 g/dL (31-37) Red Cell Distribution Width 15.3 % (11.5-14.5) Platelet Count 236 x10^3/uL (140-400) Neutrophils (%) (Auto) 61 % (31-73) Lymphocytes (%) (Auto) 25 % (24-48) Monocytes (%) (Auto) 10 % (0-9) Eosinophils (%) (Auto) 4 % (0-3) Basophils (%) (Auto) 1 % (0-3) Neutrophils # (Auto) 5.2 x10^3uL (1.8-7.7) Lymphocytes # (Auto) 2.1 x10^3/uL (1.0-4.8) Monocytes # (Auto) 0.8 x10^3/uL (0.0-1.1) Eosinophils # (Auto) 0.3 x10^3/uL (0.0-0.7) Basophils # (Auto) 0.1 x10^3/uL (0.0-0.2) Sodium Level 146 mmol/L (136-145) Potassium Level 3.8 mmol/L (3.5-5.1) Chloride Level 110 mmol/L (98-107) Carbon Dioxide Level 30 mmol/L (21-32) Anion Gap 6 (6-14) Blood Urea Nitrogen 9 mg/dL (7-20) Creatinine 0.7 mg/dL (0.6-1.0) Estimated GFR (Cockcroft-Gault) 85.9 Glucose Level 111 mg/dL (70-99) Calcium Level 8.8 mg/dL (8.5-10.1) Medications Active Scripts Medications Dose Route/Sig Max Daily Dose Days Date Category Keppra (Levetiracetam) 250 Mg Tablet 750 Mg PO BID 04/29/16 Rx Levemir Flextouch (Insulin Detemir) 100 Unit/1 Ml Insuln.pen 30 Units SQ QHS 04/29/16 Rx Novolog Flexpen (Insulin Aspart) 100 Unit/1 Ml Insuln.pen 15 Units SQ TIDAC 04/29/16 Rx Lyrica (Pregabalin) 75 Mg Capsule 1 Cap PO BID 09/12/15 Reported Keppra (Levetiracetam) 500 Mg Tablet 1 Tab PO BID 09/12/15 Reported Lamictal (Lamotrigine) 200 Mg Tablet 200 Mg PO BID 09/12/15 Reported Duoneb 0.5-3(2.5) Mg/3 Ml (Albuterol/Ipratropium) 3 Ml Ampul.neb 3 Ml IH PRN QID PRN 02/01/15 Rx [Nicotine] 1 PATCH Patch 1 Patch TD DAILY 02/01/15 Rx Mucinex (Guaifenesin) 600 Mg Tablet.er 1,200 Mg PO BID 02/01/15 Rx Latuda (Lurasidone Hcl) 20 Mg Tablet 20 Mg PO 01/30/15 Reported Metoprolol Succinate 50 Mg Tab.er.24h 50 Mg PO 01/30/15 Reported Lisinopril 20 Mg Tablet 1 Tab PO DAILY 01/30/15 Reported Symbicort 160-4.5 Mcg Inhaler (Budesonide/Formoterol Fumarate) 10.2 Gm Hfa.aer.ad Unknown Dose IH BID 01/30/15 Reported Proair Hfa Inhaler (Albuterol Sulfate) 8.5 Gm Hfa.aer.ad Unknown Dose INH 01/30/15 Reported Omeprazole 40 Mg Capsule.dr 40 Mg PO DAILY 01/30/15 Reported Cetirizine Hcl 10 Mg Tablet 1 Tab PO DAILY 01/30/15 Reported Oxycodone-Acetaminophen 10-325 (Oxycodone Hcl/Acetaminophen) 1 Each Tablet 1 Tab PO Q4HRS PRN 01/30/15 Reported Carisoprodol 350 Mg Tablet 1 Tab PO TID 01/30/15 Reported Diphedryl (Diphenhydramine Hcl) 25 Mg Capsule 25 Mg PO HS 01/30/15 Reported Impression . 1. Acute hypercapnic respiratory failure secondary to drug OD 2. Acute seizures 3. Acute drug overdose including Benadryl and Tylenol. 4. Anion gap metabolic acidosis/lactic acidosis secondary to seizure . 5. Abnormal chest x-ray with left lower lobe atelectasis versus infiltrate, resolved 6. History of tobacco use. 7. Narcotic dependent with opiates positive on the drug screen. Plan . RESP STATUS COMPENSATED DYSPHAGIA DIET PRN OXYGEN OFF ANTIBIOTIC CXR 06/03 CLEAR awaiting Psych clearance D/W SURAJ BAEZ MD Jun 06, 2017 12:44
[2017-06-06] MEDS ORDERED: ALPR1TAB6 PO (15:04)
[2017-06-06] MEDS ORDERED: OXYC1TAB9 PO (15:09)
[2017-06-06 16:04] VITALS: BP 150/87
[2017-06-06] MEDS ORDERED: BENZOCAINE/MENTHOL LOZENGE. PO PRN (17:30)
== END 2017-06-06 19:34 | DRG 917 ==
LOC: ER 13:31 → 1 WEST ICU 15:40 → 6 SOUTH 06-04 15:05
PROVIDERS: ADMIT Internal Medicine; ATTEND Internal Medicine
PROC: 5A1945Z Respiratory Ventilation, 24-96 Consecutive Hours (ICD-10-PCS; principal; 2017-05-31)
PROC: 0BH17EZ Insertion of Endotracheal Airway into Trachea, Via Natural or Artificial Opening (ICD-10-PCS; 2017-05-31)
DX: T39.1X2A Poisoning by 4-Aminophenol derivatives, intentional self-harm, initial encounter (principal); J96.02 Acute respiratory failure with hypercapnia; G92 Toxic encephalopathy; E87.4 Mixed disorder of acid-base balance; R65.10 Systemic inflammatory response syndrome (SIRS) of non-infectious origin without acute organ dysfunction; E44.0 Moderate protein-calorie malnutrition; G83.84 Todd's paralysis (postepileptic); E83.51 Hypocalcemia; J44.9 Chronic obstructive pulmonary disease, unspecified; F11.20 Opioid dependence, uncomplicated; T45.0X2A Poisoning by antiallergic and antiemetic drugs, intentional self-harm, initial encounter; E11.9 Type 2 diabetes mellitus without complications; E78.5 Hyperlipidemia, unspecified; E87.6 Hypokalemia; F31.9 Bipolar disorder, unspecified; F41.9 Anxiety disorder, unspecified; J02.9 Acute pharyngitis, unspecified; F79 Unspecified intellectual disabilities; G40.909 Epilepsy, unspecified, not intractable, without status epilepticus; M54.5 Low back pain; G89.29 Other chronic pain; M19.90 Unspecified osteoarthritis, unspecified site; I10 Essential (primary) hypertension; M81.0 Age-related osteoporosis without current pathological fracture; Z87.891 Personal history of nicotine dependence; Z88.8 Allergy status to other drugs, medicaments and biological substances; Z86.73 Personal history of transient ischemic attack (TIA), and cerebral infarction without residual deficits; Y92.89 Other specified places as the place of occurrence of the external cause; Z83.3 Family history of diabetes mellitus; Z68.20 Body mass index [BMI] 20.0-20.9, adult
CPT/HCPCS: 31500; 36415; 36600; 51702; 70450; 71010; 80048; 80053; 80076; 80307; 80329; 81001; 82140; 82248; 82550; 82805; 82962; 83605; 83690; 83735; 84443; 84484; 85025; 85610; 85730; 87040; 87641; 90686; 93005; 94002; 94003; 94250; 94760; 96361; 96365; 96375; 96376; 99292; G0480; J0132; J0330; J0610; J0696; J1630; J1650; J1815; J1953; J2060; J2704; J3010; J3475; J3480; J3490; J7030; J7042; J7060; S0028; 92526; 92610; 97116; 99291-25; G0479

== ENCOUNTER 2018-05-13 17:57 | Emergency (ER) | payer OTHER ==
[~2018-05-13] VITALS: Ht 144.8 cm; Wt 40.8 kg
[~2018-05-13 17:57] MED LIST changes: -IPRA3AMP IH; +IPRA3AMP29 IH; +OXYC-411 PO; -OXYC1TAB9 PO; -PROM118S2 PO; +PROM118S5 PO
[2018-05-13] MEDS ORDERED: DULO60CA6 PO (19:00)
[2018-05-13 19:03] LABS: BILIRUBIN,URINE NEGATIVE (NEG); CLARITY,URINE CLEAR; COLOR,URINE YELLOW; NITRITE,URINE NEGATIVE (NEG); PH,URINE 5.5; PROTEIN,URINE NEGATIVE (NEG-TRACE); UROBILINOGEN,URINE 0.2 mg/dL (0.2 mg/dL)
[2018-05-13 19:13] LABS: BACTERIA,URINE MODERATE /HPF (0-FEW); RBC,URINE 0 /HPF (0-2); SQUAMOUS EPITHELIAL CELL,UR MOD /LPF; WBC,URINE 20-40 /HPF (0-4)
--- NOTE | 2018-05-13 19:13 | PHYS DOC ---
Past Medical History Past Medical History: COPD, CVA, Diabetes-Type II, Hypertension, Seizure, Unknown Additional Past Medical Histor: CHRONIC BACK PAIN Past Surgical History: , Other Additional Past Surgical Histo: BACK Alcohol Use: None Drug Use: None Adult General Chief Complaint Chief Complaint: BLOOD SUGAR PROBLEM HPI HPI Patient is a 57 year old female who presents with chest pain she rates it 3 out of 10. Patient states that she took her blood sugar at home and as stated over 600 at 5:00 tonight. Patient takes her insulin sporadically but after seeing her blood sugar level she took 7 units of Humalog at 1700 tonight. Patient denies nausea, vomiting, abdominal pain, fever, numbness, tingling, shortness of air, excessive thirst, urinary frequency, dysuria, or recent illness. Patient is alert and oriented and neurologically intact. Patient was with her daughter. Review of Systems Review of Systems Constitutional: Denies fever or chills [] Eyes: Denies change in visual acuity, redness, or eye pain [] HENT: Denies nasal congestion or sore throat [] Respiratory: Denies cough or shortness of breath [] Cardiovascular: Chest pain GI: Denies abdominal pain, nausea, vomiting, bloody stools or diarrhea [] : Denies dysuria or hematuria [] Musculoskeletal: Denies back pain or joint pain [] Integument: Denies rash or skin lesions [] Neurologic: Denies headache, focal weakness or sensory changes [] Endocrine: States increased Glucose. Denies polyuria or polydipsia [] All other systems were reviewed and found to be within normal limits, except as documented in this note. Current Medications Current Medications Current Medications Medications (Trade) Dose Ordered Sig/Rosemary Start Time Stop Time Status Last Admin Dose Admin Insulin Human Regular (HumuLIN R VIAL) 5 unit 1X ONCE 05/13/18 20:30 05/13/18 20:33 DC 05/13/18 21:00 5 UNIT Potassium Chloride (Klor-Con) 20 meq 1X ONCE 05/13/18 20:30 05/13/18 20:33 DC 05/13/18 21:02 20 MEQ Sodium Chloride 1,000 ml @ 1,000 mls/hr 1X ONCE 05/13/18 20:15 05/13/18 21:14 DC 05/13/18 20:26 1,000 MLS/HR Allergies Allergies Allergies Coded Allergies Type Severity Reaction Last Updated Verified Estrogens Allergy Intermediate 09/14/15 Yes aspirin Allergy Intermediate ITCHING, VOMITING 11/21/14 Yes ibuprofen Allergy Intermediate 09/14/15 Yes Physical Exam Physical Exam Constitutional: Well developed, well nourished, no acute distress, non-toxic appearance. [] HENT: Normocephalic, atraumatic, bilateral external ears normal, oropharynx moist, no oral exudates, nose normal. [] Eyes: PERRLA, EOMI, conjunctiva normal, no discharge. [] Neck: Normal range of motion, no tenderness, supple, no stridor. [] Cardiovascular:Heart rate regular rhythm, no murmur [] Lungs & Thorax: Bilateral breath sounds clear to auscultation [] Abdomen: Bowel sounds normal, soft, no tenderness, no masses, no pulsatile masses. [] Skin: Warm, dry, no erythema, no rash. [] Back: No tenderness, no CVA tenderness. [] Extremities: No tenderness, no cyanosis, no clubbing, ROM intact, no edema. [] Neurologic: Alert and oriented X 3, normal motor function, normal sensory function, no focal deficits noted. [] Psychologic: Affect normal, judgement normal, mood normal. [] Current Patient Data Vital Signs Vital Signs Date Time Temp Pulse Resp B/P (MAP) Pulse Ox O2 Delivery O2 Flow Rate FiO2 05/13/18 21:05 77 20 170/81 (110) 98 05/13/18 18:18 98.2 Room Air 98.2 Lab Values Laboratory Tests Test 05/13/18 18:10 05/13/18 18:21 05/13/18 19:20 05/13/18 21:34 Urine Collection Type Unknown Urine Color Yellow Urine Clarity Clear Urine pH 5.5 Urine Specific [place] 1.025 Urine Protein Negative mg/dL (NEG-TRACE) Urine Glucose (UA) >=1000 mg/dL (NEG) Urine Ketones (Stick) Negative mg/dL (NEG) Urine Blood Negative (NEG) Urine Nitrite Negative (NEG) Urine Bilirubin Negative (NEG) Urine Urobilinogen Dipstick 0.2 mg/dL (0.2 mg/dL) Urine Leukocyte Esterase Small (NEG) Urine RBC 0 /HPF (0-2) Urine WBC 20-40 /HPF (0-4) Urine Squamous Epithelial Cells Mod /LPF Urine Bacteria Moderate /HPF (0-FEW) Glucose (Fingerstick) 527 mg/dL (70-99) *H 205 mg/dL (70-99) H White Blood Count 11.7 x10^3/uL (4.0-11.0) H Red Blood Count 4.35 x10^6/uL (3.50-5.40) Hemoglobin 12.4 g/dL (12.0-15.5) Hematocrit 36.8 % (36.0-47.0) Mean Corpuscular Volume 85 fL (79-100) Mean Corpuscular Hemoglobin 28 pg (25-35) Mean Corpuscular Hemoglobin Concent 34 g/dL (31-37) Red Cell Distribution Width 16.3 % (11.5-14.5) H Platelet Count 335 x10^3/uL (140-400) Neutrophils (%) (Auto) 76 % (31-73) H Lymphocytes (%) (Auto) 17 % (24-48) L Monocytes (%) (Auto) 5 % (0-9) Eosinophils (%) (Auto) 1 % (0-3) Basophils (%) (Auto) 1 % (0-3) Neutrophils # (Auto) 8.9 x10^3uL (1.8-7.7) H Lymphocytes # (Auto) 2.0 x10^3/uL (1.0-4.8) Monocytes # (Auto) 0.6 x10^3/uL (0.0-1.1) Eosinophils # (Auto) 0.1 x10^3/uL (0.0-0.7) Basophils # (Auto) 0.1 x10^3/uL (0.0-0.2) Sodium Level 133 mmol/L (136-145) L Potassium Level 3.7 mmol/L (3.5-5.1) Chloride Level 98 mmol/L (98-107) Carbon Dioxide Level 26 mmol/L (21-32) Anion Gap 9 (6-14) Blood Urea Nitrogen 14 mg/dL (7-20) Creatinine 1.0 mg/dL (0.6-1.0) Estimated GFR (Cockcroft-Gault) 56.7 BUN/Creatinine Ratio 14 (6-20) Glucose Level 449 mg/dL (70-99) H Calcium Level 9.3 mg/dL (8.5-10.1) Total Bilirubin 0.3 mg/dL (0.2-1.0) Aspartate Amino Transferase (AST) 8 U/L (15-37) L Alanine Aminotransferase (ALT) 17 U/L (14-59) Alkaline Phosphatase 112 U/L (46-116) Total Protein 7.4 g/dL (6.4-8.2) Albumin 4.0 g/dL (3.4-5.0) Albumin/Globulin Ratio 1.2 (1.0-1.7) Laboratory Tests 05/13/18 19:20 Laboratory Tests 05/13/18 19:20 EKG EKG Sinus rhythm, no STEMI and read by Dr. Barnes Interpretation Time: 1914 Radiology/Procedures Radiology/Procedures Chest x-ray Impressions: No acute findings and read by Dr Barnes Course & Med Decision Making Course & Med Decision Making Patient is a 57 year old female who presents with chest pain she rates it 3 out of 10. Patient states that she took her blood sugar at home and as stated over 600 at 5:00 tonight. Patient takes her insulin sporadically but after seeing her blood sugar level she took 7 units of Humalog at 1700 tonight. Patient denies nausea, vomiting, abdominal pain, fever, numbness, tingling, shortness of air, excessive thirst, urinary frequency, dysuria, or recent illness. Patient is alert and oriented and neurologically intact. Patient was with her daughter. Upon Examination the patient's lungs are clear to auscultation. Patient has no abdominal tenderness. Patient has no CVA tenderness. Patient has no weaknesses. Patient states her past medical history that she has hypertension, COPD, epilepsy, diabetes, chronic back pain. Patient' s granddaughter gave me a list the patient's medications. The patient is on omeprazole, clonazepam, gabapentin, lisinopril, Lyrica, Oxcarbazepine, pro-air, Symbicort, Humalog, Lantus, Levemir, duloxetine, levetiracetam, Lamotrigine. Patient's exam is unremarkable. Patient's EKG shows sinus rhythm and is read by Dr. Barnes. Patient's blood work shows white blood cell elevated at 11.7, glucose is 49, anion gap is normal at 9. Patient is given a liter of fluids, 5 units Regular insulin, and 20 meq potassium. Patient will be treated with Bactrim for her UTI. Patient is educated to take her medications regularly and to follow up with her primary care within 2 days. Upon discharge patient's blood sugars 205. Staff Physician Addendum: I was working in the ER during the course of this patient's visit. I was available for consultation as needed, but I was not directly involved in the care of this patient. [] Dragon Disclaimer Dragon Disclaimer This electronic medical record was generated, in whole or in part, using a voice recognition dictation system. Departure Departure Impression: Primary Impression: Urinary tract infection Additional Impression: Hyperglycemia Disposition: HOME, SELF-CARE Condition: STABLE Referrals: NO PCP (PCP) Patient Instructions: Hyperglycemia, Urinary Tract Infection Additional Instructions: Follow up with your primary care physician within 2 days. Take medications as prescribed. Scripts Nitrofurantoin Macrocrystal (NITROFURANTOIN) 100 Mg Capsule 1 CAP PO BID, #10 CAP Prov: ASHLEY SAEED APRN 05/13/18 Problem Qualifiers Primary Impression: Urinary tract infection Urinary tract infection type: site unspecified Hematuria presence: without hematuria Qualified Codes: N39.0 - Urinary tract infection, site not specified ASHLEY SAEED APRN May 13, 2018 19:12 LEAH BARNES MD May 14, 2018 18:02
[2018-05-13 19:29] LABS: BASO # 0.1 x10^3/uL (0.0-0.2); BASO % 1 % (0-3); EOS # 0.1 x10^3/uL (0.0-0.7); EOS % 1 % (0-3); HEMATOCRIT 36.8 % (36.0-47.0); HEMOGLOBIN 12.4 g/dL (12.0-15.5); LYMPH % 17 % (24-48); MEAN CORPUSCULAR HEMOGLOBIN 28 pg (25-35); MEAN CORPUSCULAR HGB CONC 34 g/dL (31-37); MEAN CORPUSCULAR VOLUME 85 fL (79-100); MONO # 0.6 x10^3/uL (0.0-1.1); MONO % 5 % (0-9); NEUT # 8.9 x10^3uL (1.8-7.7); NEUT % 76 % (31-73); PLATELET COUNT 335 x10^3/uL (140-400); RED BLOOD COUNT 4.35 x10^6/uL (3.50-5.40); RED CELL DISTRIBUTION WIDTH 16.3 % (11.5-14.5); WHITE BLOOD COUNT 11.7 x10^3/uL (4.0-11.0)
[2018-05-13 19:38] LABS: CALCIUM 9.3 mg/dL (8.5-10.1); GFR 56.7; POTASSIUM 3.7 mmol/L (3.5-5.1)
[2018-05-13 19:44] LABS: ALBUMIN/GLOBULIN RATIO 1.2 (1.0-1.7); TOTAL BILIRUBIN 0.3 mg/dL (0.2-1.0); TOTAL PROTEIN 7.4 g/dL (6.4-8.2)
[2018-05-13] MEDS ORDERED: IV NORMAL SALINE 1000ML BAG 1,000 ML IV ONE (20:15)
[2018-05-13] MEDS ORDERED: POTASSIUM CHLORIDE 20 MEQ TABLET.ER. PO ONE (20:30)
[2018-05-13] MEDS ORDERED: INSULIN REGULAR 100 UNIT/ML 3ML VIAL. IV ONE (20:30)
[2018-05-13] MEDS ORDERED: NITR100C PO (20:36)
[2018-05-13 21:05] VITALS: BP 170/81
--- NOTE | 2018-05-14 07:19 | EKG ---
[facility] [address] [place] [address] Test Date: 2018-05-13 Test Time: 19:06:00 Pat Name: SUNDEEP ROSALES Department: Room: Gender: F [employer] Operator: : [id number] Requested By: ASHLEY SAEED Order Number: [id number] Reading MD: Familia Serrato MD Measurements Intervals [place] Rate: 87 P: 45 FL: 170 QRS: 49 QRSD: 80 T: 27 QT: 326 QTc: 393 Interpretive Statements SINUS RHYTHM Electronically Signed On 05-14-2018 13:51:23 CDT by Familia Serrato MD
--- NOTE | 2018-05-14 08:19 | RAD ---
Chest radiograph 05/13/2018 6:42 PM INDICATION: Cough, shortness of breath with chest pain. COMPARISON: June 03, 2017 TECHNIQUE: Frontal and lateral views of the chest are provided. FINDINGS: The cardiomediastinal silhouette is within normal limits. Atherosclerotic calcifications of the thoracic aorta are noted. There are no pleural effusions. There is no pulmonary vascular congestion. There is no pneumothorax. The lungs are clear. No significant osseous abnormality is identified. IMPRESSION: No acute cardiopulmonary process. Electronically signed by: Ngoc Erazo MD (05/14/2018 8:15 AM) [id number]
== END 2018-05-13 21:51 | disposition home or self-care (01) ==
LOC: ER 17:57
DX: E11.65 Type 2 diabetes mellitus with hyperglycemia (principal); N39.0 Urinary tract infection, site not specified; R07.89 Other chest pain; I10 Essential (primary) hypertension; J44.9 Chronic obstructive pulmonary disease, unspecified; Z86.73 Personal history of transient ischemic attack (TIA), and cerebral infarction without residual deficits; G89.29 Other chronic pain; Z79.4 Long term (current) use of insulin; Z88.6 Allergy status to analgesic agent; Z88.8 Allergy status to other drugs, medicaments and biological substances
CPT/HCPCS: 36415; 71046; 80053; 81001; 82962; 85025; 87086; 93005; 96361; 96374; 99285; J1815; J7030